=== PATIENT | male | born 1980 | race African-American/Black ===

== ENCOUNTER 2016-11-15 17:09 | Emergency (ER) | payer OTHER ==
[~2016-11-15] VITALS: Ht 165.1 cm; Wt 57.6 kg
[~2016-11-15 17:09] MED LIST: AMLODIPINE BESY10 MG ORAL; ANTACID300 M1 PO; COLACE100 MG ORAL; FOLIC ACID1 MG ORAL; KEFLEX500 MG ORAL; MULTIVITAMINS1 EAC2 ORAL; NORCO 5-325 TA1 EAC1 ORAL; NORVASC5 MG ORAL; OMEPRAZOLE20 M3 ORAL; POLYTRIM OP SOL10 ML BOTH EYES; RANITIDINE HCL150 M2 PO; VITAMIN B-1100 M2 PO; ZANTAC150 MG ORAL; ZOFRAN8 MG SL
--- NOTE | 2016-11-15 17:38 | Emergency Room Report ---
History of Present Illness General Chief Complaint: Abdominal Pain Source: Patient Present Illness HPI Patient is a 36-year-old male who presented after increased epigastric pain. Patient prior history of pancreatitis. Patient states that he had recently drank alcohol several days ago. Patient reported having a gradual onset of pain. Patient had not been vomiting since yesterday. The patient had reported increased pain in the epigastric area which did not radiate to his back. Patient denied having a black or bloody stool or hematemesis. The patient takes Norvasc for hypertension Allergies: Coded Allergies: No Known Allergies (Unverified , 12/21/13) Patient History Reviewed Nursing Documentation: PMH: Agreed, PSxH: Agreed Nursing Documentation-PMH Past Medical History: No History, Except For Hx Hypertension: Yes Hx Cancer: No Hx Gastrointestinal Problems: Yes - Pancreatitis Hx Neurological Problems: No Review of Systems All Other Systems: negative except mentioned in HPI Physical Exam Vital Signs Date Time Temp Pulse Resp B/P Pulse Ox O2 Delivery O2 Flow Rate FiO2 11/15/16 17:18 99.7 96 20 153/90 100 Room Air Sp02 EP Interpretation: reviewed, normal General Appearance: normal inspection, well appearing, no apparent distress, alert, GCS 15, non-toxic Head: atraumatic ENT: normal ENT inspection, hearing grossly normal, normal voice Neck: normal inspection, full range of motion, supple, no bony tend Respiratory: normal inspection, lungs clear, normal breath sounds, no respiratory distress, no retraction, no wheezing Cardiovascular #1: regular rate, rhythm, no edema Gastrointestinal: normal inspection, normal bowel sounds, non tender, soft, no guarding, no hernia Genitourinary: no CVA tenderness Musculoskeletal: normal inspection, back normal, normal range of motion Neurologic: normal inspection, alert, oriented x3, responsive, inspector aligning III-XII nml as tested, speech normal Psychiatric: normal inspection, judgement/insight normal, mood/affect normal Skin: normal inspection, normal color, no rash Medical Decision Making Diagnostic Impression: Primary Impression: Pancreatitis ER Course Patient presented for abdominal pain. Differential diagnoses included ischemic bowel, appendicitis, perforated viscus, abdominal aortic aneurysm, inferior myocardial infarction, viral gastroenteritis. Because of complexity of patient' s case laboratory testing and imaging studies were ordered.Patient presented for dysuria. Differential diagnosis included was not limited to appendicitis, urinary tract infection, pelvic inflammatory disease, urethritis, herpes among others. Patient's benign exam and does not appear to require any imaging at this time. Urinalysis showed evidence of a urinary tract infection. The patient does not appear septic. The patient was given Bactrim in emergency department. He is given prescription for antibiotics The patient is advised to follow up with primary care doctor in 1-2 days. Patient is advised to return if any worsening condition or if any changes in status that are concerning. Labs Test 11/15/16 18:10 White Blood Count 13.8 K/UL (4.8-10.8) Red Blood Count 4.29 M/UL (4.70-6.10) Hemoglobin 14.5 G/DL (14.2-18.0) Hematocrit 41.0 % (42.0-52.0) Mean Corpuscular Volume 96 FL (80-99) Mean Corpuscular Hemoglobin 33.7 PG (27.0-31.0) Mean Corpuscular Hemoglobin Concent 35.3 G/DL (32.0-36.0) Red Cell Distribution Width 12.3 % (11.6-14.8) Platelet Count 304 K/UL (150-450) Mean Platelet Volume 6.9 FL (6.5-10.1) Neutrophils (%) (Auto) 78.9 % (45.0-75.0) Lymphocytes (%) (Auto) 9.6 % (20.0-45.0) Monocytes (%) (Auto) 9.0 % (1.0-10.0) Eosinophils (%) (Auto) 0.5 % (0.0-3.0) Basophils (%) (Auto) 2.0 % (0.0-2.0) Urine Color Yellow Urine Appearance Clear Urine pH 5.0 (4.5-8.0) Urine Specific [place] 1.020 (1.005-1.035) Urine Protein Negative (NEGATIVE) Urine Glucose (UA) Negative (NEGATIVE) Urine Ketones Negative (NEGATIVE) Urine Occult Blood Negative (NEGATIVE) Urine Nitrite Negative (NEGATIVE) Urine Bilirubin Negative (NEGATIVE) Urine Urobilinogen Normal MG/DL (0.0-1.0) Urine Leukocyte Esterase Negative (NEGATIVE) Sodium Level 137 mEQ/L (135-145) Potassium Level 3.5 mEQ/L (3.4-4.9) Chloride Level 97 mEQ/L (98-107) Carbon Dioxide Level 25 mEQ/L (20-30) Anion Gap 15 (5-15) Blood Urea Nitrogen 5 mg/dL (7-23) Creatinine 0.9 mg/dL (0.7-1.2) Estimat Glomerular Filtration Rate > 60 mL/min (>60) Glucose Level 116 mg/dL (74-106) Calcium Level 9.6 mg/dL (8.6-10.2) Total Bilirubin 0.4 mg/dL (0.0-1.2) Aspartate Amino Transf (AST/SGOT) 21 U/L (5-40) Alanine Aminotransferase (ALT/SGPT) 12 U/L (3-41) Alkaline Phosphatase 67 U/L (40-129) Total Protein 7.4 g/dL (6.6-8.7) Albumin 4.2 g/dL (3.5-5.2) Globulin 3.2 g/dL Albumin/Globulin Ratio 1.3 (1.0-2.7) Lipase 182 U/L (< 60) Last Vital Signs Date Time Temp Pulse Resp B/P Pulse Ox O2 Delivery O2 Flow Rate FiO2 11/15/16 17:18 99.7 96 20 153/90 100 Room Air Status: improved Disposition: HOME, SELF-CARE Condition: Stable Scripts Hydrocodone Bit/Acetaminophen 5-325* (NORCO 5-325 TABLET*) 1 Each Tablet 1 TAB ORAL Q4H Y for For Pain, #20 TAB Prov: Godfrey Ricardo 11/15/16 Ondansetron (Zofran) 4 Mg Tablet 4 MG ORAL Q6H Y for Nausea & Vomiting, #30 TAB 0 Refills Prov: Godfrey Ricardo 11/15/16 Godfrey Ricardo Nov 15, 2016 17:38
[2016-11-15] MEDS ORDERED: Lidocaine 2% Visc 15ml soln ORAL ONE (17:45)
[2016-11-15] MEDS ORDERED: Dicyclomine HCl 10mg/5ml oral soln ORAL ONE (17:45)
[2016-11-15 17:50] VITALS: BP 142/104
[2016-11-15] MEDS ORDERED: Morphine Sulfate 4mg/ml Inj IVP ONE (18:30)
[2016-11-15 18:33] LABS: EOSINOPHILS % (AUTO) 0.5 % (0.0-3.0); LYMPHOCYTES % (AUTO) 9.6 % (20.0-45.0); MEAN CORPUSCULAR HEMOGLOBIN 33.7 PG (27.0-31.0); MEAN CORPUSCULAR HGB CONC 35.3 G/DL (32.0-36.0); MEAN CORPUSCULAR VOLUME 96 FL (80-99); MEAN PLATELET VOLUME 6.9 FL (6.5-10.1); NEUTROPHILS % (AUTO) 78.9 % (45.0-75.0); PLATELET COUNT 304 K/UL (150-450); RED BLOOD COUNT 4.29 M/UL (4.70-6.10); RED CELL DISTRIBUTION WIDTH 12.3 % (11.6-14.8); WHITE BLOOD COUNT 13.8 K/UL (4.8-10.8)
[2016-11-15 18:35] LABS: APPEARANCE,URINE CLEAR; KETONES,URINE NEGATIVE (NEGATIVE); LEUKOCYTE ESTERASE ,URINE NEGATIVE (NEGATIVE); NITRITE,URINE NEGATIVE (NEGATIVE); PROTEIN,URINE NEGATIVE (NEGATIVE); UROBILINOGEN,URINE NORMAL MG/DL (0.0-1.0)
[2016-11-15 18:54] LABS: ALANINE AMINOTRANSFERASE 12 U/L (3-41); ALBUMIN/GLOBULIN RATIO 1.3 (1.0-2.7); ANION GAP 15 (5-15); ASPARTATE AMINO TRANSFERASE 21 U/L (5-40); CALCIUM 9.6 mg/dL (8.6-10.2); CARBON DIOXIDE 25 mEQ/L (20-30); CHLORIDE 97 mEQ/L (98-107); CREATININE 0.9 mg/dL (0.7-1.2); GLOMERULAR FILTRATION RATE > 60 mL/min (>60); HEMOLYSIS 4; LIPASE 182 U/L (< 60); POTASSIUM 3.5 mEQ/L (3.4-4.9); SODIUM 137 mEQ/L (135-145); TOTAL PROTEIN 7.4 g/dL (6.6-8.7)
[2016-11-15 19:10] VITALS: BP 155/90
[2016-11-15] MEDS ORDERED: ZOFRAN4 MG ORAL (19:32)
[2016-11-15] MEDS ORDERED: NORCO 5-325 TA1 EAC1 ORAL (19:34)
[2016-11-15 19:44] VITALS: BP 141/82
[2016-11-15 19:45] VITALS: BP 141/82
== END 2016-11-15 19:45 | disposition home or self-care (01) ==
LOC: EDBD 18:18 → EMR 18:18
DX: K85.90 Acute pancreatitis without necrosis or infection, unspecified (principal); I10 Essential (primary) hypertension
CPT/HCPCS: 36415; 80053; 81003; 83690; 85025; 96361; 96374; 96375; 99284; J2270; J2405

== ENCOUNTER 2019-04-28 11:29 | Inpatient (IN) | payer MEDICAID, OTHER ==
[~2019-04-28] VITALS: Ht 165.1 cm; Wt 57.6 kg
[~2019-04-28 11:29] MED LIST changes: +ZOFRAN4 MG ORAL
[2019-04-28] MEDS ORDERED: CATAPRES-TTS 11 EACH TDERMAL (11:39)
[2019-04-28] MEDS ORDERED: CATAPRES-TTS 31 EACH TDERMAL (11:39)
--- NOTE | 2019-04-28 11:42 | NUR ---
ED Nurse Note: Pt came in from home due to medial upper abdominal pain with nausea since yesterday morning. Pain 10/10 les. Pt reported last bowel movement was this morning, normal stool. Bowel sounds present on all quadrants. Pt has hx of Pancreatitis and suspects to be the same symptoms. AOx4, BP 179/106, ERMD aware. Will cont to monitor.
[2019-04-28] MEDS ORDERED: Metoclopramide 10mg/2ml Inj IVP ONE (11:45)
[2019-04-28] MEDS ORDERED: Morphine Sulfate 4mg/ml Inj (IV USE ONLY) IVP ONE ×2 (11:45→14:30)
[2019-04-28 12:08] VITALS: BP 179/106
[2019-04-28 12:15] LABS: EOSINOPHILS % (AUTO) 0.5 % (0.0-3.0); HEMATOCRIT 45.5 % (42.0-52.0); HEMOGLOBIN 15.3 G/DL (14.2-18.0); LYMPHOCYTES % (AUTO) 13.8 % (20.0-45.0); MEAN CORPUSCULAR VOLUME 96 FL (80-99); MONOCYTES % (AUTO) 6.9 % (1.0-10.0); NEUTROPHILS % (AUTO) 76.8 % (45.0-75.0); PLATELET COUNT 289 K/UL (150-450); RED BLOOD COUNT 4.75 M/UL (4.70-6.10); RED CELL DISTRIBUTION WIDTH 12.7 % (11.6-14.8); WHITE BLOOD COUNT 9.3 K/UL (4.8-10.8)
[2019-04-28 12:22] LABS: ANION GAP 13 mmol/L (5-15); BLOOD UREA NITROGEN 10 mg/dL (7-18); CALCIUM 9.4 MG/DL (8.5-10.1); CARBON DIOXIDE 23 MMOL/L (21-32); CHLORIDE 101 MMOL/L (98-107); CREATININE 1.2 MG/DL (0.55-1.30); POTASSIUM 3.8 MMOL/L (3.5-5.1); SODIUM 137 MMOL/L (136-145)
[2019-04-28 12:33] LABS: ALANINE AMINOTRANSFERASE 56 U/L (12-78); ALBUMIN 4.3 G/DL (3.4-5.0); ALBUMIN/GLOBULIN RATIO 1.2 (1.0-2.7); ALKALINE PHOSPHATASE 79 U/L (46-116); ASPARTATE AMINO TRANSFERASE 85 U/L (15-37); BILIRUBIN,TOTAL 1.1 MG/DL (0.2-1.0)
[2019-04-28 12:51] LABS: BILIRUBIN,DIRECT 0.2 MG/DL (0.0-0.3)
--- NOTE | 2019-04-28 13:19 | NUR ---
ED Nurse Note: Pt down to CT for imaging
--- NOTE | 2019-04-28 14:26 | Diagnostic Imaging Report ---
Indication: Abdominal pain Technique: Continuous helical transaxial imaging of the abdomen and pelvis was obtained from the lung bases to the pubic symphysis. No intravenous contrast was administered. Coronal 2-D reformats were also obtained. Automatic Exposure Control was utilized. Total Dose length Product (DLP): 510.[address] Dose Index Volume (CTDIvol): 10.21 mGy Comparison: none Findings: There is mild posterior dependent atelectasis. The pancreas is enlarged and the borders of the pancreas are ill-defined. The findings are consistent with acute pancreatitis. There are calcifications that are punctate within the head of the pancreas consistent with chronic pancreatitis. There is no biliary ductal dilatation identified. The gallbladder is mildly distended. Spleen is normal size. There is no nephrolithiasis. Urinary bladder is unremarkable. There is no free fluid. Appendix is normal. Bowel gas pattern is nonobstructive. Mild arterial calcium noted within some of the vessels. IMPRESSION: Acute on chronic pancreatitis. Involvement appears diffuse but more severe in the area of the pancreatic head. Moderate inflammation noted. No pseudocyst or abscess or biliary ductal dilatation. The CT scanner at [facility] is accredited by the [employer] and the scans are performed using dose optimization techniques as appropriate to a performed exam including Automatic Exposure control.
--- NOTE | 2019-04-28 14:29 | Emergency Room Report ---
History of Present Illness General Chief Complaint: Abdominal Pain Source: Patient Present Illness HPI Patient presents with complaints of increased epigastric and midabdominal pain reports that its Fairly consistent with previous pancreatitis patient does have a history of drinking recently he did not feel that it was too excessive denies any chest pain he does have increased nausea vomiting Denies any lower abdominal pain or diarrhea denies any fevers or chills Allergies: Coded Allergies: No Known Allergies (Unverified , 04/28/19) Patient History Past Medical History: see triage record Pertinent Family History: none Reviewed Nursing Documentation: PMH: Agreed; PSxH: Agreed Nursing Documentation-PMH Past Medical History: No History, Except For Hx Hypertension: Yes Hx Cancer: No Hx Gastrointestinal Problems: Yes - Pancreatitis Hx Neurological Problems: No Review of Systems All Other Systems: negative except mentioned in HPI Physical Exam Vital Signs Date Time Temp Pulse Resp B/P (MAP) Pulse Ox O2 Delivery O2 Flow Rate FiO2 04/28/19 11:34 98.2 93 18 206/126 (152) 97 Room Air Sp02 EP Interpretation: reviewed, normal General Appearance: well appearing, no apparent distress Head: normocephalic, atraumatic Eyes: bilateral eye PERRL, bilateral eye EOMI ENT: hearing grossly normal, normal pharynx, TMs + canals normal, uvula midline Neck: full range of motion, supple, no meningismus, no bony tend Respiratory: lungs clear, normal breath sounds, no rhonchi, no respiratory distress, no retraction, no accessory muscle use Cardiovascular #1: normal peripheral pulses, regular rate, rhythm, no edema, no gallop, no JVD, no murmur Gastrointestinal: normal bowel sounds, no organomegaly, non-distended, no guarding, no hernia, no pulsatile mass, no rebound, other - Tender in the midepigastric and left upper quadrant Genitourinary: no CVA tenderness Musculoskeletal: normal inspection Neurologic: oriented x3, responsive, belt sander III-XII nml as tested, motor strength/ tone normal, sensory intact Psychiatric: mood/affect normal Skin: no rash Lymphatic: normal inspection, no adenopathy Medical Decision Making Diagnostic Impression: Primary Impression: Pancreatitis, acute ER Course With the history exam and presentation, multiple differentials considered, including but not limited to appendicitis, gastritis, cholecystitis, diverticulitis patient has aggressive IV hydration and pain medication provided Blood work reveals acute pancreatitis as well Imaging has been obtained which also correlates clinically with this patient requiring further inpatient care Labs Test 04/28/19 12:00 White Blood Count 9.3 K/UL (4.8-10.8) Red Blood Count 4.75 M/UL (4.70-6.10) Hemoglobin 15.3 G/DL (14.2-18.0) Hematocrit 45.5 % (42.0-52.0) Mean Corpuscular Volume 96 FL (80-99) Mean Corpuscular Hemoglobin 32.1 PG (27.0-31.0) Mean Corpuscular Hemoglobin Concent 33.5 G/DL (32.0-36.0) Red Cell Distribution Width 12.7 % (11.6-14.8) Platelet Count 289 K/UL (150-450) Mean Platelet Volume 6.1 FL (6.5-10.1) Neutrophils (%) (Auto) 76.8 % (45.0-75.0) Lymphocytes (%) (Auto) 13.8 % (20.0-45.0) Monocytes (%) (Auto) 6.9 % (1.0-10.0) Eosinophils (%) (Auto) 0.5 % (0.0-3.0) Basophils (%) (Auto) 2.0 % (0.0-2.0) Sodium Level 137 MMOL/L (136-145) Potassium Level 3.8 MMOL/L (3.5-5.1) Chloride Level 101 MMOL/L (98-107) Carbon Dioxide Level 23 MMOL/L (21-32) Anion Gap 13 mmol/L (5-15) Blood Urea Nitrogen 10 mg/dL (7-18) Creatinine 1.2 MG/DL (0.55-1.30) Estimat Glomerular Filtration Rate > 60 mL/min (>60) Glucose Level 128 MG/DL (74-106) Calcium Level 9.4 MG/DL (8.5-10.1) Total Bilirubin 1.1 MG/DL (0.2-1.0) Direct Bilirubin 0.2 MG/DL (0.0-0.3) Aspartate Amino Transf (AST/SGOT) 85 U/L (15-37) Alanine Aminotransferase (ALT/SGPT) 56 U/L (12-78) Alkaline Phosphatase 79 U/L (46-116) Total Protein 8.0 G/DL (6.4-8.2) Albumin 4.3 G/DL (3.4-5.0) Globulin 3.7 g/dL Albumin/Globulin Ratio 1.2 (1.0-2.7) Lipase > 2000 U/L (73-393) CT/MRI/US Diagnostic Results CT/MRI/US Diagnostic Results : Impression CT abdomen pelvis IMPRESSION: Acute on chronic pancreatitis. Involvement appears diffuse but more severe in the area of the pancreatic head. Moderate inflammation noted. No pseudocyst or abscess or biliary ductal dilatation. Last Vital Signs Date Time Temp Pulse Resp B/P (MAP) Pulse Ox O2 Delivery O2 Flow Rate FiO2 04/28/19 12:27 98.2 04/28/19 12:08 94 24 179/106 99 Room Air Status: improved Disposition: ADMITTED INPATIENT Condition: Serious Referrals: [facility],REFERRING (PCP) Stephany Jeter DO Apr 28, 2019 14:29
[2019-04-28 14:36] VITALS: BP 172/111
--- NOTE | 2019-04-28 14:46 | NUR ---
ED Nurse Note: Report given to ISIS Piña at ext [phone]. Pt to be transfered to room 314-2 on [facility] per protocol.
[2019-04-28] MEDS ORDERED: HYDROmorphone 1mg/ml Carpuject IVP PRN (15:15)
--- NOTE | 2019-04-28 15:15 | NUR ---
NURSE NOTES: Patient arrived on unit. Stable. Complains of abdominal pain. Patient's blood pressure is elevated, Dr. Davila notified. Patient's skin is clean, dry, and intact. Patient oriented to room, call light, and unit. Patient encouraged to use call light for assistance, verbalized understanding. Patient is in bed in locked and lowest position with call light within reach. WIll continue to monitor.
--- NOTE | 2019-04-28 15:30 | NUR ---
NURSE NOTES: Waiting for patient's daughter to call back and tell RN which home medication patient takes. Will continue clonidine patch as ordered once daughter gives home medication information.
[2019-04-28] MEDS: NS w/KCl 20mEq 1000ml 1,000 ML IV SCH (16:34)
--- NOTE | 2019-04-28 18:00 | NUR ---
NURSE NOTES: Continued patient's clonidine patch from home as ordered after patient told RN which medication he takes.
--- NOTE | 2019-04-28 19:40 | NUR ---
NURSE NOTES: Received report from ISIS Piña and rounds made with out going nurse. Received pt lying in bed, AOX4, abdominal pain 6/10, denies nausea or vomiting, will medicate for pain, no distress noted. IV L wrist patent and intact. IV fluid infusing as ordered. Bed in lowest position and locked, side rails up x 2, call light within reach. Will continue to monitor.
--- NOTE | 2019-04-28 19:50 | NUR ---
HAND-OFF: Report given to Ken MARINELLI. Patient is stable.
[2019-04-28 20:29] VITALS: BP 181/121
--- NOTE | 2019-04-28 20:45 | Consultation ---
History of Present Illness General Date patient seen: Apr 28, 2019 Time patient seen: 20:44 Chief Complaint: Abdominal Pain Present Illness HPI Pt came in from home due to medial upper abdominal pain with nausea since yesterday morning. Pain 10/10 les. Pt reported last bowel movement was this morning, normal stool. Bowel sounds present on all quadrants. Pt has hx of Pancreatitis and suspects to be the same symptoms, Labs showed elevated lipase Hx of hypertension, cardiology consulted for management. No chest pain, troponin negative Allergies: Coded Allergies: No Known Allergies (Unverified , 04/28/19) Medication History Scheduled Amlodipine Besylate* (Amlodipine Besylate*), 10 MG ORAL DAILY, (Reported) Calcium Carbonate (Antacid), 500 MG PO FOUR TIMES A DAY, (Reported) Cephalexin* (Keflex*), 500 MG ORAL Q6H Docusate Sodium* (Colace*), 100 MG ORAL THREE TIMES A DAY Omeprazole (Omeprazole), 20 MG ORAL TWICE A DAY, (Reported) Ranitidine HCl (Ranitidine HCl), 150 MG PO BID, (Reported) Scheduled PRN Spejaloyx-Yaj-7* (Zoasxibh-Fqs-5*), 1 PATCH TDERMAL DAILY PRN for For High Blood Pressure, (Reported) Hydrocodone Bit/Acetaminophen 5-325* ([place] 5-325 Tablet*), 1 TAB ORAL Q6HR PRN for For Pain, (Reported) Hydrocodone Bit/Acetaminophen 5-325* ([place] 5-325 Tablet*), 1 TAB ORAL Q4H PRN for For Pain Ondansetron (Zofran), 4 MG ORAL Q6H PRN for Nausea & Vomiting Ondansetron Hcl* (Zofran*), 4 MG SL Q6H PRN for Nausea & Vomiting, (Reported) Patient History Healthcare decision maker Higinio La Resuscitation status Full Code Advanced Directive on File Review of Systems Constitutional: Reports: malaise, weakness Eye: Reports: no symptoms ENT: Reports: no symptoms Respiratory: Reports: no symptoms Cardiovascular: Reports: no symptoms Gastrointestinal: Reports: abdominal pain, nausea, vomiting Genitourinary: Reports: no symptoms Musculoskeletal: Reports: no symptoms Skin: Reports: no symptoms Psychiatric: Reports: no symptoms Neurological: Reports: no symptoms Endocrine: Reports: no symptoms Hematologic/Lymphatic: Reports: no symptoms Physical Exam General Appearance: no apparent distress, alert Lines, tubes and drains: peripheral HEENT: normocephalic, atraumatic Neck: non-tender, normal alignment, supple, normal inspection Respiratory/Chest: chest wall non-tender, lungs clear, normal breath sounds, no respiratory distress, no accessory muscle use Cardiovascular/Chest: normal peripheral pulses, normal rate, regular rhythm Abdomen: decreased bowel sounds, distended, guarding, rebound, tender Extremities: normal range of motion, non-tender, normal inspection Neurologic: propulsion motor and generator repairer II-XII grossly normal, no motor/sensory deficits Last 24 Hour Vital Signs Date Time Temp Pulse Resp B/P (MAP) Pulse Ox O2 Delivery O2 Flow Rate FiO2 04/28/19 20:29 97.6 79 22 181/121 (141) 100 04/28/19 18:13 156/102 04/28/19 15:40 Room Air 04/28/19 15:20 200/129 04/28/19 14:46 98.2 86 20 172/111 100 Room Air 04/28/19 14:36 98.2 86 20 172/111 100 Room Air 04/28/19 12:27 98.2 04/28/19 12:08 98.2 94 24 179/106 99 Room Air 04/28/19 11:47 93 18 Room Air 04/28/19 11:34 98.2 93 18 206/126 (152) 97 Room Air Laboratory Tests Test 04/28/19 12:00 04/28/19 18:00 White Blood Count 9.3 K/UL (4.8-10.8) Red Blood Count 4.75 M/UL (4.70-6.10) Hemoglobin 15.3 G/DL (14.2-18.0) Hematocrit 45.5 % (42.0-52.0) Mean Corpuscular Volume 96 FL (80-99) Mean Corpuscular Hemoglobin 32.1 PG (27.0-31.0) H Mean Corpuscular Hemoglobin Concent 33.5 G/DL (32.0-36.0) Red Cell Distribution Width 12.7 % (11.6-14.8) Platelet Count 289 K/UL (150-450) Mean Platelet Volume 6.1 FL (6.5-10.1) L Neutrophils (%) (Auto) 76.8 % (45.0-75.0) H Lymphocytes (%) (Auto) 13.8 % (20.0-45.0) L Monocytes (%) (Auto) 6.9 % (1.0-10.0) Eosinophils (%) (Auto) 0.5 % (0.0-3.0) Basophils (%) (Auto) 2.0 % (0.0-2.0) Sodium Level 137 MMOL/L (136-145) Potassium Level 3.8 MMOL/L (3.5-5.1) Chloride Level 101 MMOL/L (98-107) Carbon Dioxide Level 23 MMOL/L (21-32) Anion Gap 13 mmol/L (5-15) Blood Urea Nitrogen 10 mg/dL (7-18) Creatinine 1.2 MG/DL (0.55-1.30) Estimat Glomerular Filtration Rate > 60 mL/min (>60) Glucose Level 128 MG/DL (74-106) H Calcium Level 9.4 MG/DL (8.5-10.1) Total Bilirubin 1.1 MG/DL (0.2-1.0) H Direct Bilirubin 0.2 MG/DL (0.0-0.3) Aspartate Amino Transf (AST/SGOT) 85 U/L (15-37) H Alanine Aminotransferase (ALT/SGPT) 56 U/L (12-78) Alkaline Phosphatase 79 U/L (46-116) Total Protein 8.0 G/DL (6.4-8.2) Albumin 4.3 G/DL (3.4-5.0) Globulin 3.7 g/dL Albumin/Globulin Ratio 1.2 (1.0-2.7) Lipase > 2000 U/L (73-393) H Serum Alcohol < 3 mg/dL Urine Opiates Screen Pending Urine Barbiturates Screen Pending Phencyclidine (PCP) Screen Pending Urine Amphetamines Screen Pending Urine Benzodiazepines Screen Pending Urine Cocaine Screen Pending Urine Marijuana (THC) Screen Pending Height (Feet): 5 Height (Inches): 5.00 Weight (Pounds): 127 Medications Current Medications Medications (Trade) Dose Ordered Sig/Noé Route PRN Reason Start Time Stop Time Status Last Admin Dose Admin Clonidine HCl (Catapres TTS-1) 1 patch QWEEK TDERMAL 04/28/19 18:00 05/28/19 17:59 04/28/19 18:13 Clonidine HCl (Catapres Tab) 0.1 mg Q4H PRN ORAL sbp>150 04/28/19 15:15 05/28/19 15:14 04/28/19 15:20 Hydromorphone HCl (Dilaudid) 1 mg Q4H PRN IVP Moderate Pain (Pain Scale 4-6) 04/28/19 15:15 05/05/19 15:14 Hydromorphone HCl (Dilaudid) 2 mg Q4H PRN IVP Severe Pain (Pain Scale 7-10) 04/28/19 15:15 05/05/19 15:14 04/28/19 20:34 Lorazepam (Ativan 2mg/ml 1ml) 1 mg TIDPRN PRN IV For Anxiety 04/28/19 15:15 05/05/19 15:14 Ondansetron HCl (Zofran) 4 mg Q6H PRN IVP Nausea & Vomiting 04/28/19 15:15 05/28/19 15:14 Potassium Chloride/Sodium Chloride 1,000 ml @ 75 mls/hr [id number] IV 04/28/19 16:00 05/28/19 15:59 04/28/19 16:34 Assessment/Plan Status: stable, progressing Assessment/Plan: Assessment: (1) Drug abuse (2) Cyclic vomiting syndrome (3) Acute pancreatitis (4) Hypertension Plan: NPO IV fluids Creon Monitor electrolytes Monitor on telemetry Clonidine patch for hypertension Ashwin Sher MD Apr 28, 2019 20:45
--- NOTE | 2019-04-28 21:04 | NUR ---
NURSE NOTES: Tamara (Arachnys) from the lab called. Pt urine toxicology positive for Opiates and THC. Per LYNN Alvarez no need to notify Dr. Davila.
[2019-04-28 21:30] VITALS: BP 158/108
--- NOTE | 2019-04-28 21:30 | NUR ---
NURSE NOTES: B/P recheck 158/108, HR 80. Pt's pain level 5/10 on abdomen. Denies chest pain, no SOB, no nausea, no distress noted. Will continue to monitor.
[2019-04-29] VITALS (8 sets, daily range): BP systolic 130–179; BP diastolic 81–119
--- NOTE | 2019-04-29 00:50 | NUR ---
NURSE NOTES: IV on R FA infiltrated. Covered with 4x4 gauze and tape. Elevated R arm on pillow. Pt refused new IV insertion at this time.
--- NOTE | 2019-04-29 01:30 | NUR ---
NURSE NOTES: B/P 180/124. HR 89. Pt denies any chest pain, no dizziness, no SOB, no distress noted. Clonidine 0.1mg PO given. Will continue to monitor.
[2019-04-29] MEDS: LORazepam Inj 2mg/ml 1ml IV PRN ×2 (03:13→16:19)
--- NOTE | 2019-04-29 03:15 | History and Physical Report ---
DATE OF ADMISSION: 04/28/2019 HISTORY OF PRESENT ILLNESS: The patient is a 38-year-old male with a previous pancreatitis who came to the hospital with abdominal pain. He has a history of previous pancreatitis due to alcohol abuse. He states he had a few beers which he did not think would cause the symptoms; however, it may cause him to have abdominal pain. He came to the hospital with abdominal pain. He was seen and worked up and found to have lipase pancreatitis. The patient was also noted to be significantly hypertensive and was seen by Cardiology overnight. PAST HISTORY: 1. Previous pancreatitis. 2. Hypertension. HOME MEDICATIONS: Amlodipine, Keflex, Colace, omeprazole, and Zantac. CODE STATUS: Full. REVIEW OF SYSTEMS: Denies any headaches, hematemesis, melena, or hematochezia. PHYSICAL EXAMINATION: VITAL SIGNS: Blood pressure 150/80, heart rate 80, respirations 18, afebrile. GENERAL: Reveals a young male. HEENT: Unremarkable. LUNGS: Clear breath sounds bilaterally. ABDOMEN: Soft with mild right right upper quadrant tenderness. EXTREMITIES: There is some peripheral edema. NEUROLOGIC: Nonfocal. LABORATORY DATA: Lab testing is unremarkable expect of lipase of over 2000. Glucose 128. Total bilirubin 1.1. Toxicology positive for marijuana and opiates. Imaging study obtained earlier today shows CT of the abdomen with acute on chronic pancreatitis without any evidence of . IMPRESSION: 1. Acute pancreatitis. 2. Alcohol abuse. 3. Marijuana abuse. 4. Hypertension. Discussion with the hospitalist. We will consult GI. The patient was seen by Cardiology. We will do bowel rest, provide IV fluids. Pain medications. We will follow carefully. Demetrio Davila M.D. DR: Den JOB#: [id number] CC:
--- NOTE | 2019-04-29 03:15 | NUR ---
NURSE NOTES: New IV inserted L hand # 22 patent and intact. IV fluid resumed.
[2019-04-29] MEDS: NS w/KCl 20mEq 1000ml 1,000 ML IV SCH ×2 (05:20→08:48)
[2019-04-29 06:39] LABS: BASOPHILS % (AUTO) 1.1 % (0.0-2.0); EOSINOPHILS % (AUTO) 1.9 % (0.0-3.0); HEMATOCRIT 40.1 % (42.0-52.0); HEMOGLOBIN 13.4 G/DL (14.2-18.0); LYMPHOCYTES % (AUTO) 12.1 % (20.0-45.0); MEAN CORPUSCULAR VOLUME 97 FL (80-99); MONOCYTES % (AUTO) 10.6 % (1.0-10.0); NEUTROPHILS % (AUTO) 74.4 % (45.0-75.0); PLATELET COUNT 231 K/UL (150-450); RED BLOOD COUNT 4.14 M/UL (4.70-6.10); RED CELL DISTRIBUTION WIDTH 12.3 % (11.6-14.8)
[2019-04-29 07:09] LABS: ANION GAP 11 mmol/L (5-15); BLOOD UREA NITROGEN 7 mg/dL (7-18); CALCIUM 8.6 MG/DL (8.5-10.1); CARBON DIOXIDE 23 MMOL/L (21-32); CHLORIDE 105 MMOL/L (98-107); SODIUM 139 MMOL/L (136-145)
--- NOTE | 2019-04-29 07:27 | NUR ---
HAND-OFF: Report given to ISIS Pennington. Pt in stable condition.
--- NOTE | 2019-04-29 07:30 | NUR ---
NURSE NOTES: Patient lying in bed sleeping. No signs and symptoms of pain or distress at this time. Will continue to monitor. IV dressing intact and dry. Bed lowest position. Call light within reach. Will continue to monitor.
--- NOTE | 2019-04-29 09:06 | Cardiology Progress Note ---
Assessment/Plan Status: stable Assessment/Plan Assessment/Plan Status: stable, progressing Assessment/Plan: Assessment: (1) Drug abuse (2) Cyclic vomiting syndrome (3) Acute pancreatitis (4) Hypertension Plan: NPO IV fluids Creon Monitor electrolytes Monitor on telemetry Clonidine patch for hypertension Subjective Cardiovascular: Reports: no symptoms Respiratory: Reports: no symptoms Gastrointestinal/Abdominal: Reports: no symptoms, vomiting Genitourinary: Reports: no symptoms Subjective No acute events, remains NPO with ice chips, mild abdominal pain Objective Last 24 Hour Vital Signs Date Time Temp Pulse Resp B/P (MAP) Pulse Ox O2 Delivery O2 Flow Rate FiO2 04/29/19 04:00 97.9 78 18 145/90 (108) 97 04/29/19 02:30 82 156/104 (121) 04/29/19 01:33 180/124 04/29/19 00:00 97.6 71 20 175/107 (129) 97 04/28/19 21:37 158/108 04/28/19 21:30 80 158/108 (125) 04/28/19 21:00 Room Air 04/28/19 20:29 97.6 79 22 181/121 (141) 100 04/28/19 18:13 156/102 04/28/19 15:40 Room Air 04/28/19 15:20 200/129 04/28/19 14:46 98.2 86 20 172/111 100 Room Air 04/28/19 14:36 98.2 86 20 172/111 100 Room Air 04/28/19 12:27 98.2 04/28/19 12:08 98.2 94 24 179/106 99 Room Air 04/28/19 11:47 93 18 Room Air 04/28/19 11:34 98.2 93 18 206/126 (152) 97 Room Air General Appearance: no apparent distress, alert EENT: PERRL/EOMI, normal ENT inspection, TMs normal, pharynx normal Neck: non-tender, normal alignment, supple, normal inspection, no JVD Rhythm: NSR Cardiovascular: normal peripheral pulses, normal rate Respiratory/Chest: chest wall non-tender, lungs clear Abdomen: normal bowel sounds, non tender, soft Extremities: normal range of motion, non-tender, normal inspection 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, no motor/sensory deficits Intake and Output 04/28/19 04/29/19 19:00 07:00 Intake Total 1075 ml 675 ml Output Total 1433 ml Balance 1075 ml -758 ml Intake IV Total 1075 ml 675 ml Output Urine Total 1433 ml # Voids 1 Laboratory Tests Test 04/28/19 12:00 04/28/19 18:00 04/29/19 05:50 White Blood Count 9.3 K/UL (4.8-10.8) 10.0 K/UL (4.8-10.8) Red Blood Count 4.75 M/UL (4.70-6.10) 4.14 M/UL (4.70-6.10) L Hemoglobin 15.3 G/DL (14.2-18.0) 13.4 G/DL (14.2-18.0) L Hematocrit 45.5 % (42.0-52.0) 40.1 % (42.0-52.0) L Mean Corpuscular Volume 96 FL (80-99) 97 FL (80-99) Mean Corpuscular Hemoglobin 32.1 PG (27.0-31.0) H 32.3 PG (27.0-31.0) H Mean Corpuscular Hemoglobin Concent 33.5 G/DL (32.0-36.0) 33.4 G/DL (32.0-36.0) Red Cell Distribution Width 12.7 % (11.6-14.8) 12.3 % (11.6-14.8) Platelet Count 289 K/UL (150-450) 231 K/UL (150-450) Mean Platelet Volume 6.1 FL (6.5-10.1) L 6.3 FL (6.5-10.1) L Neutrophils (%) (Auto) 76.8 % (45.0-75.0) H 74.4 % (45.0-75.0) Lymphocytes (%) (Auto) 13.8 % (20.0-45.0) L 12.1 % (20.0-45.0) L Monocytes (%) (Auto) 6.9 % (1.0-10.0) 10.6 % (1.0-10.0) H Eosinophils (%) (Auto) 0.5 % (0.0-3.0) 1.9 % (0.0-3.0) Basophils (%) (Auto) 2.0 % (0.0-2.0) 1.1 % (0.0-2.0) Sodium Level 137 MMOL/L (136-145) 139 MMOL/L (136-145) Potassium Level 3.8 MMOL/L (3.5-5.1) 4.0 MMOL/L (3.5-5.1) Chloride Level 101 MMOL/L (98-107) 105 MMOL/L (98-107) Carbon Dioxide Level 23 MMOL/L (21-32) 23 MMOL/L (21-32) Anion Gap 13 mmol/L (5-15) 11 mmol/L (5-15) Blood Urea Nitrogen 10 mg/dL (7-18) 7 mg/dL (7-18) Creatinine 1.2 MG/DL (0.55-1.30) 1.0 MG/DL (0.55-1.30) Estimat Glomerular Filtration Rate > 60 mL/min (>60) > 60 mL/min (>60) Glucose Level 128 MG/DL (74-106) H 85 MG/DL (74-106) Calcium Level 9.4 MG/DL (8.5-10.1) 8.6 MG/DL (8.5-10.1) Total Bilirubin 1.1 MG/DL (0.2-1.0) H Direct Bilirubin 0.2 MG/DL (0.0-0.3) Aspartate Amino Transf (AST/SGOT) 85 U/L (15-37) H Alanine Aminotransferase (ALT/SGPT) 56 U/L (12-78) Alkaline Phosphatase 79 U/L (46-116) Total Protein 8.0 G/DL (6.4-8.2) Albumin 4.3 G/DL (3.4-5.0) Globulin 3.7 g/dL Albumin/Globulin Ratio 1.2 (1.0-2.7) Lipase > 2000 U/L (73-393) H > 2000 U/L (73-393) H Serum Alcohol < 3 mg/dL Urine Opiates Screen Positive (NEGATIVE) H Urine Barbiturates Screen Negative (NEGATIVE) Phencyclidine (PCP) Screen Negative (NEGATIVE) Urine Amphetamines Screen Negative (NEGATIVE) Urine Benzodiazepines Screen Negative (NEGATIVE) Urine Cocaine Screen Negative (NEGATIVE) Urine Marijuana (THC) Screen Positive (NEGATIVE) H Ashwin Sher MD Apr 29, 2019 09:06
--- NOTE | 2019-04-29 09:51 | Pulmonology Progress Note ---
Assessment/Plan Assessment/Plan IMPRESSION: 1. Acute pancreatitis. 2. Alcohol abuse. 3. Marijuana abuse. 4. Hypertension. Await GI consult. Seen by Cardiology. Start clear liquids Provide IV fluids and pain medications. I will follow carefully. Subjective Interval Events: Feeling better; lipase still >2000 Constitutional: Reports: no symptoms HEENT: Repors: no symptoms Respiratory: Reports: no symptoms Cardiovascular: Reports: no symptoms Gastrointestinal/Abdominal: Reports: nausea Genitourinary: Reports: no symptoms Neurologic: Reports: no symptoms Allergies: Coded Allergies: No Known Allergies (Unverified , 04/28/19) Objective Last 24 Hour Vital Signs Date Time Temp Pulse Resp B/P (MAP) Pulse Ox O2 Delivery O2 Flow Rate FiO2 04/29/19 04:00 97.9 78 18 145/90 (108) 97 04/29/19 02:30 82 156/104 (121) 04/29/19 01:33 180/124 04/29/19 00:00 97.6 71 20 175/107 (129) 97 04/28/19 21:37 158/108 04/28/19 21:30 80 158/108 (125) 04/28/19 21:00 Room Air 04/28/19 20:29 97.6 79 22 181/121 (141) 100 04/28/19 18:13 156/102 04/28/19 15:40 Room Air 04/28/19 15:20 200/129 04/28/19 14:46 98.2 86 20 172/111 100 Room Air 04/28/19 14:36 98.2 86 20 172/111 100 Room Air 04/28/19 12:27 98.2 04/28/19 12:08 98.2 94 24 179/106 99 Room Air 04/28/19 11:47 93 18 Room Air 04/28/19 11:34 98.2 93 18 206/126 (152) 97 Room Air Intake and Output 04/28/19 04/29/19 19:00 07:00 Intake Total 1075 ml 675 ml Output Total 1433 ml Balance 1075 ml -758 ml Intake IV Total 1075 ml 675 ml Output Urine Total 1433 ml # Voids 1 General Appearance: no acute distress HEENT: normocephalic Respiratory/Chest: chest wall non-tender, lungs clear Cardiovascular: normal peripheral pulses Abdomen: normal bowel sounds Laboratory Tests 04/28/19 12:00: White Blood Count 9.3, Red Blood Count 4.75, Hemoglobin 15.3, Hematocrit 45.5, Mean Corpuscular Volume 96, Mean Corpuscular Hemoglobin 32.1H, Mean Corpuscular Hemoglobin Concent 33.5, Red Cell Distribution Width 12.7, Platelet Count 289, Mean Platelet Volume 6.1L, Neutrophils (%) (Auto) 76.8H, Lymphocytes (%) (Auto) 13.8L, Monocytes (%) (Auto) 6.9, Eosinophils (%) (Auto) 0.5, Basophils (%) (Auto ) 2.0, Sodium Level 137, Potassium Level 3.8, Chloride Level 101, Carbon Dioxide Level 23, Anion Gap 13, Blood Urea Nitrogen 10, Creatinine 1.2, Estimat Glomerular Filtration Rate > 60, Glucose Level 128H, Calcium Level 9.4, Total Bilirubin 1.1H, Direct Bilirubin 0.2, Aspartate Amino Transf (AST/SGOT) 85H, Alanine Aminotransferase (ALT/SGPT) 56, Alkaline Phosphatase 79, Total Protein 8.0, Albumin 4.3, Globulin 3.7, Albumin/Globulin Ratio 1.2, Lipase > 2000H, Serum Alcohol < 3 04/28/19 18:00: Urine Opiates Screen PositiveH, Urine Barbiturates Screen Negative, Phencyclidine (PCP) Screen Negative, Urine Amphetamines Screen Negative, Urine Benzodiazepines Screen Negative, Urine Cocaine Screen Negative, Urine Marijuana (THC) Screen PositiveH 04/29/19 05:50: White Blood Count 10.0, Red Blood Count 4.14L, Hemoglobin 13.4L, Hematocrit 40.1L, Mean Corpuscular Volume 97, Mean Corpuscular Hemoglobin 32.3H, Mean Corpuscular Hemoglobin Concent 33.4, Red Cell Distribution Width 12.3, Platelet Count 231, Mean Platelet Volume 6.3L, Neutrophils (%) (Auto) 74.4, Lymphocytes ( %) (Auto) 12.1L, Monocytes (%) (Auto) 10.6H, Eosinophils (%) (Auto) 1.9, Basophils (%) (Auto) 1.1, Sodium Level 139, Potassium Level 4.0, Chloride Level 105, Carbon Dioxide Level 23, Anion Gap 11, Blood Urea Nitrogen 7, Creatinine 1.0, Estimat Glomerular Filtration Rate > 60, Glucose Level 85, Calcium Level 8.6, Lipase > 2000H Current Medications Medications (Trade) Dose Ordered Sig/Noé Route PRN Reason Start Time Stop Time Status Last Admin Dose Admin Clonidine HCl (Catapres TTS-1) 1 patch QWEEK TDERMAL 04/28/19 18:00 05/28/19 17:59 04/28/19 18:13 Clonidine HCl (Catapres Tab) 0.1 mg Q4H PRN ORAL sbp>150 04/28/19 15:15 05/28/19 15:14 04/29/19 01:33 Hydromorphone HCl (Dilaudid) 1 mg Q4H PRN IVP Moderate Pain (Pain Scale 4-6) 04/28/19 15:15 05/05/19 15:14 Hydromorphone HCl (Dilaudid) 2 mg Q4H PRN IVP Severe Pain (Pain Scale 7-10) 04/28/19 15:15 05/05/19 15:14 04/29/19 08:41 Lorazepam (Ativan 2mg/ml 1ml) 1 mg TIDPRN PRN IV For Anxiety 04/28/19 15:15 05/05/19 15:14 04/29/19 03:13 Ondansetron HCl (Zofran) 4 mg Q6H PRN IVP Nausea & Vomiting 04/28/19 15:15 05/28/19 15:14 04/28/19 22:41 Potassium Chloride/Sodium Chloride 1,000 ml @ 75 mls/hr [id number] IV 04/28/19 16:00 05/28/19 15:59 04/29/19 08:48 Demetrio Davila MD Apr 29, 2019 09:51
--- NOTE | 2019-04-29 10:06 | NUR ---
NURSE NOTES: Spoke to regarding patient and new order received. Order read back and carried out. No new order for blood pressure.
--- NOTE | 2019-04-29 11:00 | NUR ---
CASE MANAGEMENT:REVIEW 38 YR OLD MALE PRESENTED TO ER CC: ABDOMINAL PAIN SI: PANCREATITIS 98.3 93 18 206/126 97% ON RA LIPASE>2000 IS: IV REGLAN IV MORPHINE 1L NS BOLUS CT ABD/PELVIS : TO MED/SURG 3 EAST INTERQUAL CRITERIA MET
--- NOTE | 2019-04-29 12:07 | GI Initial Consult Note ---
History of Present Illness General Date patient seen: Apr 29, 2019 Time patient seen: 12:04 Reason for Hospitalization: Abdominal Pain Referring physician: EMILIE JOSHI Reason for Consultation: PANCREATITIS Present Illness HPI Patient presents with complaints of increased epigastric and midabdominal pain reports that its Fairly consistent with previous pancreatitis patient does have a history of drinking recently he did not feel that it was too excessive denies any chest pain he does have increased nausea vomiting Denies any lower abdominal pain or diarrhea denies any fevers or chills GI consulted for pancreatitis. Patient seen, awake alert and oriented x4 has complaint of severe left upper quadrant pain. Patient presents with a diagnosis of pancreatitis, lipase level over 2000. Urine toxicity positive for marijuana. The patient admits being a heavy marijuana user. The patient states he has had similar episodes in the past. Denies any alcohol or tobacco use. At this time the patient states his abdominal pain is improved. The patient has no history of endoscopic or colonoscopy. No significant past medical history. Home Meds Active Scripts Hydrocodone Bit/Acetaminophen 5-325* (NORCO 5-325 TABLET*) 1 Each Tablet, 1 TAB ORAL Q4H PRN for For Pain, #20 TAB Prov:Godfrey Ricardo MD 11/15/16 Ondansetron (Zofran) 4 Mg Tablet, 4 MG ORAL Q6H PRN for Nausea & Vomiting, #30 TAB 0 Refills Prov:Godfrey Ricardo MD 11/15/16 Docusate Sodium* (COLACE*) 100 Mg Capsule, 100 MG ORAL THREE TIMES A DAY for 10 Days, CAP Prov:Baljinder Soto MD 08/06/15 Cephalexin* (KEFLEX*) 500 Mg Capsule, 500 MG ORAL Q6H, #28 CAP Prov:Baljinder Soto MD 08/06/15 Reported Medications Tfmeoebfz-Rag-2* (JBCLOAXL-LJE-8*) 1 Each Patch.tdwk, 1 PATCH TDERMAL DAILY PRN for For High Blood Pressure, PATCH 04/28/19 Calcium Carbonate (ANTACID) 300 Mg Tab.chew, 500 MG PO FOUR TIMES A DAY, TAB 05/05/16 Ondansetron Hcl* (ZOFRAN*) 8 Mg Tablet, 4 MG SL Q6H PRN for Nausea & Vomiting, # 4 TAB 0 Refills 05/05/16 Amlodipine Besylate* (AMLODIPINE BESYLATE*) 10 Mg Tablet, 10 MG ORAL DAILY, TAB 05/05/16 Omeprazole (OMEPRAZOLE) 20 Mg Tablet.dr, 20 MG ORAL TWICE A DAY, TAB 05/05/16 Ranitidine HCl (Ranitidine HCl) 150 Mg Tablet, 150 MG PO BID, TAB 05/05/16 Hydrocodone Bit/Acetaminophen 5-325* (NORCO 5-325 TABLET*) 1 Each Tablet, 1 TAB ORAL Q6HR PRN for For Pain, #20 TAB 05/05/16 Med list reviewed/reconciled: Yes Allergies: Coded Allergies: No Known Allergies (Unverified , 04/28/19) Patient History History Provided By: Patient, Medical Record PMH Narrative Past Medical History: see triage record Pertinent Family History: none Reviewed Nursing Documentation: PMH: Agreed; PSxH: Agreed Nursing Documentation-PMH Past Medical History: No History, Except For Hx Hypertension: Yes Hx Cancer: No Hx Gastrointestinal Problems: Yes - Pancreatitis Hx Neurological Problems: No Social History: Reports: drug use Review of Systems All Other Systems: negative except mentioned in HPI Physical Exam Vital Signs Date Time Temp Pulse Resp B/P (MAP) Pulse Ox O2 Delivery O2 Flow Rate FiO2 04/28/19 11:34 98.2 93 18 206/126 (152) 97 Room Air Sp02 EP Interpretation: reviewed, normal Labs Laboratory Tests Test 04/28/19 18:00 04/29/19 05:50 Urine Opiates Screen Positive (NEGATIVE) H Urine Barbiturates Screen Negative (NEGATIVE) Phencyclidine (PCP) Screen Negative (NEGATIVE) Urine Amphetamines Screen Negative (NEGATIVE) Urine Benzodiazepines Screen Negative (NEGATIVE) Urine Cocaine Screen Negative (NEGATIVE) Urine Marijuana (THC) Screen Positive (NEGATIVE) H White Blood Count 10.0 K/UL (4.8-10.8) Red Blood Count 4.14 M/UL (4.70-6.10) L Hemoglobin 13.4 G/DL (14.2-18.0) L Hematocrit 40.1 % (42.0-52.0) L Mean Corpuscular Volume 97 FL (80-99) Mean Corpuscular Hemoglobin 32.3 PG (27.0-31.0) H Mean Corpuscular Hemoglobin Concent 33.4 G/DL (32.0-36.0) Red Cell Distribution Width 12.3 % (11.6-14.8) Platelet Count 231 K/UL (150-450) Mean Platelet Volume 6.3 FL (6.5-10.1) L Neutrophils (%) (Auto) 74.4 % (45.0-75.0) Lymphocytes (%) (Auto) 12.1 % (20.0-45.0) L Monocytes (%) (Auto) 10.6 % (1.0-10.0) H Eosinophils (%) (Auto) 1.9 % (0.0-3.0) Basophils (%) (Auto) 1.1 % (0.0-2.0) Sodium Level 139 MMOL/L (136-145) Potassium Level 4.0 MMOL/L (3.5-5.1) Chloride Level 105 MMOL/L (98-107) Carbon Dioxide Level 23 MMOL/L (21-32) Anion Gap 11 mmol/L (5-15) Blood Urea Nitrogen 7 mg/dL (7-18) Creatinine 1.0 MG/DL (0.55-1.30) Estimat Glomerular Filtration Rate > 60 mL/min (>60) Glucose Level 85 MG/DL (74-106) Calcium Level 8.6 MG/DL (8.5-10.1) Lipase > 2000 U/L (73-393) H General Appearance: well appearing, no apparent distress, alert Head: normocephalic EENT: PERRL/EOMI, normal ENT inspection Neck: supple Respiratory: normal breath sounds, no respiratory distress Cardiovascular: normal rate Gastrointestinal: normal inspection, non tender, soft, normal bowel sounds, non -distended Rectal: deferred Genitourinary: deferred Musculoskeletal: normal inspection, back normal Neurologic: normal inspection, alert, oriented x3, responsive Psychiatric: normal inspection, judgement/insight normal, memory normal Skin: normal inspection, normal color, no rash, warm/dry, palpation normal, well hydrated Lymphatic: normal inspection, no adenopathy Current Medications Current Medications Medications (Trade) Dose Ordered Sig/Noé Route PRN Reason Start Time Stop Time Status Last Admin Dose Admin Clonidine HCl (Catapres TTS-1) 1 patch QWEEK TDERMAL 04/28/19 18:00 05/28/19 17:59 04/28/19 18:13 Clonidine HCl (Catapres Tab) 0.1 mg Q4H PRN ORAL sbp>150 04/28/19 15:15 05/28/19 15:14 04/29/19 01:33 Hydromorphone HCl (Dilaudid) 1 mg Q4H PRN IVP Moderate Pain (Pain Scale 4-6) 04/28/19 15:15 05/05/19 15:14 Hydromorphone HCl (Dilaudid) 2 mg Q4H PRN IVP Severe Pain (Pain Scale 7-10) 04/28/19 15:15 05/05/19 15:14 04/29/19 08:41 Lorazepam (Ativan 2mg/ml 1ml) 1 mg TIDPRN PRN IV For Anxiety 04/28/19 15:15 05/05/19 15:14 04/29/19 03:13 Ondansetron HCl (Zofran) 4 mg Q6H PRN IVP Nausea & Vomiting 04/28/19 15:15 05/28/19 15:14 04/28/19 22:41 Potassium Chloride/Sodium Chloride 1,000 ml @ 75 mls/hr [id number] IV 04/28/19 16:00 05/28/19 15:59 04/29/19 08:48 GI: Plan Problems: (1) Cyclic vomiting syndrome (2) Pancreatitis (3) Abdominal pain Plan Urine toxicity positive for marijuana Medical management for pancreatitis Clear liquid diet, advance as tolerated IV hydration Pain management Zofran as needed Follow labs, trend lipase Discussed with Dr. Page. Thank you for this patient referral, we will follow. The patient was seen and examined at bedside and all new and available data was reviewed in the patients chart. I agree with the above findings, impression and plan. (Patient seen earlier today. Signature stamp does not reflect patient encounter time.). - MD Loarine Chen Anh-Julian RATE MANAGER Apr 29, 2019 12:07
--- NOTE | 2019-04-29 13:00 | NUR ---
/*-* NO INSURANCE INFORMATION IN THE BAR UNABLE TO SEND CLINICALS *-*
--- NOTE | 2019-04-29 19:30 | NUR ---
HAND-OFF: Report given to Ken MARINELLI. Patient in stable condition.
--- NOTE | 2019-04-29 19:45 | NUR ---
NURSE NOTES: Received report from ISIS Pennington and rounds made with outgoing nurse. Received pt lying in bed, asleep, easily arousable by verbal stimuli, AOX4, c/o abdominal pain 04/21, pain medication not yet due, IV L FA patent and intact. IV fluid infusing as ordered. No distress noted. Bed in lowest position and locked, side rails up x 2, call light within reach. Will continue to monitor.
[2019-04-30] VITALS (10 sets, daily range): BP systolic 106–174; BP diastolic 82–115
--- NOTE | 2019-04-30 00:10 | NUR ---
NURSE NOTES: B/P 178/100, HR 90, c/o abdominal discomfort, denies any chest pain, no sob, no distress noted. Pain medication not yet due.
[2019-04-30] MEDS: LORazepam Inj 2mg/ml 1ml IV PRN (00:23)
--- NOTE | 2019-04-30 01:30 | NUR ---
NURSE NOTES: Recheck B/P 160/115, HR 90, asleep, easily arousable by verbal stimuli, c/o abdominal pain, will medicate for pain, no distress noted. Will continue to monitor.
[2019-04-30 06:27] LABS: BASOPHILS % (AUTO) 0.7 % (0.0-2.0); EOSINOPHILS % (AUTO) 1.6 % (0.0-3.0); HEMATOCRIT 37.5 % (42.0-52.0); HEMOGLOBIN 12.6 G/DL (14.2-18.0); LYMPHOCYTES % (AUTO) 10.2 % (20.0-45.0); MEAN CORPUSCULAR VOLUME 97 FL (80-99); MONOCYTES % (AUTO) 11.3 % (1.0-10.0); NEUTROPHILS % (AUTO) 76.2 % (45.0-75.0); PLATELET COUNT 221 K/UL (150-450); RED BLOOD COUNT 3.89 M/UL (4.70-6.10); RED CELL DISTRIBUTION WIDTH 12.5 % (11.6-14.8); WHITE BLOOD COUNT 11.8 K/UL (4.8-10.8)
[2019-04-30 07:09] LABS: ALANINE AMINOTRANSFERASE 30 U/L (12-78); ALBUMIN 3.3 G/DL (3.4-5.0); ALBUMIN/GLOBULIN RATIO 0.9 (1.0-2.7); ALKALINE PHOSPHATASE 61 U/L (46-116); ANION GAP 11 mmol/L (5-15); ASPARTATE AMINO TRANSFERASE 29 U/L (15-37); BLOOD UREA NITROGEN 6 mg/dL (7-18); CALCIUM 8.8 MG/DL (8.5-10.1); CARBON DIOXIDE 24 MMOL/L (21-32); CHLORIDE 102 MMOL/L (98-107); CREATININE 0.9 MG/DL (0.55-1.30); POTASSIUM 3.9 MMOL/L (3.5-5.1); SODIUM 136 MMOL/L (136-145)
--- NOTE | 2019-04-30 07:38 | NUR ---
HAND-OFF: Report given to ISIS Bryant. Pt in stable condition.
--- NOTE | 2019-04-30 07:50 | NUR ---
NURSE NOTES: Received report from Ken MARINELLI. Patient is asleep during rounds but arousable to voice, appears calm, RR even and unlabored, inquired about pain and patient stated "it's a 10". Educated patient that I will administer pain medication when due. IVF running per order. Updated on plan of care for the day. Side rails upx2, bed low and locked, call light in reach. Will continue to monitor.
[2019-04-30] MEDS: NS w/KCl 20mEq 1000ml 1,000 ML IV SCH (08:30)
--- NOTE | 2019-04-30 09:45 | Cardiology Progress Note ---
Assessment/Plan Status: stable Assessment/Plan Assessment/Plan Status: stable, progressing Assessment/Plan: Assessment: (1) Drug abuse (2) Cyclic vomiting syndrome (3) Acute pancreatitis (4) Hypertension Plan: NPO IV fluids Creon Monitor electrolytes Monitor on telemetry Clonidine patch for hypertension Norvasc 10 mg Outpatient echocardiogram Subjective Cardiovascular: Reports: no symptoms Respiratory: Reports: no symptoms Gastrointestinal/Abdominal: Reports: no symptoms Genitourinary: Reports: no symptoms Subjective No acute events, remains NPO with ice chips, mild abdominal pain Norvasc added for elevated BP Objective Last 24 Hour Vital Signs Date Time Temp Pulse Resp B/P (MAP) Pulse Ox O2 Delivery O2 Flow Rate FiO2 04/30/19 08:46 76 149/95 (113) 04/30/19 08:00 98.5 75 18 156/102 (120) 95 04/30/19 04:00 98.2 83 18 130/82 (98) 98 04/30/19 00:19 178/100 04/30/19 00:00 98.7 90 20 160/115 (130) 98 04/29/19 21:00 Room Air 04/29/19 20:00 98.2 89 20 167/110 (129) 99 04/29/19 18:30 78 159/100 (119) 04/29/19 16:21 179/119 04/29/19 16:00 98.8 84 19 179/119 (139) 98 04/29/19 12:00 98.1 75 18 138/81 (100) 98 General Appearance: no apparent distress, alert EENT: PERRL/EOMI, normal ENT inspection, TMs normal, pharynx normal Neck: non-tender, normal alignment, supple, normal inspection, no JVD Rhythm: NSR Cardiovascular: normal peripheral pulses, normal rate, regular rhythm Respiratory/Chest: chest wall non-tender, normal breath sounds Abdomen: normal bowel sounds, non tender Extremities: normal range of motion, non-tender 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 normal, no motor/sensory deficits Intake and Output 04/29/19 04/30/19 19:00 07:00 Intake Total 510 ml 1140 ml Output Total 400 ml 600 ml Balance 110 ml 540 ml Intake Oral 360 ml 240 ml IV Total 150 ml 900 ml Output Urine Total 400 ml 600 ml # Voids 2 Laboratory Tests Test 04/30/19 05:48 White Blood Count 11.8 K/UL (4.8-10.8) H Red Blood Count 3.89 M/UL (4.70-6.10) L Hemoglobin 12.6 G/DL (14.2-18.0) L Hematocrit 37.5 % (42.0-52.0) L Mean Corpuscular Volume 97 FL (80-99) Mean Corpuscular Hemoglobin 32.3 PG (27.0-31.0) H Mean Corpuscular Hemoglobin Concent 33.5 G/DL (32.0-36.0) Red Cell Distribution Width 12.5 % (11.6-14.8) Platelet Count 221 K/UL (150-450) Mean Platelet Volume 6.6 FL (6.5-10.1) Neutrophils (%) (Auto) 76.2 % (45.0-75.0) H Lymphocytes (%) (Auto) 10.2 % (20.0-45.0) L Monocytes (%) (Auto) 11.3 % (1.0-10.0) H Eosinophils (%) (Auto) 1.6 % (0.0-3.0) Basophils (%) (Auto) 0.7 % (0.0-2.0) Sodium Level 136 MMOL/L (136-145) Potassium Level 3.9 MMOL/L (3.5-5.1) Chloride Level 102 MMOL/L (98-107) Carbon Dioxide Level 24 MMOL/L (21-32) Anion Gap 11 mmol/L (5-15) Blood Urea Nitrogen 6 mg/dL (7-18) L Creatinine 0.9 MG/DL (0.55-1.30) Estimat Glomerular Filtration Rate > 60 mL/min (>60) Glucose Level 92 MG/DL (74-106) Calcium Level 8.8 MG/DL (8.5-10.1) Total Bilirubin 1.0 MG/DL (0.2-1.0) Aspartate Amino Transf (AST/SGOT) 29 U/L (15-37) Alanine Aminotransferase (ALT/SGPT) 30 U/L (12-78) Alkaline Phosphatase 61 U/L (46-116) Total Protein 6.9 G/DL (6.4-8.2) Albumin 3.3 G/DL (3.4-5.0) L Globulin 3.6 g/dL Albumin/Globulin Ratio 0.9 (1.0-2.7) L Lipase 947 U/L (73-393) H Ashwin Sher MD Apr 30, 2019 09:45
--- NOTE | 2019-04-30 10:32 | NUR ---
NURSE NOTES: Patient had episode of clear, yellow emesis x1. Informed Julian DOUGHNUT ICER, DOUGHNUT ICER stated he will enter new orders.
--- NOTE | 2019-04-30 10:49 | NUR ---
CASE MANAGEMENT:REVIEW 04/30/19 SI: PANCREATITIS 98.5 75 18 156/102 95% ON RA WBC+11.8 H/H-12.6/37.5 LIPASE+947 IS: IVF+KCL@75/HR NORVASC PO QD IV DILAUDID Q4HRS PRN : MED/SURG STATUS 3 EAST DCP: FROM HOME PLAN: CLEAR LIQUID DIET
--- NOTE | 2019-04-30 11:52 | GI Progress Note ---
Assessment/Plan Problems: (1) Pancreatitis, acute ICD Codes: K85.9 - Acute pancreatitis, unspecified SNOMED: 262031703 (2) Cyclic vomiting syndrome ICD Codes: G43.A0 - Cyclical vomiting, not intractable SNOMED: 07346617 (3) Abdominal pain ICD Codes: R10.9 - Abdominal pain SNOMED: 41426440 (4) Drug abuse ICD Codes: F19.10 - Other psychoactive substance abuse, uncomplicated SNOMED: 07163474 Status: unchanged Status Narrative Discussed with Dr. Page. Assessment/Plan Urine toxicity positive for marijuana Medical management for pancreatitis Clear liquid diet, advance as tolerated IV hydration Pain management Zofran as needed, reglan for persistent vomiting Follow labs, trend lipase The patient was seen and examined at bedside and all new and available data was reviewed in the patients chart. I agree with the above findings, impression and plan. (Patient seen earlier today. Signature stamp does not reflect patient encounter time.). - Delon Page MD Subjective Subjective Abdominal pain Episode of emesis this morning Objective Last 24 Hour Vital Signs Date Time Temp Pulse Resp B/P (MAP) Pulse Ox O2 Delivery O2 Flow Rate FiO2 04/30/19 10:23 76 149/95 04/30/19 09:00 Room Air 04/30/19 08:46 76 149/95 (113) 04/30/19 08:00 98.5 75 18 156/102 (120) 95 04/30/19 04:00 98.2 83 18 130/82 (98) 98 04/30/19 00:19 178/100 04/30/19 00:00 98.7 90 20 160/115 (130) 98 04/29/19 21:00 Room Air 04/29/19 20:00 98.2 89 20 167/110 (129) 99 04/29/19 18:30 78 159/100 (119) 04/29/19 16:21 179/119 04/29/19 16:00 98.8 84 19 179/119 (139) 98 04/29/19 12:00 98.1 75 18 138/81 (100) 98 Intake and Output 04/29/19 04/30/19 19:00 07:00 Intake Total 510 ml 1140 ml Output Total 400 ml 600 ml Balance 110 ml 540 ml Intake Oral 360 ml 240 ml IV Total 150 ml 900 ml Output Urine Total 400 ml 600 ml # Voids 2 Laboratory Tests Test 04/30/19 05:48 White Blood Count 11.8 K/UL (4.8-10.8) H Red Blood Count 3.89 M/UL (4.70-6.10) L Hemoglobin 12.6 G/DL (14.2-18.0) L Hematocrit 37.5 % (42.0-52.0) L Mean Corpuscular Volume 97 FL (80-99) Mean Corpuscular Hemoglobin 32.3 PG (27.0-31.0) H Mean Corpuscular Hemoglobin Concent 33.5 G/DL (32.0-36.0) Red Cell Distribution Width 12.5 % (11.6-14.8) Platelet Count 221 K/UL (150-450) Mean Platelet Volume 6.6 FL (6.5-10.1) Neutrophils (%) (Auto) 76.2 % (45.0-75.0) H Lymphocytes (%) (Auto) 10.2 % (20.0-45.0) L Monocytes (%) (Auto) 11.3 % (1.0-10.0) H Eosinophils (%) (Auto) 1.6 % (0.0-3.0) Basophils (%) (Auto) 0.7 % (0.0-2.0) Sodium Level 136 MMOL/L (136-145) Potassium Level 3.9 MMOL/L (3.5-5.1) Chloride Level 102 MMOL/L (98-107) Carbon Dioxide Level 24 MMOL/L (21-32) Anion Gap 11 mmol/L (5-15) Blood Urea Nitrogen 6 mg/dL (7-18) L Creatinine 0.9 MG/DL (0.55-1.30) Estimat Glomerular Filtration Rate > 60 mL/min (>60) Glucose Level 92 MG/DL (74-106) Calcium Level 8.8 MG/DL (8.5-10.1) Total Bilirubin 1.0 MG/DL (0.2-1.0) Aspartate Amino Transf (AST/SGOT) 29 U/L (15-37) Alanine Aminotransferase (ALT/SGPT) 30 U/L (12-78) Alkaline Phosphatase 61 U/L (46-116) Total Protein 6.9 G/DL (6.4-8.2) Albumin 3.3 G/DL (3.4-5.0) L Globulin 3.6 g/dL Albumin/Globulin Ratio 0.9 (1.0-2.7) L Lipase 947 U/L (73-393) H Height (Feet): 5 Height (Inches): 5.00 Weight (Pounds): 127 General Appearance: WD/WN, no apparent distress, alert Cardiovascular: normal rate Respiratory/Chest: normal breath sounds, no respiratory distress Abdominal Exam: normal bowel sounds, non tender, soft Extremities: normal range of motion, non-tender Myrtle Baron NP Apr 30, 2019 11:52
[2019-04-30] MEDS ORDERED: Metoclopramide 10mg/2ml Inj IVP PRN (12:00)
--- NOTE | 2019-04-30 13:42 | NUR ---
/*-* NO INSURANCE INFORMATION IN THE BAR UNABLE TO SEND CLINICALS *-*
--- NOTE | 2019-04-30 13:56 | Pulmonology Progress Note ---
Assessment/Plan Assessment/Plan IMPRESSION: 1. Acute pancreatitis. 2. Alcohol abuse. 3. Marijuana abuse. 4. Hypertension. Await GI consult. Seen by Cardiology. Advance diet DC planning for home in AM I will follow carefully. Subjective Interval Events: Feeling better; nop new problems Constitutional: Reports: no symptoms HEENT: Repors: no symptoms Respiratory: Reports: no symptoms Cardiovascular: Reports: no symptoms Gastrointestinal/Abdominal: Reports: no symptoms Genitourinary: Reports: no symptoms Allergies: Coded Allergies: No Known Allergies (Unverified , 04/28/19) Objective Last 24 Hour Vital Signs Date Time Temp Pulse Resp B/P (MAP) Pulse Ox O2 Delivery O2 Flow Rate FiO2 04/30/19 13:17 170/103 04/30/19 12:00 98.2 74 19 156/97 (116) 96 04/30/19 10:23 76 149/95 04/30/19 09:00 Room Air 04/30/19 08:46 76 149/95 (113) 04/30/19 08:00 98.5 75 18 156/102 (120) 95 04/30/19 04:00 98.2 83 18 130/82 (98) 98 04/30/19 00:19 178/100 04/30/19 00:00 98.7 90 20 160/115 (130) 98 04/29/19 21:00 Room Air 04/29/19 20:00 98.2 89 20 167/110 (129) 99 04/29/19 18:30 78 159/100 (119) 04/29/19 16:21 179/119 04/29/19 16:00 98.8 84 19 179/119 (139) 98 Intake and Output 04/29/19 04/30/19 19:00 07:00 Intake Total 510 ml 1140 ml Output Total 400 ml 600 ml Balance 110 ml 540 ml Intake Oral 360 ml 240 ml IV Total 150 ml 900 ml Output Urine Total 400 ml 600 ml # Voids 2 General Appearance: no acute distress HEENT: normocephalic Respiratory/Chest: chest wall non-tender, lungs clear Cardiovascular: normal peripheral pulses, normal rate Laboratory Tests 04/30/19 05:48: White Blood Count 11.8H, Red Blood Count 3.89L, Hemoglobin 12.6L, Hematocrit 37.5L, Mean Corpuscular Volume 97, Mean Corpuscular Hemoglobin 32.3H, Mean Corpuscular Hemoglobin Concent 33.5, Red Cell Distribution Width 12.5, Platelet Count 221, Mean Platelet Volume 6.6, Neutrophils (%) (Auto) 76.2H, Lymphocytes ( %) (Auto) 10.2L, Monocytes (%) (Auto) 11.3H, Eosinophils (%) (Auto) 1.6, Basophils (%) (Auto) 0.7, Sodium Level 136, Potassium Level 3.9, Chloride Level 102, Carbon Dioxide Level 24, Anion Gap 11, Blood Urea Nitrogen 6L, Creatinine 0.9, Estimat Glomerular Filtration Rate > 60, Glucose Level 92, Calcium Level 8.8, Total Bilirubin 1.0, Aspartate Amino Transf (AST/SGOT) 29, Alanine Aminotransferase (ALT/SGPT) 30, Alkaline Phosphatase 61, Total Protein 6.9, Albumin 3.3L, Globulin 3.6, Albumin/Globulin Ratio 0.9L, Lipase 947H Current Medications Medications (Trade) Dose Ordered Sig/Noé Route PRN Reason Start Time Stop Time Status Last Admin Dose Admin Amlodipine Besylate (Norvasc) 10 mg DAILY ORAL 04/30/19 10:00 05/30/19 09:59 04/30/19 10:23 Clonidine HCl (Catapres TTS-1) 1 patch QWEEK TDERMAL 04/28/19 18:00 05/28/19 17:59 04/28/19 18:13 Clonidine HCl (Catapres Tab) 0.1 mg Q4H PRN ORAL sbp>150 04/28/19 15:15 05/28/19 15:14 04/30/19 13:17 Hydromorphone HCl (Dilaudid) 1 mg Q4H PRN IVP Moderate Pain (Pain Scale 4-6) 04/28/19 15:15 05/05/19 15:14 Hydromorphone HCl (Dilaudid) 2 mg Q4H PRN IVP Severe Pain (Pain Scale 7-10) 04/28/19 15:15 05/05/19 15:14 04/30/19 10:24 Lorazepam (Ativan 2mg/ml 1ml) 1 mg TIDPRN PRN IV For Anxiety 04/28/19 15:15 05/05/19 15:14 04/30/19 00:23 Metoclopramide HCl (Reglan) 10 mg Q8H PRN IVP Nausea & Vomiting 04/30/19 12:00 05/30/19 11:59 Ondansetron HCl (Zofran) 4 mg Q6H PRN IVP Nausea & Vomiting 04/28/19 15:15 05/28/19 15:14 04/30/19 08:29 Potassium Chloride/Sodium Chloride 1,000 ml @ 75 mls/hr [id number] IV 04/28/19 16:00 05/28/19 15:59 04/30/19 08:30 Demetrio Davila MD Apr 30, 2019 13:56
--- NOTE | 2019-04-30 16:39 | NUR ---
NURSE NOTES: Patient's blood pressure decreased following clonidine and dilaudid administration. Will reassess blood pressure when next clonidine due and administer if indicated.
--- NOTE | 2019-04-30 18:39 | NUR ---
NURSE NOTES: Called the office of Dr. Davila to report patient's high blood pressure despite clonidine administration. Reached the ton container filler doctor, Dr. Atkins. Received order from MD, read back, and entered. Will carry out.
[2019-04-30] MEDS: Carvedilol 12.5mg tab ORAL SCH (18:49)
--- NOTE | 2019-04-30 19:07 | NUR ---
HAND-OFF: Report given to Clemencia CLINE. Patient is in stable condition. Endorsed plan of care.
--- NOTE | 2019-04-30 19:10 | NUR ---
HAND-OFF: Report given to wei Farmer Patient in stable condition.
[2019-05-01] VITALS: BP 147/96
[2019-05-01] MEDS: NS w/KCl 20mEq 1000ml 1,000 ML IV SCH ×2 (00:25→10:40)
[2019-05-01 04:00] VITALS: BP_SYST 132; BP_SYST 150; BP_DIAS 87; BP_DIAS 94
[2019-05-01 07:26] LABS: BASOPHILS % (AUTO) 1.3 % (0.0-2.0); EOSINOPHILS % (AUTO) 2.2 % (0.0-3.0); HEMATOCRIT 35.1 % (42.0-52.0); HEMOGLOBIN 11.8 G/DL (14.2-18.0); LYMPHOCYTES % (AUTO) 9.9 % (20.0-45.0); MEAN CORPUSCULAR VOLUME 96 FL (80-99); MONOCYTES % (AUTO) 16.3 % (1.0-10.0); NEUTROPHILS % (AUTO) 70.3 % (45.0-75.0); PLATELET COUNT 229 K/UL (150-450); RED BLOOD COUNT 3.66 M/UL (4.70-6.10); RED CELL DISTRIBUTION WIDTH 12.4 % (11.6-14.8)
--- NOTE | 2019-05-01 07:40 | NUR ---
HAND-OFF: Report given to GINA Carvalho RN .
--- NOTE | 2019-05-01 07:40 | NUR ---
NURSE NOTES: Report received from Justice RN, rounds made. Patient resting in semi-fowlers position in bed. Alert, oriented x4 calm. IVF (NS +20KCL) infusing at 75 ml/hr to JP, site asymptomatic. Abdominal pain 03/22, will medicate as ordered. Appetite poor for breakfast. No NV. No distress on RA. Catapres patch to BAL. Bilateral SCDs off. Call light in reach, bed in lowest position, will continue to monitor.
[2019-05-01 07:44] LABS: ANION GAP 7 mmol/L (5-15); BLOOD UREA NITROGEN 5 mg/dL (7-18); CARBON DIOXIDE 26 MMOL/L (21-32); CHLORIDE 100 MMOL/L (98-107); CREATININE 0.8 MG/DL (0.55-1.30); POTASSIUM 3.8 MMOL/L (3.5-5.1); SODIUM 133 MMOL/L (136-145)
[2019-05-01 08:00] VITALS: BP 161/103
--- NOTE | 2019-05-01 08:25 | Nephrology Progress Note ---
Assessment/Plan Status: unchanged Assessment/Plan: 1. Acute pancreatitis. -alcohol abuse. - lipase dramatically down 3. Marijuana abuse. 4. Hypertension. - has clonidine patch at home - add Coreg at DC and pt to f/u with PCP Subjective Date patient seen: May 01, 2019 Time patient seen: 08:22 ROS Limited/Unobtainable: No Allergies: Coded Allergies: No Known Allergies (Unverified , 04/28/19) Subjective Patient resting well and in no distress Objective Last 24 Hour Vital Signs Date Time Temp Pulse Resp B/P (MAP) Pulse Ox O2 Delivery O2 Flow Rate FiO2 05/01/19 05:19 98.6 05/01/19 04:00 98.2 82 18 150/94 (112) 100 05/01/19 00:00 98.6 88 18 147/96 (113) 99 04/30/19 21:00 Room Air 04/30/19 20:00 99.1 77 19 140/90 (107) 96 04/30/19 18:49 78 174/113 04/30/19 18:29 78 174/113 (133) 04/30/19 17:25 165/106 04/30/19 17:23 78 165/106 (125) 04/30/19 16:00 98.0 72 19 160/110 (127) 96 04/30/19 15:41 79 166/107 (126) 04/30/19 13:17 170/103 04/30/19 12:00 98.2 74 19 156/97 (116) 96 04/30/19 10:23 76 149/95 04/30/19 09:00 Room Air 04/30/19 08:46 76 149/95 (113) Intake and Output 04/30/19 05/01/19 18:59 06:59 Intake Total 1125 ml 950 ml Output Total 700 ml 1700 ml Balance 425 ml -750 ml Intake Oral 300 ml 200 ml IV Total 825 ml 750 ml Output Urine Total 700 ml 1700 ml Laboratory Tests 05/01/19 06:43: White Blood Count 10.0, Red Blood Count 3.66L, Hemoglobin 11.8L, Hematocrit 35.1L, Mean Corpuscular Volume 96, Mean Corpuscular Hemoglobin 32.3H, Mean Corpuscular Hemoglobin Concent 33.7, Red Cell Distribution Width 12.4, Platelet Count 229, Mean Platelet Volume 6.5, Neutrophils (%) (Auto) 70.3, Lymphocytes (% ) (Auto) 9.9L, Monocytes (%) (Auto) 16.3H, Eosinophils (%) (Auto) 2.2, Basophils (%) (Auto) 1.3, Sodium Level 133L, Potassium Level 3.8, Chloride Level 100, Carbon Dioxide Level 26, Anion Gap 7, Blood Urea Nitrogen 5L, Creatinine 0.8, Estimat Glomerular Filtration Rate > 60, Glucose Level 104, Calcium Level 9.0, Lipase 681H Height (Feet): 5 Height (Inches): 5.00 Weight (Pounds): 127 General Appearance: no apparent distress, alert EENT: normal ENT inspection Neck: non-tender, supple Cardiovascular: normal rate, regular rhythm Respiratory/Chest: lungs clear, normal breath sounds Abdomen: non tender, soft Edema: no edema noted Arm (L), no edema noted Arm (R), no edema noted Leg (L), no edema noted Leg (R), no edema noted Pedal (L), no edema noted Pedal (R), no edema noted Generalized Jai Green MD May 01, 2019 08:24
[2019-05-01] MEDS: Carvedilol 12.5mg tab ORAL SCH (08:54)
[2019-05-01 10:28] VITALS: BP 165/108
[2019-05-01 12:00] VITALS: BP 142/86
--- NOTE | 2019-05-01 12:08 | Cardiology Progress Note ---
Assessment/Plan Status: stable Assessment/Plan Assessment/Plan Status: stable, progressing Assessment/Plan: Assessment: (1) Drug abuse (2) Cyclic vomiting syndrome (3) Acute pancreatitis (4) Hypertension Plan: NPO IV fluids Creon Monitor electrolytes Monitor on telemetry Clonidine patch for hypertension Norvasc 10 mg Coreg 12.5 mg BID Outpatient echocardiogram Subjective Respiratory: Reports: no symptoms Gastrointestinal/Abdominal: Reports: nausea, poor appetite Subjective No acute events, remains NPO with ice chips, mild abdominal pain Norvasc added for elevated BP Objective Last 24 Hour Vital Signs Date Time Temp Pulse Resp B/P (MAP) Pulse Ox O2 Delivery O2 Flow Rate FiO2 05/01/19 10:37 165/108 05/01/19 10:28 76 165/108 (127) 05/01/19 08:54 76 161/103 05/01/19 08:54 76 161/103 05/01/19 08:00 98.2 76 21 161/103 (122) 99 05/01/19 05:19 98.6 05/01/19 04:00 98.2 82 18 150/94 (112) 100 05/01/19 00:00 98.6 88 18 147/96 (113) 99 04/30/19 21:00 Room Air 04/30/19 20:00 99.1 77 19 140/90 (107) 96 04/30/19 18:49 78 174/113 04/30/19 18:29 78 174/113 (133) 04/30/19 17:25 165/106 04/30/19 17:23 78 165/106 (125) 04/30/19 16:00 98.0 72 19 160/110 (127) 96 04/30/19 15:41 79 166/107 (126) 04/30/19 13:17 170/103 General Appearance: no apparent distress, alert EENT: PERRL/EOMI, normal ENT inspection, TMs normal Neck: non-tender, normal alignment, supple, normal inspection, no JVD Rhythm: NSR Cardiovascular: normal peripheral pulses, normal rate, regular rhythm Respiratory/Chest: chest wall non-tender, lungs clear, normal breath sounds Abdomen: normal bowel sounds, non tender, soft Extremities: normal range of motion, non-tender, normal inspection, no calf tenderness, no swelling Neurologic: snow maker II-XII grossly normal, no motor/sensory deficits Intake and Output 7/19/19 7/20/19 19:00 07:00 Intake Total 1050 ml 950 ml Output Total 700 ml 1700 ml Balance 350 ml -750 ml Intake Oral 300 ml 200 ml IV Total 750 ml 750 ml Output Urine Total 700 ml 1700 ml Laboratory Tests Test 05/01/19 06:43 White Blood Count 10.0 K/UL (4.8-10.8) Red Blood Count 3.66 M/UL (4.70-6.10) L Hemoglobin 11.8 G/DL (14.2-18.0) L Hematocrit 35.1 % (42.0-52.0) L Mean Corpuscular Volume 96 FL (80-99) Mean Corpuscular Hemoglobin 32.3 PG (27.0-31.0) H Mean Corpuscular Hemoglobin Concent 33.7 G/DL (32.0-36.0) Red Cell Distribution Width 12.4 % (11.6-14.8) Platelet Count 229 K/UL (150-450) Mean Platelet Volume 6.5 FL (6.5-10.1) Neutrophils (%) (Auto) 70.3 % (45.0-75.0) Lymphocytes (%) (Auto) 9.9 % (20.0-45.0) L Monocytes (%) (Auto) 16.3 % (1.0-10.0) H Eosinophils (%) (Auto) 2.2 % (0.0-3.0) Basophils (%) (Auto) 1.3 % (0.0-2.0) Sodium Level 133 MMOL/L (136-145) L Potassium Level 3.8 MMOL/L (3.5-5.1) Chloride Level 100 MMOL/L (98-107) Carbon Dioxide Level 26 MMOL/L (21-32) Anion Gap 7 mmol/L (5-15) Blood Urea Nitrogen 5 mg/dL (7-18) L Creatinine 0.8 MG/DL (0.55-1.30) Estimat Glomerular Filtration Rate > 60 mL/min (>60) Glucose Level 104 MG/DL (74-106) Calcium Level 9.0 MG/DL (8.5-10.1) Lipase 681 U/L (73-393) H Ashwin Sher MD May 01, 2019 12:08
[2019-05-01] MEDS ORDERED: COREG12.5 MG ORAL (15:26)
--- NOTE | 2019-05-01 15:47 | NUR ---
NURSE NOTES: Discharge instructions and prescription x1 reviewed with patient, verbalized understanding. IV heplock discontinued, no active bleeding. All belongings, discharge instructions and prescription x1 sent with patient. Ambulated down to lobby with staff member, in stable condition. Pain improved 01/20. Denies NV. Appetite remains poor. Discharged home at 1547.
--- NOTE | 2019-05-03 08:26 | Discharge Summary ---
Discharge Summary Discharge Summary _ DATE OF ADMISSION: 04/28/2019 DATE OF DISCHARGE: 05/01/2019 DISCHARGED BY: Dr. Davila REASON FOR ADMISSION: 38 years old male with past medical history of pancreatitis and due to alcohol abuse and hypertension presented to the hospital with abdominal pain. He stated that he drunk few beers , which may have caused him abdominal pain. Upon evaluation in emergency department patient was found to be severely hypertensive with blood pressure 206/126. Laboratory work-up revealed no leukocytosis, stable hemoglobin and hematocrit, stable platelet count. Stable electrolytes and renal parameters. Glucose 128. AST 85 ALT 56. Lipase over 2000. CT of the abdomen and pelvis revealed acute on chronic pancreatitis; involvement appeared diffused but more severe in the area of pancreatic head. Moderate inflammation noted. No pseudocyst or abscess or biliary ductal dilatation. Serum alcohol level was negative. Urine toxicology screen was positive for marijuana and opiates. Patient admitted for further management. CONSULTANTS: store hand dr. Sher GI specialist Dr. Page legal analyst Dr.De Kaminski [facility] COURSE: Patient initially was kept n.p.o. and started on the IV fluids. Client Account Specialist followed. Antihypertensive medication regimen optimized as per store hand and consisted of calcium channel asia, beta-asia and clonidine patch. Client Account Specialist recommended outpatient echocardiogram. Blood pressure stabilized and prior to discharge 142/86. GI specialist followed. As mentioned above, patient initially started on the IV hydration and kept n.p.o. Symptomatic treatment provided. Antiemetic as needed. Pain management was addressed. As lipase was trending down, patient started on clear liquid , t which was advanced as tolerated. Patient was able to tolerate diet. Lipase down to 681 prior to discharge. LFT down to normal :AST 29, ALT 30. Patient was counseled on abstinence from ETOH and street drugs. Patient was clinically stabilized and ready for discharge home. FINAL DIAGNOSES: Acute pancreatitis Alcohol abuse Marijuana abuse Cyclic vomiting syndrome Hypertension with the initial hypertensive urgency Drug abuse DISCHARGE MEDICATIONS: See Medication Reconciliation list. DISCHARGE INSTRUCTIONS: Patient was discharged home . Follow up with primary care provider in one week. I have been assigned to dictate discharge summary for this account. I was not involved in the patient's management. Marce Joseph NP May 03, 2019 08:26
== END 2019-05-01 15:59 | disposition home or self-care (01) | DRG 282 ==
LOC: EMR 12:12 → 3E 14:32 → EDBEDREQ 14:42 → 3E 18:30
DX: K85.90 Acute pancreatitis without necrosis or infection, unspecified (principal); F10.10 Alcohol abuse, uncomplicated; F12.10 Cannabis abuse, uncomplicated; I10 Essential (primary) hypertension; G43.A0 Cyclical vomiting, in migraine, not intractable; I16.0 Hypertensive urgency; F19.10 Other psychoactive substance abuse, uncomplicated
CPT/HCPCS: 36415; 74176; 80048; 80053; 80307; 80329; 82248; 83690; 85025; 96361; 96374; 96375; 96376; 99285; J2405; J2765

== ENCOUNTER 2019-05-03 00:52 | Inpatient (IN) | payer OTHER ==
[2019-05-03] VITALS (43 sets, daily range): BP systolic 100–194; BP diastolic 67–130
[~2019-05-03] VITALS: Ht 152.4 cm; Wt 58.1 kg
[~2019-05-03 00:52] MED LIST changes: +CATAPRES-TTS 11 EACH TDERMAL; +CATAPRES-TTS 31 EACH TDERMAL; +COREG12.5 MG ORAL
--- NOTE | 2019-05-03 00:55 | NUR ---
ED Nurse Note: Patient bibkim RA 70 from home c/o allergic reaction, patient states he took a naproxen about 2 hours ago to which he states it causing an allergic reaction. patient presents with slurred speech to swollen throat, states that he feels like something is pressing agaisnt his throat. patient's o2 sat at 100%. platient placed on a monitor, IV started on left forearm 20 gauge, and was given benadryl along with solumedrol. will continue to monitor for distress
--- NOTE | 2019-05-03 01:05 | Emergency Room Report ---
History of Present Illness General Chief Complaint: Allergic Reaction Source: Patient Present Illness HPI This is a 38-year-old male with a history of high blood pressure and pancreatitis. He was just discharged from the hospital. He was admitted for pancreatitis and blood pressure was very high. He was started on amlodipine and carvedilol. His last dose was about 8 hours ago. At home he was resting TV and felt some tightness and throat pain. He then had an episode of vomiting. Said he felt like he could not breathe. He has some swelling to the base of his throat. No nausea no vomiting. No fever or chills. Slight runny nose. He was concerned that he has allergic reaction. He did take Naprosyn and some sleep medicine tonight. He had those before. Denies any other complaint. Allergies: Uncoded Allergies: AMLOPDIPINE (Allergy, Unknown, 05/03/19) POSSIBLE REACTION CARIVDOLOL (Allergy, Unknown, 05/03/19) POSSIBLE REACTION Patient History Past Medical History: see triage record, old chart reviewed Past Surgical History: none Pertinent Family History: none Social History: Reports: smoking Immunizations: other Reviewed Nursing Documentation: PMH: Agreed; PSxH: Agreed Nursing Documentation-PMH Past Medical History: No History, Except For Hx Hypertension: Yes Hx Cancer: No Hx Gastrointestinal Problems: Yes - Pancreatitis Hx Neurological Problems: No Review of Systems Eye: Denies: eye pain, blurred vision ENT: Denies: ear pain, nose congestion, throat swelling Respiratory: Denies: cough, shortness of breath Cardiovascular: Denies: chest pain, palpitations Gastrointestinal: Denies: abdominal pain, diarrhea, nausea, vomiting Musculoskeletal: Denies: back pain, joint pain Skin: Denies: rash Neurological: Denies: headache, numbness Endocrine: Denies: increased thirst, increased urine Hematologic/Lymphatic: Denies: easy bruising All Other Systems: negative except mentioned in HPI Physical Exam Vital Signs Date Time Temp Pulse Resp B/P (MAP) Pulse Ox O2 Delivery O2 Flow Rate FiO2 05/03/19 00:46 98.6 84 19 148/93 (111) 100 Room Air Vitals with high blood pressure Sp02 EP Interpretation: reviewed, normal General Appearance: well appearing, no apparent distress, alert Head: normocephalic, atraumatic Eyes: bilateral eye PERRL, bilateral eye EOMI ENT: hearing grossly normal, normal pharynx, other - Uvula has edema. Soft palate with edema Neck: full range of motion, supple, no meningismus Respiratory: chest non-tender, lungs clear, normal breath sounds Cardiovascular #1: regular rate, rhythm, no murmur Gastrointestinal: normal bowel sounds, non tender, no mass, no organomegaly, no bruit, non-distended Musculoskeletal: back normal, gait/station normal, normal range of motion Psychiatric: mood/affect normal Procedures Critical Care Time Critical Care Time Critical care is mandated in this patient who presented with angioedema compromising his airway. Patient require my urgent intervention to attenuate the risks of respiratory collapse which may lead to cardiovascular collapse and . Critical care time is 35 minutes excluding any reportable procedure. Critical care time included evaluation, multiple reevaluation, looking at old charts, interpreting laboratory and diagnostic data, discussing case with patient and family and consultants, and charting. Intubation Intubation : Consent: Verbal Intubation Method: orotracheal Tube Size (cm): 7.5 Medications: Etomidate, Succinylcholine Breath Sounds after Intubation: equal Intubation Complications: no complications Post Intubation Xray: Yes Progress/Xray Impression: ETT in good positioni Attempts: One Patient Tolerated: Well Complications: None Medical Decision Making Diagnostic Impression: Primary Impression: Angioedema Qualified Codes: T78.3XXA - Angioneurotic edema, initial encounter Additional Impressions: Hypertension Qualified Codes: I10 - Essential (primary) hypertension Respiratory failure, acute Qualified Codes: J96.00 - Acute respiratory failure, unspecified whether with hypoxia or hypercapnia Pancreatitis Qualified Codes: K85.90 - Acute pancreatitis without necrosis or infection, unspecified ER Course Patient presents with allergic reaction and angioedema to the soft palate and back of his throat. Around 2:15 AM, he said it felt like getting worse. He is drooling more. He cannot swallow. I rechecked on him and he has more edema. I gave him a dose of epinephrine IM. At this point in time, elected to intubate the patient to protect his airway. When i was intubating patient, there was edema to this throat and soft palate. Luckily no edema to vocal cords. His only new medications were norvasc and carvidolol. His lipase is elevated by he has no abd pain. I discussed case with Dr. Davila who will admit. EKG Diagnostic Results Rate: normal Rhythm: NSR ST Segments: no acute changes Rhythm Strip Diag. Results EP Interpretation: yes Rate: 92 Rhythm: NSR, no PVC's, no ectopy Chest X-Ray Diagnostic Results Chest X-Ray Diagnostic Results : Chest X-Ray Ordered: Yes # of Views/Limited/Complete: 1 View Indication: Shortness of Breath EP Interpretation: Yes Interpretation: no consolidation, no effusion, no pneumothorax, no acute cardiopulmonary disease, other - ETT in good position Impression: Other - ETT in good position Electronically Signed by: Bryce Baron MD Last Vital Signs Date Time Temp Pulse Resp B/P (MAP) Pulse Ox O2 Delivery O2 Flow Rate FiO2 05/03/19 00:46 98.6 84 19 148/93 (111) 100 Room Air Status: worsened Disposition: ADMITTED INPATIENT Condition: Critical Bryce Baron MD May 03, 2019 01:05
[2019-05-03] MEDS ORDERED: Solu-MEDROL 125mg Inj IVP ONE (01:15)
[2019-05-03] MEDS ORDERED: DiphenhydrAMINE 50mg/ml Inj IVP ONE (01:15)
[2019-05-03 01:24] LABS: ANION GAP 8 mmol/L (5-15); BLOOD UREA NITROGEN 4 mg/dL (7-18); CALCIUM 10.5 MG/DL (8.5-10.1); CARBON DIOXIDE 29 MMOL/L (21-32); CHLORIDE 99 MMOL/L (98-107); POTASSIUM 3.8 MMOL/L (3.5-5.1); SODIUM 136 MMOL/L (136-145)
[2019-05-03 01:28] LABS: ALANINE AMINOTRANSFERASE 25 U/L (12-78); ALBUMIN 4.4 G/DL (3.4-5.0); ALBUMIN/GLOBULIN RATIO 1.1 (1.0-2.7); ALKALINE PHOSPHATASE 68 U/L (46-116); ASPARTATE AMINO TRANSFERASE 31 U/L (15-37); BILIRUBIN,TOTAL 0.5 MG/DL (0.2-1.0)
--- NOTE | 2019-05-03 02:10 | NUR ---
ED Nurse Note: Patient states that he is not geting any better, states that now he is unable to speak however is able to breathe through the nose . Dr. Baron notified and aware
[2019-05-03] MEDS ORDERED: EPINEPHrine 1mg/1ml Amp ONE (02:19)
--- NOTE | 2019-05-03 02:20 | NUR ---
RESPIRATORY NOTE: WAS CALLED INTO ER TO ASSIST IN INTUBATING A PT IN TRAUMA. PT WAS TO BE INTUBATED DUE TO ANGIO EDEMA CAUSE BY AN ALLERGIC REACTION. . UPON ARRIVAL PT WAS CONSCIOUS AND MD NURSE WAS EXPLAINING TO PT THAT HE WAS TO BE INTUBATED IN ORDER TO PROTECT HIS AIRWAY AND HELP HIM BREATHE AND THAT HIS MOTHER WAS NOTIFIED OF THE PROCEDURE NEEDED. PT WAS FOUND WITH AN SPO2 OF 100% ON ROOM AIR. INTUBATION EQUIPMENT WAS PREPARED AND GIVEN TO DR ALARCON. PT WAS SUCCESFULLY INTUBATED BY DR. ALARCON WITH ETT SIZE 7.5 @ 23 CM LIPLINE. ANCHOR FAST WAS PLACED AND TUBE WAS SECURED AND PLACED IN THE MIDDLE OF THE MOUTH. PT WAS PLACED ON MECHANICAL VENTILATION POST INTUBATION ON AC/VC 15, 600, 35%, +5. VENT SETTINGS ORDERED BY DR. ALARCON. ALARMS WERE ADJUSTED AND ARE ON AND AUDIBLE. VENT CIRCUIT AND SX TUBBING ARE SECURE AND OUT OF THE WAY. AMBU BAG IS AT BEDSIDE. PT HAS BILATERAL SOFT WRIST RESTRAINS WHICH ARE SECURELY IN PLACE. PT KEEPS FIGHTING THE VENT AND MUST BE KEPT SEDATED IN ORDER TO PROPERLY VENTILATE. OPA INSERTED TO PREVENT PT FROM BITTING DOWN ON TUBE. PT CONTINUES TO BE AGITATED. WILL CONTINUE TO CLOSELY MONITOR.
--- NOTE | 2019-05-03 02:27 | NUR ---
ED Nurse Note: Patient intubated at 0327. ET tube size 7.5 tube length 23cm
[2019-05-03] MEDS ORDERED: EPINEPHrine 1mg/1ml Amp IM ONE (02:30)
[2019-05-03] MEDS ORDERED: LORazepam Inj 2mg/ml 1ml IM ONE (02:45)
[2019-05-03] MEDS ORDERED: LORazepam Inj 2mg/ml 1ml IV ONE (02:45)
--- NOTE | 2019-05-03 02:50 | NUR ---
ED Nurse Note: Patient is very agitated. patient is constantly fighting and trying to take tube out. Received verbal orders from Dr. Baron to increase propofol to 30mcg.
[2019-05-03 03:00] LABS: BASOPHILS % (AUTO) 1.7 % (0.0-2.0); EOSINOPHILS % (AUTO) 2.2 % (0.0-3.0); HEMOGLOBIN 14.1 G/DL (14.2-18.0); LYMPHOCYTES % (AUTO) 25.3 % (20.0-45.0); MEAN CORPUSCULAR VOLUME 95 FL (80-99); MONOCYTES % (AUTO) 15.4 % (1.0-10.0); NEUTROPHILS % (AUTO) 55.5 % (45.0-75.0); PLATELET COUNT 351 K/UL (150-450); RED BLOOD COUNT 4.43 M/UL (4.70-6.10); WHITE BLOOD COUNT 9.2 K/UL (4.8-10.8)
--- NOTE | 2019-05-03 03:16 | NUR ---
ED Nurse Note: Received verbal order from to increase 50mcg. patient is still agitated. placed bitelock on patient.
--- NOTE | 2019-05-03 03:31 | NUR ---
TRANSFER TO FLOOR: Patient transferred to ICU as ordered, per . Report given to ISIS Sandoval
--- NOTE | 2019-05-03 03:45 | NUR ---
NURSE NOTES: RECEIVED PATIENT FROM ER NURSE ISIS TOBIN VIA LINA. PATIENT AGITATED, IRRITABLE, COMBATIVE AND TRIED TO REMOVE ENDOTUBE STATUS, ON ETT TO VENT AC 15/TV 600/FIO3 35%/PEEP 5, O2 SATURATION 100% NOTED, NO N/V, ABDOMEN SOFT, NON TENDER, PERIPHERAL LINE TO LEFT AC 20G, RIGHT AC 18G, INTACT AND PATENT, ONGOING PROPOFOL DRIP 50MCG/KG/MIN VIA LEFT SIDE PERIPHERAL LINE, MADE LOWER BED POSITION, WILL CONTINUE TO MONITOR.
--- NOTE | 2019-05-03 04:13 | NUR ---
NURSE NOTES: CALLED DR. JOSHI, RECEIVED ADMISSION ORDER AND CARRIED OUT, NO IN AM LABS STATUS. Addendum: 05/03/19 at 0545 by VISHNU HOYT RN NURSE NOTES: CALLED DR. JOSHI, NOTED PT'S SITUATION THAT PATIENT AWOKE, AGITATED, IRRITABLE STATUS EVEN PROPOFOL DRIP MAXIMUM DOSE, RECEIVED ADMISSION ORDER AND CARRIED OUT, NO IN AM LABS STATUS.
[2019-05-03] MEDS: LORazepam Inj 2mg/ml 1ml IV PRN ×6 (04:32→19:58)
--- NOTE | 2019-05-03 04:32 | NUR ---
NURSE NOTES: PATIENT ANXIOUS, TRIED TO REMOVE TUBE STATUS, GIVEN ATIVAN 1MG BY IVP SLOWLY PRN ORDERED, WILL CONTINUE TO MONITOR.
--- NOTE | 2019-05-03 05:00 | NUR ---
RESPIRATORY NOTE: MECHANICAL VENT SETTING ORDERS WERE CHANGED BY DR JOSHI. CURRENT VENT SETTINGS ARE AC/VC 10, 500, 35%, NO PEEP. ALARMS WERE ADJUSTED AND ARE ON AND AUDIBLE. PT TOLERATING NEW VENT SETTING WELL AND VS ARE WNL. VENT CIRCUIT AND SX TUBBING ARE SECURE AND OUT OF THE WAY. PT IS SEDATED BUT CONTINUES TO BE AGITATED AND KEEPS MOVING AROUND. BILATERAL SOFT WRIST RESTRAINS WERE CHECKED AND ARE PROPERLY ADJUSTED. WILL MONITOR PT FOR REMAINDER OF SHIFT.
--- NOTE | 2019-05-03 05:03 | NUR ---
NURSE NOTES: SCANNED PROPOFOL NEW LABEL AND PUT PREVIOUS BOTTLE ON THAT HUNG FROM ER.
[2019-05-03] MEDS: Solu-MEDROL 40mg Inj IVP SCH ×3 (05:56→17:28)
--- NOTE | 2019-05-03 06:00 | NUR ---
NURSE NOTES: CHANGED NEW PROPOFOL BOTTLE, ON 50MCG/KG/MIN VIA LEFT PERIPHERAL LINE, WILL CONTINUE TO MONITOR.
--- NOTE | 2019-05-03 06:30 | NUR ---
NURSE NOTES: PATIENT AWOKE, IRRITABLE, TRIED TO TOUCH ENDOTUBE, DID NOT FOLLOWED COMMANDS STATUS, ONGOING PROPOFOL 50MCG/KG/MIN, KEPT 2 POINT SOFT RESTRAINTS FOR SAFETY, WILL CONTINUE PLAN OF CARE.
--- NOTE | 2019-05-03 07:09 | NUR ---
HAND-OFF: Report given to ISIS HERNANDEZ.
--- NOTE | 2019-05-03 07:15 | NUR ---
RESPIRATORY NOTE: received pt orally intubatedf with ETT 7.5, placed 23cm at the lip. ETT secured via anchor fast with OPA in place due to pt biting on the tube and slight agitation. pt receiving appropriate volumes with current vent settings. alarms are set and audible with ambu bag at bedside. will cont to monitor.
--- NOTE | 2019-05-03 08:42 | NUR ---
NURSE NOTES: Ativan 1mg given IVP due to patient being agitated, after dose patient is at rass scale of -2, Dr. Davila updated father at the bedside of plan, also will attempt to wean and extubate after a cuff leak test has been completed, added to decrease the sedation once weaning trial has started. patient is breathing with RR of 18-20 with no distress noted, patient remains on bilateral wrist restraints for agitation and reaching towards Et-tube, he has arms strength of 4/5, skin around the wrist remain intact, hands are warm, pink with pulses present,
--- NOTE | 2019-05-03 09:15 | NUR ---
NURSE NOTES: Dr. Davila updated father at the bedside of patient status and plan, will attempt to wean and extubate patient tomorrow 05/04/19 in am.
--- NOTE | 2019-05-03 11:48 | NUR ---
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
--- NOTE | 2019-05-03 12:00 | NUR ---
NURSE NOTES: Mother and sister at the bedside with patient, all queations answered then family left home after visiting patient.
--- NOTE | 2019-05-03 12:29 | Diagnostic Imaging Report ---
Indication: Shortness of breath, post intubation Technique: One view of the chest Comparison: none Findings: There is an endotracheal tube in place, tip projecting approximately 3 cm above the nancy. There is equivocal minimal prominence to the perihilar interstitial markings, although this is probably exaggerated by low lung volumes. The heart size is normal. Impression: Equivocal minimal perihilar interstitial edema Satisfactory endotracheal intubation
[2019-05-03] MEDS ORDERED: Succinylcholine 20mg/ml 10ml vial ONE (14:04)
[2019-05-03] MEDS ORDERED: Zemuron 50mg/5ml Inj IV ONE (14:04)
[2019-05-03] MEDS ORDERED: Morphine Sulfate 2mg/ml Inj(IV/IM USE ONLY) IVP PRN (14:30)
--- NOTE | 2019-05-03 14:45 | NUR ---
NURSE NOTES: Dr. Davila called to orders morphine to cover pain over the throat/neck area, ordered to 2mg IVP q4hrs PRN for pain
[2019-05-03] MEDS: DiphenhydrAMINE 50mg/ml Inj IVP PRN (15:17)
--- NOTE | 2019-05-03 15:55 | NUR ---
NURSE NOTES: patient remains on fetanyl at 50mcg/kg/min at rate of 18.63ml/hr. aunt updated at the bedside of patient respiratory progress and all concerns addressed, patient remains on bilateral wrist restrains for agitations and reaching towards ET-tube. skin in warm, pink at the palms with pulses present distal to restraints.
--- NOTE | 2019-05-03 18:04 | Consultation ---
History of Present Illness General Date patient seen: May 03, 2019 Time patient seen: 18:00 Chief Complaint: Allergic Reaction Present Illness HPI Patient chris RA 70 from home c/o allergic reaction, patient states he took a naproxen about 2 hours ago to which he states it causing an allergic reaction. patient presents with slurred speech to swollen throat, states that he feels like something is pressing against his throat. Patient was intubated in ER for angioedema. Unknown which medication he is allergic to. CXR: Equivocal minimal perihilar interstitial edema He was recently seen for pancreatitis Allergies: Uncoded Allergies: AMLOPDIPINE (Allergy, Unknown, 05/03/19) POSSIBLE REACTION CARIVDOLOL (Allergy, Unknown, 05/03/19) POSSIBLE REACTION Medication History Scheduled Amlodipine Besylate* (Amlodipine Besylate*), 10 MG ORAL DAILY, (Reported) Calcium Carbonate (Antacid), 500 MG PO FOUR TIMES A DAY, (Reported) Carvedilol (Coreg), 12.5 MG ORAL TWICE A DAY, (Reported) Cephalexin* (Keflex*), 500 MG ORAL Q6H Docusate Sodium* (Colace*), 100 MG ORAL THREE TIMES A DAY Omeprazole (Omeprazole), 20 MG ORAL TWICE A DAY, (Reported) Ranitidine HCl (Ranitidine HCl), 150 MG PO BID, (Reported) Scheduled PRN Pvputiody-Efq-3* (Cfdcuqgs-Ubl-5*), 1 PATCH TDERMAL DAILY PRN for For High Blood Pressure, (Reported) Hydrocodone Bit/Acetaminophen 5-325* ([place] 5-325 Tablet*), 1 TAB ORAL Q6HR PRN for For Pain, (Reported) Ondansetron Hcl* (Zofran*), 4 MG SL Q6H PRN for Nausea & Vomiting, (Reported) Discontinued Medications Hydrocodone Bit/Acetaminophen 5-325* ([place] 5-325 Tablet*), 1 TAB ORAL Q4H PRN for For Pain Discontinued Reason: Therapy completed Ondansetron (Zofran), 4 MG ORAL Q6H PRN for Nausea & Vomiting Discontinued Reason: Therapy completed Patient History Healthcare decision maker self Resuscitation status Full Code Advanced Directive on File No Review of Systems Constitutional: Reports: weakness Eye: Reports: no symptoms ENT: Reports: no symptoms Respiratory: Reports: shortness of breath, stridor, wheezing Cardiovascular: Reports: no symptoms Gastrointestinal: Reports: no symptoms Genitourinary: Reports: no symptoms Musculoskeletal: Reports: no symptoms Skin: Reports: no symptoms Psychiatric: Reports: no symptoms Neurological: Reports: no symptoms Endocrine: Reports: no symptoms Hematologic/Lymphatic: Reports: no symptoms Physical Exam General Appearance: no apparent distress, alert Lines, tubes and drains: peripheral HEENT: normocephalic, atraumatic Neck: non-tender, normal alignment, supple, normal inspection Respiratory/Chest: chest wall non-tender, lungs clear Cardiovascular/Chest: normal peripheral pulses, normal rate, regular rhythm Abdomen: normal bowel sounds, non tender, soft, no organomegaly, no mass Extremities: normal range of motion, non-tender, normal inspection Skin Exam: normal pigmentation, warm/dry, cyanotic Neurologic: mill tender II-XII grossly normal, no motor/sensory deficits Last 24 Hour Vital Signs Date Time Temp Pulse Resp B/P (MAP) Pulse Ox O2 Delivery O2 Flow Rate FiO2 05/03/19 17:37 95 20 30 05/03/19 17:31 23 102/85 Mechanical Ventilator 30 05/03/19 17:00 94 18 157/102 (120) 100 05/03/19 16:30 100 20 154/104 (121) 100 05/03/19 16:00 99.0 94 18 126/98 (107) 100 05/03/19 16:00 90 05/03/19 16:00 Mechanical Ventilator 05/03/19 16:00 30 05/03/19 15:30 91 18 148/85 (106) 100 05/03/19 15:00 100 20 152/112 (125) 100 05/03/19 14:58 103 26 30 05/03/19 14:30 109 23 153/130 (138) 100 05/03/19 14:00 106 25 164/85 (111) 100 05/03/19 13:30 98 22 150/81 (104) 100 05/03/19 13:00 85 18 154/73 (100) 100 05/03/19 12:52 80 20 30 05/03/19 12:30 81 20 153/72 (99) 100 05/03/19 12:12 18 163/71 Mechanical Ventilator 30 05/03/19 12:00 87 05/03/19 12:00 35 05/03/19 12:00 98.3 82 18 157/74 (101) 100 05/03/19 12:00 Mechanical Ventilator 05/03/19 11:30 86 17 157/70 (99) 100 05/03/19 11:00 87 17 141/73 (95) 100 05/03/19 10:47 100 18 30 05/03/19 10:30 95 19 150/79 (102) 100 05/03/19 10:00 92 19 143/72 (95) 100 05/03/19 09:30 91 18 141/71 (94) 100 05/03/19 09:00 91 18 141/71 (94) 100 05/03/19 08:42 100 19 35 05/03/19 08:30 100 19 137/86 (103) 100 05/03/19 08:00 35 05/03/19 08:00 100 05/03/19 08:00 Mechanical Ventilator 05/03/19 08:00 98.3 101 21 139/91 (107) 100 05/03/19 07:30 104 22 131/82 (98) 100 05/03/19 07:11 104 26 35 05/03/19 07:00 31 137/84 Mechanical Ventilator 35 05/03/19 07:00 102 31 139/88 (105) 100 05/03/19 06:30 102 23 141/90 (107) 100 05/03/19 06:00 103 19 138/79 (98) 100 05/03/19 06:00 30 143/92 Mechanical Ventilator 35 05/03/19 05:30 101 23 129/82 (98) 100 05/03/19 05:03 18 120/71 35 05/03/19 05:00 93 17 35 05/03/19 05:00 109 18 135/85 (102) 100 05/03/19 04:31 19 121/78 Mechanical Ventilator 35 05/03/19 04:30 99 19 121/78 (92) 100 05/03/19 04:15 97 16 112/69 (83) 100 05/03/19 04:01 35 05/03/19 04:00 Mechanical Ventilator 05/03/19 04:00 Mechanical Ventilator 05/03/19 04:00 97 18 100/67 (78) 100 05/03/19 03:45 103 05/03/19 03:45 99.0 103 25 114/73 (87) 95 05/03/19 03:31 98.3 89 20 126/82 100 Mechanical Ventilator 15.0 35 05/03/19 03:31 18 126/82 Mechanical Ventilator 25.0 35 05/03/19 03:16 18 165/82 Mechanical Ventilator 25.0 35 05/03/19 03:01 20 210/127 Mechanical Ventilator 60.0 35 05/03/19 02:52 159/133 05/03/19 02:46 19 166/113 Mechanical Ventilator 40.0 100 05/03/19 02:30 94 23 35 05/03/19 02:30 94 23 100 Room Air 21 05/03/19 00:52 84 19 Room Air 05/03/19 00:52 98.6 83 19 148/93 100 Room Air 05/03/19 00:46 98.6 84 19 148/93 (111) 100 Room Air Intake and Output 05/02/19 05/03/19 18:59 06:59 Intake Total 1156.593 ml Output Total 750 ml Balance 406.593 ml Intake IV Total 1156.593 ml Output Urine Total 750 ml # Voids 2 Laboratory Tests Test 05/03/19 01:00 White Blood Count 9.2 K/UL (4.8-10.8) Red Blood Count 4.43 M/UL (4.70-6.10) L Hemoglobin 14.1 G/DL (14.2-18.0) L Hematocrit 42.0 % (42.0-52.0) Mean Corpuscular Volume 95 FL (80-99) Mean Corpuscular Hemoglobin 31.9 PG (27.0-31.0) H Mean Corpuscular Hemoglobin Concent 33.6 G/DL (32.0-36.0) Red Cell Distribution Width 12.0 % (11.6-14.8) Platelet Count 351 K/UL (150-450) Mean Platelet Volume 5.3 FL (6.5-10.1) L Neutrophils (%) (Auto) 55.5 % (45.0-75.0) Lymphocytes (%) (Auto) 25.3 % (20.0-45.0) Monocytes (%) (Auto) 15.4 % (1.0-10.0) H Eosinophils (%) (Auto) 2.2 % (0.0-3.0) Basophils (%) (Auto) 1.7 % (0.0-2.0) Sodium Level 136 MMOL/L (136-145) Potassium Level 3.8 MMOL/L (3.5-5.1) Chloride Level 99 MMOL/L (98-107) Carbon Dioxide Level 29 MMOL/L (21-32) Anion Gap 8 mmol/L (5-15) Blood Urea Nitrogen 4 mg/dL (7-18) L Creatinine 1.0 MG/DL (0.55-1.30) Estimat Glomerular Filtration Rate > 60 mL/min (>60) Glucose Level 116 MG/DL (74-106) H Calcium Level 10.5 MG/DL (8.5-10.1) H Total Bilirubin 0.5 MG/DL (0.2-1.0) Aspartate Amino Transf (AST/SGOT) 31 U/L (15-37) Alanine Aminotransferase (ALT/SGPT) 25 U/L (12-78) Alkaline Phosphatase 68 U/L (46-116) Total Protein 8.4 G/DL (6.4-8.2) H Albumin 4.4 G/DL (3.4-5.0) Globulin 4.0 g/dL Albumin/Globulin Ratio 1.1 (1.0-2.7) Triglycerides Level 115 MG/DL (30-150) Lipase 1187 U/L (73-393) H Microbiology Date/Time Source Procedure Growth Status 05/03/19 04:00 Rectum Received Height (Feet): 5 Height (Inches): 5.00 Weight (Pounds): 128 Medications Current Medications Medications (Trade) Dose Ordered Sig/Noé Route PRN Reason Start Time Stop Time Status Last Admin Dose Admin Diphenhydramine HCl (Benadryl) 25 mg Q6H PRN IVP Itching 05/03/19 09:15 06/02/19 09:14 05/03/19 15:17 Famotidine (Pepcid I.v.) 20 mg Q12HR IVP 05/03/19 21:00 06/02/19 20:59 Lorazepam (Ativan 2mg/ml 1ml) 1 mg Q2H PRN IV Agitation 05/03/19 10:45 05/10/19 10:44 05/03/19 16:24 Lorazepam (Ativan 2mg/ml 1ml) 1 mg Q4H PRN IV For Anxiety 05/03/19 04:15 05/10/19 04:14 05/03/19 08:33 Methylprednisolone Sodium Succinate (Solu-MEDROL) 40 mg EVERY 6 HOURS IVP 05/03/19 06:00 06/02/19 05:59 05/03/19 17:28 Morphine Sulfate (Morphine Sulfate) 2 mg Q4H PRN IVP For Pain 05/03/19 14:30 05/10/19 14:29 05/03/19 14:37 Propofol 100 ml @ 0 mls/hr Q24H PRN IV Per rx protocol 05/03/19 04:15 05/05/19 04:14 05/03/19 17:31 Sodium Chloride 1,000 ml @ 75 mls/hr [id number] IV 05/03/19 04:15 06/02/19 04:14 05/03/19 17:33 Assessment/Plan Status: stable Assessment/Plan: Assessment Angioedema Hypertension Drug user Pancreatitis Plan: Intubated - wean to extubate IV steroids Benadryl Hold medications - unknown trigger Epipen at discharge d/c coreg/norvasc Start hydralazine for hypertension. Ashwin Sher MD May 03, 2019 18:04
--- NOTE | 2019-05-03 19:27 | NUR ---
HAND-OFF: Report given to ISIS Murray. PAtient remains at 50mcg/kg/min at rate of 18.63ml/hr.
--- NOTE | 2019-05-03 19:30 | NUR ---
NURSE NOTES: RECEIVED PATIENT FROM ISIS HERNANDEZ. PATIENT IS RESTING IN BED, IN NO ACUTE DISTRESS, SEDATED RASS SCORE AT -2, WITH PROPOFOL RUNNING AT 50MCG/KG/MIN. ALOS ETT TO VENT AC 10/TV 500/FIO3 30%/PEEP 0, O2 SATURATION 100% NOTED, NO N/V, ABDOMEN SOFT, NON TENDER, PERIPHERAL LINE TO LEFT AC 20G, RIGHT AC 18G, INTACT AND PATENT, BILATERAL SOFT WRIST RESTRAIN NOTED, NO COMPLICATION. MADE LOWER BED POSITION, WILL CONTINUE TO MONITOR.
--- NOTE | 2019-05-03 19:43 | NUR ---
RESPIRATORY NOTE: PT RECEIVED STABLE ON AC/VC 10, 500, 30%, NO PEEP. ALARMS ARE ON AND AUDIBLE. VENT CIRCUIT IS SECURE AND OUT OF THE WAY. PT HAS BILATERAL SOFT WRIST RESTRAINS SECURELY IN PLACE. PT IS BEING VENTILATED VIA AN ETT TUBE SIZE 7.5 @ 23 CM LIPLINE. PT TOLERATING VENT SETTINGS WELL. WILL CONTINUE TO MONITOR.
--- NOTE | 2019-05-03 21:04 | Cardiology Report ---
APPROVED REPORT EKG Measurement Heart [id number] Normal sinus rhythm with sinus arrhythmia Possible Left atrial enlargement Borderline ECG
--- NOTE | 2019-05-03 21:07 | Diagnostic Imaging Report ---
Indication: Post nasogastric tube placement Technique: Supine view of the abdomen Comparison: none Findings: There is a nasogastric tube in place, tip of which projects at the level of the gastric antrum. Unremarkable bowel gas pattern. Impression: Satisfactory nasogastric intubation This agrees with the preliminary interpretation provided overnight by [facility] teleradiology service.
[2019-05-03] MEDS: HydrALAZINE 50mg tab ORAL SCH (21:35)
--- NOTE | 2019-05-03 22:00 | NUR ---
NURSE NOTES: Pt's resting in bed, in no acute distress, occasionally try to get out of bed, moving his legs, currently on Propofol at 50mcg/kg/min. VS stable. Will continue to monitor.
[2019-05-04] VITALS (35 sets, daily range): BP systolic 118–165; BP diastolic 73–107
[2019-05-04] MEDS: Solu-MEDROL 40mg Inj IVP SCH ×4 (00:42→17:40)
[2019-05-04] MEDS: DiphenhydrAMINE 50mg/ml Inj IVP PRN (00:43)
--- NOTE | 2019-05-04 02:00 | NUR ---
NURSE NOTES: Pt's resting in bed, in no acute distress, currently on Propofol at 50mcg/kg/min. VS stable. Will continue to monitor.
--- NOTE | 2019-05-04 03:15 | History and Physical Report ---
DATE OF ADMISSION: 05/03/2019 HISTORY OF PRESENT ILLNESS: This is a 38-year-old male with a history of recent hospitalization at hospital for pancreatitis. He was discharged about 24 hours ago. He was discharged on a combination of Naprosyn, Coreg, and amlodipine. He states that at home he started having tightness in his throat and pain. He then had emesis. He felt that his throat was closing up. He came to the emergency room. In the ER, he was seen and noted to be drooling. At that time, he was intubated. He states he took Naprosyn and unknown street medications. The patient was admitted to the hospital after being intubated and currently he is in the ICU on propofol drip with Ativan. His father, is at bedside. Discussed in detail with father and nursing. ALLERGIES: Unknown. PAST HISTORY: History of previous pancreatitis and hypertension. PAST SURGICAL HISTORY: None. SOCIAL HISTORY: Denies alcohol or tobacco usage. Previously has had marijuana on board. PHYSICAL EXAMINATION: VITAL SIGNS: Blood pressure 140/90, heart rate is 82, respirations 18, and he is afebrile. GENERAL: Reveals a young male. HEENT: Unremarkable. Endotracheal tube is in place. LUNGS: Clear breath sounds bilaterally. HEART: Normal heart sounds. ABDOMEN: Soft. EXTREMITIES: There is no edema. NEUROLOGIC: Nonfocal, unable to perform due to sedation. LABORATORY DATA: Lab testing shows normal CBC and BMP. Lipase is 1187. Previous lipase was 681 and this is definitely increased from previous. Imaging studies none. IMPRESSION: 1. Angioedema. 2. Hypertension. 3. Pancreatitis. DISCUSSION: Admit to the hospital. We will keep on vent. Continue propofol. Start steroids, Benadryl, and Zantac. IV fluids. DVT prophylaxis. Keep NPO. We will perform test tomorrow and assess for patency of airway. We will follow carefully. Demetrio Davila M.D. DR: ROMAN/RENZO JOB#: [id number] CC:
--- NOTE | 2019-05-04 05:15 | NUR ---
RESPIRATORY NOTE: PT REMAINED STABLE ON CMV WITH CURRENT SETTINGS. SXN'D PRN WITH NO ADVERSE REACTION. AIRWAY SECURE AND PATENT. VENT CIRCUIT AND SX TUBBING ARE SECURE AND OUT OF THE WAY. NO S/S OF RESPIRATORY DISTRESS NOTED AT THIS TIME.
--- NOTE | 2019-05-04 06:00 | NUR ---
NURSE NOTES: Pt's resting in bed, asleep with eyes closed, VS stable. Will continue to monitor.
[2019-05-04 06:51] LABS: HEMATOCRIT 34.8 % (42.0-52.0); HEMOGLOBIN 11.7 G/DL (14.2-18.0); MEAN CORPUSCULAR VOLUME 96 FL (80-99); PLATELET COUNT 361 K/UL (150-450); RED BLOOD COUNT 3.64 M/UL (4.70-6.10); RED CELL DISTRIBUTION WIDTH 12.5 % (11.6-14.8); WHITE BLOOD COUNT 15.4 K/UL (4.8-10.8)
[2019-05-04] MEDS: HydrALAZINE 50mg tab ORAL SCH ×3 (06:57→21:49)
--- NOTE | 2019-05-04 07:00 | NUR ---
RESPIRATORY NOTES: Received Patient on Vent settings ACVC RR 10, VT 500, FIO2 30%, PEEP +0. Patient has a 7.5 ETT at 23cm at the lip, secured with anchorfast. Bilateral clear breath sounds noted throughout both lung foote. Suction small amount of thin white secretions Q2 and PRN through ETT. Vent alarms are on and audible. Vent plugged into red outlet. Will continue to monitor throughout the day.
[2019-05-04 07:10] LABS: ANION GAP 10 mmol/L (5-15); BLOOD UREA NITROGEN 6 mg/dL (7-18); CALCIUM 9.5 MG/DL (8.5-10.1); CARBON DIOXIDE 25 MMOL/L (21-32); CHLORIDE 105 MMOL/L (98-107); CREATININE 0.7 MG/DL (0.55-1.30); POTASSIUM 3.1 MMOL/L (3.5-5.1); SODIUM 140 MMOL/L (136-145)
--- NOTE | 2019-05-04 07:15 | NUR ---
HAND-OFF: Report given to Lorraine Cruz RN.
--- NOTE | 2019-05-04 07:40 | NUR ---
NURSE NOTES: Received the patient from ISIS Murray. Patient is sedated with propofol, at RASS -1. Patient is orally intubated, ETT size 7.5, 23cm at lip line. vent settings: AC 10, TV 500, FIO2 30%, PEEP 0. O2 sat 100%. SR noted on the monitor. OGT intact, clamped. Condom cath intact, yellow urine noted. Right AC 18G and left AC 20G IV intact and patent, running propofol at 40mcg/kg/hr, and NS at 75ml/hr. patient for cuff leak test and weaning trial in am. Patient on bilateral soft wrist restraints. pulses present, no skin breakdown noted. Bed in lowest position, locked, side rails upx3. Bed alarm on. Call light within reach. Will continue to monitor.
--- NOTE | 2019-05-04 07:55 | Pulmonology Progress Note ---
Assessment/Plan Assessment/Plan IMPRESSION: 1. Angioedema. 2. Hypertension. 3. Pancreatitis. DISCUSSION: Wean off vent. DC propofol. Continue steroids, Benadryl, and Zantac. Continue IV fluids. DVT prophylaxis. Keep NPO. Passed cuff leak test (performed this AM by myself) WIll wean, dc propofiol and hope to extubate Subjective Interval Events: None new; passed cuff leak test this AM Constitutional: Reports: no symptoms HEENT: Repors: no symptoms Respiratory: Reports: no symptoms Cardiovascular: Reports: no symptoms Gastrointestinal/Abdominal: Reports: no symptoms Allergies: Uncoded Allergies: AMLOPDIPINE (Allergy, Unknown, 05/03/19) POSSIBLE REACTION CARIVDOLOL (Allergy, Unknown, 05/03/19) POSSIBLE REACTION Objective Last 24 Hour Vital Signs Date Time Temp Pulse Resp B/P (MAP) Pulse Ox O2 Delivery O2 Flow Rate FiO2 05/04/19 07:10 83 16 30 05/04/19 07:00 94 17 153/98 (116) 100 05/04/19 06:57 118/73 05/04/19 06:30 82 14 118/73 (88) 100 05/04/19 06:00 84 14 120/74 (89) 100 05/04/19 05:30 83 15 131/81 (98) 100 05/04/19 05:15 82 16 30 05/04/19 05:00 84 17 128/76 (93) 100 05/04/19 04:30 86 17 129/83 (98) 100 05/04/19 04:00 Mechanical Ventilator 05/04/19 04:00 30 05/04/19 04:00 20 153/96 Mechanical Ventilator 05/04/19 04:00 90 17 121/85 (97) 100 05/04/19 04:00 87 05/04/19 03:52 16 153/96 Mechanical Ventilator 05/04/19 03:30 96 21 153/96 (115) 100 05/04/19 03:00 21 137/90 Mechanical Ventilator 05/04/19 03:00 99 23 30 05/04/19 03:00 101 20 137/90 (106) 100 05/04/19 02:30 107 22 165/107 (126) 100 05/04/19 02:00 101 20 149/96 (113) 100 05/04/19 02:00 22 165/107 Mechanical Ventilator 05/04/19 01:30 95 17 140/93 (109) 100 05/04/19 01:24 94 18 136/92 (107) 100 05/04/19 01:23 95 17 30 05/04/19 01:00 98 16 140/90 (107) 100 05/04/19 01:00 21 149/96 Mechanical Ventilator 05/04/19 00:30 110 19 138/88 (105) 100 05/04/19 00:00 Mechanical Ventilator 05/04/19 00:00 30 05/04/19 00:00 111 25 133/88 (103) 100 05/04/19 00:00 17 136/92 Mechanical Ventilator 05/04/19 00:00 97 05/03/19 23:30 108 27 149/88 (108) 100 05/03/19 23:18 100 25 30 05/03/19 23:00 23 149/88 Mechanical Ventilator 05/03/19 23:00 101 19 146/96 (113) 100 05/03/19 22:50 16 122/85 05/03/19 22:30 100 17 122/85 (97) 100 05/03/19 22:00 98 16 131/86 (101) 100 05/03/19 22:00 17 131/86 Mechanical Ventilator 05/03/19 21:35 146/99 05/03/19 21:30 97 16 144/93 (110) 100 05/03/19 21:11 94 19 30 05/03/19 21:00 100 19 146/99 (115) 100 05/03/19 21:00 17 146/99 Mechanical Ventilator 05/03/19 20:30 96 19 149/98 (115) 100 05/03/19 20:00 96 05/03/19 20:00 19 148/100 Mechanical Ventilator 05/03/19 20:00 Mechanical Ventilator 05/03/19 20:00 112 23 194/113 (140) 100 05/03/19 20:00 30 05/03/19 19:43 100 19 30 05/03/19 19:30 100 21 182/119 (140) 100 05/03/19 19:00 20 147/105 Mechanical Ventilator 05/03/19 19:00 98.4 86 18 147/105 (119) 100 05/03/19 18:30 88 16 138/97 (111) 100 05/03/19 18:00 18 138/97 Mechanical Ventilator 30 05/03/19 18:00 91 18 116/87 (97) 100 05/03/19 17:37 95 20 30 05/03/19 17:31 23 102/85 Mechanical Ventilator 30 05/03/19 17:30 21 161/103 Mechanical Ventilator 30 05/03/19 17:30 101 21 102/85 (91) 100 05/03/19 17:00 18 157/102 Mechanical Ventilator 30 05/03/19 17:00 94 18 157/102 (120) 100 05/03/19 16:30 100 20 154/104 (121) 100 05/03/19 16:00 99.0 94 18 126/98 (107) 100 05/03/19 16:00 20 154/104 Mechanical Ventilator 30 05/03/19 16:00 90 05/03/19 16:00 Mechanical Ventilator 05/03/19 16:00 30 05/03/19 15:30 91 18 148/85 (106) 100 05/03/19 15:00 100 20 152/112 (125) 100 05/03/19 15:00 22 152/112 Mechanical Ventilator 30 05/03/19 14:58 103 26 30 05/03/19 14:30 109 23 153/130 (138) 100 05/03/19 14:00 106 25 164/85 (111) 100 05/03/19 14:00 24 167/85 Mechanical Ventilator 24 05/03/19 13:30 98 22 150/81 (104) 100 05/03/19 13:00 21 150/93 Mechanical Ventilator 30 05/03/19 13:00 85 18 154/73 (100) 100 05/03/19 12:52 80 20 30 05/03/19 12:30 81 20 153/72 (99) 100 05/03/19 12:12 18 163/71 Mechanical Ventilator 30 05/03/19 12:00 87 05/03/19 12:00 35 05/03/19 12:00 98.3 82 18 157/74 (101) 100 05/03/19 12:00 18 163/71 Mechanical Ventilator 30 05/03/19 12:00 Mechanical Ventilator 05/03/19 11:30 86 17 157/70 (99) 100 05/03/19 11:00 87 17 141/73 (95) 100 05/03/19 11:00 18 141/73 Mechanical Ventilator 30 05/03/19 10:47 100 18 30 05/03/19 10:30 95 19 150/79 (102) 100 05/03/19 10:00 18 143/72 Mechanical Ventilator 30 05/03/19 10:00 92 19 143/72 (95) 100 05/03/19 09:30 91 18 141/71 (94) 100 05/03/19 09:00 18 136/67 Mechanical Ventilator 35 05/03/19 09:00 91 18 141/71 (94) 100 05/03/19 08:42 100 19 35 05/03/19 08:30 100 19 137/86 (103) 100 05/03/19 08:00 35 05/03/19 08:00 24 131/82 Mechanical Ventilator 35 05/03/19 08:00 100 05/03/19 08:00 Mechanical Ventilator 05/03/19 08:00 98.3 101 21 139/91 (107) 100 Intake and Output 05/03/19 05/04/19 19:00 07:00 Intake Total 1237.348 ml 831.762 ml Output Total 1025 ml 900 ml Balance 212.348 ml -68.238 ml Intake IV Total 1157.348 ml 831.762 ml Other 80 ml Output Urine Total 1025 ml 900 ml General Appearance: no acute distress HEENT: normocephalic Respiratory/Chest: chest wall non-tender Cardiovascular: normal peripheral pulses, normal rate Abdomen: normal bowel sounds Microbiology Date/Time Source Procedure Growth Status 05/03/19 04:00 Rectum Received Laboratory Tests 05/04/19 05:26: White Blood Count 15.4#H, Red Blood Count 3.64L, Hemoglobin 11.7L, Hematocrit 34.8L, Mean Corpuscular Volume 96, Mean Corpuscular Hemoglobin 32.2H, Mean Corpuscular Hemoglobin Concent 33.7, Red Cell Distribution Width 12.5, Platelet Count 361, Mean Platelet Volume 5.6L, Neutrophils (%) (Auto) , Lymphocytes (%) ( Auto) , Monocytes (%) (Auto) , Eosinophils (%) (Auto) , Basophils (%) (Auto) , Differential Total Cells Counted 100, Neutrophils % (Manual) 82H, Lymphocytes % (Manual) 11L, Monocytes % (Manual) 7, Eosinophils % (Manual) 0, Basophils % ( Manual) 0, Band Neutrophils 0, Platelet Estimate Adequate, Platelet Morphology Normal, Hypochromasia 1+, Sodium Level 140, Potassium Level 3.1L, Chloride Level 105, Carbon Dioxide Level 25, Anion Gap 10, Blood Urea Nitrogen 6L, Creatinine 0.7, Estimat Glomerular Filtration Rate > 60, Glucose Level 120H, Calcium Level 9.5, Lipase 339 Current Medications Medications (Trade) Dose Ordered Sig/Noé Route PRN Reason Start Time Stop Time Status Last Admin Dose Admin Diphenhydramine HCl (Benadryl) 25 mg Q6H PRN IVP Itching 05/03/19 09:15 06/02/19 09:14 05/04/19 00:43 Famotidine (Pepcid I.v.) 20 mg Q12HR IVP 05/03/19 21:00 06/02/19 20:59 05/03/19 21:35 Hydralazine HCl (Apresoline) 50 mg Q8HR ORAL 05/03/19 22:00 06/02/19 21:59 05/04/19 06:57 Lorazepam (Ativan 2mg/ml 1ml) 1 mg Q2H PRN IV Agitation 05/03/19 10:45 05/10/19 10:44 05/03/19 16:24 Lorazepam (Ativan 2mg/ml 1ml) 1 mg Q4H PRN IV For Anxiety 05/03/19 04:15 05/10/19 04:14 05/03/19 19:58 Methylprednisolone Sodium Succinate (Solu-MEDROL) 40 mg EVERY 6 HOURS IVP 05/03/19 06:00 06/02/19 05:59 05/04/19 06:57 Morphine Sulfate (Morphine Sulfate) 2 mg Q4H PRN IVP For Pain 05/03/19 14:30 05/10/19 14:29 05/03/19 14:37 Propofol 100 ml @ 0 mls/hr Q24H PRN IV Per rx protocol 05/03/19 04:15 05/05/19 04:14 05/04/19 03:52 Sodium Chloride 1,000 ml @ 75 mls/hr [id number] IV 05/03/19 04:15 06/02/19 04:14 05/04/19 06:57 Demetrio Davila MD May 04, 2019 07:55
--- NOTE | 2019-05-04 07:56 | NUR ---
RESPIRATORY NOTES: Weaning started at 0750. Placed on PS 10 PEEP +5. Patient doing well. Leak test passed. Will continue to monitor.
--- NOTE | 2019-05-04 07:58 | NUR ---
NURSE NOTES: Patient is awake, able to follow commands. Dr. Davila and RT at bedside. Cuff leak test performed. Stopped propofol per Dr. Davila. ALEX Hall per . Addendum: 05/04/19 at 0820 by DREAD VALERIO RN per Dr. Davila, pt to be extubated later
--- NOTE | 2019-05-04 08:45 | NUR ---
NURSE NOTES: Patient was extubated by RT. Patient tolerated well. Patient on venturi mask 30%, O2 sat 99%. No acute distress noted. Bilateral soft wrist restraints removed. Patient is calm, able to follow commands, resting in bed. Addendum: 05/04/19 at 1412 by DREAD VALERIO RN OGT was also removed
--- NOTE | 2019-05-04 08:49 | NUR ---
RESPIRATORY NOTE: Patient extubated at 0845. Placed on Venti mask 30% FIO2 4LPM. No stridor noted. Clear breath sounds.
--- NOTE | 2019-05-04 10:45 | NUR ---
NURSE NOTES: Patient is asleep, resting in bed. no acute distress noted. On venturi mask 30%.
--- NOTE | 2019-05-04 10:53 | NUR ---
*-* INSURANCE *-* ALL CLINICALS AND REVIEWS HAVE BEEN FAXED TO: IRASEMA SAWYER:JEREMIAS P:[phone] F:[phone]
--- NOTE | 2019-05-04 12:50 | NUR ---
NURSE NOTES: Patient is awake, alert and orientedx3. On room air, O2 sat 100%. no acute distress noted.
--- NOTE | 2019-05-04 14:28 | NUR ---
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 98.0 HR 88 RR 19 B/P 151/98 VM WBC 15.4 K 3.1 IS: IVF NS @ 75ML/HR PEPCID IV SOLU MEDROL IV APRESOLINE ICU STATUS
--- NOTE | 2019-05-04 14:28 | NUR ---
NURSE NOTES: Patient awake, talking on the phone. Denies SOB. on room air, o2 sat 100%. NS running at 75ml/hr.
--- NOTE | 2019-05-04 15:01 | NUR ---
SWALLOW/SPEECH THERAPY LIMITED CONSULT ONLY: REFERRED FOR SWALLOW EVALUATION BY DR JOSHI. PATIENT JUST EXTUBATED THIS AM (INTUBATED YESTERDAY) AND HAS A LOT OF PAIN WITH SWALLOWING (ODYNOPHAGIA). WILL HOLD OFF ON FORMAL SWALLOW EVAL UNTIL TOMORROW DUE TO PAIN WITH SWALLOWING. SHOULD BE OK WITH ICES CHIPS AND SMALL SIPS OF WATER TOLERATED (NO NEURO DX) JUST RESOLVING ANGIOEDEMA IN THE THROAT AREA (SEE MD REPORT) HE FEELS LIKE HIS "UVULA" WANTS TO COME UP BUT ONLY HAD SOME PHLEGM ON THE BACK OF THE UVULA ?. TONGUES/LIPS FUNCTIONAL (SOME YELLOWISH COLOR OF TOP OF TONGUE) BUT HAD GROSSLY FUNCTIONAL SWALLOW WITH SIP OF THIN LIQUID (WITH GAUGE AND WEIGH MACHINE ADJUSTER) AND ICE CHIPS (WITH RN) UNLIKELY SILENT ASP RISK. PLAN: F/UP WITH GAUGE AND WEIGH MACHINE ADJUSTER TOMORROW FOR MORE COMPLETE EVALUATION GIVEN PAIN WITH SWALLOWING TODAY. OK TO HAVE ICE CHIPS AND SIPS OF WATER
--- NOTE | 2019-05-04 16:25 | NUR ---
NURSE NOTES: Patient is asleep, no s/sx of pain or SOB. Family member at bedside.
--- NOTE | 2019-05-04 18:30 | NUR ---
NURSE NOTES: Patient verbally responsive. VSS. On room air.
--- NOTE | 2019-05-04 18:50 | NUR ---
NURSE NOTES: called Dr. Davila, left a message regarding K level, awaiting for callback.
--- NOTE | 2019-05-04 19:10 | NUR ---
HAND-OFF: Report given to ISIS [facility].
--- NOTE | 2019-05-04 19:52 | NUR ---
NURSE NOTES: pt awake and alert post extubation today no acute resp distress on ra o2 sat 100 o /o
--- NOTE | 2019-05-04 22:00 | NUR ---
NURSE NOTES: kub x-ray done on arnulfo soft wrest restraints nan complaint reposition and suction
[2019-05-05] VITALS (21 sets, daily range): BP systolic 127–168; BP diastolic 77–109
--- NOTE | 2019-05-05 | NUR ---
NURSE NOTES: reposition and suction tube feeding started with v-joan af at40 cc/hr no residual
--- NOTE | 2019-05-05 02:00 | NUR ---
NURSE NOTES: asleep condition unchange
--- NOTE | 2019-05-05 04:00 | NUR ---
NURSE NOTES: complete bed bath oral care reposition and suction
--- NOTE | 2019-05-05 06:00 | NUR ---
NURSE NOTES: iv infiltrated restarted rt fa 20g awake and alert
[2019-05-05] MEDS: Solu-MEDROL 40mg Inj IVP SCH ×2 (06:16)
[2019-05-05] MEDS: HydrALAZINE 50mg tab ORAL SCH ×3 (06:17→21:31)
--- NOTE | 2019-05-05 07:15 | NUR ---
NURSE NOTES: Received pt from ISIS oGnzales. Patient is A/Ox4, awake and able to make needs known. Extubated yesterday. RA, oxygen saturation 100%. bilateral breath sounds clear but diminished. RH 20G infusing NS@75cc/hr. NPO maintained, waiting for second swallow eval. abdomen is flat, soft and non-tender. No facial or throat swelling noted. White patchy growth noted on back of throat noted. Condom cath draining to gravity. Sinus rhythm on case monitor; HR 90. SCD's in place. Bed locked, alarmed and in lowest position. Will continue plan of care.
--- NOTE | 2019-05-05 07:39 | NUR ---
HAND-OFF: Report given to laurie zaidi using sbar.:
--- NOTE | 2019-05-05 08:32 | Pulmonology Progress Note ---
Assessment/Plan Assessment/Plan IMPRESSION: 1. Angioedema. 2. Hypertension. 3. Pancreatitis. DISCUSSION: Will check swallow fabián; Clear liquids; advance as tolerated DC steroids Check labs Am' Replace K Subjective Interval Events: none new; Constitutional: Reports: no symptoms HEENT: Repors: no symptoms Respiratory: Reports: no symptoms Cardiovascular: Reports: no symptoms Gastrointestinal/Abdominal: Reports: no symptoms Genitourinary: Reports: no symptoms Allergies: Uncoded Allergies: AMLOPDIPINE (Allergy, Unknown, 05/03/19) POSSIBLE REACTION CARIVDOLOL (Allergy, Unknown, 05/03/19) POSSIBLE REACTION Objective Last 24 Hour Vital Signs Date Time Temp Pulse Resp B/P (MAP) Pulse Ox O2 Delivery O2 Flow Rate FiO2 05/05/19 07:00 81 22 130/92 (105) 100 05/05/19 06:17 158/75 05/05/19 06:00 83 23 158/92 (114) 100 05/05/19 05:00 92 22 148/98 (115) 98 05/05/19 04:00 Venturi Mask 14.0 05/05/19 04:00 98.0 87 22 145/83 (103) 99 05/05/19 04:00 89 05/05/19 03:00 78 21 138/85 (102) 100 05/05/19 02:00 81 18 128/77 (94) 99 05/05/19 01:00 88 20 136/82 (100) 100 05/05/19 00:00 Venturi Mask 14.0 05/05/19 00:00 95 22 130/77 (94) 99 05/05/19 00:00 98.5 95 22 130/77 (94) 99 05/05/19 00:00 88 05/04/19 23:00 100 21 130/77 (94) 98 05/04/19 22:00 90 16 150/98 (115) 100 05/04/19 21:49 143/87 05/04/19 21:00 88 19 143/87 (105) 99 05/04/19 20:00 98.5 92 20 151/88 (109) 98 05/04/19 20:00 92 05/04/19 20:00 Venturi Mask 14.0 05/04/19 19:12 99 Room Air 21 05/04/19 19:00 87 25 164/105 (124) 100 05/04/19 18:00 95 21 156/95 (115) 100 05/04/19 17:00 87 21 148/91 (110) 100 05/04/19 16:00 86 05/04/19 16:00 Venturi Mask 14.0 05/04/19 16:00 98.3 98 26 147/98 (114) 100 05/04/19 15:00 101 25 152/96 (114) 100 05/04/19 14:00 98 18 151/98 (115) 100 05/04/19 13:51 139/81 05/04/19 13:00 86 20 139/81 (100) 100 05/04/19 12:00 Venturi Mask 14.0 05/04/19 12:00 98.0 88 19 135/82 (99) 100 05/04/19 12:00 96 05/04/19 11:00 90 20 137/83 (101) 100 05/04/19 10:00 90 21 153/88 (109) 100 05/04/19 09:30 94 25 136/79 (98) 100 05/04/19 09:00 94 26 137/84 (101) 100 05/04/19 08:52 100 Venturi Mask 4.0 30 05/04/19 08:51 Venturi Mask 4.0 30 Intake and Output 05/04/19 05/05/19 19:00 07:00 Intake Total 913.934 ml 675 ml Output Total 250 ml 350 ml Balance 663.934 ml 325 ml Intake IV Total 913.934 ml 675 ml Output Urine Total 250 ml 350 ml General Appearance: no acute distress HEENT: normocephalic Respiratory/Chest: chest wall non-tender, lungs clear Cardiovascular: normal peripheral pulses, normal rate Abdomen: normal bowel sounds, soft, non tender Microbiology Date/Time Source Procedure Growth Status 05/03/19 04:00 Nasal Nares MRSA Culture - Final NO METHICILLIN RESISTANT STAPH AUREUS... Complete 05/03/19 04:00 Rectum VRE Culture - Final NO VANCOMYCIN RESISTANT ENTEROCOCCUS ... Complete 05/03/19 04:00 Rectum - Final NO CARBAPENEM-RESISTANT ENTEROBACTERI... Complete Current Medications Medications (Trade) Dose Ordered Sig/Noé Route PRN Reason Start Time Stop Time Status Last Admin Dose Admin Famotidine (Pepcid I.v.) 20 mg Q12HR IVP 05/03/19 21:00 06/02/19 20:59 05/04/19 21:10 Hydralazine HCl (Apresoline) 50 mg Q8HR ORAL 05/03/19 22:00 06/02/19 21:59 05/05/19 06:17 Lorazepam (Ativan 2mg/ml 1ml) 1 mg Q2H PRN IV Agitation 05/03/19 10:45 05/10/19 10:44 05/03/19 16:24 Lorazepam (Ativan 2mg/ml 1ml) 1 mg Q4H PRN IV For Anxiety 05/03/19 04:15 05/10/19 04:14 05/03/19 19:58 Methylprednisolone Sodium Succinate (Solu-MEDROL) 40 mg EVERY 6 HOURS IVP 05/03/19 06:00 06/02/19 05:59 05/05/19 06:16 Morphine Sulfate (Morphine Sulfate) 2 mg Q4H PRN IVP For Pain 05/03/19 14:30 05/10/19 14:29 05/03/19 14:37 Sodium Chloride 1,000 ml @ 75 mls/hr [id number] IV 05/03/19 04:15 06/02/19 04:14 05/04/19 20:15 Demetrio Davila MD May 05, 2019 08:32
--- NOTE | 2019-05-05 08:33 | NUR ---
NURSE NOTES: Dr. Davila called for updates regarding patient. Notified him of potassium=3.1, received orders for 40meg kcl ivpb. Let him know patient is hungry. Swallow eval to be done today. if cleared, OK to order clear liquid diet/regular. Received orders to transfer to telemetry.
--- NOTE | 2019-05-05 10:20 | NUR ---
NURSE NOTES: Notified Dr. Davila fo potassium 3.1. Received orders for 40 meq KCL IVPB, d/c solumedrol and transfer to telemetry.
[2019-05-05] MEDS: LORazepam Inj 2mg/ml 1ml IV PRN (11:00)
--- NOTE | 2019-05-05 11:30 | NUR ---
NURSE NOTES: Second ST eval done by [facility] speech therapist. Patient can have soft easy chew/regular diet, authorized by Dr. Davila. third KCL IVPB infusing well.
--- NOTE | 2019-05-05 13:44 | NUR ---
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 98.4 HR 94 RR 22 B/P 122/88 RA 100% IS: POTASSIUM IV IVF NS 75ML/HR APRESOLINE PO SWALLOW EVAL DOWN GRADE TO MED/SURG MED/SURG STATUS
--- NOTE | 2019-05-05 13:57 | NUR ---
Social Work This SW met with patient, currently in the ICU, who explains he has been living with his eighteen year old daughter, Michelle and mother, Opal Summers, stating "I'm not sure I can return back there, my mother doesn't even care about me and she causes too much anxiety and stress." Patient crying, stating he has been having arguments with his mother (denied any domestic violence) with his mother. Patient admits to feelings of depression, anxiety, while stating he does not take any medication for this. Patient has been binge drinking (Alcohol: beer), while denied any other substance abuse. 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 This SW advised discontinuation of substance abuse, while provided resources for mental health/substance abuse counseling. Psychiatry recommended to follow, as needed here (this ICU informed ICU nursing). Patient admits to smoking one pack of cigarettes and marijuana daily, stating "I'm not quitting this." Patient denied any suicidal/homicidal ideations. Patient explains he plans to leave his mothers home, will be going to [place] to live with his cousin, Melva. This Sw advised other housing options, as needed in [place] (provided resources). Patient explains he has been receiving food stamps. Patient has an eight year old son, Wilner, who lives with his mother and visits patient at times, stating "I don't drink when he comes to visit." Patient explains "I have no other choice, but to go to [place]." Patient explains he can return to his mother's home, upon discharge (as needed), but prefers to leave immediately to live with his cousin in [place], who will come to transport him there. This SW also advised patient, regarding an M.D possibly needed in [place], as well as change of insurance (currently receiving [facility]). Emotional support and counseling provided to patient. SW to follow further, as needed (especially if patient is homeless, does not have housing available upon discharge). TANO Harvey notified.
--- NOTE | 2019-05-05 14:25 | Cardiology Progress Note ---
Assessment/Plan Status: stable Assessment/Plan Assessment/Plan Status: stable Assessment/Plan: Assessment Angioedema Hypertension Drug user Pancreatitis Plan: Extubated stable on room air Transfer to floor IV steroids Benadryl Hold medications - unknown trigger Epipen at discharge d/c coreg/norvasc Continue hydralazine for hypertension - BP controlled Subjective Cardiovascular: Reports: no symptoms Respiratory: Reports: no symptoms Gastrointestinal/Abdominal: Reports: no symptoms Genitourinary: Reports: no symptoms Subjective No acute events, patient extubated, plan to transfer to floor Objective Last 24 Hour Vital Signs Date Time Temp Pulse Resp B/P (MAP) Pulse Ox O2 Delivery O2 Flow Rate FiO2 05/05/19 13:00 94 22 127/88 (101) 100 05/05/19 12:00 Room Air 05/05/19 12:00 98.4 95 22 158/101 (120) 100 05/05/19 11:00 81 22 150/86 (107) 100 05/05/19 10:00 92 22 167/107 (127) 100 05/05/19 09:00 95 22 157/88 (111) 100 05/05/19 08:00 98.6 76 22 142/82 (102) 99 05/05/19 08:00 Room Air 05/05/19 07:00 81 22 130/92 (105) 100 05/05/19 06:17 158/75 05/05/19 06:00 83 23 158/92 (114) 100 05/05/19 05:00 92 22 148/98 (115) 98 05/05/19 04:00 Venturi Mask 14.0 05/05/19 04:00 98.0 87 22 145/83 (103) 99 05/05/19 04:00 89 05/05/19 03:00 78 21 138/85 (102) 100 05/05/19 02:00 81 18 128/77 (94) 99 05/05/19 01:00 88 20 136/82 (100) 100 05/05/19 00:00 Venturi Mask 14.0 05/05/19 00:00 95 22 130/77 (94) 99 05/05/19 00:00 98.5 95 22 130/77 (94) 99 05/05/19 00:00 88 05/04/19 23:00 100 21 130/77 (94) 98 05/04/19 22:00 90 16 150/98 (115) 100 05/04/19 21:49 143/87 05/04/19 21:00 88 19 143/87 (105) 99 05/04/19 20:00 98.5 92 20 151/88 (109) 98 05/04/19 20:00 92 05/04/19 20:00 Venturi Mask 14.0 05/04/19 19:12 99 Room Air 21 05/04/19 19:00 87 25 164/105 (124) 100 05/04/19 18:00 95 21 156/95 (115) 100 05/04/19 17:00 87 21 148/91 (110) 100 05/04/19 16:00 86 05/04/19 16:00 Venturi Mask 14.0 05/04/19 16:00 98.3 98 26 147/98 (114) 100 05/04/19 15:00 101 25 152/96 (114) 100 General Appearance: no apparent distress, alert EENT: PERRL/EOMI, normal ENT inspection, TMs normal, pharynx normal Neck: non-tender, normal alignment, supple, normal inspection, no JVD Rhythm: NSR Cardiovascular: normal peripheral pulses, normal rate Respiratory/Chest: chest wall non-tender, lungs clear Abdomen: normal bowel sounds, non tender Extremities: normal range of motion, non-tender, normal inspection, no calf tenderness Neurologic: diet aide II-XII grossly normal, no motor/sensory deficits Intake and Output 05/04/19 05/05/19 19:00 07:00 Intake Total 913.934 ml 675 ml Output Total 250 ml 350 ml Balance 663.934 ml 325 ml IV Total 913.934 ml 675 ml Output Urine Total 250 ml 350 ml Microbiology Date/Time Source Procedure Growth Status 05/03/19 04:00 Nasal Nares MRSA Culture - Final NO METHICILLIN RESISTANT STAPH AUREUS... Complete 05/03/19 04:00 Rectum VRE Culture - Final NO VANCOMYCIN RESISTANT ENTEROCOCCUS ... Complete 05/03/19 04:00 Rectum - Final NO CARBAPENEM-RESISTANT ENTEROBACTERI... Complete Ashwin Sher MD May 05, 2019 14:25
--- NOTE | 2019-05-05 14:34 | NUR ---
NURSE NOTES: Ate 75% of lunch meal. HOB 35 degrees, patient fell asleep. BP stable.
--- NOTE | 2019-05-05 14:55 | NUR ---
*-* INSURANCE *-* ALL CLINICALS AND REVIEWS HAVE BEEN FAXED TO: IRASEMA SAWYER:JEREMIAS P:[phone] F:[phone]
[2019-05-05] MEDS ORDERED: LORazepam Inj 2mg/ml 1ml IV PRN ×2 (16:40)
--- NOTE | 2019-05-05 16:42 | NUR ---
TRANSFER TO FLOOR: Patient transferred to [facility], per Dr. Davila. Report given to Roque Gates RN. Belongings checklist done with RN at bedside. Patient has ciggarettes and a crystal flat grinder included with his belongings. Connected to tele monitor. VSS. No signs of distress or change of condition noted before transfer.
--- NOTE | 2019-05-05 16:43 | NUR ---
NURSE NOTES: Received report from ISIS Carlisle @ ICU. The patient is stable without acute distress or shortness of breath. The patient's belongings checked with two nurses and signed. He has cigarette and social worker masters and stored at the safe place away from the patient. Notified to the charge nurse regarding cigarette and social worker masters. The patient's bed in the lowest position, call light in reach, and fall and aspiration precaution reinforced. IV site on right hand 20G is intact and patent and running NS 75mL/hr. The patient's vital signs were as follows: BP 168/109, Pulse 99, Temperature 98.8F, SpO2 is 98% in room air. Will continue plan of care. Addendum: 05/05/19 at 1720 by Roque Koroma RN Skin is intact.
--- NOTE | 2019-05-05 17:02 | NUR ---
SPEECH PATHOLOGY: BEDSIDE SWALLOW EVALUATION COMPLETED POST CHART REVIEW AND INTERVIEW WITH RN, PATIENT. DYSPHAGIA RISK FACTORS FOR THIS 38 Y.O. MALE INCLUDE HX OF ODYNOPHAGIA, S/P EXTUBATION, RESOLVING ANGIOEDEMA IN LARYNGEAL AREA. INITIAL IMPRESSIONS: DURING P.O. TRIALS WITH THIN, PUREE AND SOFT/CHEWABLE SOLID PATIENT PRESENTED WITH EFFICACY OF OROPHARYNGEAL PHASE OF SWALLOW INTACT. FULL HYOLARYNGEAL EXCURSION DURING THE SWALLOW, CLEAR UPPER AIRWAY SOUNDS PRE AND POST SWALLOW PER CERVICAL AUSCULTATION. ODYNOPHAGIA RESOLVED. PATIENT EAGER TO RESUME P.O. INTAKE COMMENSURATE WITH PRIOR LEVEL OF FUNCTION/PRIOR TO ADMISSION. RECOMMENDATIONS: 1. PATIENT PRESENTS SAFE TO RESUME P.O. WITH DENTAL SOFT SOLIDS AND THIN LIQUIDS. 2. PILLS WITH LIQUID 3. ADVANCE TO REGULAR TEXTURE SOLIDS TOLERATED 4. NO FURTHER SKILLED ST SERVICES APPEAR TO BE NEEDED AT THIS TIME. THANK YOU FOR THIS REFERRAL. .
--- NOTE | 2019-05-05 17:21 | NUR ---
NURSE NOTES: Called Dr. Davila and Dr. Sher regarding elevation of blood pressure. Will continue to monitor the patient. Will carry out the order as soon as receives it.
[2019-05-05] MEDS ORDERED: BENADRYL25 MG ORAL (18:07)
[2019-05-05] MEDS ORDERED: ADVIL200 M2 ORAL (18:07)
--- NOTE | 2019-05-05 19:31 | NUR ---
HAND-OFF: Report given to ISIS Miranda. The patient is resting on the bed without acute distress or shortness of breath. The patient's bed in the lowest position, call light in reach, and fall and aspiration precaution reinforced. Endorsed plan of care.
--- NOTE | 2019-05-05 19:32 | NUR ---
NURSE NOTES: Got report from Camila MARINELLI. Pt in stable condition. Denies any pain. No s/s of distress or discomfort noted. Pt resting in bed comfortably. Bed in low and locked position, call light within reach, bedside table within reach. Continue to monitor.
[2019-05-05] MEDS: Morphine Sulfate 2mg/ml Inj(IV/IM USE ONLY) IVP PRN (20:07)
[2019-05-06] MEDS: Morphine Sulfate 2mg/ml Inj(IV/IM USE ONLY) IVP PRN ×4 (00:13→13:42)
[2019-05-06 04:00] VITALS: BP 136/88
[2019-05-06] MEDS: HydrALAZINE 50mg tab ORAL SCH ×2 (05:40→13:41)
[2019-05-06 07:14] LABS: BASOPHILS % (AUTO) 1.4 % (0.0-2.0); EOSINOPHILS % (AUTO) 0.8 % (0.0-3.0); HEMATOCRIT 35.7 % (42.0-52.0); LYMPHOCYTES % (AUTO) 23.9 % (20.0-45.0); MEAN CORPUSCULAR VOLUME 96 FL (80-99); MONOCYTES % (AUTO) 13.1 % (1.0-10.0); NEUTROPHILS % (AUTO) 60.8 % (45.0-75.0); PLATELET COUNT 405 K/UL (150-450); RED BLOOD COUNT 3.72 M/UL (4.70-6.10); RED CELL DISTRIBUTION WIDTH 12.3 % (11.6-14.8); WHITE BLOOD COUNT 12.2 K/UL (4.8-10.8)
--- NOTE | 2019-05-06 07:15 | NUR ---
HAND-OFF: Report given to Sarah Beth RN. Endorsed plan of care.
[2019-05-06 07:24] LABS: ANION GAP 10 mmol/L (5-15); BLOOD UREA NITROGEN 12 mg/dL (7-18); CALCIUM 8.9 MG/DL (8.5-10.1); CARBON DIOXIDE 24 MMOL/L (21-32); CHLORIDE 105 MMOL/L (98-107); CREATININE 0.8 MG/DL (0.55-1.30); POTASSIUM 3.5 MMOL/L (3.5-5.1); SODIUM 139 MMOL/L (136-145)
--- NOTE | 2019-05-06 07:50 | NUR ---
NURSE NOTES: Received report from Winston/RN, Patient awake and alert, AO x4, eating breakfast. No acute distress/SOB noted. Able to make needs known. Stated needs pain medication after breakfast. IV site patent, no bleeding or infiltration noted. Bed in lowest position and locked. Call light and personal belonging in reach. Will continue plan of care.
[2019-05-06 08:00] VITALS: BP 140/90
--- NOTE | 2019-05-06 08:53 | NUR ---
CASE MANAGEMENT:REVIEW 05/06/19 SI: ANGIOEDEMA. PANCREATITIS S/P EXTUBATION 98.7 80 18 136/88 98% ON RA WBC+12.2 LIPASE+748 IS: HYDRALAZINE PO Q8HRS IVF@75/HR IV MORPHINE Q4HRS PRN : NOW ON TELEMETRY PLAN: SWALLOW EVAL
--- NOTE | 2019-05-06 10:08 | NUR ---
*-* INSURANCE *-* UPDATED CLINICALS AND REVIEWS HAVE BEEN FAXED TO: IRASEMA SAWYER:JEREMIAS P:[phone] F:[phone]
--- NOTE | 2019-05-06 10:28 | Pulmonology Progress Note ---
Assessment/Plan Assessment/Plan IMPRESSION: 1. Angioedema. 2. Hypertension. 3. Pancreatitis. DISCUSSION: On regular diet Will dc home Subjective Interval Events: tolerating diet Constitutional: Reports: no symptoms HEENT: Repors: no symptoms Respiratory: Reports: no symptoms Cardiovascular: Reports: no symptoms Gastrointestinal/Abdominal: Reports: no symptoms Genitourinary: Reports: no symptoms Allergies: Coded Allergies: AMLODIPINE (Unverified Allergy, Unknown, 05/05/19) CARVEDILOL (Unverified Allergy, Unknown, 05/05/19) Uncoded Allergies: AMLOPDIPINE (Allergy, Unknown, 05/03/19) POSSIBLE REACTION CARIVDOLOL (Allergy, Unknown, 05/03/19) POSSIBLE REACTION Objective Last 24 Hour Vital Signs Date Time Temp Pulse Resp B/P (MAP) Pulse Ox O2 Delivery O2 Flow Rate FiO2 05/06/19 08:00 78 05/06/19 08:00 98.1 90 16 140/90 (107) 98 05/06/19 05:40 136/88 05/06/19 04:36 98.7 05/06/19 04:00 80 05/06/19 04:00 Room Air 05/06/19 04:00 98.4 88 18 136/88 (104) 98 05/05/19 23:35 Room Air 05/05/19 23:30 98.7 90 20 139/88 (105) 95 05/05/19 21:31 168/90 05/05/19 20:00 98.2 92 18 168/90 (116) 95 05/05/19 20:00 89 05/05/19 20:00 Room Air 05/05/19 18:11 98.7 100 18 151/97 (115) 99 05/05/19 16:36 98.8 99 18 168/109 (128) 98 05/05/19 16:00 Room Air 05/05/19 16:00 98.9 95 18 145/86 (105) 100 05/05/19 16:00 95 05/05/19 15:00 96 22 143/88 (106) 100 05/05/19 14:27 127/88 05/05/19 14:00 90 22 132/78 (96) 100 05/05/19 13:00 94 22 127/88 (101) 100 05/05/19 12:00 Room Air 05/05/19 12:00 89 05/05/19 12:00 98.4 95 22 158/101 (120) 100 05/05/19 11:00 81 22 150/86 (107) 100 Intake and Output 05/05/19 05/06/19 19:00 07:00 Intake Total 360 ml Output Total 800 ml 1000 ml Balance -440 ml -1000 ml Intake Oral 360 ml Output Urine Total 800 ml 1000 ml General Appearance: no acute distress HEENT: normocephalic Respiratory/Chest: chest wall non-tender, lungs clear Cardiovascular: normal peripheral pulses, normal rate Laboratory Tests 05/06/19 05:35: White Blood Count 12.2H, Red Blood Count 3.72L, Hemoglobin 12.0L, Hematocrit 35.7L, Mean Corpuscular Volume 96, Mean Corpuscular Hemoglobin 32.1H, Mean Corpuscular Hemoglobin Concent 33.5, Red Cell Distribution Width 12.3, Platelet Count 405, Mean Platelet Volume 5.6L, Neutrophils (%) (Auto) 60.8, Lymphocytes ( %) (Auto) 23.9, Monocytes (%) (Auto) 13.1H, Eosinophils (%) (Auto) 0.8, Basophils (%) (Auto) 1.4, Sodium Level 139, Potassium Level 3.5, Chloride Level 105, Carbon Dioxide Level 24, Anion Gap 10, Blood Urea Nitrogen 12, Creatinine 0.8, Estimat Glomerular Filtration Rate > 60, Glucose Level 101, Calcium Level 8.9, Lipase 748H Current Medications Medications (Trade) Dose Ordered Sig/Noé Route PRN Reason Start Time Stop Time Status Last Admin Dose Admin Clonidine HCl (Catapres Tab) 0.1 mg TIDPRN PRN ORAL For High Blood Pressure 05/05/19 18:15 06/04/19 18:14 Hydralazine HCl (Apresoline) 50 mg Q8HR ORAL 05/05/19 22:00 06/02/19 21:59 05/06/19 05:40 Lorazepam (Ativan 2mg/ml 1ml) 1 mg Q2H PRN IV Agitation 05/05/19 16:40 05/12/19 16:39 Lorazepam (Ativan 2mg/ml 1ml) 1 mg Q4H PRN IV For Anxiety 05/05/19 16:40 05/12/19 16:39 Morphine Sulfate (Morphine Sulfate) 2 mg Q4H PRN IVP For Pain 05/05/19 16:40 05/12/19 16:39 05/06/19 08:32 Sodium Chloride 1,000 ml @ 75 mls/hr [id number] IV 05/05/19 16:39 06/04/19 16:38 05/06/19 05:36 Demetrio Davila MD May 06, 2019 10:28
[2019-05-06] MEDS ORDERED: NORCO 5-325 TA1 EACH ORAL (10:32)
[2019-05-06 12:00] VITALS: BP 142/88
--- NOTE | 2019-05-06 13:15 | Cardiology Progress Note ---
Assessment/Plan Status: stable Assessment/Plan Assessment/Plan Status: stable Assessment/Plan: Assessment Angioedema Hypertension Drug user Pancreatitis Plan: Extubated stable on room air Transfer to floor IV steroids Benadryl Hold medications - unknown trigger Epipen at discharge d/c coreg/norvasc Continue hydralazine for hypertension - BP controlled ok to discharge home today Subjective Cardiovascular: Reports: no symptoms Respiratory: Reports: no symptoms Gastrointestinal/Abdominal: Reports: no symptoms Genitourinary: Reports: no symptoms Subjective No acute events, patient extubated, plan to d/c home today, tolerating PO no distress no sob Objective Last 24 Hour Vital Signs Date Time Temp Pulse Resp B/P (MAP) Pulse Ox O2 Delivery O2 Flow Rate FiO2 05/06/19 08:00 78 05/06/19 08:00 98.1 90 16 140/90 (107) 98 05/06/19 05:40 136/88 05/06/19 04:36 98.7 05/06/19 04:00 80 05/06/19 04:00 Room Air 05/06/19 04:00 98.4 88 18 136/88 (104) 98 05/05/19 23:35 Room Air 05/05/19 23:30 98.7 90 20 139/88 (105) 95 05/05/19 21:31 168/90 05/05/19 20:00 98.2 92 18 168/90 (116) 95 05/05/19 20:00 89 05/05/19 20:00 Room Air 05/05/19 18:11 98.7 100 18 151/97 (115) 99 05/05/19 16:36 98.8 99 18 168/109 (128) 98 05/05/19 16:00 Room Air 05/05/19 16:00 98.9 95 18 145/86 (105) 100 05/05/19 16:00 95 05/05/19 15:00 96 22 143/88 (106) 100 05/05/19 14:27 127/88 05/05/19 14:00 90 22 132/78 (96) 100 General Appearance: no apparent distress, alert EENT: PERRL/EOMI, normal ENT inspection, TMs normal, pharynx normal Neck: non-tender, normal alignment, supple, normal inspection, no JVD Rhythm: NSR Cardiovascular: normal peripheral pulses, normal rate, regular rhythm Respiratory/Chest: chest wall non-tender, lungs clear, normal breath sounds, no respiratory distress, no accessory muscle use Abdomen: normal bowel sounds, non tender, soft, no organomegaly, no mass Extremities: normal range of motion, non-tender, normal inspection, no calf tenderness, no swelling Neurologic: home care companion II-XII grossly normal, no motor/sensory deficits Intake and Output 05/05/19 05/06/19 19:00 07:00 Intake Total 360 ml Output Total 800 ml 1000 ml Balance -440 ml -1000 ml Intake Oral 360 ml Output Urine Total 800 ml 1000 ml Laboratory Tests Test 05/06/19 05:35 White Blood Count 12.2 K/UL (4.8-10.8) H Red Blood Count 3.72 M/UL (4.70-6.10) L Hemoglobin 12.0 G/DL (14.2-18.0) L Hematocrit 35.7 % (42.0-52.0) L Mean Corpuscular Volume 96 FL (80-99) Mean Corpuscular Hemoglobin 32.1 PG (27.0-31.0) H Mean Corpuscular Hemoglobin Concent 33.5 G/DL (32.0-36.0) Red Cell Distribution Width 12.3 % (11.6-14.8) Platelet Count 405 K/UL (150-450) Mean Platelet Volume 5.6 FL (6.5-10.1) L Neutrophils (%) (Auto) 60.8 % (45.0-75.0) Lymphocytes (%) (Auto) 23.9 % (20.0-45.0) Monocytes (%) (Auto) 13.1 % (1.0-10.0) H Eosinophils (%) (Auto) 0.8 % (0.0-3.0) Basophils (%) (Auto) 1.4 % (0.0-2.0) Sodium Level 139 MMOL/L (136-145) Potassium Level 3.5 MMOL/L (3.5-5.1) Chloride Level 105 MMOL/L (98-107) Carbon Dioxide Level 24 MMOL/L (21-32) Anion Gap 10 mmol/L (5-15) Blood Urea Nitrogen 12 mg/dL (7-18) Creatinine 0.8 MG/DL (0.55-1.30) Estimat Glomerular Filtration Rate > 60 mL/min (>60) Glucose Level 101 MG/DL (74-106) Calcium Level 8.9 MG/DL (8.5-10.1) Lipase 748 U/L (73-393) H Ashwin Sher MD May 06, 2019 13:15
[2019-05-06 16:00] VITALS: BP 133/97
--- NOTE | 2019-05-06 16:30 | NUR ---
NURSE NOTES: Discharge instruction given, Patient verbalized understanding. Heart monitor and IV removed. Site intact, no bleeding or infiltration noted. Patient is in stable condition, No acute distress/SOB noted. Belonging check done and signed by patient. Escorted to downstairs and Patient left via taxi.
--- NOTE | 2019-05-07 10:25 | Discharge Summary ---
Discharge Summary Discharge Summary _ DATE OF ADMISSION: 05/03/2019 DATE OF DISCHARGE: 05/06/2019 DISCHARGED BY: Dr. Davila REASON FOR ADMISSION: 38 years old male with past medical history of hypertension, pancreatitis, recent hospitalization for pancreatitis , was just discharged with combination of Naprosyn , Coreg, and amlodipine. Patient reported that at home he started having tightness in his throat and pain , followed by emesis. He felt that his throat was closing up. Patient reported that he took Naprosyn and some unknown street medication. He came to emergency room for evaluation. In emergency department he was drooling , and required oral intubation for airway protection. Patient was admitted to ICU on propofol drip CONSULTANTS: record cutter dr. Sher [facility] COURSE: Patient admitted to ICU. Ventilator support provided . IV fluids provided. Patient was kept NPO. Patient was on propofol drip. Patient started on the steroids , Benadryl and Zantac. DVT prophylaxis provided. Potassium was replaced. Patient was able to be extubated on 05/04. Gasket Inspector follow. Post extubation, pulse oximetry was stable on room air. Prior prescribed medication Norvasc and Coreg were discontinued, due to unknown trigger. Bedside swallow evaluation was dome. Patient was deemed safe for oral diet. Blood pressure was managed with hydralazine, and blood pressure was controlled. Patient was counseled on abstinence from street drugs . Patient started on liquid diet and was advanced as tolerated. Patient was able to tolerate diet. Steroids discontinued. Epogen was prescribed on discharge . Patient was counseled on abstinence from street drugs. Patient was stable for discharge. FINAL DIAGNOSES: Angioedema Acute respiratory failure requiring intubation ( due to angioedema) Hypertension Pancreatitis DISCHARGE MEDICATIONS: See Medication Reconciliation list. DISCHARGE INSTRUCTIONS: Patient was discharged home . Follow up with primary care provider in one week. I have been assigned to dictate discharge summary for this account. I was not involved in the patient's management. Marce Joseph NP May 07, 2019 10:25
--- NOTE | 2019-05-07 13:19 | NUR ---
*-* INSURANCE *-* DISCHARGE SUMMARY HAVE BEEN FAXED TO: IRASEMA SAWYER:JEREMIAS P:[phone] F:[phone]
== END 2019-05-06 17:07 | disposition home or self-care (01) | DRG 811 ==
LOC: EDBD 00:52 → EMR 01:45 → EDBEDREQSVC 02:17 → EDBEDREQ 02:47 → ICU 02:54 → EDBEDREQ 03:11 → ICU 03:35 → 2E 05-05 16:25
PROC: 5A1945Z Respiratory Ventilation, 24-96 Consecutive Hours (ICD-10-PCS; principal; 2019-05-03)
PROC: 0BH17EZ Insertion of Endotracheal Airway into Trachea, Via Natural or Artificial Opening (ICD-10-PCS; 2019-05-03)
DX: T78.3XXA Angioneurotic edema, initial encounter (principal); J96.00 Acute respiratory failure, unspecified whether with hypoxia or hypercapnia; K85.90 Acute pancreatitis without necrosis or infection, unspecified; I10 Essential (primary) hypertension; Z88.8 Allergy status to other drugs, medicaments and biological substances; T50.905A Adverse effect of unspecified drugs, medicaments and biological substances, initial encounter; Y92.009 Unspecified place in unspecified non-institutional (private) residence as the place of occurrence of the external cause
CPT/HCPCS: 31500; 36415; 71045; 74018; 80048; 80053; 83690; 84478; 85007; 85025; 87081; 93005; 94002; 94003; 94664; 96361; 96372; 96374; 96375; 99291

== ENCOUNTER 2019-07-09 00:23 | Inpatient (IN) | payer OTHER ==
[2019-07-09] VITALS (7 sets, daily range): BP systolic 141–186; BP diastolic 80–127
[~2019-07-09] VITALS: Ht 165.1 cm; Wt 52.2 kg
[~2019-07-09 00:23] MED LIST changes: +ADVIL200 M2 ORAL; +BENADRYL25 MG ORAL; +NORCO 5-325 TA1 EACH ORAL
--- NOTE | 2019-07-09 00:45 | NUR ---
ED Nurse Note: RECIEVED PT ON GURNEY FROM HOME, AWAKE, ALERT AND ORIENTED X 4, PT HERE WITH C/O SEVERE 10/10 ABDOMINAL PAIN X 2 DAYS, PT STATES HAS HX OF PANCREATITIS AND THIS FEELS LIKE A FLARE UP, PT ALSO W/NAUSEA AND EMESIS X 4, DENIES CP, NO SOB OR LABORED BREATHING, WILL RESUME CARE ORDERED AND CLOSELY MONITOR.
[2019-07-09] MEDS ORDERED: DiphenhydrAMINE 50mg/ml Inj IVP ONE (01:00)
[2019-07-09] MEDS ORDERED: Metoclopramide 10mg/2ml Inj IVP ONE (01:00)
--- NOTE | 2019-07-09 01:03 | Emergency Room Report ---
History of Present Illness General Chief Complaint: Abdominal Pain Source: Patient Present Illness HPI Patient presents with complaints of epigastric pain with radiation towards the back Reports having a glass of wine on Friday and soon after the pain starting Denies any chest pain or shortness of breath denies any lower abdominal pain patient has had previous pancreatitis and presents as the pain persisted Denies any recent travel denies any other trauma pain is 8 out of 10 sharp Allergies: Coded Allergies: AMLODIPINE (Verified Allergy, Mild, 07/09/19) POSSIBLE REACTION CARVEDILOL (Verified Allergy, Mild, 07/09/19) POSSIBLE REACTION Patient History Past Medical History: see triage record Reviewed Nursing Documentation: PMH: Agreed; PSxH: Agreed Nursing Documentation-PMH Hx Cardiac Problems: Yes Hx Hypertension: Yes Hx Cancer: No Hx Gastrointestinal Problems: Yes - pancreitis Hx Neurological Problems: No Review of Systems All Other Systems: negative except mentioned in HPI Physical Exam Vital Signs Date Time Temp Pulse Resp B/P (MAP) Pulse Ox O2 Delivery O2 Flow Rate FiO2 07/09/19 00:30 98.2 91 16 152/98 (116) 96 Room Air Sp02 EP Interpretation: reviewed, normal General Appearance: well appearing, no apparent distress Head: normocephalic, atraumatic Eyes: bilateral eye PERRL, bilateral eye EOMI ENT: hearing grossly normal, normal pharynx, TMs + canals normal, uvula midline Neck: full range of motion, supple, no meningismus, no bony tend Respiratory: lungs clear, normal breath sounds, no rhonchi, no respiratory distress, no retraction, no accessory muscle use Cardiovascular #1: normal peripheral pulses, regular rate, rhythm, no edema, no gallop, no JVD, no murmur Gastrointestinal: normal bowel sounds, soft, no mass, no organomegaly, non- distended, no guarding, no hernia, no pulsatile mass, no rebound, tenderness - over The mid epigastric region Genitourinary: no CVA tenderness Musculoskeletal: normal inspection Neurologic: oriented x3, responsive, retail services professional III-XII nml as tested, motor strength/ tone normal, sensory intact Psychiatric: mood/affect normal Skin: no rash Lymphatic: normal inspection, no adenopathy Medical Decision Making Diagnostic Impression: Primary Impression: Acute pancreatitis Additional Impression: ETOH abuse ER Course With the history exam and presentation, multiple differentials considered, including but not limited to appendicitis, gastritis, cholecystitis, diverticulitis Patient's blood work again reveals significantly elevated lipase counts consistent with acute pancreatitis Patient received further IV hydration pain medication At this time does not require emergent CT imaging given the clinical history and previous CT imaging and is admitted for further care Labs Test 07/09/19 00:38 07/09/19 01:10 07/09/19 01:45 Urine Opiates Screen Negative (NEGATIVE) Urine Barbiturates Screen Negative (NEGATIVE) Phencyclidine (PCP) Screen Negative (NEGATIVE) Urine Amphetamines Screen Negative (NEGATIVE) Urine Benzodiazepines Screen Negative (NEGATIVE) Urine Cocaine Screen Negative (NEGATIVE) Urine Marijuana (THC) Screen Positive (NEGATIVE) Sodium Level 135 MMOL/L (136-145) Potassium Level 3.8 MMOL/L (3.5-5.1) Chloride Level 101 MMOL/L (98-107) Carbon Dioxide Level 22 MMOL/L (21-32) Anion Gap 12 mmol/L (5-15) Blood Urea Nitrogen 11 mg/dL (7-18) Creatinine 1.2 MG/DL (0.55-1.30) Estimat Glomerular Filtration Rate > 60 mL/min (>60) Glucose Level 110 MG/DL (74-106) Calcium Level 9.6 MG/DL (8.5-10.1) Total Bilirubin 1.1 MG/DL (0.2-1.0) Direct Bilirubin 0.2 MG/DL (0.0-0.3) Aspartate Amino Transf (AST/SGOT) 24 U/L (15-37) Alanine Aminotransferase (ALT/SGPT) 21 U/L (12-78) Alkaline Phosphatase 64 U/L (46-116) Total Protein 8.1 G/DL (6.4-8.2) Albumin 4.5 G/DL (3.4-5.0) Globulin 3.6 g/dL Albumin/Globulin Ratio 1.2 (1.0-2.7) Lipase 2502 U/L (73-393) Serum Alcohol < 3 mg/dL White Blood Count 11.4 K/UL (4.8-10.8) Red Blood Count 4.12 M/UL (4.70-6.10) Hemoglobin 13.7 G/DL (14.2-18.0) Hematocrit 39.0 % (42.0-52.0) Mean Corpuscular Volume 95 FL (80-99) Mean Corpuscular Hemoglobin 33.3 PG (27.0-31.0) Mean Corpuscular Hemoglobin Concent 35.2 G/DL (32.0-36.0) Red Cell Distribution Width 12.4 % (11.6-14.8) Platelet Count 340 K/UL (150-450) Mean Platelet Volume 5.7 FL (6.5-10.1) Neutrophils (%) (Auto) 77.7 % (45.0-75.0) Lymphocytes (%) (Auto) 11.7 % (20.0-45.0) Monocytes (%) (Auto) 8.8 % (1.0-10.0) Eosinophils (%) (Auto) 0.8 % (0.0-3.0) Basophils (%) (Auto) 1.1 % (0.0-2.0) Last Vital Signs Date Time Temp Pulse Resp B/P (MAP) Pulse Ox O2 Delivery O2 Flow Rate FiO2 07/09/19 00:30 98.2 91 16 152/98 (116) 96 Room Air Status: improved Disposition: ADMITTED INPATIENT Condition: Serious Referrals: [facility],REFERRING (PCP) Stephany Jeter DO Jul 09, 2019 01:03
[2019-07-09] MEDS ORDERED: Morphine Sulfate 4mg/ml Inj (IV USE ONLY) IVP ONE ×2 (01:15→03:30)
[2019-07-09] MEDS ORDERED: Metoclopramide 10mg/2ml Inj ONE (01:25)
[2019-07-09 01:44] LABS: ANION GAP 12 mmol/L (5-15); BLOOD UREA NITROGEN 11 mg/dL (7-18); CALCIUM 9.6 MG/DL (8.5-10.1); CARBON DIOXIDE 22 MMOL/L (21-32); CHLORIDE 101 MMOL/L (98-107); CREATININE 1.2 MG/DL (0.55-1.30); POTASSIUM 3.8 MMOL/L (3.5-5.1); SODIUM 135 MMOL/L (136-145)
[2019-07-09 01:53] LABS: BASOPHILS % (AUTO) 1.1 % (0.0-2.0); EOSINOPHILS % (AUTO) 0.8 % (0.0-3.0); HEMOGLOBIN 13.7 G/DL (14.2-18.0); LYMPHOCYTES % (AUTO) 11.7 % (20.0-45.0); MEAN CORPUSCULAR VOLUME 95 FL (80-99); MONOCYTES % (AUTO) 8.8 % (1.0-10.0); NEUTROPHILS % (AUTO) 77.7 % (45.0-75.0); PLATELET COUNT 340 K/UL (150-450); RED BLOOD COUNT 4.12 M/UL (4.70-6.10); RED CELL DISTRIBUTION WIDTH 12.4 % (11.6-14.8); WHITE BLOOD COUNT 11.4 K/UL (4.8-10.8)
[2019-07-09 01:55] LABS: ALANINE AMINOTRANSFERASE 21 U/L (12-78); ALBUMIN 4.5 G/DL (3.4-5.0); ALBUMIN/GLOBULIN RATIO 1.2 (1.0-2.7); ALKALINE PHOSPHATASE 64 U/L (46-116); ASPARTATE AMINO TRANSFERASE 24 U/L (15-37); BILIRUBIN,TOTAL 1.1 MG/DL (0.2-1.0)
[2019-07-09 02:03] LABS: BILIRUBIN,DIRECT 0.2 MG/DL (0.0-0.3)
--- NOTE | 2019-07-09 02:10 | NUR ---
ED Nurse Note: PT IN BED RESTING QUIETLY, MEDICATED AGAIN FOR PAIN, NOW CURRENTLY AT 04/21, IV FLUIDS INFUSING ORDERED, SITE INTACT AND PATENT, NO CP, NO SOB, REPORT GIVEN TO ISIS BHAT ON UNIT, PT BEING TAKEN OT UNIT VIA GURNEY WITH BELONGINGS.
--- NOTE | 2019-07-09 04:00 | NUR ---
NURSE NOTES: PATIENT RECEIVED FROM ER. PATIENT AOX4. HAS COMPLAINTS ON PAIN. NO S/S DISTRESS NOTED. BELONGINGS REVIEWED PATIENT REFUSED TO USE HOSPITAL SAFE, SIGNED BELONGINGS LIST. PATIENT DOESN'T RECALL HOME MEDS, VERBALIZED UNDERSTANDING TO HAVE SOMEONE BRING LIST OF MEDS FROM HOME. PATIENT REFUSED FLU VACCINE. SIGNIFICANT OTHER AT BEDSIDE. BED IN LOWEST POSITION, CALL LIGHT WITHIN REACH, WILL CONTINUE TO MONITOR.
[2019-07-09] MEDS ORDERED: HYDROmorphone 1mg/ml Carpuject IVP PRN (04:30)
--- NOTE | 2019-07-09 04:30 | NUR ---
NURSE NOTES: CALLED AND SPOKE WITH DR. JOSHI AND RECEIVED ADMISSION ORDERS. ORDERS CARRIED OUT.
[2019-07-09] MEDS: D5NS 1,000 ML IV SCH ×2 (05:10→17:46)
--- NOTE | 2019-07-09 07:17 | NUR ---
HAND-OFF: Report given to HAYLIE PLUMMER RN.
--- NOTE | 2019-07-09 07:34 | NUR ---
NURSE NOTES: Received report from ISIS Kyle. Patient A&Ox4, on room air, no signs of distress or labored breathing. IV intact, patent, and infusing IV fluids. Complains of pain. Will medicate according to prescribed pain management. Bed in lowest position with call light in reach. Family at bedside. Will continue with plan of care.
--- NOTE | 2019-07-09 10:56 | GI Initial Consult Note ---
History of Present Illness General Date patient seen: Jul 09, 2019 Time patient seen: 10:50 Reason for Hospitalization: Abdominal Pain Referring physician: MADELYN Reason for Consultation: PANCREATITIS Present Illness HPI Patient presents with complaints of epigastric pain with radiation towards the back Reports having a glass of wine on Friday and soon after the pain starting Denies any chest pain or shortness of breath denies any lower abdominal pain patient has had previous pancreatitis and presents as the pain persisted Denies any recent travel denies any other trauma pain is 8 out of 10 sharp GI consulted for pancreatitis. Pt seen, awake A&Ox4 NAD has c/o of severe abdominal pain at time of evaluation. The patient was admitted here at [facility] in April 2019 for a similar episode. The patient denied any recent travels or changes in dietary habits. He does admit to being a chronic marijuana user in which his urine toxicity was positive for. He presents today with lipase level of 2502. Denies any ETOH or tobacco use. No history of endoscopy or colonoscopy. Patient denies any significant past medical history. Home Meds Active Scripts Hydrocodone Bit/Acetaminophen 5-325* (NORCO 5-325*) 1 Each Tablet, 1 TAB ORAL Q6H PRN for 7 Days, #10 TAB 0 Refills Prov:Demetrio Davila MD 05/06/19 Reported Medications Diphenhydramine Hcl* (BENADRYL*) 25 Mg Capsule, 25 MG ORAL BEDTIME, CAP 05/05/19 Discontinued Reported Medications Carvedilol (Coreg) 12.5 Mg Tablet, 12.5 MG ORAL TWICE A DAY, #30 TAB 05/01/19 Amlodipine Besylate* (AMLODIPINE BESYLATE*) 10 Mg Tablet, 10 MG ORAL DAILY, TAB 05/05/16 Med list reviewed/reconciled: Yes Allergies: Coded Allergies: AMLODIPINE (Verified Allergy, Mild, 07/09/19) POSSIBLE REACTION CARVEDILOL (Verified Allergy, Mild, 07/09/19) POSSIBLE REACTION Patient History PMH Narrative Past Medical History: see triage record Reviewed Nursing Documentation: PMH: Agreed; PSxH: Agreed Nursing Documentation-PMH Hx Cardiac Problems: Yes Hx Hypertension: Yes Hx Cancer: No Hx Gastrointestinal Problems: Yes - pancreatitis Hx Neurological Problems: No Social History: Reports: drug use Review of Systems All Other Systems: negative except mentioned in HPI Physical Exam Vital Signs Date Time Temp Pulse Resp B/P (MAP) Pulse Ox O2 Delivery O2 Flow Rate FiO2 07/09/19 00:30 98.2 91 16 152/98 (116) 96 Room Air Sp02 EP Interpretation: reviewed, normal Labs Laboratory Tests Test 07/09/19 00:38 07/09/19 01:10 07/09/19 01:45 Urine Opiates Screen Negative (NEGATIVE) Urine Barbiturates Screen Negative (NEGATIVE) Phencyclidine (PCP) Screen Negative (NEGATIVE) Urine Amphetamines Screen Negative (NEGATIVE) Urine Benzodiazepines Screen Negative (NEGATIVE) Urine Cocaine Screen Negative (NEGATIVE) Urine Marijuana (THC) Screen Positive (NEGATIVE) H Sodium Level 135 MMOL/L (136-145) L Potassium Level 3.8 MMOL/L (3.5-5.1) Chloride Level 101 MMOL/L (98-107) Carbon Dioxide Level 22 MMOL/L (21-32) Anion Gap 12 mmol/L (5-15) Blood Urea Nitrogen 11 mg/dL (7-18) Creatinine 1.2 MG/DL (0.55-1.30) Estimat Glomerular Filtration Rate > 60 mL/min (>60) Glucose Level 110 MG/DL (74-106) H Calcium Level 9.6 MG/DL (8.5-10.1) Total Bilirubin 1.1 MG/DL (0.2-1.0) H Direct Bilirubin 0.2 MG/DL (0.0-0.3) Aspartate Amino Transf (AST/SGOT) 24 U/L (15-37) Alanine Aminotransferase (ALT/SGPT) 21 U/L (12-78) Alkaline Phosphatase 64 U/L (46-116) Total Protein 8.1 G/DL (6.4-8.2) Albumin 4.5 G/DL (3.4-5.0) Globulin 3.6 g/dL Albumin/Globulin Ratio 1.2 (1.0-2.7) Lipase 2502 U/L (73-393) H Serum Alcohol < 3 mg/dL White Blood Count 11.4 K/UL (4.8-10.8) H Red Blood Count 4.12 M/UL (4.70-6.10) L Hemoglobin 13.7 G/DL (14.2-18.0) L Hematocrit 39.0 % (42.0-52.0) L Mean Corpuscular Volume 95 FL (80-99) Mean Corpuscular Hemoglobin 33.3 PG (27.0-31.0) H Mean Corpuscular Hemoglobin Concent 35.2 G/DL (32.0-36.0) Red Cell Distribution Width 12.4 % (11.6-14.8) Platelet Count 340 K/UL (150-450) Mean Platelet Volume 5.7 FL (6.5-10.1) L Neutrophils (%) (Auto) 77.7 % (45.0-75.0) H Lymphocytes (%) (Auto) 11.7 % (20.0-45.0) L Monocytes (%) (Auto) 8.8 % (1.0-10.0) Eosinophils (%) (Auto) 0.8 % (0.0-3.0) Basophils (%) (Auto) 1.1 % (0.0-2.0) General Appearance: well appearing, no apparent distress, alert Head: normocephalic EENT: PERRL/EOMI, normal ENT inspection Neck: supple Respiratory: normal breath sounds, no respiratory distress Cardiovascular: normal rate Gastrointestinal: normal inspection, non tender, soft, normal bowel sounds, non -distended Rectal: deferred Genitourinary: deferred Musculoskeletal: normal inspection, back normal Neurologic: normal inspection, alert, oriented x3, responsive Psychiatric: normal inspection, judgement/insight normal, memory normal Skin: normal inspection, normal color, no rash, warm/dry, palpation normal, well hydrated Lymphatic: normal inspection, no adenopathy Current Medications Current Medications Medications (Trade) Dose Ordered Sig/Noé Route PRN Reason Start Time Stop Time Status Last Admin Dose Admin Clonidine HCl (Catapres Tab) 0.1 mg Q6H PRN ORAL SBP>160 07/09/19 08:15 08/08/19 08:14 07/09/19 08:23 Dextrose/Sodium Chloride 1,000 ml @ 75 mls/hr [id number] IV 07/09/19 04:30 08/08/19 04:29 07/09/19 05:10 Hydromorphone HCl (Dilaudid) 2 mg Q3H PRN IVP for pain 07/09/19 09:30 07/16/19 09:29 07/09/19 09:22 Ondansetron HCl (Zofran) 4 mg Q6H PRN IVP Nausea & Vomiting 07/09/19 04:30 08/08/19 04:29 07/09/19 05:09 GI: Plan Problems: (1) Pancreatitis (2) Drug abuse Plan This is a 38 year old male patient with history of recurrent pancreatitis most likely 2/2 to heavy marijuana use. Urine toxicity positive for marijuana triglyceride level during previous admission in April 2019 was within normal limits Medical management for pancreatitis maintain NPO + IVFs, ice chips ok Pain management Zofran as needed Follow labs, trend lipase Discussed with Dr. Page. Thank you for this patient referral, we will follow. The patient was seen and examined at bedside and all new and available data was reviewed in the patients chart. I agree with the above findings, impression and plan. (Patient seen earlier today. Signature stamp does not reflect patient encounter time.). - MD Loraine Chen Anh-Julian DEPLOYMENT TECHNICIAN Jul 09, 2019 10:56
--- NOTE | 2019-07-09 11:30 | NUR ---
INSURANCE INFO [facility] [place] [facility] T: [phone] F: [phone]
--- NOTE | 2019-07-09 11:36 | NUR ---
CASE MANAGEMENT:REVIEW 38 YR OLD MALE PRESENTED TO ER CC: ABDOMINAL AND BACK PAIN WITH NAUSEA AND VOMITING SI: ACUTE PANCREATITIS. ETOH ABUSE 98.2 91 16 152/98 96% ON RA WBC+11.4 LIPASE+2502 URINE(+) THC IS: IV REGLAN X1 1L NS BOLUS X1 IV BENADRYL X1 IV MORPHINE X2 : TO MED/SURG [facility] INTERQUAL CRITERIA MET
--- NOTE | 2019-07-09 12:45 | History and Physical Report ---
DATE OF ADMISSION: 07/09/2019 HISTORY OF PRESENT ILLNESS: This is a 38-year-old male with history of previous pancreatitis, who came to the hospital after admitting to having wine two days ago. He started complaining of epigastric pain with radiation to the back. He was seen and worked up and found to have elevated amylase and lipase. He was admitted to the hospital for subsequent management and care. PAST MEDICAL HISTORY: Notable for history of previous pancreatitis. ALLERGIES: To amlodipine and Coreg. PAST SURGICAL HISTORY: None reported. REVIEW OF SYSTEMS: Denies any headaches, hematemesis, melena, hematochezia, night sweats, or weight loss. PHYSICAL EXAMINATION: VITAL SIGNS: Blood pressure is 180/110, respirations 18, heart rate 84, he is afebrile. GENERAL: Reveals a young male. HEENT: Unremarkable. LUNGS: Clear breath sounds bilaterally. HEART: Normal heart sounds. ABDOMEN: Soft with discomfort and tenderness. EXTREMITIES: There is no edema. LABORATORY AND DIAGNOSTIC DATA: Lab testing shows 11.4, otherwise normal data. Sodium 135. Bilirubin 1.1. Lipase is 2502. Toxicology is positive for marijuana. IMPRESSION: 1. Alcohol use. 2. Marijuana use. 3. History of chronic pancreatitis. DISCUSSION: Admit to the hospital. We will provide pain medications, antihypertensives, IV fluids. Keep NPO. Order SCDs. We will consult GI. We will follow as quality improvement coordinator. Demetrio Davila M.D. DR: ROMAN/RENZO JOB#: [id number] CC:
--- NOTE | 2019-07-09 19:30 | NUR ---
NURSE NOTES: Per Valeria RN, pt is NPO except ice chips and meds.
--- NOTE | 2019-07-09 19:30 | NUR ---
NURSE NOTES: Received report from ISIS Shaw and rounds made with outgoing nurse. Received pt laying in bed, AOx4, pain level 10/10 abdominal area, denies nausea or vomiting. IV L hand patent and intact. IV fluid infusing as ordered. Bed in lowest position and locked, side rails up x 2, call light within reach. Will continue to monitor.
--- NOTE | 2019-07-09 19:34 | NUR ---
HAND-OFF: Report given to ISIS Rogers.
[2019-07-10] VITALS (7 sets, daily range): BP systolic 141–184; BP diastolic 78–117
--- NOTE | 2019-07-10 00:15 | NUR ---
HAND-OFF: Report given to ISIS Singh. Pt in stable condition.
[2019-07-10] MEDS: D5NS 1,000 ML IV SCH ×2 (06:38→20:31)
--- NOTE | 2019-07-10 07:30 | NUR ---
NURSE NOTES: Received report from ISIS Thomas. Patient A&Ox4. On room air, no signs of distress or labored breathing. IV intact, patent, and infusing IV fluids. Complains of pain. Will medicate according to pain management orders. Bed in lowest position with call light in reach. Will continue with plan of care.
[2019-07-10 08:03] LABS: BASOPHILS % (AUTO) 0.7 % (0.0-2.0); EOSINOPHILS % (AUTO) 1.2 % (0.0-3.0); HEMATOCRIT 37.3 % (42.0-52.0); HEMOGLOBIN 12.4 G/DL (14.2-18.0); LYMPHOCYTES % (AUTO) 12.1 % (20.0-45.0); MEAN CORPUSCULAR VOLUME 98 FL (80-99); MONOCYTES % (AUTO) 11.3 % (1.0-10.0); NEUTROPHILS % (AUTO) 74.6 % (45.0-75.0); PLATELET COUNT 293 K/UL (150-450); RED BLOOD COUNT 3.82 M/UL (4.70-6.10); RED CELL DISTRIBUTION WIDTH 12.5 % (11.6-14.8); WHITE BLOOD COUNT 11.5 K/UL (4.8-10.8)
[2019-07-10 08:58] LABS: ALANINE AMINOTRANSFERASE 18 U/L (12-78); ALBUMIN 3.7 G/DL (3.4-5.0); ALBUMIN/GLOBULIN RATIO 1.1 (1.0-2.7); ALKALINE PHOSPHATASE 52 U/L (46-116); ANION GAP 10 mmol/L (5-15); ASPARTATE AMINO TRANSFERASE 21 U/L (15-37); BILIRUBIN,TOTAL 0.9 MG/DL (0.2-1.0); BLOOD UREA NITROGEN 2 mg/dL (7-18); CALCIUM 8.7 MG/DL (8.5-10.1); CARBON DIOXIDE 25 MMOL/L (21-32); CHLORIDE 104 MMOL/L (98-107); CREATININE 0.9 MG/DL (0.55-1.30); POTASSIUM 3.2 MMOL/L (3.5-5.1); SODIUM 139 MMOL/L (136-145)
--- NOTE | 2019-07-10 10:06 | Pulmonology Progress Note ---
Assessment/Plan Assessment/Plan IMPRESSION: 1. Alcohol use. 2. Marijuana use. 3. History of chronic pancreatitis. DISCUSSION: Continue pain medications, antihypertensives, IV fluids. Advance to clears. On SCDs. Seen by GI. Demetrio Davila M.D. Subjective Interval Events: None new Constitutional: Reports: no symptoms HEENT: Repors: no symptoms Respiratory: Reports: no symptoms Cardiovascular: Reports: no symptoms Gastrointestinal/Abdominal: Reports: nausea, bloating Allergies: Coded Allergies: AMLODIPINE (Verified Allergy, Mild, 07/09/19) POSSIBLE REACTION CARVEDILOL (Verified Allergy, Mild, 07/09/19) POSSIBLE REACTION Objective Last 24 Hour Vital Signs Date Time Temp Pulse Resp B/P (MAP) Pulse Ox O2 Delivery O2 Flow Rate FiO2 07/10/19 08:00 98.1 66 21 156/78 (104) 98 07/10/19 04:00 97.6 72 18 141/82 (101) 96 07/10/19 00:00 97.9 73 20 141/102 (115) 99 07/09/19 21:00 Room Air 07/09/19 20:00 97.6 83 20 152/106 (121) 96 07/09/19 16:00 98.5 57 19 141/82 (101) 99 07/09/19 12:00 98.3 71 18 159/99 (119) 100 07/09/19 10:56 82 158/80 (106) Intake and Output 07/09/19 07/10/19 18:59 06:59 Intake Total 825 ml 870 ml Output Total 1100 ml Balance 825 ml -230 ml Intake Oral 120 ml IV Total 825 ml 750 ml Output Urine Total 1100 ml # Voids 3 1 General Appearance: no acute distress HEENT: normocephalic Respiratory/Chest: chest wall non-tender, lungs clear Cardiovascular: normal peripheral pulses, normal rate Abdomen: normal bowel sounds Laboratory Tests 07/10/19 06:02: White Blood Count 11.5H, Red Blood Count 3.82L, Hemoglobin 12.4L, Hematocrit 37.3L, Mean Corpuscular Volume 98, Mean Corpuscular Hemoglobin 32.4H, Mean Corpuscular Hemoglobin Concent 33.2, Red Cell Distribution Width 12.5, Platelet Count 293, Mean Platelet Volume 5.8L, Neutrophils (%) (Auto) 74.6, Lymphocytes ( %) (Auto) 12.1L, Monocytes (%) (Auto) 11.3H, Eosinophils (%) (Auto) 1.2, Basophils (%) (Auto) 0.7, Sodium Level 139, Potassium Level 3.2L, Chloride Level 104, Carbon Dioxide Level 25, Anion Gap 10, Blood Urea Nitrogen 2L, Creatinine 0.9, Estimat Glomerular Filtration Rate > 60, Glucose Level 100, Calcium Level 8.7, Total Bilirubin 0.9, Aspartate Amino Transf (AST/SGOT) 21, Alanine Aminotransferase (ALT/SGPT) 18, Alkaline Phosphatase 52, Total Protein 7.0, Albumin 3.7, Globulin 3.3, Albumin/Globulin Ratio 1.1, Amylase Level 116H, Lipase 639H Current Medications Medications (Trade) Dose Ordered Sig/Noé Route PRN Reason Start Time Stop Time Status Last Admin Dose Admin Clonidine HCl (Catapres Tab) 0.1 mg Q6H PRN ORAL SBP>160 07/09/19 08:15 08/08/19 08:14 07/09/19 08:23 Dextrose/Sodium Chloride 1,000 ml @ 75 mls/hr [id number] IV 07/09/19 04:30 08/08/19 04:29 07/10/19 06:38 Hydromorphone HCl (Dilaudid) 2 mg Q3H PRN IVP for pain 07/09/19 09:30 07/16/19 09:29 07/10/19 08:16 Ondansetron HCl (Zofran) 4 mg Q6H PRN IVP Nausea & Vomiting 07/09/19 04:30 08/08/19 04:29 07/09/19 05:09 Demetrio Davila MD Jul 10, 2019 10:06
--- NOTE | 2019-07-10 13:30 | General Progress Note ---
Assessment/Plan Assessment/Plan: (1) Pancreatitis (2) Drug abuse Plan This is a 38 year old male patient with history of recurrent pancreatitis most likely 2/2 to heavy marijuana use. Urine toxicity positive for marijuana triglyceride level during previous admission in April 2019 was within normal limits Medical management for pancreatitis + IVFs, on clears>> will advance as tolerated Pain management Zofran as needed Follow labs, trend lipase Subjective ROS Limited/Unobtainable: Yes Allergies: Coded Allergies: AMLODIPINE (Verified Allergy, Mild, 07/09/19) POSSIBLE REACTION CARVEDILOL (Verified Allergy, Mild, 07/09/19) POSSIBLE REACTION Objective Last 24 Hour Vital Signs Date Time Temp Pulse Resp B/P (MAP) Pulse Ox O2 Delivery O2 Flow Rate FiO2 07/10/19 08:00 98.1 66 21 156/78 (104) 98 07/10/19 04:00 97.6 72 18 141/82 (101) 96 07/10/19 00:00 97.9 73 20 141/102 (115) 99 07/09/19 21:00 Room Air 07/09/19 20:00 97.6 83 20 152/106 (121) 96 07/09/19 16:00 98.5 57 19 141/82 (101) 99 Intake and Output 07/09/19 07/10/19 18:59 06:59 Intake Total 825 ml 870 ml Output Total 1100 ml Balance 825 ml -230 ml Intake Oral 120 ml IV Total 825 ml 750 ml Output Urine Total 1100 ml # Voids 3 1 Laboratory Tests 07/10/19 06:02: White Blood Count 11.5H, Red Blood Count 3.82L, Hemoglobin 12.4L, Hematocrit 37.3L, Mean Corpuscular Volume 98, Mean Corpuscular Hemoglobin 32.4H, Mean Corpuscular Hemoglobin Concent 33.2, Red Cell Distribution Width 12.5, Platelet Count 293, Mean Platelet Volume 5.8L, Neutrophils (%) (Auto) 74.6, Lymphocytes ( %) (Auto) 12.1L, Monocytes (%) (Auto) 11.3H, Eosinophils (%) (Auto) 1.2, Basophils (%) (Auto) 0.7, Sodium Level 139, Potassium Level 3.2L, Chloride Level 104, Carbon Dioxide Level 25, Anion Gap 10, Blood Urea Nitrogen 2L, Creatinine 0.9, Estimat Glomerular Filtration Rate > 60, Glucose Level 100, Calcium Level 8.7, Total Bilirubin 0.9, Aspartate Amino Transf (AST/SGOT) 21, Alanine Aminotransferase (ALT/SGPT) 18, Alkaline Phosphatase 52, Total Protein 7.0, Albumin 3.7, Globulin 3.3, Albumin/Globulin Ratio 1.1, Amylase Level 116H, Lipase 639H Height (Feet): 5 Height (Inches): 5.00 Weight (Pounds): 115 General Appearance: alert EENT: normal ENT inspection Neck: supple Cardiovascular: normal peripheral pulses Respiratory/Chest: lungs clear Abdomen: soft, decreased bowel sounds, tender Extremities: non-tender Delon Page MD Jul 10, 2019 13:30
[2019-07-10] MEDS ORDERED: D5NS 1000ml IV ONE (14:42)
--- NOTE | 2019-07-10 19:23 | NUR ---
HAND-OFF: Report given to ISIS Bowles.
--- NOTE | 2019-07-10 19:39 | NUR ---
NURSE NOTES: RECEIVED PT FROM ISIS STALLINGS. PT IS AWAKE, AAOX4, ON ROOM AIR, NO RESPIRATORY DISTRESS NOTED. PT C/O ABDOMEN PAIN. WILL FOLLOW UP WITH PRN DILAUDID. PT IS TOLERATING CLEAR LIQUID WELL. DENIES NAUSEA. IV ON LEFT FA 22G IS INTACT AND PATENT. BED IS LOCKED AND LOW, BED ALARMS ACTIVE, SIDE RAILS UP X2 AND CALL LIGHT IS WITHIN REACH. WILL CONTINUE TO MONITOR.
[2019-07-11] VITALS: BP 142/91
[2019-07-11 04:00] VITALS: BP 138/88
[2019-07-11 07:15] LABS: BASOPHILS % (AUTO) 1.4 % (0.0-2.0); EOSINOPHILS % (AUTO) 1.9 % (0.0-3.0); HEMATOCRIT 34.6 % (42.0-52.0); HEMOGLOBIN 11.7 G/DL (14.2-18.0); LYMPHOCYTES % (AUTO) 16.7 % (20.0-45.0); MEAN CORPUSCULAR VOLUME 97 FL (80-99); MONOCYTES % (AUTO) 16.4 % (1.0-10.0); NEUTROPHILS % (AUTO) 63.6 % (45.0-75.0); PLATELET COUNT 274 K/UL (150-450); RED BLOOD COUNT 3.58 M/UL (4.70-6.10); RED CELL DISTRIBUTION WIDTH 12.1 % (11.6-14.8); WHITE BLOOD COUNT 8.1 K/UL (4.8-10.8)
--- NOTE | 2019-07-11 07:25 | General Progress Note ---
Assessment/Plan Assessment/Plan: (1) Pancreatitis (2) Drug abuse Plan This is a 38 year old male patient with history of recurrent pancreatitis most likely 2/2 to heavy marijuana use. Urine toxicity positive for marijuana triglyceride level during previous admission in April 2019 was within normal limits Medical management for pancreatitis + IVFs, on clears>> will advance to full liquid Pain management Zofran as needed Follow labs, trend lipase Subjective Allergies: Coded Allergies: AMLODIPINE (Verified Allergy, Mild, 07/09/19) POSSIBLE REACTION CARVEDILOL (Verified Allergy, Mild, 07/09/19) POSSIBLE REACTION Objective Last 24 Hour Vital Signs Date Time Temp Pulse Resp B/P (MAP) Pulse Ox O2 Delivery O2 Flow Rate FiO2 07/11/19 04:00 98.5 75 16 138/88 (105) 97 07/11/19 00:00 99.1 85 18 142/91 (108) 98 07/10/19 21:00 Room Air 07/10/19 20:31 177/117 07/10/19 20:00 99.0 94 18 177/117 (137) 100 07/10/19 16:00 98.8 75 21 147/90 (109) 99 07/10/19 14:13 173/109 07/10/19 13:55 81 173/109 (130) 07/10/19 12:00 98.3 77 19 184/104 (130) 99 07/10/19 09:00 Room Air 07/10/19 08:00 98.1 66 21 156/78 (104) 98 Intake and Output 07/10/19 07/11/19 19:00 07:00 Intake Total 925 ml 1175 ml Output Total 800 ml Balance 925 ml 375 ml Intake Oral 700 ml 500 ml IV Total 225 ml 675 ml Output Urine Total 800 ml # Voids 4 Laboratory Tests 07/11/19 06:10: White Blood Count 8.1, Red Blood Count 3.58L, Hemoglobin 11.7L, Hematocrit 34.6L , Mean Corpuscular Volume 97, Mean Corpuscular Hemoglobin 32.8H, Mean Corpuscular Hemoglobin Concent 33.9, Red Cell Distribution Width 12.1, Platelet Count 274, Mean Platelet Volume 5.6L, Neutrophils (%) (Auto) 63.6, Lymphocytes ( %) (Auto) 16.7L, Monocytes (%) (Auto) 16.4H, Eosinophils (%) (Auto) 1.9, Basophils (%) (Auto) 1.4, Sodium Level [Pending], Potassium Level [Pending], Chloride Level [Pending], Carbon Dioxide Level [Pending], Blood Urea Nitrogen [ Pending], Creatinine [Pending], Estimat Glomerular Filtration Rate [Pending], Glucose Level [Pending], Calcium Level [Pending], Total Bilirubin [Pending], Aspartate Amino Transf (AST/SGOT) [Pending], Alanine Aminotransferase (ALT/SGPT ) [Pending], Alkaline Phosphatase [Pending], Total Protein [Pending], Albumin [ Pending], Globulin [Pending], Amylase Level [Pending], Lipase [Pending] Height (Feet): 5 Height (Inches): 5.00 Weight (Pounds): 115 General Appearance: alert EENT: normal ENT inspection Neck: supple Cardiovascular: normal rate Respiratory/Chest: decreased breath sounds Abdomen: normal bowel sounds, non tender, soft Extremities: non-tender Delon Page MD Jul 11, 2019 07:25
[2019-07-11 07:27] LABS: ALANINE AMINOTRANSFERASE 16 U/L (12-78); ALBUMIN 3.4 G/DL (3.4-5.0); ALKALINE PHOSPHATASE 47 U/L (46-116); AMYLASE 112 U/L (25-115); ANION GAP 6 mmol/L (5-15); ASPARTATE AMINO TRANSFERASE 23 U/L (15-37); BILIRUBIN,TOTAL 0.8 MG/DL (0.2-1.0); BLOOD UREA NITROGEN 1 mg/dL (7-18); CALCIUM 8.7 MG/DL (8.5-10.1); CARBON DIOXIDE 29 MMOL/L (21-32); CHLORIDE 102 MMOL/L (98-107); CREATININE 0.8 MG/DL (0.55-1.30); POTASSIUM 3.2 MMOL/L (3.5-5.1); SODIUM 137 MMOL/L (136-145)
--- NOTE | 2019-07-11 07:35 | NUR ---
HAND-OFF: Report given to ISIS Curiel.
--- NOTE | 2019-07-11 07:46 | NUR ---
NURSE NOTES: Pt awake, A/O x 4, calm and cooperative. abd pain 2/10, tolerating diet well, no N/V. no SOB noted. voiding. no BM. call light within reach. fall precaution maintained. will continue to monitor.
[2019-07-11 08:00] VITALS: BP 186/117
--- NOTE | 2019-07-11 08:41 | Pulmonology Progress Note ---
Assessment/Plan Assessment/Plan IMPRESSION: 1. Alcohol use. 2. Marijuana use. 3. History of chronic pancreatitis. DISCUSSION: Continue pain medications, antihypertensives, IV fluids. Advance to regular diet. On SCDs. Seen by GI. Demetrio Davila M.D. Subjective Interval Events: Feeling better Constitutional: Reports: no symptoms HEENT: Repors: no symptoms Respiratory: Reports: no symptoms Cardiovascular: Reports: no symptoms Allergies: Coded Allergies: AMLODIPINE (Verified Allergy, Mild, 07/09/19) POSSIBLE REACTION CARVEDILOL (Verified Allergy, Mild, 07/09/19) POSSIBLE REACTION Objective Last 24 Hour Vital Signs Date Time Temp Pulse Resp B/P (MAP) Pulse Ox O2 Delivery O2 Flow Rate FiO2 07/11/19 04:00 98.5 75 16 138/88 (105) 97 07/11/19 00:00 99.1 85 18 142/91 (108) 98 07/10/19 21:00 Room Air 07/10/19 20:31 177/117 07/10/19 20:00 99.0 94 18 177/117 (137) 100 07/10/19 16:00 98.8 75 21 147/90 (109) 99 07/10/19 14:13 173/109 07/10/19 13:55 81 173/109 (130) 07/10/19 12:00 98.3 77 19 184/104 (130) 99 07/10/19 09:00 Room Air Intake and Output 07/10/19 07/11/19 19:00 07:00 Intake Total 925 ml 1175 ml Output Total 800 ml Balance 925 ml 375 ml Intake Oral 700 ml 500 ml IV Total 225 ml 675 ml Output Urine Total 800 ml # Voids 4 General Appearance: no acute distress HEENT: normocephalic Respiratory/Chest: chest wall non-tender, lungs clear Cardiovascular: normal peripheral pulses, normal rate Laboratory Tests 07/11/19 06:10: White Blood Count 8.1, Red Blood Count 3.58L, Hemoglobin 11.7L, Hematocrit 34.6L , Mean Corpuscular Volume 97, Mean Corpuscular Hemoglobin 32.8H, Mean Corpuscular Hemoglobin Concent 33.9, Red Cell Distribution Width 12.1, Platelet Count 274, Mean Platelet Volume 5.6L, Neutrophils (%) (Auto) 63.6, Lymphocytes ( %) (Auto) 16.7L, Monocytes (%) (Auto) 16.4H, Eosinophils (%) (Auto) 1.9, Basophils (%) (Auto) 1.4, Sodium Level 137, Potassium Level 3.2L, Chloride Level 102, Carbon Dioxide Level 29, Anion Gap 6, Blood Urea Nitrogen 1L, Creatinine 0.8, Estimat Glomerular Filtration Rate > 60, Glucose Level 105, Calcium Level 8.7, Total Bilirubin 0.8, Aspartate Amino Transf (AST/SGOT) 23, Alanine Aminotransferase (ALT/SGPT) 16, Alkaline Phosphatase 47, Total Protein 6.7, Albumin 3.4, Globulin 3.3, Albumin/Globulin Ratio 1.0, Amylase Level 112, Lipase 299 Current Medications Medications (Trade) Dose Ordered Sig/Noé Route PRN Reason Start Time Stop Time Status Last Admin Dose Admin Clonidine HCl (Catapres Tab) 0.1 mg Q6H PRN ORAL SBP>160 07/09/19 08:15 08/08/19 08:14 07/10/19 20:31 Dextrose/Sodium Chloride 1,000 ml @ 75 mls/hr [id number] IV 07/09/19 04:30 08/08/19 04:29 07/10/19 20:31 Hydromorphone HCl (Dilaudid) 2 mg Q3H PRN IVP for pain 07/09/19 09:30 07/16/19 09:29 07/11/19 05:48 Ondansetron HCl (Zofran) 4 mg Q6H PRN IVP Nausea & Vomiting 07/09/19 04:30 08/08/19 04:29 07/10/19 12:52 Demetrio Davila MD Jul 11, 2019 08:41
[2019-07-11] MEDS: D5NS 1,000 ML IV SCH (08:56)
[2019-07-11 12:56] VITALS: BP 193/105
--- NOTE | 2019-07-11 13:06 | NUR ---
Received DC order , patient refused due to pain, notified MD, no new order received. pt request to speak with Case Management, left message to Gaby. waiting for call back.
--- NOTE | 2019-07-11 13:12 | NUR ---
NURSE NOTES: Pts BP 193/105, HR 69, notified MD, before DC, no new order received. Ok to DC pt with elevated BP per MD. Addendum: 07/11/19 at 1319 by Veena Rodgers RN PT has BP med at home, told pt that needs to take BP med when gets home, verbalize understanding.
[2019-07-11 14:00] VITALS: BP 181/113
--- NOTE | 2019-07-11 14:03 | NUR ---
NURSE NOTES: pt left in stable condition, iv removed from right hand, told pt has option to stay and wait for case assistant because we called dr Davila and didnt order new pain medication nor anything for blood pressure patient states "im not going to stay because Im not going to get anything for my pain anyway this is the doctor's fault if anything happens to me" pt has all belongings
--- NOTE | 2019-07-12 09:28 | Discharge Summary ---
Discharge Summary Discharge Summary _ DATE OF ADMISSION: 07/09/2019 DATE OF DISCHARGE: 07/11/2019 DISCHARGED BY: Dr. Davila REASON FOR ADMISSION: 38 years old male with past medical history of chronic pancreatitis , presented to emergency room complaining of epigastric pain radiating to his back. Patient reported drinking wine for 2 days. During work-up in the emergency department vital signs revealed no fever, blood pressure was 152/98 . Urine toxicology screen was positive for marijuana. Stable electrolytes and renal parameters. Stable LFT. Lipase 2502. CONSULTANTS: GI specialist Dr. Page [facility] COURSE: Patient admitted to medical surgical floor. Patient initially was kept n.p.o. and continued on IV fluids. SCD for DVT prophylaxis provided. Pain management was addressed as needed. Blood pressure was managed with Clonidine as needed. GI specialist followed. Patient slowly started on clear liquid diet and was advance to full liquid and then to soft as tolerated. Antiemetic provided as needed. Lipase trended to 299 upon discharge, and amylase from 116 down to 112. Potassium was replaced. Patient clinically stabilized and was ready for discharge home. Patient was counseled on abstinence from alcohol. FINAL DIAGNOSES: Pancreatitis with history of chronic pancreatitis Marijuana use ETOH use Hypokalemia DISCHARGE MEDICATIONS: See Medication Reconciliation list. DISCHARGE INSTRUCTIONS: Patient was discharged home. Follow up with primary care provider in one week. I have been assigned to dictate discharge summary for this account. I was not involved in the patient's management. Marce Joseph NP Jul 12, 2019 09:28
== END 2019-07-11 14:02 | disposition home or self-care (01) | DRG 282 ==
LOC: EMR 00:44 → 4E 03:31 → EDBEDREQ 03:37
DX: K85.20 Alcohol induced acute pancreatitis without necrosis or infection (principal); K85.30 Drug induced acute pancreatitis without necrosis or infection; T40.7X5A Adverse effect of cannabis (derivatives), initial encounter; F10.10 Alcohol abuse, uncomplicated; F12.10 Cannabis abuse, uncomplicated; Z88.8 Allergy status to other drugs, medicaments and biological substances; E87.6 Hypokalemia; K86.1 Other chronic pancreatitis
CPT/HCPCS: 36415; 80053; 80307; 80329; 82150; 82248; 83690; 85025; 96361; 96374; 96375; 96376; 99285; J2405; J2765; J8499

== ENCOUNTER 2019-08-11 15:15 | Emergency (ER) | payer OTHER ==
[~2019-08-11] VITALS: Ht 165.1 cm; Wt 53.5 kg
[2019-08-11] MEDS ORDERED: CARVEDILOL12.5 MG ORAL ×2 (15:24→19:16)
[2019-08-11] MEDS ORDERED: ZYRTEC10 MG ORAL (15:24)
[2019-08-11] MEDS ORDERED: ZANTAC150 MG ORAL (15:24)
--- NOTE | 2019-08-11 15:30 | NUR ---
ED Nurse Note: Patient walked into Ed c/o upper abodminal pain that has been an on going issue for the past couple days, patient is alert and oriented x4, denies any nausea or vomiting, patients heart rate is tachycardiac at 104 with a blood pressure of the 190s, denies any headache, denies any blurred vision. patient is currently on the hallway bed, will move patient to a monitor bed once open. IV started on right AC 20 gauge, will continue to monitor
[2019-08-11 15:47] VITALS: BP 180/129
--- NOTE | 2019-08-11 15:47 | NUR ---
ED Nurse Note: Patients blood pressure is 180/120. CONNER Benítez aware and notified. moved patient to bed 8
[2019-08-11 15:57] LABS: APPEARANCE,URINE SLIGHTLY CLOUDY; BILIRUBIN, URINE 1+ (NEGATIVE); COLOR,URINE AMBER; GLUCOSE, URINE (UA) NEGATIVE (NEGATIVE); KETONES,URINE 4+ (NEGATIVE); LEUKOCYTE ESTERASE ,URINE 1+ (NEGATIVE); NITRITE,URINE NEGATIVE (NEGATIVE); PH,URINE 5 (4.5-8.0); PROTEIN,URINE 2+ (NEGATIVE); UROBILINOGEN,URINE 1 MG/DL (0.0-1.0)
[2019-08-11 16:03] LABS: ANION GAP 16 mmol/L (5-15); BLOOD UREA NITROGEN 8 mg/dL (7-18); CARBON DIOXIDE 20 MMOL/L (21-32); CHLORIDE 100 MMOL/L (98-107); CREATININE 1.1 MG/DL (0.55-1.30); SODIUM 136 MMOL/L (136-145)
--- NOTE | 2019-08-11 16:05 | Emergency Room Report ---
History of Present Illness General Chief Complaint: Abdominal Pain Source: Patient Present Illness HPI 38 YO Male presents to the ED c/o 02/19 in severity intermittent abdominal pain. Pt. reports that he has a hx of chronic pancreatitis and this is not as bad as previous episodes. Pt. called his nurses line to request several [place] at home to manage his symptoms, but nurse referred him to the ED. Pt. denies N/V/C/D, blood in the stool/black tarry stools, fevers or chills. Pt. reports he has not had ETOH in a long time as that was previously exacerbating his sx's. He does report poor diet and states he has been on a "chili-cheese greer craze" and endorses heating them multiple times a day x 1 week. He states he has hx of HTN and takes Coreg daily, zyrtec, and ranitidine. Reports being out of his coreg. Denies CP, Palpitations, LOC, AMS, dizziness, Changes in Vision, Sensation, paresthesias, or a sudden severe headache. Allergies: Coded Allergies: AMLODIPINE (Verified Allergy, Mild, 07/09/19) POSSIBLE REACTION MORPHINE (Verified Allergy, Unknown, 08/11/19) Patient History Past Medical History: see triage record, old chart reviewed, HTN, other - pancreatitis Past Surgical History: none Pertinent Family History: none Social History: Reports: drug use - THC Reviewed Nursing Documentation: PMH: Agreed; PSxH: Agreed Nursing Documentation-PMH Past Medical History: No History, Except For Hx Cardiac Problems: Yes Hx Hypertension: Yes Hx Cancer: No Hx Gastrointestinal Problems: Yes - PANCREATITIS Hx Neurological Problems: No Review of Systems All Other Systems: negative except mentioned in HPI Physical Exam Vital Signs Date Time Temp Pulse Resp B/P (MAP) Pulse Ox O2 Delivery O2 Flow Rate FiO2 08/11/19 15:19 98.2 111 16 180/129 (146) 98 Room Air Sp02 EP Interpretation: reviewed, normal General Appearance: no apparent distress, alert, GCS 15, non-toxic Head: normocephalic, atraumatic Eyes: bilateral eye normal inspection, bilateral eye PERRL ENT: hearing grossly normal, normal voice Neck: full range of motion Respiratory: chest non-tender, lungs clear, normal breath sounds, speaking full sentences Cardiovascular #1: regular rate, rhythm Gastrointestinal: normal bowel sounds, soft, no peritonitis, non-distended, no guarding, no pulsatile mass, tenderness - mild RUQ ttp Genitourinary: normal inspection, no CVA tenderness Musculoskeletal: back normal, gait/station normal, normal range of motion, non- tender Neurologic: alert, oriented x3, responsive, motor strength/tone normal, sensory intact, speech normal, grossly normal Psychiatric: judgement/insight normal Lymphatic: no adenopathy Medical Decision Making PA Attestation Dr. Delvalle is my supervising Physician whom patient management has been discussed with. Diagnostic Impression: Primary Impression: Abdominal pain Qualified Codes: R10.11 - Right upper quadrant pain Additional Impression: Pancreatitis Qualified Codes: K86.1 - Other chronic pancreatitis ER Course 38 YO Male presents to the ED c/o 02/19 in severity intermittent abdominal pain. Pt. reports that he has a hx of chronic pancreatitis and this is not as bad as previous episodes. Pt. called his nurses line to request several [place] at home to manage his symptoms, but nurse referred him to the ED. Pt. denies N/V/C/D, blood in the stool/black tarry stools, fevers or chills. Pt. reports he has not had ETOH in a long time as that was previously exacerbating his sx's. He does report poor diet and states he has been on a "chili-cheese greer craze" and endorses heating them multiple times a day x 1 week. He states he has hx of HTN and takes Coreg daily, zyrtec, and ranitidine. Denies CP, Palpitations, LOC , AMS, dizziness, Changes in Vision, Sensation, paresthesias, or a sudden severe headache. Ddx considered but are not limited to GERD, Diverticulitis, acute appendicitis, diarrhea,UC, PUD, GE, pancreatitis, gallstone,sepsis, acute abdomen just to name a few. Vital signs: Pt. has elevated BP, his triage HR was tachycardic but upon placement on the monitor his HR has been normal. the remaining VS are WNL, pt. is afebrile H&PE are most consistent with abdominal pain not mill representative of an acute abdomen. Pt. non-toxic in appearance, NAD, and does not have much discomfort on exam. ORDERS: CBC: WNL CMP: glucose 131 Lipase: 712 ( in the past was at 2500) UA: 4+ ketones ( which is c/w results from his previous visits). Some RBC's will await urine reflex due to similar results at previous visits and culture was consistent with contamination. ED INTERVENTIONS: -- 12.5 Coreg - 2mg Dilaudid IV - Pepcid IV -Lidocaine PO + Mylanta PO -Pt. reports his pain has subsided. Collaborative decision regarding need for admission for pain control and monitoring vs. outpatient treatment. Pt. continues to express that his pain is not as severe as he has experienced in the past when needing to be admitted. Pt. requests outpatient treatment / continuation of care. Pt. is given strict ED return precautions. DISCHARGE: At this time pt. is stable for d/c to home. Will provide printed patient care instructions, and any necessary prescriptions. Care plan and follow up instructions have been discussed with the patient prior to discharge. Labs Test 08/11/19 15:30 08/11/19 15:39 White Blood Count 10.4 K/UL (4.8-10.8) Red Blood Count 5.41 M/UL (4.70-6.10) Hemoglobin 17.5 G/DL (14.2-18.0) Hematocrit 50.7 % (42.0-52.0) Mean Corpuscular Volume 94 FL (80-99) Mean Corpuscular Hemoglobin 32.5 PG (27.0-31.0) Mean Corpuscular Hemoglobin Concent 34.6 G/DL (32.0-36.0) Red Cell Distribution Width 11.8 % (11.6-14.8) Platelet Count 316 K/UL (150-450) Mean Platelet Volume 6.2 FL (6.5-10.1) Neutrophils (%) (Auto) 71.1 % (45.0-75.0) Lymphocytes (%) (Auto) 12.0 % (20.0-45.0) Monocytes (%) (Auto) 6.7 % (1.0-10.0) Eosinophils (%) (Auto) 8.1 % (0.0-3.0) Basophils (%) (Auto) 2.1 % (0.0-2.0) Sodium Level 136 MMOL/L (136-145) Potassium Level 4.0 MMOL/L (3.5-5.1) Chloride Level 100 MMOL/L (98-107) Carbon Dioxide Level 20 MMOL/L (21-32) Anion Gap 16 mmol/L (5-15) Blood Urea Nitrogen 8 mg/dL (7-18) Creatinine 1.1 MG/DL (0.55-1.30) Estimat Glomerular Filtration Rate > 60 mL/min (>60) Glucose Level 131 MG/DL (74-106) Calcium Level 10.0 MG/DL (8.5-10.1) Total Bilirubin 0.8 MG/DL (0.2-1.0) Aspartate Amino Transf (AST/SGOT) 23 U/L (15-37) Alanine Aminotransferase (ALT/SGPT) 21 U/L (12-78) Alkaline Phosphatase 90 U/L (46-116) Total Protein 9.6 G/DL (6.4-8.2) Albumin 5.1 G/DL (3.4-5.0) Globulin 4.5 g/dL Albumin/Globulin Ratio 1.1 (1.0-2.7) Lipase 712 U/L (73-393) Urine Color [place] Urine Appearance Slightly cloudy Urine pH 5 (4.5-8.0) Urine Specific [place] 1.030 (1.005-1.035) Urine Protein 2+ (NEGATIVE) Urine Glucose (UA) Negative (NEGATIVE) Urine Ketones 4+ (NEGATIVE) Urine Blood 1+ (NEGATIVE) Urine Nitrite Negative (NEGATIVE) Urine Bilirubin 1+ (NEGATIVE) Urine Ictotest Negative (NEGATIVE) Urine Urobilinogen 1 MG/DL (0.0-1.0) Urine Leukocyte Esterase 1+ (NEGATIVE) Urine RBC 2-4 /HPF (0 - 0) Urine WBC 2-4 /HPF (0 - 0) Urine Squamous Epithelial Cells None /LPF (NONE/OCC) Urine Bacteria Few /HPF (NONE) Urine Mucus Many /LPF (NONE/OCC) Last Vital Signs Date Time Temp Pulse Resp B/P (MAP) Pulse Ox O2 Delivery O2 Flow Rate FiO2 08/11/19 15:47 98.2 16 180/129 98 Room Air 08/11/19 15:19 111 Status: improved Disposition: HOME, SELF-CARE Condition: Stable Scripts Carvedilol* (CARVEDILOL*) 12.5 Mg Tablet 12.5 MG ORAL EVERY 12 HOURS for 30 Days, #60 TAB Prov: Jackelin Tran 08/11/19 Hydrocodone Bit/Acetaminophen 5-325* (NORCO 5-325*) 1 Each Tablet 1 TAB ORAL Q6H PRN for For Pain, #12 TAB 0 Refills Prov: Jackelin Tran 08/11/19 Lidocaine HCl 2% Viscous (Lidocaine HCl 2% Viscous) 100 Ml Solution 15 ML ORAL QID, #120 ML Prov: Jackelin Tran 08/11/19 Patient Instructions: Abdominal Pain, Adult, Acute Pancreatitis, Low-Fat Diet for Pancreatitis or Gallbladder Conditions Additional Instructions: Take medications as directed. Do not drink alcohol, drive, or operate heavy machinery while taking NORCO as this may cause drowsiness. Follow up with a Primary Care Provider in 3-5 days, even if your symptoms have resolved or for additional medications. Return sooner to ED if new symptoms occur, or current symptoms become worse. - Please note that this Emergency Department Report was dictated using [employer] heading inspector technology software, occasionally this can lead to erroneous entry secondary to interpretation by the dictation equipment. Jackelin Tran Aug 11, 2019 16:05
[2019-08-11 16:07] LABS: BASOPHILS % (AUTO) 2.1 % (0.0-2.0); EOSINOPHILS % (AUTO) 8.1 % (0.0-3.0); HEMATOCRIT 50.7 % (42.0-52.0); HEMOGLOBIN 17.5 G/DL (14.2-18.0); MEAN CORPUSCULAR VOLUME 94 FL (80-99); MONOCYTES % (AUTO) 6.7 % (1.0-10.0); NEUTROPHILS % (AUTO) 71.1 % (45.0-75.0); PLATELET COUNT 316 K/UL (150-450); RED BLOOD COUNT 5.41 M/UL (4.70-6.10); RED CELL DISTRIBUTION WIDTH 11.8 % (11.6-14.8); WHITE BLOOD COUNT 10.4 K/UL (4.8-10.8)
[2019-08-11 16:08] LABS: ALANINE AMINOTRANSFERASE 21 U/L (12-78); ALBUMIN 5.1 G/DL (3.4-5.0); ALBUMIN/GLOBULIN RATIO 1.1 (1.0-2.7); ALKALINE PHOSPHATASE 90 U/L (46-116); ASPARTATE AMINO TRANSFERASE 23 U/L (15-37); BILIRUBIN,TOTAL 0.8 MG/DL (0.2-1.0)
[2019-08-11] MEDS ORDERED: Carvedilol 12.5mg tab ORAL ONE (16:15)
[2019-08-11] MEDS ORDERED: Ketorolac 30mg Inj IV ONE (16:45)
[2019-08-11] MEDS ORDERED: HYDROmorphone 2mg tab ORAL ONE (17:30)
[2019-08-11 17:45] VITALS: BP 175/105
[2019-08-11] MEDS ORDERED: HYDROmorphone 2 MG in NS 55 ML IVPB ONE (17:45)
--- NOTE | 2019-08-11 17:45 | NUR ---
ED Nurse Note: Patient reports of increasing pain that he rates a 7/10 pain. CONNER Benítez aware and notified
[2019-08-11] MEDS ORDERED: Lidocaine 2% Visc 15ml soln ORAL ONE (18:00)
[2019-08-11] MEDS ORDERED: Mylanta II UD 30ml ORAL ONE (18:00)
[2019-08-11] MEDS ORDERED: LIDOCAINE VISC100 ML ORAL (19:13)
[2019-08-11] MEDS ORDERED: NORCO 5-325 TA1 EACH ORAL (19:13)
--- NOTE | 2019-08-11 19:26 | NUR ---
ER DISCHARGE NOTE: Patient is cleared to be discharged per ERMD, pt is aox4, on room air, with stable vital signs. pt was given dc and prescription instructions, pt was able to verbalize understanding, pt id band and iv site removed without complications. pt is able to ambulate with steady gait. pt took all belongings. CONNER Benítez states its okay for patient's BP to be 160 at time of discharge, patient states he will go see his PMD
[2019-08-11 19:27] VITALS: BP 160/92
== END 2019-08-11 19:28 | disposition home or self-care (01) ==
LOC: EMR 16:00
DX: K86.1 Other chronic pancreatitis (principal); R10.11 Right upper quadrant pain; I10 Essential (primary) hypertension; F12.10 Cannabis abuse, uncomplicated; Z88.8 Allergy status to other drugs, medicaments and biological substances; Z88.6 Allergy status to analgesic agent
CPT/HCPCS: 36415; 80053; 81003; 83690; 85025; 96361; 96374; 96375; J1170; J1885; S0028; Z7502; 99284; J7030

== ENCOUNTER 2019-09-08 13:42 | Inpatient (IN) | payer MEDICAID, OTHER ==
[~2019-09-08] VITALS: Ht 165.1 cm; Wt 59.0 kg
[~2019-09-08 13:42] MED LIST changes: +CARVEDILOL12.5 MG ORAL; +LIDOCAINE VISC100 ML ORAL; +ZYRTEC10 MG ORAL
[2019-09-08] MEDS ORDERED: Omnipaque-300 100ml vial INJ PRN (14:00)
--- NOTE | 2019-09-08 14:00 | NUR ---
ED Nurse Note: Patient walked into ED from home c/o abdominal pain in the middle area uppergastric, radiating to her back 07/22 since yesterday, reports hx of pancreatitis, reports tylenol has not been helping his pain. patient is alert awake x4 ambulatory, breathing unlabored and even.
--- NOTE | 2019-09-08 14:12 | Emergency Room Report ---
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, presents with epigastric pain that started 2 days ago, patient reports that since pancreatitis again, he attempted to take, ibuprofen without any relief, has been ongoing for the past 2 days aggravated by alcohol alleviated by not taking alcohol, severity is moderate, constant no nausea no vomiting no diarrhea no chest pain no shortness of breath patient presents for evaluation Allergies: Coded Allergies: AMLODIPINE (Verified Allergy, Mild, 09/08/19) POSSIBLE REACTION MORPHINE (Verified Allergy, Unknown, 08/11/19) Patient History Past Medical History: see triage record Reviewed Nursing Documentation: PMH: Agreed; PSxH: Agreed Nursing Documentation-PMH Past Medical History: No History, Except For Hx Cardiac Problems: Yes Hx Hypertension: Yes Hx Cancer: No Hx Gastrointestinal Problems: Yes - PANCREATITIS Hx Neurological Problems: No Review of Systems All Other Systems: negative except mentioned in HPI Physical Exam Vital Signs Date Time Temp Pulse Resp B/P (MAP) Pulse Ox O2 Delivery O2 Flow Rate FiO2 09/08/19 13:47 98.1 89 18 158/94 (115) 96 Room Air Sp02 EP Interpretation: reviewed, normal General Appearance: well appearing, no apparent distress, alert Head: normocephalic, atraumatic Eyes: bilateral eye PERRL, bilateral eye EOMI ENT: uvula midline, moist mucus membranes Neck: supple, thyroid normal, supple/symm/no masses Respiratory: lungs clear, no respiratory distress, no retraction, no accessory muscle use Cardiovascular #1: normal peripheral pulses, regular rate, rhythm, no edema, no gallop, no murmur Gastrointestinal: soft, no guarding, no rebound, tenderness - Mild epigastric tenderness Musculoskeletal: normal inspection Neurologic: alert, oriented x3 Psychiatric: mood/affect normal Skin: no rash, warm/dry Medical Decision Making Diagnostic Impression: Primary Impression: Pancreatitis, acute Qualified Codes: K85.90 - Acute pancreatitis without necrosis or infection, unspecified ER Course 38-year-old male presents with epigastric pain concerning for possible pancreatitis versus pancreatic cancer versus cholecystitis Lipase found to be greater than 2000, pain control, fluid hydration Patient given multiple rounds of hydromorphone for pain control additionally patient found to have an enlarged pancreatic head as well as ductal dilatation counseled patient that he may have pancreatic cancer and he will need further evaluation by GI Will admit patient for symptomatic care Patient admitted to Dr. Davila Laboratory Tests Test 09/08/19 14:20 White Blood Count 7.9 K/UL (4.8-10.8) Red Blood Count 4.63 M/UL (4.70-6.10) L Hemoglobin 14.6 G/DL (14.2-18.0) Hematocrit 43.3 % (42.0-52.0) Mean Corpuscular Volume 94 FL (80-99) Mean Corpuscular Hemoglobin 31.5 PG (27.0-31.0) H Mean Corpuscular Hemoglobin Concent 33.7 G/DL (32.0-36.0) Red Cell Distribution Width 12.4 % (11.6-14.8) Platelet Count 321 K/UL (150-450) Mean Platelet Volume 5.4 FL (6.5-10.1) L Neutrophils (%) (Auto) 68.4 % (45.0-75.0) Lymphocytes (%) (Auto) 22.0 % (20.0-45.0) Monocytes (%) (Auto) 6.4 % (1.0-10.0) Eosinophils (%) (Auto) 1.7 % (0.0-3.0) Basophils (%) (Auto) 1.6 % (0.0-2.0) Urine Color Yellow Urine Appearance Clear Urine pH 5 (4.5-8.0) Urine Specific [place] 1.020 (1.005-1.035) Urine Protein 1+ (NEGATIVE) H Urine Glucose (UA) Negative (NEGATIVE) Urine Ketones 3+ (NEGATIVE) H Urine Blood Negative (NEGATIVE) Urine Nitrite Negative (NEGATIVE) Urine Bilirubin Negative (NEGATIVE) Urine Urobilinogen 1 MG/DL (0.0-1.0) H Urine Leukocyte Esterase 1+ (NEGATIVE) H Urine RBC 0-2 /HPF (0 - 0) H Urine WBC 2-4 /HPF (0 - 0) Urine Squamous Epithelial Cells None /LPF (NONE/OCC) Urine Bacteria Few /HPF (NONE) Sodium Level 139 MMOL/L (136-145) Potassium Level 3.9 MMOL/L (3.5-5.1) Chloride Level 104 MMOL/L (98-107) Carbon Dioxide Level 24 MMOL/L (21-32) Anion Gap 11 mmol/L (5-15) Blood Urea Nitrogen 10 mg/dL (7-18) Creatinine 1.0 MG/DL (0.55-1.30) Estimate Glomerular Filtration Rate > 60 mL/min (>60) Glucose Level 124 MG/DL (74-106) H Calcium Level 9.1 MG/DL (8.5-10.1) Total Bilirubin 0.7 MG/DL (0.2-1.0) Aspartate Amino Transferase (AST) 20 U/L (15-37) Alanine Aminotransferase (ALT) 20 U/L (12-78) Alkaline Phosphatase 57 U/L (46-116) Total Protein 7.7 G/DL (6.4-8.2) Albumin 4.2 G/DL (3.4-5.0) Globulin 3.5 g/dL Albumin/Globulin Ratio 1.2 (1.0-2.7) Lipase > 2000 U/L (73-393) H CT/MRI/US Diagnostic Results CT/MRI/US Diagnostic Results : Impression Procedure: CT Abdomen Pelvis w/Contrast Clinical Indication: Abdominal pain, history of pancreatitis, epigastric pain starting 2 days ago Technique: No oral contrast utilized, per emergency room physician request IV administration nonionic contrast. Venous phase spiral acquisition obtained through the abdomen and pelvis. Multiplanar reconstructions were generated. Total dose length product 520 mGycm. CTDIvol(s) 9 mGy. Dose reduction achieved using automated exposure control Comparison: 04/28/2019 Findings: The pancreatic head is enlarged and somewhat heterogeneous, perhaps slightly more so than on the prior study. The main pancreatic duct is dilated. This is a new finding. This tapers fairly abruptly at the level of the pancreatic head Calcifications are seen within the pancreatic head, more numerous than on the prior study. There is some infiltration of the peripancreatic fat immediately adjacent to the head and uncinate process, predominantly in the fat plane between the pancreas and duodenum and stomach, but no significant peripancreatic phlegmon is demonstrated. The pancreas and enhances normally. No definite discrete mass demonstrated. The common hepatic duct and common bile duct are dilated. There is minimal if any central intrahepatic biliary ductal dilatation. The common hepatic duct tapers fairly suddenly as it reaches the pancreatic head. There are multiple enlarged fairly intensely enhancing peripancreatic nodes.. These findings are new or are better appreciated than on the prior study, which was done without IV contrast. No gallstones are demonstrated. There is a duodenal diverticulum. There is a 9 mm cyst medial to the pancreatic head, interposed between it and the first portion of the duodenum. This is only equivocally evident previously The liver, spleen, adrenals, kidneys are unremarkable. No retroperitoneal or mesenteric mass or adenopathy. No pelvic mass or adenopathy. The appendix is normal. No evidence of colonic diverticulosis or diverticulitis. No small bowel distention. No free or loculated intraperitoneal gas or fluid is evident. Included lung bases demonstrate posterior dependent atelectatic changes. The bones are unremarkable. Impression: Enlarged pancreatic head and uncinate, with some infiltration of the peripancreatic fat. Findings most likely represent hepatic acute focal nonnecrotizing pancreatitis. However, dilatation of the pancreatic and common bile ducts, both which demonstrate abrupt tapering at the level of the pancreatic head, as well as the presence of peripancreatic lymphadenopathy raises concern for the possibility of an underlying lucency. Triple phase contrast MRI with MRCP may be useful for further evaluation, versus endoscopic ultrasound Pancreatic calcifications, indicating an element of chronic pancreatitis, also previously reported. Small cystic lesion between the pancreatic head and duodenum, could represent a small pseudocyst Duodenal diverticulum. Findings discussed by phone with Dr. Alonzo at the time of interpretation The CT scanner at [facility] is accredited by the [employer] and the scans are performed using protocols designed to limit radiation exposure to as low as reasonably achievable to attain images of sufficient resolution adequate for diagnostic evaluation. Dictated By: Tye Ordaz MD Electronically Signed By: Tye Ordaz MD Signed Date/Time 09/08/19 1550 CC: Juarez Alonzo MD Last Vital Signs Date Time Temp Pulse Resp B/P (MAP) Pulse Ox O2 Delivery O2 Flow Rate FiO2 09/08/19 13:47 98.1 89 18 158/94 (115) 96 Room Air Disposition: ADMITTED INPATIENT Condition: Stable Juarez Alonzo MD Sep 08, 2019 14:12
[2019-09-08] MEDS ORDERED: Hydromorphone 0.5mg/0.5ml inj IVP ONE ×3 (14:15→18:15)
--- NOTE | 2019-09-08 14:35 | NUR ---
ED Nurse Note: patient taken to CT scan, per Dr. Alonzo is ok to take patient down at this time.
[2019-09-08 14:46] LABS: BASOPHILS % (AUTO) 1.6 % (0.0-2.0); EOSINOPHILS % (AUTO) 1.7 % (0.0-3.0); HEMATOCRIT 43.3 % (42.0-52.0); HEMOGLOBIN 14.6 G/DL (14.2-18.0); MEAN CORPUSCULAR VOLUME 94 FL (80-99); MONOCYTES % (AUTO) 6.4 % (1.0-10.0); NEUTROPHILS % (AUTO) 68.4 % (45.0-75.0); PLATELET COUNT 321 K/UL (150-450); RED BLOOD COUNT 4.63 M/UL (4.70-6.10); RED CELL DISTRIBUTION WIDTH 12.4 % (11.6-14.8); WHITE BLOOD COUNT 7.9 K/UL (4.8-10.8)
--- NOTE | 2019-09-08 14:50 | NUR ---
ED Nurse Note: patient came back from CT in stable condition.
[2019-09-08 14:53] LABS: APPEARANCE,URINE CLEAR; BILIRUBIN, URINE NEGATIVE (NEGATIVE); GLUCOSE, URINE (UA) NEGATIVE (NEGATIVE); KETONES,URINE 3+ (NEGATIVE); LEUKOCYTE ESTERASE ,URINE 1+ (NEGATIVE); NITRITE,URINE NEGATIVE (NEGATIVE); PH,URINE 5 (4.5-8.0); PROTEIN,URINE 1+ (NEGATIVE); UROBILINOGEN,URINE 1 MG/DL (0.0-1.0)
[2019-09-08 15:05] LABS: COLOR,URINE YELLOW
[2019-09-08 15:07] LABS: ANION GAP 11 mmol/L (5-15); BLOOD UREA NITROGEN 10 mg/dL (7-18); CALCIUM 9.1 MG/DL (8.5-10.1); CARBON DIOXIDE 24 MMOL/L (21-32); CHLORIDE 104 MMOL/L (98-107); POTASSIUM 3.9 MMOL/L (3.5-5.1); SODIUM 139 MMOL/L (136-145)
[2019-09-08 15:12] LABS: ALANINE AMINOTRANSFERASE 20 U/L (12-78); ALBUMIN 4.2 G/DL (3.4-5.0); ALBUMIN/GLOBULIN RATIO 1.2 (1.0-2.7); ALKALINE PHOSPHATASE 57 U/L (46-116); ASPARTATE AMINO TRANSFERASE 20 U/L (15-37); BILIRUBIN,TOTAL 0.7 MG/DL (0.2-1.0)
--- NOTE | 2019-09-08 15:55 | Diagnostic Imaging Report ---
Clinical Indication: Abdominal pain, history of pancreatitis, epigastric pain starting 2 days ago Technique: No oral contrast utilized, per emergency room physician request IV administration nonionic contrast. Venous phase spiral acquisition obtained through the abdomen and pelvis. Multiplanar reconstructions were generated. Total dose length product 520 mGycm. CTDIvol(s) 9 mGy. Dose reduction achieved using automated exposure control Comparison: 04/28/2019 Findings: The pancreatic head is enlarged and somewhat heterogeneous, perhaps slightly more so than on the prior study. The main pancreatic duct is dilated. This is a new finding. This tapers fairly abruptly at the level of the pancreatic head Calcifications are seen within the pancreatic head, more numerous than on the prior study. There is some infiltration of the peripancreatic fat immediately adjacent to the head and uncinate process, predominantly in the fat plane between the pancreas and duodenum and stomach, but no significant peripancreatic phlegmon is demonstrated. The pancreas and enhances normally. No definite discrete mass demonstrated. The common hepatic duct and common bile duct are dilated. There is minimal if any central intrahepatic biliary ductal dilatation. The common hepatic duct tapers fairly suddenly as it reaches the pancreatic head. There are multiple enlarged fairly intensely enhancing peripancreatic nodes.. These findings are new or are better appreciated than on the prior study, which was done without IV contrast. No gallstones are demonstrated. There is a duodenal diverticulum. There is a 9 mm cyst medial to the pancreatic head, interposed between it and the first portion of the duodenum. This is only equivocally evident previously The liver, spleen, adrenals, kidneys are unremarkable. No retroperitoneal or mesenteric mass or adenopathy. No pelvic mass or adenopathy. The appendix is normal. No evidence of colonic diverticulosis or diverticulitis. No small bowel distention. No free or loculated intraperitoneal gas or fluid is evident. Included lung bases demonstrate posterior dependent atelectatic changes. The bones are unremarkable. Impression: Enlarged pancreatic head and uncinate, with some infiltration of the peripancreatic fat. Findings most likely represent hepatic acute focal nonnecrotizing pancreatitis. However, dilatation of the pancreatic and common bile ducts, both which demonstrate abrupt tapering at the level of the pancreatic head, as well as the presence of peripancreatic lymphadenopathy raises concern for the possibility of an underlying lucency. Triple phase contrast MRI with MRCP may be useful for further evaluation, versus endoscopic ultrasound Pancreatic calcifications, indicating an element of chronic pancreatitis, also previously reported. Small cystic lesion between the pancreatic head and duodenum, could represent a small pseudocyst Duodenal diverticulum. Findings discussed by phone with Dr. Alonzo at the time of interpretation The CT scanner at [facility] is accredited by the [employer] and the scans are performed using protocols designed to limit radiation exposure to as low as reasonably achievable to attain images of sufficient resolution adequate for diagnostic evaluation.
[2019-09-08 16:56] VITALS: BP 142/89
--- NOTE | 2019-09-08 18:58 | NUR ---
HAND-OFF: Report given to ross zaidi.
--- NOTE | 2019-09-08 19:01 | NUR ---
ED Nurse Note: Pt is aaox4, vss with no acute distress. Pt states pain is 7/10 and is coping well. Pt is resting well. Pt is aware of admission. Will continue to monitor.
[2019-09-08 19:10] VITALS: BP 138/87
--- NOTE | 2019-09-08 20:13 | NUR ---
TRANSFER TO FLOOR: Patient transferred to Med Surg as ordered, per Opal GALICIA. Report given to ISIS Lopez. Belongings and medications given to ISIS Lopez. Family and or S/O informed of transfer.
--- NOTE | 2019-09-08 20:20 | NUR ---
NURSE NOTES: Received report from Yuriy. Awaiting patients arrival to the floor.
[2019-09-08] MEDS ORDERED: HYDROmorphone 1mg/ml Carpuject IVP PRN (20:30)
--- NOTE | 2019-09-08 21:00 | NUR ---
NURSE NOTES: Patient in bed, awake, alert and verbally responsive. Able to make needs known. Respiration is even and unlabored. Kept clean and comfortable. Skin is warm and dry to touch. Abdomen is soft, with pain. Will give PRN pain medications. IV site noted, patent. Oriented patient to the room and vital signs, blood draws. Call light is at bedside. Phone at bedside. All belongings at bedside. Will continue plan of care.
[2019-09-09] VITALS: BP 133/73
[2019-09-09] MEDS: Morphine Sulfate 2mg/ml Inj(IV/IM USE ONLY) IVP PRN ×2 (00:42→04:45)
[2019-09-09 04:00] VITALS: BP 136/68
[2019-09-09 05:21] LABS: EOSINOPHILS % (AUTO) 4.2 % (0.0-3.0); HEMATOCRIT 40.7 % (42.0-52.0); HEMOGLOBIN 13.8 G/DL (14.2-18.0); LYMPHOCYTES % (AUTO) 21.1 % (20.0-45.0); MEAN CORPUSCULAR VOLUME 93 FL (80-99); MONOCYTES % (AUTO) 8.5 % (1.0-10.0); NEUTROPHILS % (AUTO) 64.2 % (45.0-75.0); PLATELET COUNT 302 K/UL (150-450); RED BLOOD COUNT 4.36 M/UL (4.70-6.10); RED CELL DISTRIBUTION WIDTH 12.6 % (11.6-14.8); WHITE BLOOD COUNT 7.7 K/UL (4.8-10.8)
[2019-09-09 06:01] LABS: ALANINE AMINOTRANSFERASE 22 U/L (12-78); ALBUMIN 3.8 G/DL (3.4-5.0); ALBUMIN/GLOBULIN RATIO 1.2 (1.0-2.7); ALKALINE PHOSPHATASE 55 U/L (46-116); AMYLASE 234 U/L (25-115); ANION GAP 11 mmol/L (5-15); ASPARTATE AMINO TRANSFERASE 20 U/L (15-37); BILIRUBIN,TOTAL 0.7 MG/DL (0.2-1.0); BLOOD UREA NITROGEN 6 mg/dL (7-18); CALCIUM 8.4 MG/DL (8.5-10.1); CARBON DIOXIDE 24 MMOL/L (21-32); CHLORIDE 105 MMOL/L (98-107); CREATININE 0.8 MG/DL (0.55-1.30); POTASSIUM 3.7 MMOL/L (3.5-5.1); SODIUM 140 MMOL/L (136-145)
--- NOTE | 2019-09-09 07:10 | NUR ---
HAND-OFF: Report given to Bridget Whittington.
[2019-09-09 08:00] VITALS: BP 158/99
[2019-09-09] MEDS ORDERED: HYDROmorphone 1mg/ml Carpuject IVP PRN (08:15)
--- NOTE | 2019-09-09 08:15 | NUR ---
NURSE NOTES: patient states that morphine is not effective with his abdominal pain, states dilaudid is better, called and spoke with dr Davila, received order to dc morphine and start dilaudid 1 mg q4 prn, patient made aware, order entered.
--- NOTE | 2019-09-09 08:39 | General Progress Note ---
Assessment/Plan Problem List: (1) Cannabis abuse ICD Codes: F12.10 - Cannabis abuse, uncomplicated SNOMED: 34069907 (2) Abdominal pain ICD Codes: R10.9 - Abdominal pain SNOMED: 78457576 (3) Pancreatitis ICD Codes: K85.9 - Acute pancreatitis, unspecified SNOMED: 55007731 (4) Cyclic vomiting syndrome ICD Codes: G43.A0 - Cyclical vomiting, not intractable SNOMED: 26842234 Assessment/Plan: CT and labs reviewed lipid panel ordered fu MRI pain control ivf repeat labs fu MRI Subjective ROS Limited/Unobtainable: Yes Allergies: Coded Allergies: AMLODIPINE (Verified Allergy, Mild, 09/08/19) POSSIBLE REACTION MORPHINE (Verified Allergy, Unknown, 08/11/19) Objective Last 24 Hour Vital Signs Date Time Temp Pulse Resp B/P (MAP) Pulse Ox O2 Delivery O2 Flow Rate FiO2 09/09/19 08:00 97.9 70 18 158/99 (118) 96 09/09/19 04:00 98.3 64 17 136/68 (90) 97 09/09/19 00:00 98.1 56 18 133/73 (93) 97 09/08/19 22:18 Room Air 09/08/19 20:20 98.0 80 16 138/87 100 Room Air 09/08/19 19:10 97.8 79 15 138/87 100 Room Air 09/08/19 18:57 98.0 09/08/19 17:00 98.0 09/08/19 16:56 98.0 09/08/19 16:56 97.8 79 19 142/89 100 Room Air 09/08/19 14:57 89 18 Room Air 09/08/19 13:47 98.1 89 18 158/94 (115) 96 Room Air Intake and Output 09/08/19 09/09/19 19:00 07:00 Intake Total 600 ml Balance 600 ml IV Total 600 ml # Voids 3 Laboratory Tests 09/08/19 14:20: White Blood Count 7.9, Red Blood Count 4.63L, Hemoglobin 14.6, Hematocrit 43.3, Mean Corpuscular Volume 94, Mean Corpuscular Hemoglobin 31.5H, Mean Corpuscular Hemoglobin Concent 33.7, Red Cell Distribution Width 12.4, Platelet Count 321, Mean Platelet Volume 5.4L, Neutrophils (%) (Auto) 68.4, Lymphocytes (%) (Auto) 22.0, Monocytes (%) (Auto) 6.4, Eosinophils (%) (Auto) 1.7, Basophils (%) (Auto ) 1.6, Urine Color Yellow, Urine Appearance Clear, Urine pH 5, Urine Specific [place] 1.020, Urine Protein 1+H, Urine Glucose (UA) Negative, Urine Ketones 3+H , Urine Blood Negative, Urine Nitrite Negative, Urine Bilirubin Negative, Urine Urobilinogen 1H, Urine Leukocyte Esterase 1+H, Urine RBC 0-2H, Urine WBC 2-4, Urine Squamous Epithelial Cells None, Urine Bacteria Few, Sodium Level 139, Potassium Level 3.9, Chloride Level 104, Carbon Dioxide Level 24, Anion Gap 11, Blood Urea Nitrogen 10, Creatinine 1.0, Estimat Glomerular Filtration Rate > 60 , Glucose Level 124H, Calcium Level 9.1, Total Bilirubin 0.7, Aspartate Amino Transf (AST/SGOT) 20, Alanine Aminotransferase (ALT/SGPT) 20, Alkaline Phosphatase 57, Total Protein 7.7, Albumin 4.2, Globulin 3.5, Albumin/Globulin Ratio 1.2, Lipase > 2000H 09/09/19 05:09: White Blood Count 7.7, Red Blood Count 4.36L, Hemoglobin 13.8L, Hematocrit 40.7L , Mean Corpuscular Volume 93, Mean Corpuscular Hemoglobin 31.6H, Mean Corpuscular Hemoglobin Concent 33.9, Red Cell Distribution Width 12.6, Platelet Count 302, Mean Platelet Volume 5.9L, Neutrophils (%) (Auto) 64.2, Lymphocytes ( %) (Auto) 21.1, Monocytes (%) (Auto) 8.5, Eosinophils (%) (Auto) 4.2H, Basophils (%) (Auto) 2.0, Sodium Level 140, Potassium Level 3.7, Chloride Level 105, Carbon Dioxide Level 24, Anion Gap 11, Blood Urea Nitrogen 6L, Creatinine 0.8, Estimat Glomerular Filtration Rate > 60, Glucose Level 106, Calcium Level 8.4L, Total Bilirubin 0.7, Aspartate Amino Transf (AST/SGOT) 20, Alanine Aminotransferase (ALT/SGPT) 22, Alkaline Phosphatase 55, Total Protein 7.1, Albumin 3.8, Globulin 3.3, Albumin/Globulin Ratio 1.2, Lipase 1207H, Amylase Level 234H Height (Feet): 5 Height (Inches): 5.00 Weight (Pounds): 130 General Appearance: alert EENT: normal ENT inspection Neck: supple Cardiovascular: normal rate Respiratory/Chest: lungs clear Abdomen: soft, hypoactive bowel sounds, tender Extremities: non-tender Delon Page MD Sep 09, 2019 08:39
[2019-09-09] MEDS ORDERED: Carvedilol 6.25mg Tab ORAL SCH (09:00)
[2019-09-09 09:33] VITALS: BP 158/99
--- NOTE | 2019-09-09 09:46 | History and Physical Report ---
DATE OF ADMISSION: 09/08/2019 HISTORY OF PRESENT ILLNESS: This is a 38-year-old male with a history of previous admissions for pancreatitis. He is admitted to the hospital with abdominal pain. He was found to have elevated lipase and additionally CT scan of the abdomen was abnormal. The patient states he has been cooking turkeys for his aunt. He states he has been using marijuana as he normally does on a regular basis and he also had a beer about five days ago. He came to the hospital with abdominal pain. He was given Dilaudid with relief. PAST MEDICAL HISTORY: Notable for previous episode of pancreatitis, previous history of alcohol use, history of hypertension, history of nasal allergies, and a history of marijuana use. ALLERGIES: Amlodipine and morphine. Morphine allergy is unknown. REVIEW OF SYSTEMS: Denies any headaches, hematemesis, melena, hematochezia, night sweats, or weight loss. He admits to abdominal pain and nausea. PAST SURGICAL HISTORY: None. HOME MEDICATIONS: Coreg and Zyrtec. PHYSICAL EXAMINATION: GENERAL: Reveals a young male. VITAL SIGNS: Blood pressure is 160/70, heart rate 84, respirations 18. Afebrile. HEENT: Unremarkable. CHEST: Clear breath sounds bilaterally with normal heart sounds. ABDOMEN: Soft. He has mild midepigastric discomfort. EXTREMITIES: There is no edema. NEUROLOGIC: Nonfocal. LABORATORY DATA: Lab testing shows normal CBC. BMP is remarkable only for glucose of 124. Lipase of 2000, this morning is 1200. Amylase is 234. Urinalysis negative. IMAGING STUDIES: Show abdomen and pelvis CT with enlargement of the pancreatic head. IMPRESSION: 1. Pancreatitis with large pancreatic head and uncinate process. 2. Marijuana use. 3. Alcohol use. 4. Hypertension. DISCUSSION: Admit to the hospital. We will consult GI. We will obtain MRI of the abdomen. Start clear liquids. Follow carefully. Demetrio Davila M.D. DR: RACHELL JOB#: [id number] CC:
--- NOTE | 2019-09-09 10:18 | NUR ---
NURSE NOTES: PT CALLED RN INTO ROOM. PT STATES "LOOK I'M IN SO MUCH PAIN RIGHT NOW. THAT 1MG LOLI WORKED FOR A LITTLE BIT. CAN I GET 2MG?". RN SPOKE TO DR JOSHI AND MADE AWARE. PER DR JOSHI, HE WILL NOT CHANGE DILAUDID TO 2MG. RN MADE PT AWARE AND OFFERED HOT PACKS ALTERNATIVE COMFORT MEASURE.
--- NOTE | 2019-09-09 11:02 | NUR ---
NURSE NOTES: PER CELL LINER, ONLY STAT MRI TO BE DONE TODAY. PER DR JOSHI, PLACE PT ON CLEAR LIQUID DIET IF MRI CANNOT BE DONE TODAY. ORDERS ENTERED.
--- NOTE | 2019-09-09 12:30 | NUR ---
NURSE NOTES: PT STATES " I CAN'T LAY HERE WASTING MY TIME BEING IN PAIN DURING THE HOLIDAYS. I'M GONNA LEAVE". RN CLARIFIED WITH PT IF HE WANTED TO LEAVE AGAINST MEDICAL ADVICE. PT STATED YES. PT SIGNED AMA FORM AND STATED HE HAD ALL OF HIS BELONGINGS. DID NOT WANT TO SIGN BELONGINGS FORM BEFORE LEAVING. IV ACCESS DISCONTINUED. PT EDUCATED TO COME BACK TO ER IF EXPERIENCING INTRACTABLE NAUSEA/VOMITING OR PAIN. PT VERBALIZED UNDERSTANDING. PT WAS ESCORTED OUT OF HOSPITAL. PT TOOK PRIVATE VEHICLE.
--- NOTE | 2019-09-09 12:36 | NUR ---
NURSE NOTES: RN LEFT MESSAGE FOR DR JOSHI REGARDING AMA AND CRN MADE HOUSE SUP AWARE OF AMA.
--- NOTE | 2019-09-11 13:07 | Discharge Summary ---
Discharge Summary Discharge Summary _ DATE OF ADMISSION: 09/08/2019 DATE OF DISCHARGE: 09/09/2019 Patient left AGAINST MEDICAL ADVICE REASON FOR ADMISSION: 38 years old male with past medical history of pancreatitis due to alcohol use, hypertension, marijuana use, nasal allergy , presented to the hospital with complaint of epigastric pain. Upon evaluation in emergency department patient was found to have elevated lipase over 2000. Stable electrolytes , renal parameters and LFT . No leukocytosis. CT scan of the abdomen and pelvis revealed pancreatic calcification indicating an element of chronic pancreatitis. Patient was using marijuana on a regular basis as well as had beer for 5 consecutive days. Patient received analgesics and admitted for further management. CONSULTANTS: GI specialist Dr. Page [facility] COURSE: Patient admitted to medical surgical floor. GI consult was requested. Patient started on the IV fluids patient and clear liquid diet as tolerated. MRI of the abdomen was ordered. Patient was counseled on abstinence from alcohol and judicious use of marijuana. Pain management was addressed. Antiemetic provided as needed. Supportive care provided. Blood pressure was managed with beta-asia. GI specialist seen and evaluated patient and recommended follow-up with MRI . Lipid panel was also ordered. Patient felt better the next day and decided to leave AGAINST MEDICAL ADVICE on 09/09. The risks and consequences of signing AGAINST MEDICAL ADVICE were discussed with patient in detail. Patient verbalized understanding, nevertheless signed AMA form and left. FINAL DIAGNOSES: Pancreatitis with large pancreatic head and uncinate process Abdominal pain Cannabis abuse ETOH use Hypertension I have been assigned to dictate discharge summary for this account. I was not involved in the patient's management. Marce Joseph NP Sep 11, 2019 13:07
== END 2019-09-09 12:20 | disposition left against medical advice (07) | DRG 282 ==
LOC: EMR 16:24 → 4E 18:20 → EDBEDREQ 18:46
DX: K85.90 Acute pancreatitis without necrosis or infection, unspecified (principal); F12.10 Cannabis abuse, uncomplicated; I10 Essential (primary) hypertension; G43.A0 Cyclical vomiting, in migraine, not intractable; Z88.6 Allergy status to analgesic agent; Z88.8 Allergy status to other drugs, medicaments and biological substances
CPT/HCPCS: 36415; 74177; 80053; 81003; 82150; 83690; 85025; 96361; 96365; 96367; 96374; 96375; 96376; 99285; J2405

== ENCOUNTER 2019-11-24 10:11 | Inpatient (IN) | payer OTHER ==
[~2019-11-24] VITALS: Ht 165.1 cm; Wt 56.2 kg
[2019-11-24] MEDS ORDERED: Hydromorphone 0.5mg/0.5ml inj IVP ONE (10:30)
[2019-11-24] MEDS ORDERED: Omnipaque-300 100ml vial INJ PRN (10:30)
--- NOTE | 2019-11-24 10:30 | NUR ---
ED Nurse Note: Pt ambulated to ED d/t abdominal pain with nausea/vomiting x 2 days. Per pt, he has hx of pancreatitis. Placed on bed and gown; hooked to wood gouger. Dr. Alonzo on bedside.
--- NOTE | 2019-11-24 10:30 | Emergency Room Report ---
History of Present Illness General Chief Complaint: Abdominal Pain Source: Patient Present Illness HPI 39-year-old male history of smoking history of recurrent pancreatitis presents with epigastric pain that started 2 days ago, patient with reduced p.o. intake acute nausea and vomiting endorses sharp pain radiates to the back no known aggravating relieving factors severity is moderate, intermittent patient presents for evaluation no fevers no chills no chest pain Allergies: Coded Allergies: AMLODIPINE (Verified Allergy, Mild, 09/08/19) POSSIBLE REACTION MORPHINE (Verified Allergy, Unknown, 08/11/19) Patient History Past Medical History: see triage record Reviewed Nursing Documentation: PMH: Agreed; PSxH: Agreed Nursing Documentation-PMH Past Medical History: No History, Except For Hx Cardiac Problems: Yes Hx Hypertension: Yes Hx Cancer: No Hx Gastrointestinal Problems: Yes Hx Neurological Problems: No Review of Systems All Other Systems: negative except mentioned in HPI Physical Exam Vital Signs Date Time Temp Pulse Resp B/P (MAP) Pulse Ox O2 Delivery O2 Flow Rate FiO2 11/24/19 10:15 98.1 93 18 183/128 (146) 99 Room Air Sp02 EP Interpretation: reviewed, normal General Appearance: well appearing, no apparent distress, alert Head: normocephalic, atraumatic Eyes: bilateral eye PERRL, bilateral eye EOMI ENT: uvula midline, moist mucus membranes Neck: supple, thyroid normal, supple/symm/no masses Respiratory: lungs clear, no respiratory distress, no retraction, no accessory muscle use Cardiovascular #1: normal peripheral pulses, regular rate, rhythm, no edema, no gallop, no murmur Gastrointestinal: soft, no guarding, no rebound, tenderness - Epigastrically tender Musculoskeletal: normal inspection Neurologic: alert, oriented x3 Psychiatric: mood/affect normal Skin: no rash, warm/dry Medical Decision Making Diagnostic Impression: Primary Impression: Pancreatitis Qualified Codes: K86.1 - Other chronic pancreatitis ER Course 39-year-old male presents with epigastric pain differential diagnosis includes pancreatitis, ACS, gastritis We will provide pain locations, fluid rehydration Reevaluation 11:28 AM, patient continues to have pain pain lipase is elevated will admit patient for pancreatitis Patient Admitted to Dr. Davila 12:56pm Laboratory Tests Test 11/24/19 10:22 11/24/19 10:29 Urine Color Pale yellow Urine Appearance Clear Urine pH 5 (4.5-8.0) Urine Specific [place] 1.020 (1.005-1.035) Urine Protein Negative (NEGATIVE) Urine Glucose (UA) Negative (NEGATIVE) Urine Ketones Negative (NEGATIVE) Urine Blood 1+ (NEGATIVE) H Urine Nitrite Negative (NEGATIVE) Urine Bilirubin Negative (NEGATIVE) Urine Urobilinogen Normal MG/DL (0.0-1.0) Urine Leukocyte Esterase Negative (NEGATIVE) Urine RBC 0-2 /HPF (0 - 0) H Urine WBC 0-2 /HPF (0 - 0) Urine Squamous Epithelial Cells Few /LPF (NONE/OCC) Urine Bacteria Occasional /HPF (NONE) Urine Mucus Few /LPF (NONE/OCC) H White Blood Count 9.0 K/UL (4.8-10.8) Red Blood Count 4.72 M/UL (4.70-6.10) Hemoglobin 14.9 G/DL (14.2-18.0) Hematocrit 43.5 % (42.0-52.0) Mean Corpuscular Volume 92 FL (80-99) Mean Corpuscular Hemoglobin 31.6 PG (27.0-31.0) H Mean Corpuscular Hemoglobin Concent 34.3 G/DL (32.0-36.0) Red Cell Distribution Width 12.3 % (11.6-14.8) Platelet Count 366 K/UL (150-450) Mean Platelet Volume 5.6 FL (6.5-10.1) L Neutrophils (%) (Auto) 68.7 % (45.0-75.0) Lymphocytes (%) (Auto) 22.2 % (20.0-45.0) Monocytes (%) (Auto) 4.4 % (1.0-10.0) Eosinophils (%) (Auto) 3.4 % (0.0-3.0) H Basophils (%) (Auto) 1.3 % (0.0-2.0) Sodium Level 140 MMOL/L (136-145) Potassium Level 4.1 MMOL/L (3.5-5.1) Chloride Level 105 MMOL/L (98-107) Carbon Dioxide Level 25 MMOL/L (21-32) Anion Gap 10 mmol/L (5-15) Blood Urea Nitrogen 10 mg/dL (7-18) Creatinine 1.1 MG/DL (0.55-1.30) Estimate Glomerular Filtration Rate > 60 mL/min (>60) Glucose Level 136 MG/DL (74-106) H Calcium Level 9.5 MG/DL (8.5-10.1) Total Bilirubin 0.3 MG/DL (0.2-1.0) Aspartate Amino Transferase (AST) 23 U/L (15-37) Alanine Aminotransferase (ALT) 22 U/L (12-78) Alkaline Phosphatase 87 U/L (46-116) Troponin I 0.000 ng/mL (0.000-0.056) Total Protein 8.3 G/DL (6.4-8.2) H Albumin 4.3 G/DL (3.4-5.0) Globulin 4.0 g/dL Albumin/Globulin Ratio 1.1 (1.0-2.7) Lipase 824 U/L (73-393) H EKG Diagnostic Results EKG Time: 10:37 EP Interpretation: NSR, rate 81, QTc 439, no acute ST elevations, normal axis Rhythm Strip Diag. Results Rhythm Strip Time: 10:38 EP Interpretation: yes Rate: 82 Rhythm: NSR, no PVC's, no ectopy CT/MRI/US Diagnostic Results CT/MRI/US Diagnostic Results : Impression Procedure: CT Abdomen Pelvis w/Contrast Clinical Indication: Pancreatitis, epigastric pain Technique: No oral contrast utilized, per emergency room physician request IV administration nonionic contrast. Venous phase spiral acquisition obtained through the abdomen and pelvis. Multiplanar reconstructions were generated. Total dose length product 173 mGycm. CTDIvol(s) 3 mGy. Dose reduction achieved using automated exposure control Comparison: 11/08/2018 Findings: There is swelling of the pancreas and edema of the peripancreatic fat. This is overall similar to the prior study, except that the extent of phlegmon immediately adjacent to the pancreatic head appears decreased. There are calcifications within the pancreas, also evident previously. There is dilatation of the pancreatic duct, also evident previously. No focal peripancreatic fluid collections are demonstrated. The pancreas enhances normally. Again demonstrated are enlarged peripancreatic nodes, which appears similar in appearance to the previous exam. 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 The liver, gallbladder, bile ducts, spleen, adrenals, kidneys are all unremarkable. No retroperitoneal or mesenteric mass or adenopathy. No pelvic mass or adenopathy. The appendix is normal. No evidence of colonic diverticulosis or diverticulitis. No free intraperitoneal gas. No small bowel distention. Distal esophagus, stomach, duodenum are unremarkable. The included lung bases demonstrate some atelectasis within the lingula and posterolateral right lower lobe. The bones are unremarkable. Impression: Pancreatic and peripancreatic edema, consistent with recurrent nonnecrotizing acute pancreatitis Evidence of chronic calcific pancreatitis. Pancreatic ductal dilatation, likely related to such. As previously reported, downstream pancreatic obstructing tumor cannot be ruled out, and if this has not been previously worked up, triple phase MRI should be considered Incidental finding duodenal diverticulum The CT scanner at [facility] is accredited by the [employer] and the scans are performed using protocols designed to limit radiation exposure to as low as reasonably achievable to attain images of sufficient resolution adequate for diagnostic evaluation. Dictated By: Tye Ordaz MD Electronically Signed By: Tye Ordaz MD Signed Date/Time 11/24/19 1318 CC: Juarez Alonzo MD Last Vital Signs Date Time Temp Pulse Resp B/P (MAP) Pulse Ox O2 Delivery O2 Flow Rate FiO2 11/24/19 10:15 98.1 93 18 183/128 (146) 99 Room Air Disposition: ADMITTED INPATIENT Condition: Stable Juarez Alonzo MD Nov 24, 2019 10:30
--- NOTE | 2019-11-24 10:35 | NUR ---
ED Nurse Note: Pt is AOx4, on RA; NAD. Blood and urine specimen sent to labs.
[2019-11-24 10:45] VITALS: BP 176/103
[2019-11-24 10:47] LABS: BASOPHILS % (AUTO) 1.3 % (0.0-2.0); EOSINOPHILS % (AUTO) 3.4 % (0.0-3.0); HEMATOCRIT 43.5 % (42.0-52.0); HEMOGLOBIN 14.9 G/DL (14.2-18.0); LYMPHOCYTES % (AUTO) 22.2 % (20.0-45.0); MEAN CORPUSCULAR VOLUME 92 FL (80-99); MONOCYTES % (AUTO) 4.4 % (1.0-10.0); NEUTROPHILS % (AUTO) 68.7 % (45.0-75.0); PLATELET COUNT 366 K/UL (150-450); RED BLOOD COUNT 4.72 M/UL (4.70-6.10); RED CELL DISTRIBUTION WIDTH 12.3 % (11.6-14.8)
[2019-11-24 10:53] LABS: APPEARANCE,URINE CLEAR; BILIRUBIN, URINE NEGATIVE (NEGATIVE); COLOR,URINE PALE YELLOW; GLUCOSE, URINE (UA) NEGATIVE (NEGATIVE); KETONES,URINE NEGATIVE (NEGATIVE); LEUKOCYTE ESTERASE ,URINE NEGATIVE (NEGATIVE); NITRITE,URINE NEGATIVE (NEGATIVE); PH,URINE 5 (4.5-8.0); PROTEIN,URINE NEGATIVE (NEGATIVE); UROBILINOGEN,URINE NORMAL MG/DL (0.0-1.0)
[2019-11-24 11:02] LABS: ANION GAP 10 mmol/L (5-15); BLOOD UREA NITROGEN 10 mg/dL (7-18); CALCIUM 9.5 MG/DL (8.5-10.1); CARBON DIOXIDE 25 MMOL/L (21-32); CHLORIDE 105 MMOL/L (98-107); CREATININE 1.1 MG/DL (0.55-1.30); POTASSIUM 4.1 MMOL/L (3.5-5.1); SODIUM 140 MMOL/L (136-145)
[2019-11-24 11:06] LABS: ALANINE AMINOTRANSFERASE 22 U/L (12-78); ALBUMIN 4.3 G/DL (3.4-5.0); ALBUMIN/GLOBULIN RATIO 1.1 (1.0-2.7); ALKALINE PHOSPHATASE 87 U/L (46-116); ASPARTATE AMINO TRANSFERASE 23 U/L (15-37); BILIRUBIN,TOTAL 0.3 MG/DL (0.2-1.0)
[2019-11-24] MEDS ORDERED: HYDROmorphone 1mg/ml Carpuject IVP ONE (11:30)
[2019-11-24 12:30] VITALS: BP 172/104
--- NOTE | 2019-11-24 13:23 | Diagnostic Imaging Report ---
Clinical Indication: Pancreatitis, epigastric pain Technique: No oral contrast utilized, per emergency room physician request IV administration nonionic contrast. Venous phase spiral acquisition obtained through the abdomen and pelvis. Multiplanar reconstructions were generated. Total dose length product 173 mGycm. CTDIvol(s) 3 mGy. Dose reduction achieved using automated exposure control Comparison: 11/08/2018 Findings: There is swelling of the pancreas and edema of the peripancreatic fat. This is overall similar to the prior study, except that the extent of phlegmon immediately adjacent to the pancreatic head appears decreased. There are calcifications within the pancreas, also evident previously. There is dilatation of the pancreatic duct, also evident previously. No focal peripancreatic fluid collections are demonstrated. The pancreas enhances normally. Again demonstrated are enlarged peripancreatic nodes, which appears similar in appearance to the previous exam. 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 The liver, gallbladder, bile ducts, spleen, adrenals, kidneys are all unremarkable. No retroperitoneal or mesenteric mass or adenopathy. No pelvic mass or adenopathy. The appendix is normal. No evidence of colonic diverticulosis or diverticulitis. No free intraperitoneal gas. No small bowel distention. Distal esophagus, stomach, duodenum are unremarkable. The included lung bases demonstrate some atelectasis within the lingula and posterolateral right lower lobe. The bones are unremarkable. Impression: Pancreatic and peripancreatic edema, consistent with recurrent nonnecrotizing acute pancreatitis Evidence of chronic calcific pancreatitis. Pancreatic ductal dilatation, likely related to such. As previously reported, downstream pancreatic obstructing tumor cannot be ruled out, and if this has not been previously worked up, triple phase MRI should be considered Incidental finding duodenal diverticulum The CT scanner at [facility] is accredited by the [employer] and the scans are performed using protocols designed to limit radiation exposure to as low as reasonably achievable to attain images of sufficient resolution adequate for diagnostic evaluation.
[2019-11-24] MEDS ORDERED: HYDROmorphone 1mg/NS 50ml IVPB 50 ML IVPB ONE (13:30)
--- NOTE | 2019-11-24 13:57 | NUR ---
ED Nurse Note: Latest BP: 198/110. Reported to Dr. Alonzo.
[2019-11-24 13:58] VITALS: BP 198/110
--- NOTE | 2019-11-24 14:00 | NUR ---
NURSE NOTES: Telephone report received from Jeanna MARINELLI. Was informed that patient had blood pressure of 198/100. Was informed that hydralazine was administered and that RN would re-check blood pressure before sending patient to 4E as patient cannot be accepted with a blood pressure that high.
--- NOTE | 2019-11-24 14:40 | NUR ---
TRANSFER TO FLOOR: Patient transferred to [facility] as ordered, per Dr. Davila. Report given to Eric MARINELLI. Belongings and medications given to receiving nurse. Family and or S/O informed of transfer.
--- NOTE | 2019-11-24 15:00 | NUR ---
NURSE NOTES: Patient arrived to unit. Safely ambulated to bed from stretcher. Patient is awake and alert x 4. Patient presents with abdominal pain due to pancreatitis. Complaints of nausea, but no vomiting. Abdominal pain currently 8/10, pain medication given at 1400 in ED per report from ED nurse Jeanna. 20 angel IV present in left forearm. Patent and intact. Upon assessment patients vitals BP: 178/111 HR: 84 Oxygen: 95 % Temperature: 98.2 Pain: 8/10. Vitals reported to charge nurse Kaya. Doctor Chani made aware. Transfer order for telemetry given.
--- NOTE | 2019-11-24 15:15 | NUR ---
NURSE NOTES: Patient transferred to telemetry. Report given to Eileen MARINELLI. Patient belongings list reviewed. Patient awake and alert x 4. Patient in stable condition. Care for patient to end at this time.
[2019-11-24 15:45] VITALS: BP 183/123
--- NOTE | 2019-11-24 16:02 | NUR ---
NURSE NOTES: 10mg hydralazine is wasted in med room.
--- NOTE | 2019-11-24 16:50 | NUR ---
NURSE NOTES: Received pt from DAVID MARINELLI [id number]. All addmision assessments and instructions done and pt verbally confirmed to understand all. Pt is A&O x4, pt is in RA, no SOB or acute respiratory distress noted. pt has intact iv access LAC 20G SL. pt has sharp abdominal pain and abd is tender and distended. skin is intact. RN called Dr JOSHI regarding admission orders and pain and HTN, Dr JOSHI called back but sound wasn't clear, stated he will call back. all belongings are with pt. pt is on continues heart monitoring. all needs attended, bed is locked and is in the lowest position, call light within easy reach. will continue to monitor.
[2019-11-24] MEDS: HYDROmorphone 2 MG in NS 55 ML IVPB PRN ×2 (18:10→22:15)
[2019-11-24 18:20] VITALS: BP 167/95
--- NOTE | 2019-11-24 19:37 | NUR ---
HAND-OFF: Report given to OUMAR MARINELLI. Pt is awake and stable.
[2019-11-24 20:00] VITALS: BP_SYST 179; BP_SYST 184; BP_DIAS 111; BP_DIAS 99
[2019-11-24] MEDS: Carvedilol 12.5mg tab ORAL SCH (20:28)
[2019-11-24] MEDS: Heparin 5000 units/ml inj SUBQ SCH (20:30)
--- NOTE | 2019-11-24 20:37 | NUR ---
NURSE NOTES: Checked BP 179/111 on R arm. Ask patient to recheck BP to other arm. However, patient got irritated and refused to take his BP on L arm because of his IV site which is located at left AC. Patient stated, "I know my BP is high. Stop taking it frequently." Explained risk and benefit x3. However, patient insisted not to have his BP taken again. Charge nurse made aware.
--- NOTE | 2019-11-24 20:40 | NUR ---
NURSE NOTES: Wasted 10mg of Hydralazine at med room.
[2019-11-25] VITALS (7 sets, daily range): BP systolic 138–158; BP diastolic 78–99
[2019-11-25] MEDS: HYDROmorphone 2 MG in NS 55 ML IVPB PRN ×2 (02:15→06:15)
--- NOTE | 2019-11-25 03:38 | NUR ---
NURSE NOTES: Resting throughout the night. No significant change of condition noted. Will continue to monitor.
--- NOTE | 2019-11-25 07:13 | NUR ---
HAND-OFF: Report given to ISIS Mayorga. Plan of care endorsed.
--- NOTE | 2019-11-25 07:13 | NUR ---
NURSE NOTES: Nurse report given by ISIS Rivera. Patient's sleeping in bed but easily awaken, covered with blanket, appeared to be easily irritated, complains of stomach pain, 8/10 on pain scale, no s/s of distress or SOB. Confirmed with patient that next pain medication is not due until 1015, tried nonpharmacological pain release regimen. Bed low and locked, side rails x 2, bed alarm is armed, diagnostic cardiac sonographer is on. IV is running fluid, no s/s of tenderness or infiltration. Will continue to monitor.
[2019-11-25 08:34] LABS: EOSINOPHILS % (AUTO) 1.7 % (0.0-3.0); HEMATOCRIT 38.6 % (42.0-52.0); HEMOGLOBIN 13.3 G/DL (14.2-18.0); LYMPHOCYTES % (AUTO) 12.7 % (20.0-45.0); MEAN CORPUSCULAR VOLUME 92 FL (80-99); MONOCYTES % (AUTO) 11.6 % (1.0-10.0); NEUTROPHILS % (AUTO) 72.9 % (45.0-75.0); PLATELET COUNT 358 K/UL (150-450); RED CELL DISTRIBUTION WIDTH 12.6 % (11.6-14.8); WHITE BLOOD COUNT 9.2 K/UL (4.8-10.8)
[2019-11-25 08:58] LABS: ANION GAP 10 mmol/L (5-15); BLOOD UREA NITROGEN 6 mg/dL (7-18); CALCIUM 9.2 MG/DL (8.5-10.1); CARBON DIOXIDE 27 MMOL/L (21-32); CHLORIDE 103 MMOL/L (98-107); CREATININE 0.8 MG/DL (0.55-1.30); POTASSIUM 3.4 MMOL/L (3.5-5.1); SODIUM 140 MMOL/L (136-145)
[2019-11-25] MEDS: Carvedilol 12.5mg tab ORAL SCH ×2 (09:02→20:55)
[2019-11-25] MEDS: Heparin 5000 units/ml inj SUBQ SCH ×2 (09:06→20:57)
--- NOTE | 2019-11-25 11:48 | GI Initial Consult Note ---
History of Present Illness General Date patient seen: Nov 25, 2019 Time patient seen: 11:43 Reason for Hospitalization: Abdominal Pain Referring physician: EMILIE JOSHI Reason for Consultation: PANCREATITIS Present Illness HPI 39-year-old male history of smoking history of recurrent pancreatitis presents with epigastric pain that started 2 days ago, patient with reduced p.o. intake acute nausea and vomiting endorses sharp pain radiates to the back no known aggravating relieving factors severity is moderate, intermittent patient presents for evaluation no fevers no chills no chest pain GI consulted for pancreatitis. Patient seen, awake alert oriented x4 no apparent distress. At the time of evaluation the patient states his abdominal pain is tolerable. Abdomen is soft, mild generalized tenderness, nondistended, no rigidity, no peritoneal signs, no rebounding or guarding noted. The patient admits to marijuana and EtOH use. However, denies any current use that might be associated with his presenting pancreatitis. The patient stated he was unable to take any p.o. intake, had episodes of emesis. Denied any hematemesis or coffee grounds. States he has recurrent pancreatitis which began approximately 7 years ago. The patient had an abdominal pelvis CT performed noted with swelling of the pancreas and edema of the peripancreatic fat consistent with recurrent nonnecrotizing acute pancreatitis. In addition noted chronic calcified pancreatitis. There is also pancreatic ductal dilation in which downstream pancreatic obstructing tumor cannot be ruled out. Laboratory reviewed, patient lipase level jumped from 824 to greater than 2000. Home Meds Active Scripts Carvedilol* (CARVEDILOL*) 12.5 Mg Tablet, 12.5 MG ORAL EVERY 12 HOURS for 30 Days, #60 TAB Prov:Jackelin Tran 08/11/19 Discontinued Reported Medications Cetirizine Hcl* (ZYRTEC*) 10 Mg Tablet, 10 MG ORAL DAILY, #30 TAB 0 Refills 08/11/19 Discontinued Scripts Hydrocodone Bit/Acetaminophen 5-325* (NORCO 5-325*) 1 Each Tablet, 1 TAB ORAL Q6H PRN for For Pain, #20 TAB 0 Refills Prov:Bryce Baron MD 10/09/19 Med list reviewed/reconciled: Yes Allergies: Coded Allergies: AMLODIPINE (Verified Allergy, Mild, 09/08/19) POSSIBLE REACTION MORPHINE (Verified Allergy, Unknown, 08/11/19) Patient History History Provided By: Patient, Medical Record PMH Narrative Past Medical History: see triage record Reviewed Nursing Documentation: PMH: Agreed; PSxH: Agreed Nursing Documentation-PMH Past Medical History: No History, Except For Hx Cardiac Problems: Yes Hx Hypertension: Yes Hx Cancer: No Hx Gastrointestinal Problems: Yes Hx Neurological Problems: No Social History: Reports: alcohol use, drug use Review of Systems All Other Systems: negative except mentioned in HPI Physical Exam Vital Signs Date Time Temp Pulse Resp B/P (MAP) Pulse Ox O2 Delivery O2 Flow Rate FiO2 11/24/19 10:15 98.1 93 18 183/128 (146) 99 Room Air Sp02 EP Interpretation: reviewed, normal Labs Laboratory Tests Test 11/25/19 08:15 White Blood Count 9.2 K/UL (4.8-10.8) Red Blood Count 4.20 M/UL (4.70-6.10) L Hemoglobin 13.3 G/DL (14.2-18.0) L Hematocrit 38.6 % (42.0-52.0) L Mean Corpuscular Volume 92 FL (80-99) Mean Corpuscular Hemoglobin 31.8 PG (27.0-31.0) H Mean Corpuscular Hemoglobin Concent 34.5 G/DL (32.0-36.0) Red Cell Distribution Width 12.6 % (11.6-14.8) Platelet Count 358 K/UL (150-450) Mean Platelet Volume 6.0 FL (6.5-10.1) L Neutrophils (%) (Auto) 72.9 % (45.0-75.0) Lymphocytes (%) (Auto) 12.7 % (20.0-45.0) L Monocytes (%) (Auto) 11.6 % (1.0-10.0) H Eosinophils (%) (Auto) 1.7 % (0.0-3.0) Basophils (%) (Auto) 1.0 % (0.0-2.0) Sodium Level 140 MMOL/L (136-145) Potassium Level 3.4 MMOL/L (3.5-5.1) L Chloride Level 103 MMOL/L (98-107) Carbon Dioxide Level 27 MMOL/L (21-32) Anion Gap 10 mmol/L (5-15) Blood Urea Nitrogen 6 mg/dL (7-18) L Creatinine 0.8 MG/DL (0.55-1.30) Estimat Glomerular Filtration Rate > 60 mL/min (>60) Glucose Level 109 MG/DL (74-106) H Calcium Level 9.2 MG/DL (8.5-10.1) Lipase > 2000 U/L (73-393) H General Appearance: well appearing, no apparent distress, alert Head: normocephalic EENT: PERRL/EOMI, normal ENT inspection Neck: supple Respiratory: normal breath sounds, no respiratory distress Cardiovascular: normal rate Gastrointestinal: normal inspection, non tender, soft, normal bowel sounds, non -distended Rectal: deferred Genitourinary: deferred Musculoskeletal: normal inspection, back normal Neurologic: alert, oriented x3, responsive, normal inspection Psychiatric: normal inspection, judgement/insight normal, memory normal Skin: normal inspection, normal color, no rash, warm/dry, palpation normal, well hydrated Lymphatic: normal inspection, no adenopathy Current Medications Current Medications Medications (Trade) Dose Ordered Sig/Noé Route PRN Reason Start Time Stop Time Status Last Admin Dose Admin Carvedilol (Coreg) 12.5 mg EVERY 12 HOURS ORAL 11/24/19 21:00 12/24/19 20:59 11/25/19 09:02 Clonidine HCl (Catapres Tab) 0.1 mg Q4H PRN ORAL IF SBP>150 11/24/19 17:00 12/24/19 16:59 11/25/19 09:01 Heparin Sodium (Porcine) (Heparin 5000 units/ml) 5,000 units EVERY 12 HOURS SUBQ 11/24/19 21:00 12/24/19 20:59 11/25/19 09:06 Hydralazine HCl (Apresoline) 10 mg Q6H PRN IV IF SBP>160 11/24/19 17:00 12/24/19 16:59 11/24/19 20:33 Hydromorphone HCl 2 mg/Sodium Chloride 56 ml @ 224 mls/hr Q4H PRN IVPB pain 4-10 11/24/19 17:00 12/01/19 16:59 11/25/19 06:15 Iohexol (OMNIPAQUE-300 100ml) 100 ml NOW PRN INJ Radiology Procedure 11/24/19 10:30 11/26/19 10:23 Ondansetron HCl (Zofran) 4 mg Q6H PRN IVP Nausea & Vomiting 11/24/19 17:00 12/24/19 16:59 11/24/19 22:02 Sodium Chloride 1,000 ml @ 75 mls/hr [id number] IV 11/24/19 17:00 12/24/19 16:59 11/25/19 06:15 GI: Plan Problems: (1) Chronic pancreatitis (2) Pancreatitis (3) Cyclic vomiting syndrome (4) Abdominal pain (5) Drug abuse (6) ETOH abuse (7) Pancreatic duct dilated Plan Bowel rest, maintain n.p.o. plus IV fluids Will obtain MRI triple phase to rule out any downstream obstructing tumor >> d/ w with radiology will hold until pancreatitis has resolved. We will obtain lipid panel to rule out any hypertriglyceridemia Urine toxicity Pain management PPI Zofran PRN We will follow on a daily basis with any additional recommendations Discussed with Dr. Page. Thank you for this patient referral, we will follow. The patient was seen and examined at bedside and all new and available data was reviewed in the patients chart. I agree with the above findings, impression and plan. (Patient seen earlier today. Signature stamp does not reflect patient encounter time.). - MD Loraine Chen,[facility] Nov 25, 2019 11:48
--- NOTE | 2019-11-25 13:53 | NUR ---
*-* INSURANCE *-* ALL CLINICALS AND REVIEWS HAVE BEEN FAXED TO: [employer] NO CM OR TRACKING# ASSIGNED YET # [phone] FAX# [phone] REVIEWS/CLINICALS
[2019-11-25] MEDS ORDERED: HYDROmorphone 2 MG in NS 55 ML IVPB PRN (15:00)
--- NOTE | 2019-11-25 15:03 | NUR ---
HAND-OFF: Report given to ISIS Reyes. Patient's in stable condition, AO x4, denies pain, no s/s of distress or SOB, ambulates stable. campus monitor removed. Patient's belonging list went over with patient and receiving nurse at bedside and signed by both nurses. Patient's transferred to [facility] [place] per Dr. Yip's order. Transferred orders carried out.
--- NOTE | 2019-11-25 15:07 | NUR ---
NURSE NOTES: Report received from Shy MARINELLI. Patient transferred to unit from telemetry. Patient presents with chronic pancreatitis. Patient is currently NPO until further notice from MD. Patient currently on room air. Does not appear to be in respiratory distress. Patient complains of abdominal pain 8/, will follow pain protocol. Patient noted to have 22 angel IV in right forearm with fluids running per MD orders. Educated patient the need for a urine sample, to inform staff if need to void. Urine sample cup placed in bathroom. Patient verbalized understanding. Bed locked and in lowest position. Call light within reach. Patient scored as a low fall risk with a score of 20. However, educated patient the need to call if needs assistance. Patient verbalized understanding. Will continue to follow plan of care.
--- NOTE | 2019-11-25 16:31 | NUR ---
CASE MANAGEMENT:REVIEW 39 YR OLD MALE PRESENTED TO ER CC; ABDOMINAL PAIN. NAUSEA AND VOMITING SI: PANCREATITIS 98.0 93 18 183/128 99% ON RA LIPASE+824 IS: IV ZOFRAN IV DILAUDID 1L NS BOLUS CT ABD/PELVIS : TO TELEMETRY PLAN: DOWNGRADE TO MED/SURG
--- NOTE | 2019-11-25 17:49 | History & Physical ---
History and Physical History & Physicial HISTORY OF PRESENT ILLNESS: This is a 39-year-old male with a history of previous admissions for pancreatitis. He is admitted to the hospital with abdominal pain. He was found to have elevated lipase and additionally CT scan of the abdomen was abnormal. The patient states he has been cooking turkeys for his aunt. He states he has been using marijuana as he normally does on a regular basis and he also had a beer about five days ago. He came to the hospital with abdominal pain. He was given Dilaudid with relief. he has also been known to be markedly hypertensive and has been transferred to telemetry for intravenous hydralazine PAST MEDICAL HISTORY: Notable for previous episode of pancreatitis, previous history of alcohol use, history of hypertension, history of nasal allergies, and a history of marijuana use. ALLERGIES: Amlodipine and morphine. Morphine allergy is unknown. REVIEW OF SYSTEMS: Denies any headaches, hematemesis, melena, hematochezia, night sweats, or weight loss. He admits to abdominal pain and nausea. PAST SURGICAL HISTORY: None. HOME MEDICATIONS: Coreg and Zyrtec. PHYSICAL EXAMINATION: GENERAL: Reveals a young male. VITAL SIGNS: Blood pressure is 160/70, heart rate 84, respirations 18. Afebrile. HEENT: Unremarkable. CHEST: Clear breath sounds bilaterally with normal heart sounds. ABDOMEN: Soft. He has mild midepigastric discomfort. EXTREMITIES: There is no edema. NEUROLOGIC: Nonfocal. LABORATORY DATA: Lab testing shows normal CBC. BMP is remarkable only for glucose of 124. lipase is elevated IMPRESSION: 1. Pancreatitis 2. Marijuana use. 3. Alcohol use. 4. Hypertension. DISCUSSION: Admit to the hospital. We will consult GI. Start clear liquids. Follow carefully. blood pressure control with intravenous hydralazine. Cardiac consultation requested Demetrio Davila M.D. Demetrio Davila MD Nov 25, 2019 17:49
--- NOTE | 2019-11-25 19:15 | NUR ---
HAND-OFF: Report given to Carleen MARINELLI.
--- NOTE | 2019-11-25 20:06 | NUR ---
NURSE NOTES: Received patient in bed, awake, alert, oriented, able to make his needs known, IV site is clean dry and intact, patient is ambulatory with steady gate, call light is within reach, bed is lowered, locked, alarm is on. Will continue to monitor for comfort and safety.
[2019-11-25] MEDS: NS w/KCl 20mEq 1000ml 1,000 ML IV SCH (20:55)
[2019-11-25] MEDS ORDERED: Carvedilol 12.5mg tab ORAL SCH (21:00)
[2019-11-25] MEDS ORDERED: Heparin 5000 units/ml inj SUBQ SCH (21:00)
[2019-11-26] VITALS: BP 154/101
[2019-11-26] MEDS: HYDROmorphone 2 MG in NS 55 ML IVPB PRN ×4 (03:54→17:36)
[2019-11-26 04:00] VITALS: BP 162/100
--- NOTE | 2019-11-26 04:15 | NUR ---
NURSE NOTES: Administered Dilaudid 2mg in Sodium Cloride at 22:41, thought that medication was scanned but realized after wards that it didn't register in the system.
--- NOTE | 2019-11-26 07:10 | NUR ---
NURSE NOTES: Report received from Carleen MARINELLI. Patient is currently asleep but was endorsed that patient is awake and alert x 4 at baseline. Patient is able to make needs know and calls when needs assistance. Patient currently NPO. IV fluids running per MD orders. Bed locked and in lowest position. Call light within reach. Will continue to follow plan of care.
[2019-11-26 08:00] VITALS: BP 162/95
[2019-11-26] MEDS: Carvedilol 12.5mg tab ORAL SCH (08:03)
[2019-11-26] MEDS: NS w/KCl 20mEq 1000ml 1,000 ML IV SCH (08:03)
[2019-11-26] MEDS: Heparin 5000 units/ml inj SUBQ SCH (08:05)
[2019-11-26] MEDS ORDERED: Omnipaque-300 100ml vial INJ PRN ×2 (10:30)
--- NOTE | 2019-11-26 10:52 | NUR ---
NURSE NOTES: Spoke with MRI, awaiting for clarification on MRI order. Awaiting for call back from MRI to confirm time and proper procedure.
[2019-11-26 11:11] LABS: BASOPHILS % (AUTO) 1.5 % (0.0-2.0); EOSINOPHILS % (AUTO) 3.5 % (0.0-3.0); HEMATOCRIT 36.3 % (42.0-52.0); HEMOGLOBIN 12.6 G/DL (14.2-18.0); LYMPHOCYTES % (AUTO) 30.1 % (20.0-45.0); MEAN CORPUSCULAR VOLUME 93 FL (80-99); MONOCYTES % (AUTO) 11.8 % (1.0-10.0); NEUTROPHILS % (AUTO) 53.2 % (45.0-75.0); PLATELET COUNT 314 K/UL (150-450); RED BLOOD COUNT 3.92 M/UL (4.70-6.10); RED CELL DISTRIBUTION WIDTH 12.2 % (11.6-14.8); WHITE BLOOD COUNT 6.8 K/UL (4.8-10.8)
[2019-11-26 11:46] LABS: AMYLASE 106 U/L (25-115); ANION GAP 10 mmol/L (5-15); BLOOD UREA NITROGEN 11 mg/dL (7-18); CALCIUM 8.8 MG/DL (8.5-10.1); CARBON DIOXIDE 25 MMOL/L (21-32); CHLORIDE 104 MMOL/L (98-107); CHOLESTEROL 146 MG/DL (< 200); CREATININE 0.9 MG/DL (0.55-1.30); HDL CHOLESTEROL 43 MG/DL (40-60); POTASSIUM 3.9 MMOL/L (3.5-5.1); SODIUM 139 MMOL/L (136-145); TRIGLYCERIDES 115 MG/DL (30-150)
--- NOTE | 2019-11-26 11:55 | NUR ---
NURSE NOTES: Spoke with Loraine Jordan, awaiting for labs to come back before patient gets MRI. In mean time Julian is okay to advance patient to a regular diet as tolerated.
[2019-11-26 12:00] VITALS: BP 212/125
--- NOTE | 2019-11-26 12:22 | GI Progress Note ---
Assessment/Plan Problems: (1) Pancreatitis, acute ICD Codes: K85.9 - Acute pancreatitis, unspecified SNOMED: 079481691 (2) Cannabis abuse ICD Codes: F12.10 - Cannabis abuse, uncomplicated SNOMED: 84232127 (3) Drug abuse ICD Codes: F19.10 - Other psychoactive substance abuse, uncomplicated SNOMED: 71511756 (4) Pancreatitis ICD Codes: K85.9 - Acute pancreatitis, unspecified SNOMED: 18018573 Qualifiers: Qualified Codes: K86.1 - Other chronic pancreatitis (5) Chronic pancreatitis ICD Codes: K86.1 - Other chronic pancreatitis SNOMED: 751056531 (6) Abdominal pain ICD Codes: R10.9 - Abdominal pain SNOMED: 98923349 Status: stable Status Narrative Discussed with Dr. Page. Assessment/Plan lipid panel WNL lipase greatly improved advance to regular diet, okay for DC per GI standpoint if patient tolerates pain mgmt fu urine tox ppi zofran prn recommend for outpatient follow up for MRI vs MRCP to evaluate for downstream obstructing tumor vs pancreatic divisum given chronic pancreatitis The patient was seen and examined at bedside and all new and available data was reviewed in the patients chart. I agree with the above findings, impression and plan. (Patient seen earlier today. Signature stamp does not reflect patient encounter time.). - Delon Page MD Subjective Subjective hungry abdominal pain Objective Last 24 Hour Vital Signs Date Time Temp Pulse Resp B/P (MAP) Pulse Ox O2 Delivery O2 Flow Rate FiO2 11/26/19 12:15 212/112 11/26/19 09:00 Room Air 11/26/19 08:03 163/101 11/26/19 08:03 65 163/101 11/26/19 08:00 98.5 74 19 162/95 (117) 98 11/26/19 04:31 98.6 11/26/19 04:00 98.2 66 18 162/100 (120) 100 66 11/26/19 03:55 167/110 11/26/19 00:00 98.6 70 18 154/101 (118) 95 11/25/19 22:37 Room Air 11/25/19 20:55 74 125/78 11/25/19 20:00 98.2 85 18 145/95 (112) 98 11/25/19 17:47 98.2 67 20 145/83 (103) 99 11/25/19 16:07 161/99 11/25/19 16:00 98.2 67 20 155/99 (117) 99 Intake and Output 11/25/19 11/26/19 19:00 07:00 Intake Total 206 ml Output Total 350 ml Balance -144 ml Intake IV Total 206 ml Output Urine Total 350 ml # Voids 1 # Bowel Movements 1 1 Laboratory Tests Test 11/26/19 10:55 White Blood Count 6.8 K/UL (4.8-10.8) Red Blood Count 3.92 M/UL (4.70-6.10) L Hemoglobin 12.6 G/DL (14.2-18.0) L Hematocrit 36.3 % (42.0-52.0) L Mean Corpuscular Volume 93 FL (80-99) Mean Corpuscular Hemoglobin 32.2 PG (27.0-31.0) H Mean Corpuscular Hemoglobin Concent 34.7 G/DL (32.0-36.0) Red Cell Distribution Width 12.2 % (11.6-14.8) Platelet Count 314 K/UL (150-450) Mean Platelet Volume 6.7 FL (6.5-10.1) Neutrophils (%) (Auto) 53.2 % (45.0-75.0) Lymphocytes (%) (Auto) 30.1 % (20.0-45.0) Monocytes (%) (Auto) 11.8 % (1.0-10.0) H Eosinophils (%) (Auto) 3.5 % (0.0-3.0) H Basophils (%) (Auto) 1.5 % (0.0-2.0) Sodium Level 139 MMOL/L (136-145) Potassium Level 3.9 MMOL/L (3.5-5.1) Chloride Level 104 MMOL/L (98-107) Carbon Dioxide Level 25 MMOL/L (21-32) Anion Gap 10 mmol/L (5-15) Blood Urea Nitrogen 11 mg/dL (7-18) Creatinine 0.9 MG/DL (0.55-1.30) Estimat Glomerular Filtration Rate > 60 mL/min (>60) Glucose Level 79 MG/DL (74-106) Calcium Level 8.8 MG/DL (8.5-10.1) Magnesium Level 1.6 MG/DL (1.8-2.4) L Triglycerides Level 115 MG/DL (30-150) Cholesterol Level 146 MG/DL (< 200) LDL Cholesterol 87 mg/dL (<100) HDL Cholesterol 43 MG/DL (40-60) Cholesterol/HDL Ratio 3.4 (3.3-4.4) Amylase Level 106 U/L (25-115) Lipase 397 U/L (73-393) H Height (Feet): 5 Height (Inches): 5.00 Weight (Pounds): 124 General Appearance: WD/WN, no apparent distress, alert Cardiovascular: normal rate Respiratory/Chest: normal breath sounds, no respiratory distress Abdominal Exam: normal bowel sounds, non tender, soft Extremities: normal range of motion, non-tender Myrtle Baron NP Nov 26, 2019 12:22
--- NOTE | 2019-11-26 13:53 | Pulmonology Progress Note ---
Assessment/Plan Assessment/Plan IMPRESSION: 1. Pancreatitis 2. Marijuana use. 3. Alcohol use. 4. Hypertension. DISCUSSION: Admit to the hospital. Seen by GI. Started clear liquids. Follow carefully. blood pressure control with intravenous hydralazine. Cardiac consultation noted Increased Coreg Added hydralazine Dc planning once BP controlled Demetrio Davila M.D. Subjective Interval Events: Feeling better Constitutional: Reports: no symptoms HEENT: Repors: no symptoms Respiratory: Reports: no symptoms Cardiovascular: Reports: no symptoms Gastrointestinal/Abdominal: Reports: nausea Genitourinary: Reports: no symptoms Neurologic: Reports: no symptoms Allergies: Coded Allergies: AMLODIPINE (Verified Allergy, Mild, 09/08/19) POSSIBLE REACTION MORPHINE (Verified Allergy, Unknown, 08/11/19) Objective Last 24 Hour Vital Signs Date Time Temp Pulse Resp B/P (MAP) Pulse Ox O2 Delivery O2 Flow Rate FiO2 11/26/19 12:15 212/112 11/26/19 12:00 98.3 74 17 212/125 (154) 100 11/26/19 09:00 Room Air 11/26/19 08:03 163/101 11/26/19 08:03 65 163/101 11/26/19 08:00 98.5 74 19 162/95 (117) 98 11/26/19 04:31 98.6 11/26/19 04:00 98.2 66 18 162/100 (120) 100 66 11/26/19 03:55 167/110 11/26/19 00:00 98.6 70 18 154/101 (118) 95 11/25/19 22:37 Room Air 11/25/19 20:55 74 125/78 11/25/19 20:00 98.2 85 18 145/95 (112) 98 11/25/19 17:47 98.2 67 20 145/83 (103) 99 11/25/19 16:07 161/99 11/25/19 16:00 98.2 67 20 155/99 (117) 99 Intake and Output 11/25/19 11/26/19 19:00 07:00 Intake Total 206 ml Output Total 350 ml Balance -144 ml Intake IV Total 206 ml Output Urine Total 350 ml # Voids 1 # Bowel Movements 1 1 General Appearance: no acute distress HEENT: normocephalic Respiratory/Chest: chest wall non-tender, lungs clear Cardiovascular: normal peripheral pulses, normal rate Abdomen: normal bowel sounds Laboratory Tests 11/26/19 10:55: White Blood Count 6.8, Red Blood Count 3.92L, Hemoglobin 12.6L, Hematocrit 36.3L , Mean Corpuscular Volume 93, Mean Corpuscular Hemoglobin 32.2H, Mean Corpuscular Hemoglobin Concent 34.7, Red Cell Distribution Width 12.2, Platelet Count 314, Mean Platelet Volume 6.7, Neutrophils (%) (Auto) 53.2, Lymphocytes (% ) (Auto) 30.1, Monocytes (%) (Auto) 11.8H, Eosinophils (%) (Auto) 3.5H, Basophils (%) (Auto) 1.5, Sodium Level 139, Potassium Level 3.9, Chloride Level 104, Carbon Dioxide Level 25, Anion Gap 10, Blood Urea Nitrogen 11, Creatinine 0.9, Estimat Glomerular Filtration Rate > 60, Glucose Level 79, Calcium Level 8.8, Magnesium Level 1.6L, Triglycerides Level 115, Cholesterol Level 146, LDL Cholesterol 87, HDL Cholesterol 43, Cholesterol/HDL Ratio 3.4, Amylase Level 106 , Lipase 397H Current Medications Medications (Trade) Dose Ordered Sig/Noé Route PRN Reason Start Time Stop Time Status Last Admin Dose Admin Carvedilol (Coreg) 12.5 mg EVERY 12 HOURS ORAL 11/25/19 21:00 12/24/19 20:59 11/26/19 08:03 Clonidine HCl (Catapres Tab) 0.1 mg Q4H PRN ORAL SBP above 160 11/25/19 16:30 12/25/19 16:29 11/26/19 12:15 Heparin Sodium (Porcine) (Heparin 5000 units/ml) 5,000 units EVERY 12 HOURS SUBQ 11/25/19 21:00 12/24/19 20:59 11/26/19 08:05 Hydromorphone HCl 2 mg/Sodium Chloride 56 ml @ 224 mls/hr Q4H PRN IVPB pain 4-10 11/25/19 16:30 12/02/19 16:29 11/26/19 12:15 Iohexol (OMNIPAQUE-300 100ml) 100 ml NOW PRN INJ Radiology Procedure 11/26/19 10:30 11/27/19 10:23 Ondansetron HCl (Zofran) 4 mg Q6H PRN IVP Nausea & Vomiting 11/25/19 16:30 12/25/19 16:29 11/26/19 13:13 Potassium Chloride/Sodium Chloride 1,000 ml @ 75 mls/hr [id number] IV 11/25/19 19:00 12/25/19 18:59 11/26/19 08:03 Demetrio Davila MD Nov 26, 2019 13:53
[2019-11-26] MEDS ORDERED: HydrALAZINE 25mg tab ORAL SCH (14:00)
[2019-11-26 14:52] VITALS: BP 136/73
[2019-11-26 16:00] VITALS: BP 124/83
--- NOTE | 2019-11-26 16:48 | NUR ---
CASE MANAGEMENT:REVIEW SI;PANCREATITIS. 98.5 74 17 212/125 98% ON RA MAG 1.6 IS;MAG SULFATE IV COREG PO Q12 HRS CLONIDINE PO Q4 HRS PRN HYDRALAZINE PO Q8 HRS MED SURG STATUS PLAN;DCP ONCE BP CONTROLLED DCP;FROM HOME
--- NOTE | 2019-11-26 19:38 | NUR ---
HAND-OFF: Report given to Carleen MARINELLI.
--- NOTE | 2019-11-26 20:45 | NUR ---
NURSE NOTES: Patient signed AMA form, IV was removed, CN was made aware, MD was notified.
--- NOTE | 2019-11-26 21:45 | Consultation ---
DATE OF CONSULTATION: 11/25/2019 CARDIOLOGY CONSULTATION CONSULTING PHYSICIAN: Ashwin Yip M.D. REQUESTING PHYSICIAN: Demetrio Davila M.D. REASON FOR CONSULTATION: Hypertensive urgency. HISTORY OF PRESENT ILLNESS: This is a 39-year-old male. He has a history of recurring pancreatitis. He presented to the emergency room with abdominal pain. He was noted to have an abnormal lipase level in the emergency room yesterday. He was admitted for bowel rest and IV fluid hydration as well as intravenous pain control. I have been asked to assist with elevated blood pressure parameters. The patient was transferred to a monitored unit for intravenous hydralazine due to blood pressure elevations above 190 systolic. He denied chest pain or shortness of breath. PAST MEDICAL HISTORY: Pancreatitis, history of alcoholism, and hypertension. MEDICATIONS: Reviewed and reconciled. ALLERGIES: Include amlodipine and morphine. SOCIAL HISTORY: Positive for marijuana use and prior history of alcohol abuse. The patient did drink beer several days ago. FAMILY HISTORY: Noncontributory. REVIEW OF SYSTEMS: A 10-point review of systems is otherwise unremarkable. PHYSICAL EXAMINATION: GENERAL: A well developed and well nourished, presently in no distress. VITAL SIGNS: Blood pressure 161/99, pulse 67, and respirations 20. NECK: Supple. NECK: Jugular venous pressure normal. LUNGS: Clear. CARDIAC: Regular rhythm and rate. Normal S1, S2 with no murmur. ABDOMEN: Soft, mildly tender in the midepigastric region. No guarding. EXTREMITIES: Without edema. NEUROLOGIC: Nonfocal. DIAGNOSTIC DATA: EKG pending. LABORATORY DATA: White count 9.2, hemoglobin 13.3, potassium 3.4, BUN 6, and creatinine 0.8. Lipase over 2000. Troponin negative. IMPRESSION: 1. Acute pancreatitis. 2. Marijuana abuse. 3. History of alcoholism. 4. Hypertensive urgency. 5. Hypokalemia. PLAN: 1. Continue intravenous fluid hydration. 2. Potassium replacement. 3. Added sublingual clonidine for blood pressure spikes. 4. Maintain beta-asia therapy. 5. Check magnesium level. 6. Topical clonidine will be added for additional blood pressure control if needed. Ashwin Yip M.D. DR: AUGUSTUS JOB#: [id number] CC:
--- NOTE | 2019-11-27 06:11 | Progress Note ---
DATE: 11/26/2019 CARDIOLOGY PROGRESS NOTE SUBJECTIVE: Abdominal pain is slightly better. No vomiting. Diet initiated. Blood pressure earlier today was quite elevated. Therapy was advanced. Now blood pressure has improved. OBJECTIVE: LUNGS: Clear. CARDIAC: Regular. Normal S1 and S2 with a fourth heart sound. ABDOMEN: Soft. Mild midepigastric tenderness. No guarding or rebound. EXTREMITIES: Without edema. IMPRESSION: 1. Acute pancreatitis, improved. 2. Marijuana use. 3. Hypertensive urgency, responding to therapy. No signs of acute congestive heart failure. PLAN: 1. Advance diet. 2. Pain control. 3. Monitor blood pressure and adjust therapy accordingly. 4. Discharge planning. Ashwin Yip M.D. DR: DION JOB#: [id number] CC:
--- NOTE | 2019-11-28 10:36 | Discharge Summary ---
Discharge Summary Discharge Summary _ DATE OF ADMISSION: 11/24/2019 DATE OF DISCHARGE: 11/26/2019 DISCHARGED BY: Dr. Demetrio Davila CONSULTANTS: Dr. Jaret Huang BRIEF HOSPITAL COURSE: Patient is a 39-year-old male, with history of previous admissions for pancreatitis. He presented to ED for complaints of abdominal pain that started 2 days prior to admission. Patient had reduced p.o. intake. He had acute nausea and vomiting. He has pain that radiates to the back. There was no known aggravating or relieving factors. Severity is moderate and intermittent. Upon evaluation at ED, blood pressure was elevated. Blood work did not show any leukocytosis. Hemoglobin and hematocrit were stable. Lipase was elevated to 824. CT of the abdomen and pelvis showed pancreatic and peripancreatic edema , consistent with recurrent nonnecrotizing acute pancreatitis. He was then admitted for pancreatitis. GI evaluation was done. Repeat lipase went up to greater than 2000. He was placed on n.p.o. He was given bowel rest. Continue aggressive IV hydration. Lipase was monitored. He was given pain management. He was placed on proton pump inhibitors. Coverstitch Elastic Attacher consulted. Patient has continued on Coreg 12.5 mg twice daily. Hydralazine 25 mg was added to his regimen. He was given clonidine as needed. Lipid panel was within normal limits. Lipase went down to 397. Diet was advanced. Blood pressure with better control. He was eventually cleared for discharge home. FINAL DIAGNOSES: Acute pancreatitis Marijuana use Hypertensive urgency, responding to therapy with no signs acute congestive heart failure Alcohol use DISPOSITION: Patient was discharged home. DISCHARGE INSTRUCTIONS: Follow-up in a week. I have been assigned to complete a discharge summary on this account, I was not involved with the patient's management.--DIAN Verdin Jacqueline Robles NP Nov 28, 2019 10:36
--- NOTE | 2019-12-01 12:00 | NUR ---
*-* INSURANCE *-* ALL CLINICALS HAVE BEEN FAXED TO: [employer] Auth Number: [id number] (Approved for 2 days) Fax Clinicals: [phone] Board Mixer Tender on duty today: Osman - tel: [phone]
== END 2019-11-26 20:40 | disposition left against medical advice (07) | DRG 282 ==
LOC: EMR 10:45 → 4E 12:30 → EDBEDREQ 13:37 → 2E 15:33 → 4E 11-25 15:47
DX: K85.90 Acute pancreatitis without necrosis or infection, unspecified (principal); F10.10 Alcohol abuse, uncomplicated; F12.10 Cannabis abuse, uncomplicated; Z88.8 Allergy status to other drugs, medicaments and biological substances; I10 Essential (primary) hypertension; I16.0 Hypertensive urgency; R11.15 Cyclical vomiting syndrome unrelated to migraine; E87.6 Hypokalemia; K86.1 Other chronic pancreatitis
CPT/HCPCS: 36415; 74177; 80048; 80053; 80061; 81003; 82150; 83690; 83735; 84484; 85025; 93005; 96361; 96374; 96375; 96376; 99285; J2405; J7030

== ENCOUNTER 2020-01-07 13:19 | Emergency (ER) | payer OTHER ==
[~2020-01-07] VITALS: Ht 165.1 cm; Wt 57.6 kg
--- NOTE | 2020-01-07 13:26 | NUR ---
ED Nurse Note: PER PT, HE TOOK HIS BP MED AT 6AM TODAY. DENIES MCKAY OR NUMBNESS AT THIS TIME.
--- NOTE | 2020-01-07 13:30 | NUR ---
ED Nurse Note: pt walked in from home due to upper medial abdominal pain 07/22 x4 days. pt aao x4 and ambulatory. skin clean and intact. pt has N but no V/D. pt has hx of pancreatis. pt has high bp which is 199/111mmHg. pt took bp meds in am. ERPA made aware. pt is in gown and on first responder.
[2020-01-07 13:43] VITALS: BP 188/111
[2020-01-07] MEDS ORDERED: Ketorolac 30mg Inj IV ONE (14:00)
[2020-01-07 14:11] LABS: ANION GAP 12 mmol/L (5-15); BLOOD UREA NITROGEN 13 mg/dL (7-18); CALCIUM 9.7 MG/DL (8.5-10.1); CARBON DIOXIDE 26 MMOL/L (21-32); CHLORIDE 100 MMOL/L (98-107); CREATININE 0.9 MG/DL (0.55-1.30); POTASSIUM 3.7 MMOL/L (3.5-5.1); SODIUM 138 MMOL/L (136-145)
--- NOTE | 2020-01-07 14:11 | NUR ---
ED Nurse Note: systolic went up to 213 mmHg. ERPA made aware.
[2020-01-07 14:12] LABS: BASOPHILS % (AUTO) 1.3 % (0.0-2.0); EOSINOPHILS % (AUTO) 2.1 % (0.0-3.0); HEMATOCRIT 45.4 % (42.0-52.0); HEMOGLOBIN 15.5 G/DL (14.2-18.0); LYMPHOCYTES % (AUTO) 25.6 % (20.0-45.0); MEAN CORPUSCULAR VOLUME 92 FL (80-99); NEUTROPHILS % (AUTO) 63.1 % (45.0-75.0); PLATELET COUNT 353 K/UL (150-450); RED BLOOD COUNT 4.93 M/UL (4.70-6.10); RED CELL DISTRIBUTION WIDTH 13.5 % (11.6-14.8); WHITE BLOOD COUNT 7.1 K/UL (4.8-10.8)
[2020-01-07 14:12] LABS: APPEARANCE,URINE CLEAR; BILIRUBIN, URINE NEGATIVE (NEGATIVE); GLUCOSE, URINE (UA) NEGATIVE (NEGATIVE); KETONES,URINE 4+ (NEGATIVE); NITRITE,URINE NEGATIVE (NEGATIVE); PH,URINE 5 (4.5-8.0); PROTEIN,URINE 2+ (NEGATIVE); UROBILINOGEN,URINE 1 MG/DL (0.0-1.0)
[2020-01-07] MEDS ORDERED: Labetalol 5mg/ml 20ml vial IV ONE (14:15)
[2020-01-07 14:19] LABS: ALANINE AMINOTRANSFERASE 55 U/L (12-78); ALBUMIN 4.7 G/DL (3.4-5.0); ALBUMIN/GLOBULIN RATIO 1.3 (1.0-2.7); ALKALINE PHOSPHATASE 93 U/L (46-116); ASPARTATE AMINO TRANSFERASE 45 U/L (15-37); BILIRUBIN,TOTAL 0.6 MG/DL (0.2-1.0)
[2020-01-07 14:23] LABS: COLOR,URINE YELLOW; LEUKOCYTE ESTERASE ,URINE TRACE (NEGATIVE)
[2020-01-07] MEDS ORDERED: HYDROmorphone 1 MG in NS 55 ML IV ONE (14:30)
--- NOTE | 2020-01-07 15:39 | NUR ---
ED Nurse Note: small bread provided to monitor tolerance of food digest.
--- NOTE | 2020-01-07 15:39 | Emergency Room Report ---
History of Present Illness General Chief Complaint: Abdominal Pain Source: Patient Present Illness HPI 39-year-old male with history of recurrent pancreatitis due to alcohol intake and hypertension, here complaining of 1 week of 10 out of 10 epigastric abdominal pain, and nausea. Denies vomiting and diarrhea. Reports that this past week he has been staying home and has been drinking alcohol as well as eating pizza and other greasy food. Reports that he used to take hydrocodone at home however is out of pills. Takes Librium for alcohol withdrawal. Denies any drug use. Denies tobacco smoke. Denies chest pain, shortness of breath, fever chills, no other URI symptoms. Denies recent travel or coming contact with patient did have a confirmed diagnosis of coronavirus. Patient presents with elevated blood pressure reports that took his blood pressure medication the morning. Denies any chest pain headache and dizziness. Allergies: Coded Allergies: AMLODIPINE (Verified Allergy, Mild, 01/07/20) POSSIBLE REACTION MORPHINE (Verified Allergy, Unknown, 01/07/20) COVID-19 Screening Contact w/high risk pt: No Recent Travel to affected area: No Experienced COVID-19 symptoms?: No Patient History Past Medical History: see triage record Past Surgical History: none Pertinent Family History: none Social History: Reports: alcohol use Immunizations: UTD Reviewed Nursing Documentation: PMH: Agreed; PSxH: Agreed Nursing Documentation-PM Past Medical History: No History, Except For Hx Cardiac Problems: No Hx Hypertension: Yes Hx Cancer: No Hx Gastrointestinal Problems: Yes - PANCRETITIS Hx Neurological Problems: No Review of Systems All Other Systems: negative except mentioned in HPI Physical Exam Vital Signs Date Time Temp Pulse Resp B/P (MAP) Pulse Ox O2 Delivery O2 Flow Rate FiO2 01/07/20 13:22 98.2 90 18 188/120 (142) 97 01/07/20 13:43 Room Air Sp02 EP Interpretation: reviewed, abnormal - Elevated blood pressure General Appearance: alert, mild distress Head: normocephalic, atraumatic Eyes: bilateral eye PERRL, bilateral eye scleral icterus ENT: hearing grossly normal, normal pharynx, no angioedema, normal voice Neck: full range of motion, supple/symm/no masses Respiratory: chest non-tender, lungs clear, normal breath sounds, no rhonchi, no respiratory distress, no retraction, no wheezing, speaking full sentences Cardiovascular #1: regular rate, rhythm, no edema, no murmur, normal capillary refill Gastrointestinal: no mass, no peritonitis, non-distended, no hernia, no rebound , guarding - Epigastric Genitourinary: no CVA tenderness Musculoskeletal: back normal Neurologic: alert, motor strength/tone normal, oriented x3, sensory intact, responsive, speech normal Psychiatric: judgement/insight normal, memory normal, mood/affect normal, no suicidal/homicidal ideation Skin: no rash Lymphatic: no adenopathy Medical Decision Making PA Attestation Diagnosis and treatment plans were reviewed and discussed with my supervising physician Dr. Alonzo Diagnostic Impression: Primary Impression: Pancreatitis ER Course 39-year-old male with history of recurrent pancreatitis due to alcohol intake and hypertension, here complaining of 1 week of 10 out of 10 epigastric abdominal pain, and nausea. Denies vomiting and diarrhea. Reports that this past week he has been staying home and has been drinking alcohol as well as eating pizza and other greasy food. Reports that he used to take hydrocodone at home however is out of pills. Takes Librium for alcohol withdrawal. Denies any drug use. Denies tobacco smoke. Denies chest pain, shortness of breath, fever chills, no other URI symptoms. Denies recent travel or coming contact with patient did have a confirmed diagnosis of coronavirus. Patient presents with elevated blood pressure reports that took his blood pressure medication the morning. Denies any chest pain headache and dizziness. Ddx considered but are not limited to: Pancreatitis, appendicitis, cholecystis, gastritis, gastroenteritis, UTI, pyelonephritis, SBO, diverticulitis, influenza with GI manifestation, Vital signs: are WNL, pt. is afebrile H&PE are most consistent with: Alcoholic pancreatitis ORDERS: CBC, CMP, lipase, UA, Motrin, Zofran ED INTERVENTIONS: NS bolus, Zofran, labetalol, Toradol, Dilaudid DISCHARGE: At this time pt. is stable for d/c to home. Will provide printed patient care instructions, and any necessary prescriptions. Care plan and follow up instructions have been discussed with the patient prior to discharge. Patient to avoid drinking alcohol, medication as directed, follow-up primary care provider, worsening symptoms return to the emergency room at this time no further imaging is needed patient was given the option to be admitted from observation due to elevated lipase however patient understand that at this time due to the pandemic of coronavirus patient decided to go home as he does not want to be exposed to possibility of getting infected. Patient was recently seen at [place] ER about a month ago and was admitted. CT scan is up-to-date mostly a month ago. No new imaging is needed at this time Last Vital Signs Date Time Temp Pulse Resp B/P (MAP) Pulse Ox O2 Delivery O2 Flow Rate FiO2 01/07/20 15:14 98.2 01/07/20 14:22 87 213/122 01/07/20 13:43 18 97 Room Air Disposition: HOME, SELF-CARE Condition: Stable Scripts Ibuprofen* (MOTRIN*) 600 Mg Tablet 600 MG ORAL THREE TIMES A DAY, #30 TAB 0 Refills Prov: Lang Van 01/07/20 Ondansetron (Zofran) 4 Mg Tablet 4 MG ORAL Q6H PRN for Nausea & Vomiting, #30 TAB Prov: Lang Van 01/07/20 Referrals: [facility],REFERRING (PCP) Patient Instructions: Acute Pancreatitis, [id number] Additional Instructions: Avoid drinking alcohol, avoid eating greasy food. Follow-up with primary care provider, at this time you are tolerating oral hydration and food intake, no longer feeling nauseated, on discharge. Continue taking blood pressure medication. If worsening symptoms return to emergency room Lang Van Jan 07, 2020 15:39
[2020-01-07] MEDS ORDERED: ZOFRAN4 M1 ORAL (15:40)
[2020-01-07] MEDS ORDERED: IBUPROFEN600 MG ORAL (15:40)
[2020-01-07 15:56] VITALS: BP 185/102
--- NOTE | 2020-01-07 15:57 | NUR ---
ED Nurse Note: Pt cleared by health care Provider for discharge. BP went down to 185/102mmHg upon discharge. ERPA made aware. pt verbalized improved pain level to 3/10. DC instructions/prescription was given and explained to pt and verbalized understanding of teachings. All medical deviecs such as ID band removed. Pt is AAO x4, ambulatory and left with all personal belongings.
== END 2020-01-07 15:58 | disposition home or self-care (01) ==
LOC: EMR 13:28
DX: K86.1 Other chronic pancreatitis (principal); I10 Essential (primary) hypertension; Z88.5 Allergy status to narcotic agent; Z88.8 Allergy status to other drugs, medicaments and biological substances
CPT/HCPCS: 36415; 80053; 80307; 81003; 83690; 85025; 96361; 96374; 96375; G0480; J1170; J1885; J2405; J7030; S0028; Z7502; 99284

== ENCOUNTER 2020-01-09 00:14 | Emergency (ER) | payer OTHER ==
[~2020-01-09] VITALS: Ht 165.1 cm; Wt 57.6 kg
[~2020-01-09 00:14] MED LIST changes: +IBUPROFEN600 MG ORAL; +ZOFRAN4 M1 ORAL
[2020-01-09 00:20] VITALS: BP 200/119
--- NOTE | 2020-01-09 00:20 | NUR ---
ED Nurse Note: Patient walked in from home d/t sharp epigastric and back pain 10/. Patient aao x 4 and ambulatory. Patient was last seen at [facility] ED 2 days ago for pancreatitis. Patient changed into gown and placed on bus driver/monitor. No acute distress noted.
--- NOTE | 2020-01-09 00:26 | NUR ---
ED Nurse Note: ERMD at bedside.
[2020-01-09] MEDS ORDERED: HYDROmorphone 1mg/ml Carpuject IVP ONE ×2 (00:30→01:15)
--- NOTE | 2020-01-09 00:31 | Emergency Room Report ---
History of Present Illness General Chief Complaint: Back Pain-No Injury Source: Patient, Medical Record Present Illness HPI This is a 39-year-old male with a history of alcoholic pancreatitis. He presents with chief complaint abdominal pain. Pain is epigastric area going to his back. He was here couple days ago and was discharged home on Motrin. He said is not helping. Pain is 9 out of 10. Said is hard for him to sleep because of the pain. He has to double over to make it better. No fever chills but no nausea no vomiting. No diarrhea. No urinary complaints. Allergies: Coded Allergies: AMLODIPINE (Verified Allergy, Mild, 01/07/20) POSSIBLE REACTION MORPHINE (Verified Allergy, Unknown, 01/07/20) COVID-19 Screening Contact w/high risk pt: No Recent Travel to affected area: No Experienced COVID-19 symptoms?: No Patient History Past Medical History: see triage record, old chart reviewed Past Surgical History: other Pertinent Family History: none Social History: Reports: alcohol use Immunizations: other Reviewed Nursing Documentation: PMH: Agreed; PSxH: Agreed Nursing Documentation-PMH Hx Cardiac Problems: No Hx Hypertension: Yes Hx Cancer: No Hx Gastrointestinal Problems: Yes - PANCRETITIS Hx Neurological Problems: No Review of Systems Eye: Denies: eye pain, blurred vision ENT: Denies: ear pain, nose congestion, throat swelling Respiratory: Denies: cough, shortness of breath Cardiovascular: Denies: chest pain, palpitations Gastrointestinal: Reports: abdominal pain, nausea; Denies: diarrhea, vomiting Musculoskeletal: Denies: back pain, joint pain Skin: Denies: rash Neurological: Denies: headache, numbness Endocrine: Denies: increased thirst, increased urine Hematologic/Lymphatic: Denies: easy bruising All Other Systems: negative except mentioned in HPI Physical Exam Vital Signs Date Time Temp Pulse Resp B/P (MAP) Pulse Ox O2 Delivery O2 Flow Rate FiO2 01/09/20 00:16 98.8 93 18 212/128 (156) 95 Room Air Vitals with high blood pressure Sp02 EP Interpretation: reviewed, normal General Appearance: well appearing, no apparent distress, alert Head: normocephalic, atraumatic Eyes: bilateral eye PERRL, bilateral eye EOMI ENT: hearing grossly normal, normal pharynx Neck: full range of motion, supple, no meningismus Respiratory: chest non-tender, lungs clear, normal breath sounds Cardiovascular #1: regular rate, rhythm, no murmur Gastrointestinal: normal bowel sounds, non tender, no mass, no organomegaly, no bruit, non-distended Musculoskeletal: back normal, normal range of motion, gait/station normal Psychiatric: mood/affect normal Medical Decision Making Diagnostic Impression: Primary Impression: Back pain Qualified Codes: M54.5 - Low back pain Additional Impressions: Acute pancreatitis Qualified Codes: K85.90 - Acute pancreatitis without necrosis or infection, unspecified Hypertension, uncontrolled ER Course Patient presents with abdominal pain and back pain. No evidence of an acute abdomen. Lipase is elevated but improving from a couple days ago. Pain is well controlled. He said he is taking carvedilol but only once a day. Blood pressure improved. No evidence of endorgan damage. Will discharge home. Last Vital Signs Date Time Temp Pulse Resp B/P (MAP) Pulse Ox O2 Delivery O2 Flow Rate FiO2 01/09/20 00:16 98.8 93 18 212/128 (156) 95 Room Air Status: improved Disposition: HOME, SELF-CARE Condition: Stable Scripts Hydrocodone/Acetaminophen 5-325* (HYDROCODONE/ACETAMINOPHEN 5-325*) 1 Each Tablet 1 TAB ORAL Q6H PRN for For Pain, #20 TAB 0 Refills Prov: Bryce Baron MD 01/09/20 Additional Instructions: Avoid alcohol. Advance your diet as tolerated. Take your blood pressure medication. It supposed to be twice a day. Follow-up with your doctor in a week. Return if worse. Bryce Baron MD Jan 09, 2020 00:31
--- NOTE | 2020-01-09 00:46 | NUR ---
ED Nurse Note: Blood and urine collected, sent to lab.
[2020-01-09 00:49] LABS: APPEARANCE,URINE CLEAR; BASOPHILS % (AUTO) 1.4 % (0.0-2.0); BILIRUBIN, URINE NEGATIVE (NEGATIVE); COLOR,URINE PALE YELLOW; EOSINOPHILS % (AUTO) 1.5 % (0.0-3.0); GLUCOSE, URINE (UA) NEGATIVE (NEGATIVE); HEMATOCRIT 40.6 % (42.0-52.0); HEMOGLOBIN 14.2 G/DL (14.2-18.0); KETONES,URINE 3+ (NEGATIVE); LEUKOCYTE ESTERASE ,URINE NEGATIVE (NEGATIVE); LYMPHOCYTES % (AUTO) 16.3 % (20.0-45.0); MEAN CORPUSCULAR VOLUME 91 FL (80-99); MONOCYTES % (AUTO) 10.9 % (1.0-10.0); NEUTROPHILS % (AUTO) 69.9 % (45.0-75.0); NITRITE,URINE NEGATIVE (NEGATIVE); PH,URINE 5 (4.5-8.0); PLATELET COUNT 332 K/UL (150-450); PROTEIN,URINE 1+ (NEGATIVE); RED BLOOD COUNT 4.47 M/UL (4.70-6.10); RED CELL DISTRIBUTION WIDTH 13.1 % (11.6-14.8); UROBILINOGEN,URINE NORMAL MG/DL (0.0-1.0); WHITE BLOOD COUNT 10.5 K/UL (4.8-10.8)
[2020-01-09 01:00] LABS: ANION GAP 12 mmol/L (5-15); BLOOD UREA NITROGEN 7 mg/dL (7-18); CALCIUM 9.3 MG/DL (8.5-10.1); CARBON DIOXIDE 26 MMOL/L (21-32); CHLORIDE 102 MMOL/L (98-107); POTASSIUM 3.2 MMOL/L (3.5-5.1); SODIUM 140 MMOL/L (136-145)
[2020-01-09 01:10] LABS: ALANINE AMINOTRANSFERASE 122 U/L (12-78); ALBUMIN 4.7 G/DL (3.4-5.0); ALBUMIN/GLOBULIN RATIO 1.4 (1.0-2.7); ALKALINE PHOSPHATASE 145 U/L (46-116); ASPARTATE AMINO TRANSFERASE 100 U/L (15-37)
[2020-01-09] MEDS ORDERED: HYDROCODON-ACE1 EA15 ORAL (01:53)
[2020-01-09 02:02] VITALS: BP 168/98
--- NOTE | 2020-01-09 02:02 | NUR ---
ER DISCHARGE NOTE: Patient is cleared to be discharged per ERMD, pt is aox4, on room air, with stable vital signs. pt was given dc and prescription instructions, pt was able to verbalize understanding, pt id band and iv site removed intact without complications. pt is able to ambulate with steady gait. pt took all belongings. pt stable upon discharge.
== END 2020-01-09 02:02 | disposition home or self-care (01) ==
LOC: EMR 00:41
DX: K85.90 Acute pancreatitis without necrosis or infection, unspecified (principal); I10 Essential (primary) hypertension; R10.9 Unspecified abdominal pain; Z88.6 Allergy status to analgesic agent
CPT/HCPCS: 36415; 80053; 81003; 83690; 85025; 96361; 96374; 96375; 96376; J0360; J1170; J2405; J7030; Z7502; 99284

== ENCOUNTER 2020-03-07 07:17 | Emergency (ER) | payer OTHER ==
[~2020-03-07] VITALS: Ht 165.1 cm; Wt 59.0 kg
[~2020-03-07 07:17] MED LIST changes: +HYDROCODON-ACE1 EA15 ORAL
[2020-03-07] MEDS ORDERED: Ketorolac 30mg Inj IV ONE (07:30)
[2020-03-07 07:43] VITALS: BP 205/129
[2020-03-07 07:57] LABS: ANION GAP 9 mmol/L (5-15); BLOOD UREA NITROGEN 13 mg/dL (7-18); CALCIUM 9.5 MG/DL (8.5-10.1); CARBON DIOXIDE 32 MMOL/L (21-32); CHLORIDE 97 MMOL/L (98-107); CREATININE 1.3 MG/DL (0.55-1.30); POTASSIUM 3.6 MMOL/L (3.5-5.1); SODIUM 138 MMOL/L (136-145)
[2020-03-07] MEDS ORDERED: HYDROmorphone 1mg/ml Carpuject IVP ONE (08:00)
[2020-03-07 08:01] LABS: ALANINE AMINOTRANSFERASE 21 U/L (12-78); ALBUMIN 4.7 G/DL (3.4-5.0); ALBUMIN/GLOBULIN RATIO 1.2 (1.0-2.7); ALKALINE PHOSPHATASE 74 U/L (46-116); ASPARTATE AMINO TRANSFERASE 29 U/L (15-37); BILIRUBIN,TOTAL 0.3 MG/DL (0.2-1.0)
[2020-03-07 08:02] LABS: BASOPHILS % (AUTO) 1.2 % (0.0-2.0); EOSINOPHILS % (AUTO) 0.7 % (0.0-3.0); HEMATOCRIT 44.6 % (42.0-52.0); HEMOGLOBIN 15.5 G/DL (14.2-18.0); LYMPHOCYTES % (AUTO) 9.6 % (20.0-45.0); MEAN CORPUSCULAR VOLUME 90 FL (80-99); MONOCYTES % (AUTO) 5.8 % (1.0-10.0); NEUTROPHILS % (AUTO) 82.6 % (45.0-75.0); PLATELET COUNT 366 K/UL (150-450); RED BLOOD COUNT 4.96 M/UL (4.70-6.10); RED CELL DISTRIBUTION WIDTH 12.8 % (11.6-14.8); WHITE BLOOD COUNT 15.5 K/UL (4.8-10.8)
[2020-03-07] MEDS ORDERED: Hydromorphone 0.5mg/0.5ml inj IVP ONE (08:30)
[2020-03-07] MEDS ORDERED: NORCO 5-325 TA1 EAC1 ORAL (08:41)
[2020-03-07] MEDS ORDERED: FAMOTIDINE20 MG ORAL (08:41)
[2020-03-07] MEDS ORDERED: ONDANSETRON ODT4 MG BC (08:41)
[2020-03-07 08:49] VITALS: BP 205/129
--- NOTE | 2020-03-07 08:58 | Emergency Room Report ---
History of Present Illness General Chief Complaint: Abdominal Pain Source: Patient Present Illness HPI 39-year-old male presents ED for abdominal pain. Pain is epigastric, sharp, 10 out of 10, nonradiating. Started this morning. Notes nausea, denies vomiting. Denies chest pain or shortness of breath. Notes history of pancreatitis. Admits to alcohol use yesterday. Denies drug use. No other aggravating relieving factors. Denies any other associated symptoms Allergies: Coded Allergies: AMLODIPINE (Verified Allergy, Mild, 01/07/20) POSSIBLE REACTION MORPHINE (Verified Allergy, Unknown, 01/07/20) COVID-19 Screening Contact w/high risk pt: No Recent Travel to affected area: No Experienced COVID-19 symptoms?: No COVID-19 Testing performed WASTE TREATMENT OPERATOR: No Patient History Past Medical History: HTN, other - pancreatits Past Surgical History: none Pertinent Family History: none Social History: Reports: alcohol use; Denies: smoking, drug use Immunizations: UTD Reviewed Nursing Documentation: PMH: Agreed; PSxH: Agreed Nursing Documentation-PMH Past Medical History: No History, Except For Hx Cardiac Problems: No Hx Hypertension: Yes Hx Cancer: No Hx Gastrointestinal Problems: Yes - PANCRETITIS Hx Neurological Problems: No Review of Systems All Other Systems: negative except mentioned in HPI Physical Exam Vital Signs Date Time Temp Pulse Resp B/P (MAP) Pulse Ox O2 Delivery O2 Flow Rate FiO2 03/07/20 07:21 98.1 90 17 205/129 (154) 98 Room Air Sp02 EP Interpretation: reviewed, normal General Appearance: no apparent distress, alert, GCS 15, non-toxic Head: normocephalic, atraumatic Eyes: bilateral eye normal inspection, bilateral eye PERRL ENT: hearing grossly normal, normal pharynx, no angioedema, normal voice Neck: full range of motion, supple/symm/no masses Respiratory: chest non-tender, lungs clear, normal breath sounds, speaking full sentences Cardiovascular #1: regular rate, rhythm, no edema Cardiovascular #2: 2+ carotid (R), 2+ carotid (L), 2+ radial (R), 2+ radial (L) , 2+ dorsalis pedis (R), 2+ dorsalis pedis (L) Gastrointestinal: normal bowel sounds, soft, non-distended, no guarding, no rebound, tenderness - epigastric Rectal: deferred Genitourinary: normal inspection, no CVA tenderness Musculoskeletal: back normal, normal range of motion, gait/station normal, non- tender Neurologic: alert, motor strength/tone normal, oriented x3, sensory intact, responsive, speech normal Psychiatric: judgement/insight normal, memory normal, mood/affect normal, no suicidal/homicidal ideation Reflexes: 3+ bicep (R), 3+ bicep (L), 3+ tricep (R), 3+ tricep (L), 3+ knee (R) , 3+ knee (L) Skin: no rash Lymphatic: no adenopathy Medical Decision Making Diagnostic Impression: Primary Impression: Pancreatitis Qualified Codes: K85.20 - Alcohol induced acute pancreatitis without necrosis or infection ER Course Hospital Course 39-year-old M presents to ED with epigastric pain with nausea. h/o pancreatitis differential diagnosis: gastritis, SBO, cholecystits Clinical course Patient placed on stretcher. On management lead. After initial history and physical I ordered labs, IV fluids, Zofran, pain meds and pepcid Labs - minimal leukocytosis, no electrolyte abnormalities, LFTs normal, Lipase > 600 Upon reassessment, patient states pain has improved. I reviewed EMR in the past. Patient has had lipase is significantly higher. Patient states that he is tolerating p.o. intake. Would prefer to be discharged. I will provide referrals I feel this is a highly complex case requiring extensive working including EKG/ Rhythm strip, Xray/CT/US, Blood/urine lab work, repeat exams while in ED, and administration of strong opiates/narcotics for pain control, admission to hospital or close patient follow up. Diagnosis - pancreatitis Stable and discharged to home with prescriptions for pepcid, zofran, norco. Followup with PMD. Return to ED if symptoms recur or worsen Labs Test 03/07/20 07:35 White Blood Count 15.5 K/UL (4.8-10.8) Red Blood Count 4.96 M/UL (4.70-6.10) Hemoglobin 15.5 G/DL (14.2-18.0) Hematocrit 44.6 % (42.0-52.0) Mean Corpuscular Volume 90 FL (80-99) Mean Corpuscular Hemoglobin 31.2 PG (27.0-31.0) Mean Corpuscular Hemoglobin Concent 34.7 G/DL (32.0-36.0) Red Cell Distribution Width 12.8 % (11.6-14.8) Platelet Count 366 K/UL (150-450) Mean Platelet Volume 5.6 FL (6.5-10.1) Neutrophils (%) (Auto) 82.6 % (45.0-75.0) Lymphocytes (%) (Auto) 9.6 % (20.0-45.0) Monocytes (%) (Auto) 5.8 % (1.0-10.0) Eosinophils (%) (Auto) 0.7 % (0.0-3.0) Basophils (%) (Auto) 1.2 % (0.0-2.0) Sodium Level 138 MMOL/L (136-145) Potassium Level 3.6 MMOL/L (3.5-5.1) Chloride Level 97 MMOL/L (98-107) Carbon Dioxide Level 32 MMOL/L (21-32) Anion Gap 9 mmol/L (5-15) Blood Urea Nitrogen 13 mg/dL (7-18) Creatinine 1.3 MG/DL (0.55-1.30) Estimat Glomerular Filtration Rate > 60 mL/min (>60) Glucose Level 100 MG/DL (74-106) Calcium Level 9.5 MG/DL (8.5-10.1) Total Bilirubin 0.3 MG/DL (0.2-1.0) Aspartate Amino Transf (AST/SGOT) 29 U/L (15-37) Alanine Aminotransferase (ALT/SGPT) 21 U/L (12-78) Alkaline Phosphatase 74 U/L (46-116) Total Protein 8.6 G/DL (6.4-8.2) Albumin 4.7 G/DL (3.4-5.0) Globulin 3.9 g/dL Albumin/Globulin Ratio 1.2 (1.0-2.7) Lipase 665 U/L (73-393) Last Vital Signs Date Time Temp Pulse Resp B/P (MAP) Pulse Ox O2 Delivery O2 Flow Rate FiO2 03/07/20 08:49 98.1 17 205/129 98 Room Air 03/07/20 07:43 90 Status: improved Disposition: HOME, SELF-CARE Condition: Stable Scripts Famotidine* (Pepcid 20mg tablet*) 20 Mg Tablet 20 MG ORAL DAILY, #30 TAB 0 Refills Prov: Baljinder Soto MD 03/07/20 Ondansetron Odt* (ZOFRAN ODT*) 4 Mg Tab.rapdis 4 MG BC EVERY 6 HOURS PRN for Nausea & Vomiting, #20 TAB 0 Refills Prov: Baljinder Soto MD 03/07/20 Hydrocodone Bit/Acetaminophen 5-325* (NORCO 5-325 TABLET*) 1 Each Tablet 1 TAB ORAL Q6H PRN for FOR PAIN, #12 TAB 0 Refills Prov: Baljinder Soto MD 03/07/20 Referrals: [facility],REFERRING (PCP) Dee Morejon [facility] Patient Instructions: Acute Pancreatitis, [id number]-rr-[id number] Baljinder Soto MD March 07, 2020 08:58
== END 2020-03-07 08:50 | disposition home or self-care (01) ==
LOC: EMR 07:36
DX: K85.20 Alcohol induced acute pancreatitis without necrosis or infection (principal); Z88.6 Allergy status to analgesic agent; I10 Essential (primary) hypertension; D72.829 Elevated white blood cell count, unspecified
CPT/HCPCS: 80053; 83690; 85025; 96361; 96374; 96375; J1170; J1885; J2405; J7030; S0028; Z7502; 99284

== ENCOUNTER 2020-03-29 13:00 | Emergency (ER) | payer MEDICAID, OTHER ==
[~2020-03-29] VITALS: Ht 165.1 cm; Wt 54.4 kg
[~2020-03-29 13:00] MED LIST changes: +FAMOTIDINE20 MG ORAL; +ONDANSETRON ODT4 MG BC
[2020-03-29] MEDS ORDERED: HYDROmorphone 1 MG in NS 55 ML IV ONE (13:30)
[2020-03-29 13:48] VITALS: BP 185/115
[2020-03-29 13:50] LABS: APPEARANCE,URINE CLEAR; BASOPHILS % (AUTO) 1.6 % (0.0-2.0); BILIRUBIN, URINE NEGATIVE (NEGATIVE); COLOR,URINE PALE YELLOW; GLUCOSE, URINE (UA) NEGATIVE (NEGATIVE); HEMATOCRIT 46.3 % (42.0-52.0); HEMOGLOBIN 14.8 G/DL (14.2-18.0); KETONES,URINE NEGATIVE (NEGATIVE); LEUKOCYTE ESTERASE ,URINE NEGATIVE (NEGATIVE); MEAN CORPUSCULAR VOLUME 100 FL (80-99); MONOCYTES % (AUTO) 5.1 % (1.0-10.0); NEUTROPHILS % (AUTO) 75.3 % (45.0-75.0); NITRITE,URINE NEGATIVE (NEGATIVE); PH,URINE 5 (4.5-8.0); PLATELET COUNT 402 K/UL (150-450); PROTEIN,URINE NEGATIVE (NEGATIVE); RED BLOOD COUNT 4.63 M/UL (4.70-6.10); RED CELL DISTRIBUTION WIDTH 13.8 % (11.6-14.8); UROBILINOGEN,URINE NORMAL MG/DL (0.0-1.0); WHITE BLOOD COUNT 11.1 K/UL (4.8-10.8)
[2020-03-29 14:03] LABS: ANION GAP 10 mmol/L (5-15); BLOOD UREA NITROGEN 14 mg/dL (7-18); CALCIUM 9.5 MG/DL (8.5-10.1); CARBON DIOXIDE 26 MMOL/L (21-32); CHLORIDE 101 MMOL/L (98-107); CREATININE 1.1 MG/DL (0.55-1.30); POTASSIUM 4.7 MMOL/L (3.5-5.1); SODIUM 137 MMOL/L (136-145)
[2020-03-29 14:07] LABS: ALANINE AMINOTRANSFERASE 30 U/L (12-78); ALBUMIN 4.6 G/DL (3.4-5.0); ALBUMIN/GLOBULIN RATIO 1.3 (1.0-2.7); ALKALINE PHOSPHATASE 77 U/L (46-116); AMYLASE 141 U/L (25-115); ASPARTATE AMINO TRANSFERASE 34 U/L (15-37); BILIRUBIN,TOTAL 0.5 MG/DL (0.2-1.0)
[2020-03-29] MEDS ORDERED: Omnipaque-300 100ml vial INJ PRN (14:15)
[2020-03-29] MEDS ORDERED: HYDROmorphone 1mg/NS 50ml IVPB 50 ML IVPB ONE (14:45)
[2020-03-29] MEDS ORDERED: HYDROmorphone 1mg/ml Carpuject ONE (14:46)
[2020-03-29] MEDS ORDERED: HYDROmorphone 1 MG in NS 55 ML IVPB ONE (14:48)
--- NOTE | 2020-03-29 15:25 | Diagnostic Imaging Report ---
Indication: Abdominal pain Technique: CT of the abdomen and pelvis utilizing automated exposure control with intravenous contrast. Venous scanning performed. Axial, sagittal and coronal reformats presented. CT dose: Total DLP 159.7 mGycm; CTDI vol 3.3 mGy Comparison: 11/24/2019 Findings: Minimal dependent atelectatic changes noted in the lung bases. Partially imaged heart normal in size. There is no pericardial effusion. Hepatic contour is smooth. No focal hepatic mass lesion noted on this single phase exam. There are no CT evident gallstones or pericholecystic inflammatory changes. No biliary ductal dilatation. Portal veins appear patent Spleen, adrenal glands unremarkable in appearance. The pancreas is engorged and edematous compatible with an acute pancreatitis. There is adjacent thickening of the stomach and duodenum which is likely reactive to the pancreatic inflammation. Multiple calcifications noted in the region of the pancreatic head and uncinate. Dilatation of the pancreatic duct is again seen, similar to the prior exam. No discrete peripancreatic fluid collection is noted. A duodenal diverticulum and prominent peripancreatic lymph nodes are again seen. The kidneys enhance symmetrically. There is no urinary tract stone or hydronephrosis. There is no evidence of small bowel obstruction. Appendix is normal in caliber with air in its lumen. The bladder is decompressed. The abdominal aorta is normal in caliber. The superior mesenteric vein and splenic vein appear patent although the splenic vein is somewhat small in caliber. The portal vein is patent. There is no acute osseous abnormality. No subcutaneous fluid collection or abscess. IMPRESSION: Findings compatible with acute recurrent pancreatitis. No discrete peripancreatic fluid collection/pseudocyst identified at this time. Evidence of chronic calcific pancreatitis with multiple calcifications in the region of the pancreatic head and uncinate. Persistent dilatation of the pancreatic duct, likely related to chronic pancreatitis. Possibility of a downstream obstructive lesion however is not excluded and again follow-up/nonemergent triple phase MRI of the pancreas should be considered if not performed already. The CT scanner at [facility] is accredited by the [employer] and the scans are performed using protocols designed to limit radiation exposure to as low as reasonably achievable to attain images of sufficient resolution adequate for diagnostic evaluation.
--- NOTE | 2020-03-29 15:29 | Emergency Room Report ---
History of Present Illness General Chief Complaint: Abdominal Pain Source: Patient Present Illness HPI 39-year-old male with history of chronic pancreatitis due to alcohol abuse here complaining of sudden onset of epigastric abdominal pain that started this morning and admits that he had 2 beers 2 days ago. Patient has been here multiple times for same recurrences of pancreatitis. Patient reports that he follow-up with his primary doctor few weeks ago and was told to stop drinking alcohol however there was no referral to front end loader operator for pain management. Patient denies any drug use. Rates the pain 10 out of 10 without radiation. Complains of nausea however denies vomiting, constipation, diarrhea. Denies any fever and chills, chest pain, shortness of breath, headache and dizziness. Icterus is noted in both eyes. Patient also has a history of hypertension however has not taken medication. Blood pressure is elevated upon arrival due to pain. Denies any urinary symptoms. Extensive cures history was done and patient has been taking [place] for a long time often prescribed by different providers however does not exceed the number of days allowed. 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: No Patient History Past Medical History: see triage record Past Surgical History: none Pertinent Family History: none Immunizations: UTD Reviewed Nursing Documentation: PMH: Agreed; PSxH: Agreed Nursing Documentation-PMH Past Medical History: No History, Except For Hx Cardiac Problems: No Hx Hypertension: Yes Hx Cancer: No Hx Gastrointestinal Problems: Yes - PANCRETITIS Hx Neurological Problems: No Review of Systems All Other Systems: negative except mentioned in HPI Physical Exam Vital Signs Date Time Temp Pulse Resp B/P (MAP) Pulse Ox O2 Delivery O2 Flow Rate FiO2 03/29/20 13:11 98.4 88 19 184/128 (146) 98 Room Air Sp02 EP Interpretation: reviewed, abnormal - Elevated heart rate and blood pressure Head: normocephalic, atraumatic Eyes: bilateral eye PERRL, bilateral eye scleral icterus ENT: hearing grossly normal, normal pharynx, no angioedema, normal voice Neck: full range of motion, supple/symm/no masses Respiratory: chest non-tender, lungs clear, normal breath sounds, no rhonchi, speaking full sentences Cardiovascular #1: regular rate, rhythm, no edema Gastrointestinal: normal bowel sounds, non tender, soft, no mass, no organomegaly, no peritonitis, no bruit, non-distended, no guarding, no hernia, no pulsatile mass, no rebound Rectal: deferred Genitourinary: no CVA tenderness Musculoskeletal: back normal Neurologic: alert, motor strength/tone normal, oriented x3, sensory intact, responsive, speech normal Psychiatric: judgement/insight normal, memory normal, mood/affect normal, no suicidal/homicidal ideation Skin: other - Jaundice Lymphatic: no adenopathy Medical Decision Making PA Attestation All my diagnosis and treatment plans were reviewed ad discussed with my supervising physician Dr. Delvalle Diagnostic Impression: Primary Impression: Chronic pancreatitis ER Course 39-year-old male with history of chronic pancreatitis due to alcohol abuse here complaining of sudden onset of epigastric abdominal pain that started this morning and admits that he had 2 beers 2 days ago. Patient has been here multiple times for same recurrences of pancreatitis. Patient reports that he follow-up with his primary doctor few weeks ago and was told to stop drinking alcohol however there was no referral to front end loader operator for pain management. Patient denies any drug use. Rates the pain 10 out of 10 without radiation. Complains of nausea however denies vomiting, constipation, diarrhea. Denies any fever and chills, chest pain, shortness of breath, headache and dizziness. Icterus is noted in both eyes. Patient also has a history of hypertension however has not taken medication. Blood pressure is elevated upon arrival due to pain. Denies any urinary symptoms. Extensive cures history was done and patient has been taking [place] for a long time often prescribed by different providers however does not exceed the number of days allowed. Ddx considered but are not limited to: appendicitis, cholecystis, gastritis, gastroenteritis, UTI, pyelonephritis, SBO, diverticulitis, influenza with GI manifestation, CT, acute pancreatitis, chronic pancreatitis Vital signs: are WNL, pt. is afebrile H&PE are most consistent with: Chronic pancreatitis ORDERS: abdominal CT, abdominal pain set, EKG, Zofran, Pepcid, [place] 5 #12 ED INTERVENTIONS: Hydromorphone, NS bolus, Zofran, Pepcid DISCHARGE: At this time pt. is stable for d/c to home. Will provide printed patient care instructions, and any necessary prescriptions. Care plan and follow up instructions have been discussed with the patient prior to discharge. Patient take medication as directed, avoid drinking, follow primary doctor, if worsening symptoms return to emergency room. Also advised to have primary doctor sent him to pain management as well as front end loader operator. EKG Diagnostic Results Rate: bradycardiac Rhythm: other - Slightly bradycardic ST Segments: no acute changes Other Impression No acute ST changes CT/MRI/US Diagnostic Results CT/MRI/US Diagnostic Results : Imaging Test Ordered: CT abdomen pelvis with contrast Impression Chronic pancreatitis noted, no gallstones noted Last Vital Signs Date Time Temp Pulse Resp B/P (MAP) Pulse Ox O2 Delivery O2 Flow Rate FiO2 03/29/20 13:57 187/114 03/29/20 13:48 98.4 84 20 99 Room Air Disposition: HOME, SELF-CARE Condition: Stable Scripts Famotidine* (Pepcid 20mg tablet*) 20 Mg Tablet 20 MG ORAL DAILY, #30 TAB 0 Refills Prov: Lang Van 03/29/20 Hydrocodone Bit/Acetaminophen 5-325* (NORCO 5-325 TABLET*) 1 Each Tablet 1 TAB ORAL Q6H PRN for FOR PAIN, #12 TAB 0 Refills Prov: Lang Van 03/29/20 Ondansetron (Zofran) 4 Mg Tablet 4 MG ORAL Q6H PRN for Nausea & Vomiting, #30 TAB Prov: Lang Van 03/29/20 Referrals: NON PHYSICIAN (PCP) Patient Instructions: Abdominal Pain, Adult, Alcohol Abuse and Nutrition, Low- Fat Diet for Pancreatitis or Gallbladder Conditions Additional Instructions: Take medication as directed, follow-up with your primary doctor, avoid drinking alcohol as this is the cause of your recurrent pancreatitis attacks. If worsening symptoms return to the emergency room. Lang Van Mar 29, 2020 15:29
[2020-03-29] MEDS ORDERED: FAMOTIDINE20 MG ORAL (15:30)
[2020-03-29] MEDS ORDERED: NORCO 5-325 TA1 EAC1 ORAL (15:30)
[2020-03-29] MEDS ORDERED: ZOFRAN4 M1 ORAL (15:30)
[2020-03-29 15:44] VITALS: BP 180/90
== END 2020-03-29 15:44 | disposition home or self-care (01) ==
LOC: EMR 13:15
DX: K86.1 Other chronic pancreatitis (principal); R11.0 Nausea; Z88.6 Allergy status to analgesic agent; I10 Essential (primary) hypertension; R17 Unspecified jaundice; R00.1 Bradycardia, unspecified
CPT/HCPCS: 36415; 74177; 80053; 80307; 81003; 82150; 83690; 84484; 85025; 85610; 85730; 93005; 96361; 96374; 96375; 96376; J0360; J1170; J2405; J7030; Q9967; S0028; Z7502; 99284

== ENCOUNTER 2020-05-13 04:07 | Emergency (ER) | payer MEDICAID, OTHER ==
[~2020-05-13] VITALS: Ht 165.1 cm; Wt 57.6 kg
[2020-05-13 04:20] VITALS: BP 137/95
--- NOTE | 2020-05-13 04:20 | NUR ---
ED Nurse Note: Pt walked into ED from home for c/o R shoulder pain that radiates to his neck x 1 week. 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 Pt is aaox4, breathing is normal and unlabored, NAD.
[2020-05-13] MEDS ORDERED: PREDNISONE20 MG ORAL (04:34)
[2020-05-13] MEDS ORDERED: HYDROCODON-ACE1 EA15 ORAL (04:34)
--- NOTE | 2020-05-13 04:35 | Emergency Room Report ---
History of Present Illness General Chief Complaint: Upper Extremity Injury Source: Patient Present Illness [facility] This is a 39-year-old male who is right-hand dominant. He presents with chief plaint of right shoulder pain. Onset for a week. 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 Since then he has been having shoulder pain. Worse with movement. Said throbbing in nature. 10 out of 10. Radiates to his neck. No nausea no vomiting. No fever chills. No trauma. 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: No Patient History Past Medical History: see triage record, old chart reviewed Past Surgical History: other Pertinent Family History: none Social History: Reports: smoking Immunizations: other Reviewed Nursing Documentation: PMH: Agreed; PSxH: Agreed Nursing Documentation-PMH Hx Cardiac Problems: No Hx Hypertension: Yes Hx Cancer: No Hx Gastrointestinal Problems: Yes - PANCRETITIS Hx Neurological Problems: No Review of Systems Eye: Denies: eye pain, blurred vision ENT: Denies: ear pain, nose congestion, throat swelling Respiratory: Denies: cough, shortness of breath Cardiovascular: Denies: chest pain, palpitations Gastrointestinal: Denies: abdominal pain, diarrhea, nausea, vomiting Musculoskeletal: Reports: joint pain; Denies: back pain Skin: Denies: rash Neurological: Denies: headache, numbness Endocrine: Denies: increased thirst, increased urine Hematologic/Lymphatic: Denies: easy bruising All Other Systems: negative except mentioned in HPI Physical Exam Vital Signs Date Time Temp Pulse Resp B/P (MAP) Pulse Ox O2 Delivery O2 Flow Rate FiO2 05/13/20 04:12 97.9 96 18 137/95 (109) 96 Room Air Vitals unremarkable Sp02 EP Interpretation: reviewed, normal General Appearance: well appearing, no apparent distress, alert Head: normocephalic, atraumatic Eyes: bilateral eye PERRL, bilateral eye EOMI ENT: hearing grossly normal, normal pharynx Neck: full range of motion, supple, no meningismus Respiratory: chest non-tender, lungs clear, normal breath sounds Cardiovascular #1: regular rate, rhythm, no murmur Gastrointestinal: normal bowel sounds, non tender, no mass, no organomegaly, no bruit, non-distended Musculoskeletal: back normal, normal range of motion, gait/station normal, other - Right shoulder: He has tenderness with range of motion. Tender to palpation over the bursa. No warmth or redness. Psychiatric: mood/affect normal Medical Decision Making Diagnostic Impression: Primary Impression: Acute shoulder bursitis Qualified Codes: M75.51 - Bursitis of right shoulder ER Course Patient with bursitis of his right shoulder from repetitive motion. No evidence of septic joint. No fracture dislocation. Will discharge home. Last Vital Signs Date Time Temp Pulse Resp B/P (MAP) Pulse Ox O2 Delivery O2 Flow Rate FiO2 05/13/20 04:12 97.9 96 18 137/95 (109) 96 Room Air Status: improved Disposition: HOME, SELF-CARE Condition: Stable Scripts Prednisone* (PREDNISONE*) 20 Mg Tablet 40 MG ORAL DAILY, #10 TAB Prov: Bryce Baron MD 05/13/20 Hydrocodone/Acetaminophen 5-325* (HYDROCODONE/ACETAMINOPHEN 5-325*) 1 Each Tablet 1 TAB ORAL Q6H PRN for For Pain, #15 TAB 0 Refills Prov: Bryce Baron MD 05/13/20 Referrals: NON PHYSICIAN (PCP) Additional Instructions: Follow-up with your doctor in a week. If continue with pain, you may benefit from a cortisone shot into the shoulder joint. Return if symptoms worsen. Bryce Baron MD May 13, 2020 04:35
--- NOTE | 2020-05-13 04:44 | NUR ---
ED Nurse Note: Pt states his is driving him home and that he is not driving.
[2020-05-13] MEDS ORDERED: HYDROmorphone 1mg/ml Carpuject IM ONE (04:45)
[2020-05-13 04:46] VITALS: BP 135/90
--- NOTE | 2020-05-13 04:46 | NUR ---
ER DISCHARGE NOTE: Patient is cleared to be discharged per ERMD, pt is aox4, on room air, with stable vital signs. pt was given dc and prescription instructions, pt was able to verbalize understanding, pt id band removed. pt is able to ambulate with steady gait. pt took all belongings.
== END 2020-05-13 04:46 | disposition home or self-care (01) ==
LOC: EMR 04:29
DX: M75.51 Bursitis of right shoulder (principal); I10 Essential (primary) hypertension; Z88.6 Allergy status to analgesic agent
CPT/HCPCS: 96372; J1170; J7512; Z7502; 99283

== ENCOUNTER 2020-05-25 13:18 | Emergency (ER) | payer OTHER ==
[~2020-05-25] VITALS: Ht 165.1 cm; Wt 58.1 kg
[~2020-05-25 13:18] MED LIST changes: +PREDNISONE20 MG ORAL
[2020-05-25] MEDS ORDERED: PROTONIX40 MG ORAL (13:32)
[2020-05-25] MEDS ORDERED: HYDROmorphone 1mg/ml Carpuject IVP ONE (14:00)
[2020-05-25 14:09] VITALS: BP 187/105
--- NOTE | 2020-05-25 14:18 | Emergency Room Report ---
History of Present Illness General Chief Complaint: Abdominal Pain Source: Patient Present Illness HPI 39-year-old male presents to the emergency department with 2 complaints. Patient reports 10 out of 10 in severity right shoulder pain as well as epigastric abdominal pain. Patient with history of chronic pancreatitis and is habitually exacerbated with alcohol consumption. Patient reports that he drank a glass of wine last night because he was unable to sleep due to shoulder pain. Patient reports he subsequently began having abdominal pain. He denies nausea or vomiting. He denies fevers, chills, abdominal distention, constipation, diarrhea, bloody stools or black tarry stools. Patient reports his abdominal pain is exacerbated upon palpation. Patient localizes his right shoulder pain to be posteriorly in the musculature between the spine and the right shoulder blade. Patient reports he has been evaluated here for this symptom in the past and had normal x-rays. Patient states he has been unable to follow-up with his primary care provider. Patient denies trauma or fall. He denies paresthesias or loss of gross motor movements. He denies chest pain, shortness of breath, dizziness, headache or syncope. He reports history of high blood pressure as well. Patient states he has been taking Tylenol for his pain with no relief. 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: No Patient History Past Medical History: see triage record Past Surgical History: none Pertinent Family History: none Reviewed Nursing Documentation: PMH: Agreed; PSxH: Agreed Nursing Documentation-PMH Past Medical History: No History, Except For Hx Cardiac Problems: No Hx Hypertension: Yes Hx Cancer: No Hx Gastrointestinal Problems: Yes - PANCRETITIS Hx Neurological Problems: No Review of Systems All Other Systems: negative except mentioned in HPI Physical Exam Vital Signs Date Time Temp Pulse Resp B/P (MAP) Pulse Ox O2 Delivery O2 Flow Rate FiO2 05/25/20 13:21 98.2 98 17 187/105 (132) 98 Room Air Medical Decision Making PA Attestation Dr. Alonzo is my supervising Physician whom patient management has been discussed with. Diagnostic Impression: Primary Impression: Pancreatitis Qualified Codes: K86.0 - Alcohol-induced chronic pancreatitis Additional Impression: Shoulder pain, right Qualified Codes: M25.511 - Pain in right shoulder ER Course 39-year-old male presents to the emergency department with 2 complaints. Patient reports 10 out of 10 in severity right shoulder pain as well as epigastric abdominal pain. Patient with history of chronic pancreatitis and is habitually exacerbated with alcohol consumption. Patient reports that he drank a glass of wine last night because he was unable to sleep due to shoulder pain. Patient reports he subsequently began having abdominal pain. He denies nausea or vomiting. He denies fevers, chills, abdominal distention, constipation, diarrhea, bloody stools or black tarry stools. Patient reports his abdominal pain is exacerbated upon palpation. Patient localizes his right shoulder pain to be posteriorly in the musculature between the spine and the right shoulder blade. Patient reports he has been evaluated here for this symptom in the past and had normal x-rays. Patient states he has been unable to follow-up with his primary care provider. Patient denies trauma or fall. He denies paresthesias or loss of gross motor movements. He denies chest pain, shortness of breath, dizziness, headache or syncope. He reports history of high blood pressure as well. Patient states he has been taking Tylenol for his pain with no relief. Ddx considered but are not limited to Diverticulitis, acute appy, diarrhea,UC, PUD, GE, pancreatitis, gallstone Vital signs: are WNL, pt. is afebrile H&PE are most consistent with abdominal tenderness in a patient with chronic pancreatitis after alcohol consumption. Suspicious for gallbladder etiology due to persistent right shoulder pain that is not related to mechanical trauma. Review of this patient's previous ER visits show several abdominal CAT scans done however there have not been any abdominal ultrasounds. Each time patient has had elevated lipase. ORDERS: -CBC: -CMP: -lipase: -UA: -- Abdominal US complete ED INTERVENTIONS: -- 1000NS -Pepcid 20mg IV -1mg Dilaudid IV DISCHARGE: At this time pt. is stable for d/c to home. Will provide printed patient care instructions, and any necessary prescriptions. Care plan and follow up instructions have been discussed with the patient prior to discharge. CT/MRI/US Diagnostic Results CT/MRI/US Diagnostic Results : Imaging Test Ordered: Abdominal US complete Impression " "--Per official radiology report- Please see report for specific details. Last Vital Signs Date Time Temp Pulse Resp B/P (MAP) Pulse Ox O2 Delivery O2 Flow Rate FiO2 05/25/20 14:09 98.2 98 17 187/105 98 Room Air Disposition: AGAINST MEDICAL ADVICE Condition: Unknown Referrals: NON PHYSICIAN (PCP) Patient Instructions: Acute Pancreatitis, [id number], Low-Fat Diet for Pancreatitis or Gallbladder Conditions Additional Instructions: Take medications as directed. Do not drink alcohol, drive, or operate heavy machinery while taking Robaxin ( Muscle Relaxers) as this may cause drowsiness. Follow up with a Primary Care Provider in 3-5 days, even if your symptoms have resolved. --Please review list of primary care clinics, if you do not already have a primary care provider Return sooner to ED if new symptoms occur, or current symptoms become worse. - Please note that this Emergency Department Report was dictated using [employer] wood technology software, occasionally this can lead to erroneous entry secondary to interpretation by the dictation equipment. Jackelin Tran May 25, 2020 14:18
[2020-05-25 14:27] LABS: APPEARANCE,URINE CLEAR; BASOPHILS % (AUTO) 2.5 % (0.0-2.0); BILIRUBIN, URINE NEGATIVE (NEGATIVE); EOSINOPHILS % (AUTO) 0.6 % (0.0-3.0); GLUCOSE, URINE (UA) NEGATIVE (NEGATIVE); HEMOGLOBIN 15.8 G/DL (14.2-18.0); KETONES,URINE 3+ (NEGATIVE); LEUKOCYTE ESTERASE ,URINE NEGATIVE (NEGATIVE); MEAN CORPUSCULAR VOLUME 96 FL (80-99); MONOCYTES % (AUTO) 7.1 % (1.0-10.0); NEUTROPHILS % (AUTO) 79.9 % (45.0-75.0); NITRITE,URINE NEGATIVE (NEGATIVE); PH,URINE 5 (4.5-8.0); PLATELET COUNT 414 K/UL (150-450); PROTEIN,URINE NEGATIVE (NEGATIVE); RED BLOOD COUNT 4.89 M/UL (4.70-6.10); UROBILINOGEN,URINE NORMAL MG/DL (0.0-1.0); WHITE BLOOD COUNT 13.3 K/UL (4.8-10.8)
[2020-05-25 14:29] LABS: COLOR,URINE YELLOW
[2020-05-25 14:44] LABS: ANION GAP 10 mmol/L (5-15); BLOOD UREA NITROGEN 12 mg/dL (7-18); CARBON DIOXIDE 26 MMOL/L (21-32); CHLORIDE 100 MMOL/L (98-107); CREATININE 1.1 MG/DL (0.55-1.30); POTASSIUM 4.2 MMOL/L (3.5-5.1); SODIUM 136 MMOL/L (136-145)
[2020-05-25 14:49] LABS: ALANINE AMINOTRANSFERASE 22 U/L (12-78); ALBUMIN 4.5 G/DL (3.4-5.0); ALBUMIN/GLOBULIN RATIO 1.1 (1.0-2.7); ALKALINE PHOSPHATASE 82 U/L (46-116); ASPARTATE AMINO TRANSFERASE 31 U/L (15-37); BILIRUBIN,TOTAL 0.7 MG/DL (0.2-1.0)
--- NOTE | 2020-05-25 16:00 | Diagnostic Imaging Report ---
Indication: Abdominal pain Technique: Islas-scale and duplex images of the upper abdomen were obtained Comparison: 05/06/2016. Reference also made to abdomen pelvis CT scan dated 03/29/2020 Findings: Gallbladder is unremarkable, without stones, wall thickening, nor pericholecystic fluid. Sonographic Ulloa's sign is negative. Common bile duct measures 9 mm in diameter. No intrahepatic biliary ductal dilatation. Liver demonstrates normal echogenicity, no focal abnormality. Portal vein and hepatic veins are patent. The pancreatic duct is ectatic, measuring up to 8 mm in diameter. The pancreatic head is heterogeneous in echogenicity, and demonstrates areas of shadowing Spleen is unremarkable. Left kidney measures 9.5 cm in length. Right kidney measures 10.2 cm length. Both kidneys demonstrate normal echogenicity. There is no hydronephrosis. No focal abnormality . Non-aneurysmal abdominal aorta . Impression: Heterogeneous pancreas with likely calcifications, reflecting findings reported previously Ectatic pancreatic duct, also previously reported Negative for gallstones Dilated common bile duct. This is not previously evident. Correlation with liver function tests is recommended, consideration for MRCP if clinically indicated
[2020-05-25 16:40] VITALS: BP 156/98
[2020-05-25] MEDS ORDERED: HYDROcodone/Acetamin 7.5/325 tab ORAL ONE (16:45)
[2020-05-25] MEDS ORDERED: LIDODERM700 M1 TOPIC (16:48)
[2020-05-25] MEDS ORDERED: ROBAXIN-750750 MG PO (16:48)
[2020-05-25 16:53] VITALS: BP 156/98
== END 2020-05-25 16:58 | disposition left against medical advice (07) ==
LOC: EMR 13:39
DX: K86.0 Alcohol-induced chronic pancreatitis (principal); M25.511 Pain in right shoulder; I10 Essential (primary) hypertension; Z53.29 Procedure and treatment not carried out because of patient's decision for other reasons; Z88.5 Allergy status to narcotic agent
CPT/HCPCS: 36415; 76700; 80053; 81003; 83690; 85025; 96374; 96375; J1170; J7040; S0028; Z7502; 99284

== ENCOUNTER 2020-05-26 13:25 | Inpatient (IN) | payer OTHER ==
[~2020-05-26] VITALS: Ht 165.1 cm; Wt 58.1 kg
[~2020-05-26 13:25] MED LIST changes: +LIDODERM700 M1 TOPIC; +PROTONIX40 MG ORAL; +ROBAXIN-750750 MG PO
[2020-05-26 13:34] VITALS: BP 198/120
[2020-05-26] MEDS ORDERED: HYDROmorphone 1 MG in NS 55 ML IV ONE (13:45)
[2020-05-26 14:42] LABS: BASOPHILS % (AUTO) 1.1 % (0.0-2.0); EOSINOPHILS % (AUTO) 1.2 % (0.0-3.0); HEMATOCRIT 48.5 % (42.0-52.0); HEMOGLOBIN 15.7 G/DL (14.2-18.0); LYMPHOCYTES % (AUTO) 10.8 % (20.0-45.0); MEAN CORPUSCULAR VOLUME 98 FL (80-99); MONOCYTES % (AUTO) 6.1 % (1.0-10.0); NEUTROPHILS % (AUTO) 80.8 % (45.0-75.0); PLATELET COUNT 380 K/UL (150-450); RED BLOOD COUNT 4.96 M/UL (4.70-6.10); RED CELL DISTRIBUTION WIDTH 13.7 % (11.6-14.8); WHITE BLOOD COUNT 12.5 K/UL (4.8-10.8)
[2020-05-26 14:48] LABS: APPEARANCE,URINE CLEAR; COLOR,URINE YELLOW
[2020-05-26 14:49] LABS: BILIRUBIN, URINE NEGATIVE (NEGATIVE); GLUCOSE, URINE (UA) NEGATIVE (NEGATIVE); KETONES,URINE 2+ (NEGATIVE); NITRITE,URINE NEGATIVE (NEGATIVE); PH,URINE 5 (4.5-8.0); PROTEIN,URINE 1+ (NEGATIVE)
[2020-05-26 14:50] LABS: LEUKOCYTE ESTERASE ,URINE TRACE (NEGATIVE); UROBILINOGEN,URINE NORMAL MG/DL (0.0-1.0)
[2020-05-26 14:52] LABS: ANION GAP 14 mmol/L (5-15); BLOOD UREA NITROGEN 7 mg/dL (7-18); CALCIUM 9.8 MG/DL (8.5-10.1); CARBON DIOXIDE 25 MMOL/L (21-32); CHLORIDE 98 MMOL/L (98-107); CREATININE 1.1 MG/DL (0.55-1.30); POTASSIUM 3.5 MMOL/L (3.5-5.1); SODIUM 137 MMOL/L (136-145)
[2020-05-26 14:55] VITALS: BP 167/102
[2020-05-26 14:58] LABS: ALANINE AMINOTRANSFERASE 20 U/L (12-78); ALBUMIN 4.3 G/DL (3.4-5.0); ALKALINE PHOSPHATASE 86 U/L (46-116); ASPARTATE AMINO TRANSFERASE 28 U/L (15-37); BILIRUBIN,TOTAL 0.7 MG/DL (0.2-1.0)
--- NOTE | 2020-05-26 15:00 | NUR ---
ED Nurse Note: received patient from dyan kimble. patient resting in bed. states pain persists but has slightly decreased after analgesic administration. repositioned for comfort. discussed plan of care; pt aware of pending admission.
--- NOTE | 2020-05-26 15:23 | Emergency Room Report ---
History of Present Illness General Chief Complaint: Abdominal Pain Present Illness HPI 39-year-old male with history of alcohol abuse, hypertension, pancreatitis here complaining of worsening abdominal pain. Patient was seen [facility] yesterday and left AGAINST MEDICAL ADVICE to go home and stay with kids. Patient has been here multiple times for same concern and also complains of right shoulder pain. Patient has had multiple CT scans in the past all confirming pancreatitis and had an ultrasound done yesterday which confirmed calcifications in the pancreas. Right shoulder pain is concerning as it can be secondary to referred pain from the abdomen. Patient reports that he is planning to stay in the hospital today. Patient asking for Dilaudid. Patient has a follow-up primary care provider. Complains of nausea and vomiting., Denies any fever and chills, shortness of breath, cough and congestion. Lipase was more than 2000 yesterday. Most of this lab results from yesterday will be used upon admission. Denies any recent alcohol intake. (Lang Van) Allergies: Coded Allergies: AMLODIPINE (Verified Allergy, Mild, 01/07/20) POSSIBLE REACTION MORPHINE (Verified Allergy, Unknown, 01/07/20) COVID-19 Screening Contact w/high risk pt: No Recent Travel to affected area: No Experienced COVID-19 symptoms?: No COVID-19 Testing performed BIOMEDICAL MANAGER: No (Lang Van) Patient History Past Medical History: see triage record Past Surgical History: none Pertinent Family History: none Immunizations: UTD Reviewed Nursing Documentation: PMH: Agreed; PSxH: Agreed (Lang Van) Nursing Documentation-PMH Hx Cardiac Problems: No Hx Hypertension: Yes Hx Cancer: No Hx Gastrointestinal Problems: Yes - PANCRETITIS Hx Neurological Problems: No (Lang Van) Review of Systems All Other Systems: negative except mentioned in HPI (Lang Van) Physical Exam Vital Signs Date Time Temp Pulse Resp B/P (MAP) Pulse Ox O2 Delivery O2 Flow Rate FiO2 05/26/20 13:29 98.1 96 18 198/120 (146) 98 Room Air Sp02 EP Interpretation: abnormal - elevated BP General Appearance: mild distress Head: normocephalic, atraumatic Eyes: bilateral eye PERRL, bilateral eye scleral icterus ENT: hearing grossly normal, normal pharynx, no angioedema, normal voice Neck: full range of motion, supple/symm/no masses Respiratory: chest non-tender, lungs clear, normal breath sounds, no rhonchi, no retraction, no wheezing, speaking full sentences Cardiovascular #1: regular rate, rhythm, no murmur Gastrointestinal: no mass, no organomegaly, no bruit, non-distended, no hernia , no pulsatile mass, guarding - epigastric Rectal: deferred Genitourinary: no CVA tenderness Musculoskeletal: back normal, no calf tenderness Neurologic: alert, motor strength/tone normal, oriented x3, sensory intact, responsive, speech normal Psychiatric: judgement/insight normal, memory normal, mood/affect normal, no suicidal/homicidal ideation Skin: no rash Lymphatic: no adenopathy (Lang Van) Medical Decision Making PA Attestation All my diagnosis and treatment plans were reviewed ad discussed with my supervising physician Dr. Brown (Lang Van) Diagnostic Impression: Primary Impression: Pancreatitis Additional Impression: Benzodiazepine abuse ER Course 39-year-old male with history of alcohol abuse, hypertension, pancreatitis here complaining of worsening abdominal pain. Patient was seen [facility] yesterday and left AGAINST MEDICAL ADVICE to go home and stay with kids. Patient has been here multiple times for same concern and also complains of right shoulder pain. Patient has had multiple CT scans in the past all confirming pancreatitis and had an ultrasound done yesterday which confirmed calcifications in the pancreas. Right shoulder pain is concerning as it can be secondary to referred pain from the abdomen. Patient reports that he is planning to stay in the hospital today. Patient asking for Dilaudid. Patient has a follow-up primary care provider. Complains of nausea and vomiting., Denies any fever and chills, shortness of breath, cough and congestion. Lipase was more than 2000 yesterday. Most of this lab results from yesterday will be used upon admission. Denies any recent alcohol intake. Ddx considered but are not limited to: appendicitis, cholecystis, gastritis, gastroenteritis, UTI, pylonephritis, SBO, diverticulitis, influenza with GI manifestation, pancreatitis Vital signs: are WNL, pt. is afebrile H&PE are most consistent with: Pancreatitis ORDERS: CBC, CMP, lipase, UA, tox screen, EtOH serum level ED INTERVENTIONS: NS bolus, Dilaudid, Zofran, Pepcid Patient was evaluated in the context of the global COVID-19 pandemic, which necessitated consideration that the patient might be at risk for infection with the SARS-COV-2 virus that causes COVID-19. Institutional protocols and algorithms that pertain to the evaluation of patients at risk for COVID-19 are in a state of rapid change based on information relieved by multiple regulatory bodies including the CDC and the federal and state organizations. These policies and algorithms were followed during the patient's care in the ED. Patient was admitted with diagnosis of pancreatitis to Dr. Davila under supervision of DrEvelyn: Leesa pt stable at time of admission (Lang Van) Laboratory Tests Test 05/28/20 04:50 05/29/20 05:10 White Blood Count 9.7 K/UL (4.8-10.8) Red Blood Count 4.24 M/UL (4.70-6.10) L Hemoglobin 13.5 G/DL (14.2-18.0) L Hematocrit 41.3 % (42.0-52.0) L Mean Corpuscular Volume 98 FL (80-99) Mean Corpuscular Hemoglobin 31.9 PG (27.0-31.0) H Mean Corpuscular Hemoglobin Concent 32.7 G/DL (32.0-36.0) Red Cell Distribution Width 13.6 % (11.6-14.8) Platelet Count 298 K/UL (150-450) Mean Platelet Volume 5.8 FL (6.5-10.1) L Neutrophils (%) (Auto) 70.5 % (45.0-75.0) Lymphocytes (%) (Auto) 17.1 % (20.0-45.0) L Monocytes (%) (Auto) 10.0 % (1.0-10.0) Eosinophils (%) (Auto) 1.8 % (0.0-3.0) Basophils (%) (Auto) 0.6 % (0.0-2.0) Sodium Level 132 MMOL/L (136-145) L 135 MMOL/L (136-145) L Potassium Level 3.9 MMOL/L (3.5-5.1) 3.6 MMOL/L (3.5-5.1) Chloride Level 99 MMOL/L (98-107) 98 MMOL/L (98-107) Carbon Dioxide Level 26 MMOL/L (21-32) 28 MMOL/L (21-32) Anion Gap 7 mmol/L (5-15) 9 mmol/L (5-15) Blood Urea Nitrogen 6 mg/dL (7-18) L 5 mg/dL (7-18) L Creatinine 1.0 MG/DL (0.55-1.30) 0.9 MG/DL (0.55-1.30) Estimated Glomerular Filtration Rate > 60 mL/min (>60) > 60 mL/min (>60) Glucose Level 87 MG/DL (74-106) 114 MG/DL (74-106) H Calcium Level 9.0 MG/DL (8.5-10.1) 8.6 MG/DL (8.5-10.1) Total Bilirubin 0.8 MG/DL (0.2-1.0) 0.6 MG/DL (0.2-1.0) Aspartate Amino Transferase (AST) 20 U/L (15-37) 21 U/L (15-37) Alanine Aminotransferase (ALT) 19 U/L (12-78) 17 U/L (12-78) Alkaline Phosphatase 58 U/L (46-116) 56 U/L (46-116) Total Protein 6.7 G/DL (6.4-8.2) 6.5 G/DL (6.4-8.2) Albumin 3.2 G/DL (3.4-5.0) L 3.1 G/DL (3.4-5.0) L Globulin 3.5 g/dL 3.4 g/dL Albumin/Globulin Ratio 0.9 (1.0-2.7) L 0.9 (1.0-2.7) L Lipase > 2000 U/L (73-393) H 797 U/L (73-393) H Microbiology Date/Time Source Procedure Growth Status 05/27/20 21:35 Nasopharynx SARS-CoV-2 RdRp Gene Assay - Final Complete (Colianno,Madina M. DO) Last Vital Signs Date Time Temp Pulse Resp B/P (MAP) Pulse Ox O2 Delivery O2 Flow Rate FiO2 05/26/20 14:55 98.1 74 17 167/102 100 Room Air (Lang Van) Disposition: ADMITTED INPATIENT Condition: Serious Referrals: LUCINDA ROSAS [facility],REFERRING (PCP) Lang Van May 26, 2020 15:23 Madina Brown DO May 29, 2020 07:00
[2020-05-26 15:26] LABS: INR 0.9 (0.9-1.1)
--- NOTE | 2020-05-26 15:30 | NUR ---
ED Nurse Note: confirmed medication list with patient. patient reports no home medication.
[2020-05-26] MEDS ORDERED: HYDROmorphone 1mg/ml Carpuject ONE (16:53)
[2020-05-26] MEDS ORDERED: HYDROmorphone 1mg/ml Carpuject IVP ONE (17:00)
[2020-05-26 17:37] VITALS: BP 146/76
--- NOTE | 2020-05-26 17:39 | NUR ---
TRANSFER TO FLOOR: Patient transferred to ms 312-2 as ordered, per ilai brandon. Report given to malik zaidi. patient stable for transfer. patient transported to unit via wheelchair with rn. belongings and admission packet sent with patient.
[2020-05-26 17:45] VITALS: BP 167/99
--- NOTE | 2020-05-26 17:45 | NUR ---
NURSE NOTES: Handoff received from Gorge MARINELLI. Patient arrived safely to 3E from ER via wheelchair. Patient is awake and alert, no signs of distress, breathing is even on room air. Patient is reporting 8/10 abdominal pain. Vital signs are within normal limits except for blood pressure at 167/99. Will call Dr. Ochoa for admission orders.
[2020-05-26] MEDS ORDERED: HydrALAZINE 25mg tab ORAL PRN (18:30)
--- NOTE | 2020-05-26 18:30 | NUR ---
NURSE NOTES: Admission orders received from Dr. Ochoa, orders were verified and carried out.
--- NOTE | 2020-05-26 19:30 | NUR ---
NURSE HAND-OFF: Important Events on Shift:[] Patient Status: stable Diet: clear liquid Pending Orders: Pending Results/Labs: Pending MD notification: Latest Vital Signs: Temperature 98.1 , Pulse 72 , B/P 167 /99 , Respiratory Rate 20 , O2 SAT 99 , Room Air, O2 Flow Rate . Vital Sign Comment: Latest Haney Fall Score: 35 Fall Risk: Medium Risk Safety Measures: Call light Within Reach, Bed Alarm , Side Rails Side Rails x2, Bed position Low and Locked. Fall Precautions: Yellow Socks Patient Fall Education Report given to Brandi MARINELLI.
--- NOTE | 2020-05-26 19:40 | NUR ---
NURSE NOTES: Received from ISIS Carreon. Patient is a/ox4, no signs of distress noted. Breathing regular and unlabored. Patient is reporting pain will give meds as ordered. Iv on L AC running fluids as ordered. call light within reach. side rails upx3. will continue to monitor.
[2020-05-26] MEDS: Hydromorphone 0.5mg/0.5ml inj IVP PRN ×2 (19:41→23:46)
[2020-05-26] MEDS: LR 1000ml 1,000 ML IV SCH (19:42)
[2020-05-26 20:00] VITALS: BP 170/94
[2020-05-26 21:00] VITALS: BP 165/95
[2020-05-27] VITALS (9 sets, daily range): BP systolic 140–190; BP diastolic 78–113
[2020-05-27] MEDS: HydrALAZINE 50mg tab ORAL PRN ×3 (00:30→16:36)
[2020-05-27] MEDS ORDERED: Simethicone 80mg tab ORAL PRN (03:30)
[2020-05-27] MEDS: Carvedilol 12.5mg tab ORAL SCH ×2 (03:30→09:07)
[2020-05-27] MEDS: Hydromorphone 0.5mg/0.5ml inj IVP PRN ×4 (05:31→18:39)
[2020-05-27] MEDS: LR 1000ml 1,000 ML IV SCH ×3 (05:31→21:21)
--- NOTE | 2020-05-27 07:25 | NUR ---
NURSE NOTES: Received pt from ISIS Paz. pt was sleeping no acute distress, call light w/in reach. will monitor for blood pressure
--- NOTE | 2020-05-27 07:26 | NUR ---
NURSE HAND-OFF: Important Events on Shift: Running high BP and complaining of gas pain, Notified MD ( medication ordered ) Patient Status: stable Diet: clear liquid Pending Orders: Pending Results/Labs: Pending MD notification: Latest Vital Signs: Temperature 97.7 , Pulse 80 , B/P 140 /100 , Respiratory Rate 20 , O2 SAT 97 , Room Air, O2 Flow Rate . Vital Sign Comment: Running high BP Latest Haney Fall Score: 35 Fall Risk: Medium Risk Safety Measures: Call light Within Reach, Bed Alarm , Side Rails Side Rails x2, Bed position Low and Locked. Fall Precautions: Yellow Socks Patient Fall Education Report given to ISIS Benavides
--- NOTE | 2020-05-27 16:16 | NUR ---
CASE MANAGEMENT:INITIAL REVIEW 39 YR OLD MALE WALKED IN TO ED FROM HOME CC;ABDOMINAL PAIN SI;PANCREATITIS. BENZO ABUSE. 98.31 96 18 198/120 98% ON RA WBC 12.5 LIPASE 1197 APTT 34 UA+ PROTEIN, KETONES, LEUKOCYTE ESTERASE, RBC URINE TOX (+) OPIATES, BENZOS, THC IS;DILAUDID IV ONCE IVF NS BOLUS ADMITTED TO MED SURG MED SURG STATUS DCP;FROM HOME PLAN; CLEAR LIQUID DIET
--- NOTE | 2020-05-27 16:23 | NUR ---
INSURANCE CLINICALS AND REVIEW HAVE BEEN FAXED TO [employer] P: [phone] F: [phone]
--- NOTE | 2020-05-27 16:46 | Consultation ---
History of Present Illness General Chief Complaint: Abdominal Pain Present Illness HPI 39-year-old male with history of alcohol abuse, hypertension, pancreatitis here complaining of worsening abdominal pain. Patient was seen [facility] yesterday and left AGAINST MEDICAL ADVICE to go home and stay with kids. Patient has been here multiple times for same concern and also complains of right shoulder pain. Patient has had multiple CT scans in the past all confirming pancreatitis and had an ultrasound done yesterday which confirmed calcifications in the pancreas. Right shoulder pain is concerning as it can be secondary to referred pain from the abdomen. Patient reports that he is planning to stay in the hospital today. Patient asking for Dilaudid. Patient has a follow-up primary care provider. Complains of nausea and vomiting., Denies any fever and chills, shortness of breath, cough and congestion. Lipase was more than 2000 yesterday. Most of this lab results from yesterday will be used upon admission. Denies any recent alcohol intake. Allergies: Coded Allergies: AMLODIPINE (Verified Allergy, Mild, 01/07/20) POSSIBLE REACTION MORPHINE (Verified Allergy, Unknown, 01/07/20) Medication History Scheduled Carvedilol* (Carvedilol*), 12.5 MG ORAL EVERY 12 HOURS Famotidine* (Pepcid 20mg tablet*), 20 MG ORAL DAILY Ibuprofen (Motrin), 600 MG ORAL THREE TIMES A DAY Lidocaine Patch* (Lidoderm Patch*), 1 PATCH TOPIC DAILY Methocarbamol* (Robaxin-750*), 750 MG PO QID Pantoprazole* (Protonix*), 40 MG ORAL DAILY, (Reported) Prednisone* (Prednisone*), 40 MG ORAL DAILY Scheduled PRN Hydrocodone/Acetaminophen 5-325* (Hydrocodone/Acetaminophen 5-325*), 1 TAB ORAL Q6H PRN for For Pain Ondansetron (Zofran), 4 MG ORAL Q6H PRN for Nausea & Vomiting Patient History Healthcare decision maker N Resuscitation status Advanced Directive on File Review of Systems Gastrointestinal: Reports: abdominal pain, nausea, vomiting All Other Systems: negative except mentioned in HPI Physical Exam General Appearance: no apparent distress Lines, tubes and drains: peripheral HEENT: normocephalic, atraumatic Neck: non-tender, normal alignment Respiratory/Chest: chest wall non-tender, lungs clear, normal breath sounds Cardiovascular/Chest: normal peripheral pulses, normal rate, regular rhythm Abdomen: decreased bowel sounds, absent bowel sounds, distended, tender Neurologic: alert, oriented x 3 Last 24 Hour Vital Signs Date Time Temp Pulse Resp B/P (MAP) Pulse Ox O2 Delivery O2 Flow Rate FiO2 05/27/20 16:36 182/105 05/27/20 16:00 97.9 94 185/105 (131) 79 05/27/20 12:00 98.3 94 153/78 (103) 97 05/27/20 10:20 168/93 05/27/20 09:07 90 178/113 05/27/20 08:00 98.3 94 178/113 (134) 97 05/27/20 07:31 Room Air 05/27/20 04:00 97.7 80 140/100 (113) 97 05/27/20 03:30 80 140/100 05/27/20 01:00 175/90 (118) 05/27/20 00:30 190/100 05/27/20 00:00 97.5 75 190/100 (130) 98 05/26/20 21:22 172/94 05/26/20 21:00 165/95 (118) 05/26/20 21:00 Room Air 05/26/20 20:11 98.1 05/26/20 20:00 98.0 70 20 170/94 (119) 98 05/26/20 17:53 Room Air 05/26/20 17:45 97.7 72 20 167/99 (121) 99 05/26/20 17:45 Room Air 05/26/20 17:38 98.1 79 15 146/76 99 Room Air 05/26/20 17:37 98.1 79 15 146/76 99 Room Air 05/26/20 17:24 98.1 Intake and Output 05/26/20 05/27/20 19:00 07:00 Intake Total 1056 ml 350 ml Balance 1056 ml 350 ml Intake Oral 350 ml IV Total 1056 ml # Voids 2 # Bowel Movements 1 Height (Feet): 5 Height (Inches): 5.00 Weight (Pounds): 128 Medications Current Medications Medications (Trade) Dose Ordered Sig/Noé Route PRN Reason Start Time Stop Time Status Last Admin Dose Admin Acetaminophen (Tylenol) 650 mg Q4H PRN ORAL Mild Pain (Pain Scale 1-3) 05/26/20 18:30 06/25/20 18:29 Carvedilol (Coreg) 12.5 mg BID ORAL 05/27/20 03:30 06/26/20 03:29 05/27/20 09:07 Famotidine (Pepcid I.v.) 20 mg BID PRN IVP Stomach Acid 05/27/20 00:15 06/26/20 00:14 05/27/20 00:30 Hydralazine HCl (Apresoline) 100 mg BID PRN ORAL SBP >150 05/27/20 00:15 08/25/20 00:14 05/27/20 16:36 Hydromorphone HCl (Dilaudid) 0.5 mg Q4H PRN IVP For Pain 05/26/20 18:30 06/02/20 18:29 05/27/20 14:00 Lactated Ringer's 1,000 ml @ 100 mls/hr Q10H IV 05/26/20 18:30 06/25/20 18:29 05/27/20 14:00 Ondansetron HCl (Zofran) 4 mg Q4H PRN IVP Nausea & Vomiting 05/26/20 18:30 06/25/20 18:29 05/27/20 14:11 Simethicone (Mylicon) 80 mg Q6H PRN ORAL Gas 05/27/20 03:30 08/25/20 03:29 05/27/20 03:50 Assessment/Plan Diagnosis [facility]: #nausea, emesis abd pain #pancreastitis #Accelerated HTN #history of alcohol abuse - IVF - pain control - GI eval - CLD - antiemetics - monitor CMP, lipid panel - consider MRCP - abd US: Impression: Heterogeneous pancreas with likely calcifications, reflecting findings reported previously Ectatic pancreatic duct, also previously reported Negative for gallstones Dilated common bile duct. This is not previously evident. Correlation with liver function tests is recommended, consideration for MRCP if clinically indicated - clonidine 0.1mg TID - hydralazine 100mg TID - coreg 25mg BID monitor lytes times spent 70 min Austin Ochoa M.D. May 27, 2020 16:46
--- NOTE | 2020-05-27 17:26 | NUR ---
NURSE NOTES: pt was c/o dizziness and chest pain call Dr. Mcdermott received order
[2020-05-27] MEDS: Carvedilol 25mg Tab ORAL SCH (17:40)
--- NOTE | 2020-05-27 19:31 | NUR ---
HAND-OFF: Report given to ISIS Shelley. pt is with stable .
--- NOTE | 2020-05-27 20:46 | NUR ---
NURSE NOTES: Received report from ISIS Benavides. Patient in stable condition.
[2020-05-27] MEDS ORDERED: Gadavist 7.5mMol/7.5ml vial IV SCH (21:00)
[2020-05-27] MEDS ORDERED: Omnipaque-300 100ml vial INJ PRN (21:15)
[2020-05-27] MEDS: HYDROmorphone 1mg/ml Carpuject IVP PRN (21:48)
--- NOTE | 2020-05-27 21:56 | NUR ---
NURSE NOTES: Received order from Dr. Ochoa. Patient scheduled for stat CT of abd and pelvis. Patient initially refused to drink barium contrast. Encouraged patient to drink as it is needed for test. Also, medicated patient with pain medication as ordered. Will follow up.
--- NOTE | 2020-05-27 22:22 | General Progress Note ---
Assessment/Plan Assessment/Plan: Assessment - recurrent EtOH Pancreatitis - chronic calcific changes and ductal dilation on prior CT Recommendations - Agree with CT scan - Strongly advised against EtOH - advance diet after CT Subjective Allergies: Coded Allergies: AMLODIPINE (Verified Allergy, Mild, 01/07/20) POSSIBLE REACTION MORPHINE (Verified Allergy, Unknown, 01/07/20) Objective Last 24 Hour Vital Signs Date Time Temp Pulse Resp B/P (MAP) Pulse Ox O2 Delivery O2 Flow Rate FiO2 05/27/20 21:37 144/86 05/27/20 21:07 97.6 05/27/20 20:00 97.6 83 144/86 (105) 97 05/27/20 18:44 87 157/102 (120) 05/27/20 17:40 187/111 05/27/20 17:40 74 187/111 05/27/20 17:09 186/112 (136) 68 05/27/20 16:36 182/105 05/27/20 16:00 97.9 94 185/105 (131) 79 05/27/20 12:00 98.3 94 153/78 (103) 97 05/27/20 10:20 168/93 05/27/20 09:07 90 178/113 05/27/20 08:00 98.3 94 178/113 (134) 97 05/27/20 07:31 Room Air 05/27/20 04:00 97.7 80 140/100 (113) 97 05/27/20 03:30 80 140/100 05/27/20 01:00 175/90 (118) 05/27/20 00:30 190/100 05/27/20 00:00 97.5 75 190/100 (130) 98 Intake and Output 05/26/20 05/27/20 19:00 07:00 Intake Total 1056 ml 350 ml Balance 1056 ml 350 ml Intake Oral 350 ml IV Total 1056 ml # Voids 2 # Bowel Movements 1 Height (Feet): 5 Height (Inches): 5.00 Weight (Pounds): 128 Stella Scott MD May 27, 2020 22:22
[2020-05-27] MEDS ORDERED: HYDROmorphone 1mg/ml Carpuject IVP PRN (22:30)
--- NOTE | 2020-05-27 22:53 | NUR ---
NURSE NOTES: Patient started drinking CT solution at 2205.
[2020-05-28] VITALS (9 sets, daily range): BP systolic 146–214; BP diastolic 91–127
[2020-05-28] MEDS: HYDROmorphone 1mg/ml Carpuject IVP PRN ×8 (00:54→23:42)
--- NOTE | 2020-05-28 01:05 | Diagnostic Imaging Report ---
EXAM: CT Abdomen and Pelvis Without and With Intravenous Contrast CLINICAL HISTORY: ABD PAIN TECHNIQUE: Axial computed tomography images of the abdomen and pelvis without and with intravenous contrast. CTDI is 3.3 mGy and DLP is 155.5 mGy-cm. One or more of the following dose reduction techniques were used: automated exposure control, adjustment of the mA and/or kV according to patient size, use of iterative reconstruction technique. COMPARISON: Abdominal ultrasound dated 05/25/2020. CT abdomen and pelvis dated 03/29/2020. FINDINGS: Lung bases: Unremarkable. No mass. No consolidation. ABDOMEN: Liver: Unremarkable. No mass. Gallbladder and bile ducts: Mild gallbladder wall thickening noted diffusely, measuring just over 3 mm. No evidence of cholelithiasis. No ductal dilation. Pancreas: Enlarged pancreas with mild peripancreatic inflammatory change as well as well as ductal dilatation, measuring up to 1.0 cm. Calcifications of the pancreatic head redemonstrated. No significant interval changes compared to prior imaging. Spleen: Unremarkable. No splenomegaly. Adrenals: Unremarkable. No mass. Kidneys and ureters: Unremarkable. No solid mass. No obstructing stones. No hydronephrosis. Stomach and bowel: Unremarkable. No obstruction. No mucosal thickening. PELVIS: Appendix: No findings to suggest acute appendicitis. Bladder: Unremarkable. No mass. No stones. Reproductive: Unremarkable as visualized. ABDOMEN and PELVIS: Intraperitoneal space: Unremarkable. No free air. No significant fluid collection. Bones/joints: No acute fracture. No dislocation. Soft tissues: Unremarkable. Vasculature: Unremarkable. No abdominal aortic aneurysm. Lymph nodes: Unremarkable. No enlarged lymph nodes. IMPRESSION: 1. Enlarged pancreas with epigastric mesenteric inflammatory change. The represent acute pancreatitis and the pubic clinical setting. 2. Mild diffuse dilation of the gallbladder wall measuring just over 3 mm. No evidence of cholelithiasis. May represent acalculous cholecystitis versus reactive inflammatory change due to above. 3. Stable chronic pancreatic duct and pancreatic calcifications.
--- NOTE | 2020-05-28 02:45 | Consultation ---
DATE OF CONSULTATION: 05/27/2020 GASTROENTEROLOGY CONSULTATION REPORT CONSULTING PHYSICIAN: Stella Scott M.D. CHIEF COMPLAINT: I was asked to see this patient by Dr. Austin Ochoa for evaluation of recurrent pancreatitis. HISTORY OF PRESENT ILLNESS: The patient is a 39-year-old man with history of recurrent alcoholic pancreatitis, who comes into the hospital with another attack consisting of two days of abdominal pain. The patient drank 1 bottle of wine when this happened. The patient has had multiple admissions to this hospital with pancreatitis. He states he has had an ERCP examination in the past to his recollection but he cannot inform when. He has had a repeat CT scan in March for one of his previous attacks showing calcific pancreatitis with dilation of the pancreatic duct. The patient is actually better today and wants to advance to oral diet. He has been scheduled to have a CT scan tomorrow. PAST MEDICAL HISTORY: Recurrent pancreatitis and history of chronic calcific pancreatitis. ALLERGIES: Amlodipine and morphine. FAMILY HISTORY: Noncontributory. SOCIAL HISTORY: The patient drinks alcohol and smokes cigarette. MEDICATIONS: See the chart. REVIEW OF SYSTEMS: Otherwise negative. PHYSICAL EXAMINATION: GENERAL: A thin man seen in his room. HEENT: Normocephalic and atraumatic. Sclerae anicteric. Oropharynx clear. NECK: Supple. CHEST: Clear to auscultation. CARDIOVASCULAR: Regular rate. ABDOMEN: Soft with nearly or no tenderness to palpation in the epigastric region. EXTREMITIES: No edema. LABORATORY DATA: Prior imaging studies were noted. ASSESSMENT: This patient presents with recurrent pancreatitis due to recurrent alcohol consumption. He was strongly advised to discontinue this drinking process, which results in apparent pancreatitis. His diet can be advanced as tolerated. He seems to be doing better. A CT scan of the abdomen and pelvis should be done since there is some new ductal dilatation that was not present on previous imaging. The ductal dilation is likely from his chronic pancreatitis and he would likely be too young for a malignant process. RECOMMENDATIONS: Per above discussion and per orders in the chart. Thank you for asking me to participate in the care of this patient. Stella Scott M.D. DR: TARSHA JOB#: [id number] CC:
[2020-05-28] MEDS: LR 1000ml 1,000 ML IV SCH ×3 (06:41→21:30)
[2020-05-28 07:14] LABS: ALANINE AMINOTRANSFERASE 19 U/L (12-78); ALBUMIN 3.2 G/DL (3.4-5.0); ALBUMIN/GLOBULIN RATIO 0.9 (1.0-2.7); ALKALINE PHOSPHATASE 58 U/L (46-116); ANION GAP 7 mmol/L (5-15); ASPARTATE AMINO TRANSFERASE 20 U/L (15-37); BILIRUBIN,TOTAL 0.8 MG/DL (0.2-1.0); BLOOD UREA NITROGEN 6 mg/dL (7-18); CARBON DIOXIDE 26 MMOL/L (21-32); CHLORIDE 99 MMOL/L (98-107); POTASSIUM 3.9 MMOL/L (3.5-5.1); SODIUM 132 MMOL/L (136-145)
[2020-05-28 07:20] LABS: BASOPHILS % (AUTO) 0.6 % (0.0-2.0); EOSINOPHILS % (AUTO) 1.8 % (0.0-3.0); HEMATOCRIT 41.3 % (42.0-52.0); HEMOGLOBIN 13.5 G/DL (14.2-18.0); LYMPHOCYTES % (AUTO) 17.1 % (20.0-45.0); MEAN CORPUSCULAR VOLUME 98 FL (80-99); NEUTROPHILS % (AUTO) 70.5 % (45.0-75.0); PLATELET COUNT 298 K/UL (150-450); RED BLOOD COUNT 4.24 M/UL (4.70-6.10); RED CELL DISTRIBUTION WIDTH 13.6 % (11.6-14.8); WHITE BLOOD COUNT 9.7 K/UL (4.8-10.8)
--- NOTE | 2020-05-28 07:25 | NUR ---
NURSE NOTES: Report received from Jimbo MARINELLI, rounds made. Patient resting in left lateral position in bed, AOx4, calm. No distress on RA. Respirations even/unlabored. IV LR infusing at 100 ml/hr to JP, site asymptomatic. Requesting pain medication (Dilaudid), will medicate as ordered. Call light in reach, bed in lowest position, will continue to monitor. Addendum: 05/28/20 at 1802 by Parul Cui RN Reinforced NPO status, provided oral care kit and instructed on use, patient verbalized understanding.
--- NOTE | 2020-05-28 07:34 | NUR ---
NURSE HAND-OFF: Important Events on Shift: Pain Management Patient Status: STABLE Diet: NPO Pending Orders: Pending Results/Labs: Pending MD notification: Latest Vital Signs: Temperature 98.8 , Pulse 76 , B/P 148 /95 , Respiratory Rate 20 , O2 SAT 97 , Room Air, O2 Flow Rate . Vital Sign Comment: Latest Haney Fall Score: 35 Fall Risk: Medium Risk Safety Measures: Call light Within Reach, Bed Alarm , Side Rails Side Rails x2, Bed position Low and Locked. Fall Precautions: Yellow Socks Patient Fall Education Report given to ISIS Teran . Latest Haney Fall Score: 35 Fall Risk: Medium Risk Safety Measures: Call light Within Reach, Bed Alarm , Side Rails Side Rails x2, Bed position Low and Locked. Fall Precautions: Yellow Socks Patient Fall Education Report given to [GINA RN ].
[2020-05-28] MEDS: Carvedilol 25mg Tab ORAL SCH ×2 (09:07→17:21)
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
--- NOTE | 2020-05-28 13:59 | Internal Med Progress Note ---
Subjective Physician Name Austin Ochoa Attending Physician Demetrio Davila MD Current Medications Medications (Trade) Dose Ordered Sig/Noé Route PRN Reason Start Time Stop Time Status Last Admin Dose Admin Acetaminophen (Tylenol) 650 mg Q4H PRN ORAL Mild Pain (Pain Scale 1-3) 05/26/20 18:30 06/25/20 18:29 05/27/20 20:37 Barium Sulfate (Readi-Cat 2) 450 ml NOW PRN ORAL Radiology Procedure 05/27/20 21:15 05/29/20 21:10 Carvedilol (Coreg) 25 mg BID ORAL 05/27/20 18:00 06/26/20 03:29 05/28/20 09:07 Clonidine HCl (Catapres Tab) 0.1 mg EVERY 8 HOURS ORAL 05/27/20 22:00 08/25/20 21:59 05/28/20 13:28 Clonidine HCl (Catapres Tab) 0.1 mg Q2H PRN ORAL SBP>160 05/27/20 17:15 08/25/20 17:14 05/28/20 01:03 Famotidine (Pepcid I.v.) 20 mg BID PRN IVP Stomach Acid 05/27/20 00:15 06/26/20 00:14 05/27/20 00:30 Hydralazine HCl (Apresoline) 100 mg BID PRN ORAL SBP >150 05/27/20 00:15 08/25/20 00:14 05/27/20 16:36 Hydromorphone HCl (Dilaudid) 1 mg Q3H PRN IVP For Pain 05/27/20 22:30 06/03/20 22:29 05/28/20 10:49 Iohexol (OMNIPAQUE-300 100ml) 100 ml NOW PRN INJ Radiology Procedure 05/27/20 21:15 05/29/20 21:10 Lactated Ringer's 1,000 ml @ 100 mls/hr Q10H IV 05/27/20 21:15 06/26/20 21:14 05/28/20 13:17 Ondansetron HCl (Zofran) 4 mg Q4H PRN IVP Nausea & Vomiting 05/26/20 18:30 06/25/20 18:29 05/28/20 13:37 Simethicone (Mylicon) 80 mg Q6H PRN ORAL Gas 05/27/20 03:30 08/25/20 03:29 05/27/20 03:50 Allergies: Coded Allergies: AMLODIPINE (Verified Allergy, Mild, 01/07/20) POSSIBLE REACTION MORPHINE (Verified Allergy, Unknown, 01/07/20) ROS Limited/Unobtainable: No Constitutional: Reports: weakness; Denies: no symptoms, chills, diaphoresis, fever, malaise, other HEENT: Denies: no symptoms, eye pain, blurred vision, tearing, double vision, ear pain, ear discharge, nose pain, nose congestion, throat pain, throat swelling, mouth pain, mouth swelling, other Cardiovascular: Denies: no symptoms, chest pain, edema, irregular heart rate, lightheadedness, palpitations, syncope, other Gastrointestinal/Abdominal: Reports: abdominal pain, nausea Genitourinary: Denies: no symptoms, burning, discharge, frequency, flank pain, hematuria, incontinence, pain, urgency, other Neurologic/Psychiatric: Denies: no symptoms, anxiety, depressed, emotional problems, headache, numbness, paresthesia, pre-existing deficit, seizure, tingling, tremors, weakness, other Subjective CT abd obtained overnight Gi and gen surg eval noted lipase over 200 Ct abdomen reviewed: IMPRESSION: 1. Enlarged pancreas with epigastric mesenteric inflammatory change. The represent acute pancreatitis and the pubic clinical setting. 2. Mild diffuse dilation of the gallbladder wall measuring just over 3 mm. No evidence of cholelithiasis. May represent acalculous cholecystitis versus reactive inflammatory change due to above. 3. Stable chronic pancreatic duct and pancreatic calcifications. Objective Last Vital Signs Date Time Temp Pulse Resp B/P (MAP) Pulse Ox O2 Delivery O2 Flow Rate FiO2 05/28/20 13:28 167/108 05/28/20 13:19 98.5 71 18 98 05/27/20 21:00 Room Air General Appearance: no apparent distress EENT: PERRL/EOMI, normal ENT inspection Neck: non-tender, normal alignment, supple Cardiovascular: normal peripheral pulses, normal rate, regularly irregular Respiratory/Chest: chest wall non-tender, lungs clear Abdomen: hypoactive bowel sounds, tender Neurologic: alert, oriented x 3 Laboratory Tests Test 05/28/20 04:50 White Blood Count 9.7 K/UL (4.8-10.8) Red Blood Count 4.24 M/UL (4.70-6.10) L Hemoglobin 13.5 G/DL (14.2-18.0) L Hematocrit 41.3 % (42.0-52.0) L Mean Corpuscular Volume 98 FL (80-99) Mean Corpuscular Hemoglobin 31.9 PG (27.0-31.0) H Mean Corpuscular Hemoglobin Concent 32.7 G/DL (32.0-36.0) Red Cell Distribution Width 13.6 % (11.6-14.8) Platelet Count 298 K/UL (150-450) Mean Platelet Volume 5.8 FL (6.5-10.1) L Neutrophils (%) (Auto) 70.5 % (45.0-75.0) Lymphocytes (%) (Auto) 17.1 % (20.0-45.0) L Monocytes (%) (Auto) 10.0 % (1.0-10.0) Eosinophils (%) (Auto) 1.8 % (0.0-3.0) Basophils (%) (Auto) 0.6 % (0.0-2.0) Sodium Level 132 MMOL/L (136-145) L Potassium Level 3.9 MMOL/L (3.5-5.1) Chloride Level 99 MMOL/L (98-107) Carbon Dioxide Level 26 MMOL/L (21-32) Anion Gap 7 mmol/L (5-15) Blood Urea Nitrogen 6 mg/dL (7-18) L Creatinine 1.0 MG/DL (0.55-1.30) Estimat Glomerular Filtration Rate > 60 mL/min (>60) Glucose Level 87 MG/DL (74-106) Calcium Level 9.0 MG/DL (8.5-10.1) Total Bilirubin 0.8 MG/DL (0.2-1.0) Aspartate Amino Transf (AST/SGOT) 20 U/L (15-37) Alanine Aminotransferase (ALT/SGPT) 19 U/L (12-78) Alkaline Phosphatase 58 U/L (46-116) Total Protein 6.7 G/DL (6.4-8.2) Albumin 3.2 G/DL (3.4-5.0) L Globulin 3.5 g/dL Albumin/Globulin Ratio 0.9 (1.0-2.7) L Lipase > 2000 U/L (73-393) H Microbiology Date/Time Source Procedure Growth Status 05/27/20 21:35 Nasopharynx SARS-CoV-2 RdRp Gene Assay - Final Complete Intake and Output 05/27/20 05/28/20 19:00 07:00 Intake Total 280 ml 100 ml Balance 280 ml 100 ml Intake Oral 280 ml IV Total 100 ml # Voids 3 3 Assessment/Plan Assessment/Plan #nausea, emesis abd pain #pancreastitis- acute on chronic #Accelerated HTN #history of alcohol abuse - IVF - pain control - GI eval - gen surg eval - NPO - Ct abd noted - antiemetics - monitor CMP, lipid panel - consider MRCP - abd US: Impression: Heterogeneous pancreas with likely calcifications, reflecting findings reported previously Ectatic pancreatic duct, also previously reported Negative for gallstones Dilated common bile duct. This is not previously evident. Correlation with liver function tests is recommended, consideration for MRCP if clinically indicated - clonidine 0.1mg TID - hydralazine 100mg TID - coreg 25mg BID - added clonidine 0.1 mg PRN for SBP > 160 monitor lytes times spent 45 min Austin Ochoa M.D. May 28, 2020 13:59
--- NOTE | 2020-05-28 14:15 | NUR ---
NURSE NOTES: Dr. Scott notified regarding diet status, order put in by Dr. Scott for clear liquids at this time, patient updated, provided clear liquids, verbalized understanding. 2D echo done this am at 0915.
--- NOTE | 2020-05-28 14:53 | General Progress Note ---
Assessment/Plan Assessment/Plan: Assessment - recurrent EtOH Pancreatitis - chronic calcific changes and ductal dilation Recommendations - Begin clears - Strongly advised against EtOH - follow exam and symptoms Subjective Allergies: Coded Allergies: AMLODIPINE (Verified Allergy, Mild, 01/07/20) POSSIBLE REACTION MORPHINE (Verified Allergy, Unknown, 01/07/20) Subjective Feels better pain gone wants to eat CT noted lipase higher Objective Last 24 Hour Vital Signs Date Time Temp Pulse Resp B/P (MAP) Pulse Ox O2 Delivery O2 Flow Rate FiO2 05/28/20 13:28 167/108 05/28/20 13:19 98.5 71 18 167/108 (127) 98 05/28/20 09:07 81 146/98 05/28/20 09:00 Room Air 05/28/20 09:00 98.3 81 16 146/98 (114) 98 05/28/20 06:19 148/95 05/28/20 04:56 98.8 05/28/20 04:00 98.8 76 148/95 (112) 97 05/28/20 02:40 164/97 (119) 05/28/20 01:40 170/100 (123) 05/28/20 01:03 214/127 05/28/20 00:40 214/127 (156) 05/27/20 21:37 144/86 05/27/20 21:07 97.6 05/27/20 21:00 Room Air 05/27/20 20:00 97.6 83 144/86 (105) 97 05/27/20 18:44 87 157/102 (120) 05/27/20 17:40 187/111 05/27/20 17:40 74 187/111 05/27/20 17:09 186/112 (136) 68 05/27/20 16:36 182/105 05/27/20 16:00 97.9 94 185/105 (131) 79 Intake and Output 05/27/20 05/28/20 19:00 07:00 Intake Total 280 ml 100 ml Balance 280 ml 100 ml Intake Oral 280 ml IV Total 100 ml # Voids 3 3 Laboratory Tests 05/28/20 04:50: White Blood Count 9.7, Red Blood Count 4.24L, Hemoglobin 13.5L, Hematocrit 41.3L , Mean Corpuscular Volume 98, Mean Corpuscular Hemoglobin 31.9H, Mean Corpuscular Hemoglobin Concent 32.7, Red Cell Distribution Width 13.6, Platelet Count 298, Mean Platelet Volume 5.8L, Neutrophils (%) (Auto) 70.5, Lymphocytes ( %) (Auto) 17.1L, Monocytes (%) (Auto) 10.0, Eosinophils (%) (Auto) 1.8, Basophils (%) (Auto) 0.6, Sodium Level 132L, Potassium Level 3.9, Chloride Level 99, Carbon Dioxide Level 26, Anion Gap 7, Blood Urea Nitrogen 6L, Creatinine 1.0, Estimat Glomerular Filtration Rate > 60, Glucose Level 87, Calcium Level 9.0, Total Bilirubin 0.8, Aspartate Amino Transf (AST/SGOT) 20, Alanine Aminotransferase (ALT/SGPT) 19, Alkaline Phosphatase 58, Total Protein 6.7, Albumin 3.2L, Globulin 3.5, Albumin/Globulin Ratio 0.9L, Lipase > 2000H Height (Feet): 5 Height (Inches): 5.00 Weight (Pounds): 128 Objective Thin AA man NCAT supple CTA RR Abd soft ND NT no edema Stella Scott MD May 28, 2020 14:53
--- NOTE | 2020-05-28 19:09 | NUR ---
NURSE HAND-OFF: Important Events on Shift:Started on Clear Liquids Patient Status: stable Diet: clear liquids Pending Orders: none Pending Results/Labs:CMP/Lipase 05/29/2D echo results Pending MD notification:none Latest Vital Signs: Temperature 98.5 , Pulse 72 , B/P 149 /94 , Respiratory Rate 18 , O2 SAT 97 , Room Air, O2 Flow Rate . Vital Sign Comment: monitor BP Latest Haney Fall Score: 35 Fall Risk: Medium Risk Safety Measures: Call light Within Reach, Bed Alarm , Side Rails Side Rails x2, Bed position Low and Locked. Fall Precautions: Yellow Socks Patient Fall Education Report given to Jimbo MARINELLI.
--- NOTE | 2020-05-28 19:26 | NUR ---
NURSE NOTES: Report received from ISIS Teran.
[2020-05-29] VITALS: BP 138/64
[2020-05-29] MEDS: HYDROmorphone 1mg/ml Carpuject IVP PRN ×2 (02:42→06:03)
[2020-05-29 06:18] VITALS: BP 145/85
[2020-05-29 06:19] LABS: ALANINE AMINOTRANSFERASE 17 U/L (12-78); ALBUMIN 3.1 G/DL (3.4-5.0); ALBUMIN/GLOBULIN RATIO 0.9 (1.0-2.7); ALKALINE PHOSPHATASE 56 U/L (46-116); ANION GAP 9 mmol/L (5-15); ASPARTATE AMINO TRANSFERASE 21 U/L (15-37); BILIRUBIN,TOTAL 0.6 MG/DL (0.2-1.0); BLOOD UREA NITROGEN 5 mg/dL (7-18); CALCIUM 8.6 MG/DL (8.5-10.1); CARBON DIOXIDE 28 MMOL/L (21-32); CHLORIDE 98 MMOL/L (98-107); CREATININE 0.9 MG/DL (0.55-1.30); POTASSIUM 3.6 MMOL/L (3.5-5.1); SODIUM 135 MMOL/L (136-145)
--- NOTE | 2020-05-29 07:16 | NUR ---
NURSE HAND-OFF: Important Events on Shift:[Round the clock pain management/ BP CONTROL ] Patient Status: [stable ] Diet: [Clear liquid diet ] Pending Orders: [d/c order/ d/c planning ] Pending Results/Labs:[] Pending MD notification:[] Latest Vital Signs: Temperature 98.6 , Pulse 79 , B/P 145 /85 , Respiratory Rate 20 , O2 SAT 100 , Room Air, O2 Flow Rate . Vital Sign Comment: [] Latest Haney Fall Score: 35 Fall Risk: Medium Risk Safety Measures: Call light Within Reach, Bed Alarm , Side Rails Side Rails x2, Bed position Low and Locked. Fall Precautions: Yellow Socks Patient Fall Education Report given to [ISIS Cornell].
--- NOTE | 2020-05-29 07:50 | NUR ---
NURSE NOTES: Received report from Jimbo MARINELLI, pt a/a/o x4 laying in bed with no signs of distress or other issues at this time. pt is on clear liquid diet, pt s is able to tolerated well with no s/s of n/v. IV on the right arm gauge #22 running LR @100ml/hr. call light within reach, bed in lowest position, side rales up x2. I will f/u as needed.
[2020-05-29] MEDS ORDERED: LR 1000ml ONE (08:09)
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
--- NOTE | 2020-05-29 13:22 | NUR ---
CASE MANAGEMENT:REVIEW 05/28/20 SI;ETOH PANCREATITIS 98.8 81 18 167/108 97% ON RA NA 135 A;B 3.2 LIPASE >2000 IS;DILAUDID IV Q3 PRN IVF LR @ 100 ML/HR CLONIDINE PO Q2 PRN COREG PO BID MED SURG STATUS DCP;FROM HOME PLAN; ADVANCE DIET TOLERATED
--- NOTE | 2020-05-29 13:28 | NUR ---
INSURANCE CLINICALS AND REVIEW HAVE BEEN FAXED TO [facility] P: [phone] F: [phone]
--- NOTE | 2020-05-29 15:29 | History & Physical ---
History and Physical History & Physicial HISTORY OF PRESENT ILLNESS: The patient is a 39-year-old man with history of recurrent alcoholic pancreatitis, who comes into the hospital with another attack consisting of two days of abdominal pain. The patient drank 1 bottle of wine when this happened. The patient has had multiple admissions to this hospital with pancreatitis. He states he has had an ERCP examination in the past to his recollection but he cannot inform when. He has had a repeat CT scan in March for one of his previous attacks showing calcific pancreatitis with dilation of the pancreatic duct. The patient is actually better today and wants to advance to oral diet. He has been scheduled to have a CT scan tomorrow. PAST MEDICAL HISTORY: Recurrent pancreatitis and history of chronic calcific pancreatitis. ALLERGIES: Amlodipine and morphine. FAMILY HISTORY: Noncontributory. SOCIAL HISTORY: The patient drinks alcohol and smokes cigarette. MEDICATIONS: See the chart. REVIEW OF SYSTEMS: Otherwise negative. PHYSICAL EXAMINATION: GENERAL: A thin man seen in his room. HEENT: Normocephalic and atraumatic. Sclerae anicteric. Oropharynx clear. NECK: Supple. CHEST: Clear to auscultation. CARDIOVASCULAR: Regular rate. ABDOMEN: Soft with nearly or no tenderness to palpation in the epigastric region. EXTREMITIES: No edema. LABORATORY DATA: Prior imaging studies were noted. ASSESSMENT: This patient presents with recurrent pancreatitis due to recurrent alcohol consumption. Plan advance diet. Seen by GI patient wishes to leave AMA Demetrio Malik M.D., MD May 29, 2020 15:28
--- NOTE | 2020-05-30 08:22 | Discharge Summary ---
Discharge Summary Discharge Summary _ DATE OF ADMISSION: 05/26/2020 DATE OF DISCHARGE: 05/29/2020 Patient left AGAINST MEDICAL ADVICE REASON FOR ADMISSION: 39 years old male with past medical history of chronic recurrent calcific pancreatitis secondary to alcohol abuse, hypertension, presented to the hospital with epigastric pain for 2 days with associated nausea and vomiting . He denied fever and chills. He denied cough, chest pain, shortness of breath. Patient reported episode of drinking alcohol prior to the episode. Patient with multiply admissions to the hospital for the same diagnosis CT scan in March showed calcific pancreatitis with dilation of the pancreatic duct. Upon evaluation vital signs revealed elevated blood pressure 198/120, otherwise unremarkable. Rapid COVID-19 was negative. Laboratory work-up revealed mild leukocytosis WBC 12.5, stable hemoglobin , hematocrit and platelet count. Stable electrolytes ,renal parameters and LFT. l Lipase 1197. Urine toxicology screen was positive for marijuana ,benzodiazepine and opiates . Serum alcohol level less than 3 . Urinalysis revealed +1 protein, no evidence of urinary tract infection. In emergency department patient received analgesic, one liter of IV fluids , Pepcid, Zofran and admitted for further management. CONSULTANTS: GI specialist [facility] intermediate designer Dr. Ochoa surgery Dr. Stiles [facility]: Patient admitted to medical surgical floor Patient was kept n.p.o. and hydrated with IV fluids. Pain management was addressed as needed. Symptomatic care with antiemetic provided as needed. CT of the abdomen and pelvis revealed enlarged pancreas with epigastric mesenteric inflammatory changes, representing acute pancreatitis Mild diffuse dilation of the gallbladder wall measuring over 3 mm; no evidence of cholelithiasis ; probably acalculus cholecystitis versus reactive inflammatory changes secondary to acute pancreatitis. Stable chronic pancreatic duct and pancreatic calcification. The next day patient felt better . Abdominal exam was unremarkable. Patient started on clear liquid diet and advanced as tolerated. Leukocytosis was most likely reactive , and resolved the next day . Patient had no fever. Lipase initially increased and then trended down to 797. Patient was strongly advised against ETOH use and abuse. Blood pressure was managed with beta-asia. Hydralazine was on board as needed for blood pressure spikes. Echocardiogram revealed preserved ejection fraction of 60% with mild left ventricular hypertrophy. No evidence of wall motion abnormality. Blood pressure stabilized . On 05/29 patient decided to leave due to family emergency. The risks and consequences of signing AGAINST MEDICAL ADVICE were discussed with patient in detail. Patient verbalized understanding, nevertheless signed AMA form and left. FINAL DIAGNOSES: Acute on chronic pancreatitis ETOH abuse Chronic calcific pancreas changes and ductal dilatation of pancreatic duct Hypertensive emergency -resolved Benzodiazepine abuse I have been assigned to dictate discharge summary for this account. I was not involved in the patient's management. Marce Joseph NP May 30, 2020 08:22
== END 2020-05-29 08:10 | disposition left against medical advice (07) | DRG 282 ==
LOC: EMR 13:51 → 3E 15:11 → EDBEDREQ 17:18
DX: K85.20 Alcohol induced acute pancreatitis without necrosis or infection (principal); F13.10 Sedative, hypnotic or anxiolytic abuse, uncomplicated; I16.1 Hypertensive emergency; F10.10 Alcohol abuse, uncomplicated; Z88.6 Allergy status to analgesic agent; Z88.8 Allergy status to other drugs, medicaments and biological substances; K86.1 Other chronic pancreatitis
CPT/HCPCS: 36415; 74178; 80053; 80307; 81003; 83690; 85025; 85610; 85730; 93005; 93306; 96361; 96374; 96375; 99285; A9585; G0480; J2405; U0002

== ENCOUNTER 2020-06-13 00:53 | Emergency (ER) | payer MEDICAID, OTHER ==
[~2020-06-13] VITALS: Ht 165.1 cm; Wt 58.1 kg
--- NOTE | 2020-06-13 01:06 | Emergency Room Report ---
History of Present Illness General Chief Complaint: Abdominal Pain Source: Patient Present Illness HPI This a 39-year-old male with a history of alcoholic pancreatitis. He has been here numerous times for the same thing. He presents with chief complaint epigastric pain. Pain is sharp. Pain been ongoing for about 24 hours. Pain radiated to his back. Nausea but no vomiting. No fever chills. He was just admitted here last week for couple days. He signed out AMA because he said he has to take care of his kids. He said he has not had any alcohol for a week now. Nothing made it better. Eating made it worse. Pain is 9 out of 10. No relief with extra strength Tylenol. Allergies: Coded Allergies: AMLODIPINE (Verified Allergy, Mild, 01/07/20) POSSIBLE REACTION MORPHINE (Verified Allergy, Unknown, 01/07/20) COVID-19 Screening Contact w/high risk pt: No Recent Travel to affected area: No Experienced COVID-19 symptoms?: No COVID-19 Testing performed BOARD FINISHER: No Patient History Past Medical History: see triage record, old chart reviewed Past Surgical History: other Pertinent Family History: none Social History: Reports: alcohol use Immunizations: other Reviewed Nursing Documentation: PMH: Agreed; PSxH: Agreed Nursing Documentation-PMH Past Medical History: No History, Except For Hx Cardiac Problems: Yes Hx Hypertension: Yes Hx Cancer: No Hx Gastrointestinal Problems: Yes Hx Neurological Problems: No Review of Systems Eye: Denies: eye pain, blurred vision ENT: Denies: ear pain, nose congestion, throat swelling Respiratory: Denies: cough, shortness of breath Cardiovascular: Denies: chest pain, palpitations Gastrointestinal: Reports: abdominal pain, nausea; Denies: diarrhea, vomiting Musculoskeletal: Denies: back pain, joint pain Skin: Denies: rash Neurological: Denies: headache, numbness Endocrine: Denies: increased thirst, increased urine Hematologic/Lymphatic: Denies: easy bruising All Other Systems: negative except mentioned in HPI Physical Exam Vital Signs Date Time Temp Pulse Resp B/P (MAP) Pulse Ox O2 Delivery O2 Flow Rate FiO2 06/13/20 00:56 98.6 91 18 185/108 (133) 97 Room Air Vitals with high blood pressure Sp02 EP Interpretation: reviewed, normal General Appearance: well appearing, no apparent distress, alert Head: normocephalic, atraumatic Eyes: bilateral eye PERRL, bilateral eye EOMI ENT: hearing grossly normal, normal pharynx Neck: full range of motion, supple, no meningismus Respiratory: chest non-tender, lungs clear, normal breath sounds Cardiovascular #1: regular rate, rhythm, no murmur Gastrointestinal: normal bowel sounds, no mass, no organomegaly, no bruit, non- distended, tenderness - Epigastric Musculoskeletal: back normal, normal range of motion, gait/station normal Psychiatric: mood/affect normal Medical Decision Making Diagnostic Impression: Primary Impression: Acute pancreatitis Qualified Codes: K85.20 - Alcohol induced acute pancreatitis without necrosis or infection ER Course Presents with abdominal pain. He has acute on chronic pancreatitis. Lipase level is at his baseline. He felt better now. Tolerating p.o. Will discharge home. Last Vital Signs Date Time Temp Pulse Resp B/P (MAP) Pulse Ox O2 Delivery O2 Flow Rate FiO2 06/13/20 00:56 98.6 91 18 185/108 (133) 97 Room Air Status: improved Disposition: HOME, SELF-CARE Condition: Stable Scripts Hydrocodone/Acetaminophen 5-325* (HYDROCODONE/ACETAMINOPHEN 5-325*) 1 Each Tablet 1 TAB ORAL Q6H PRN for For Pain, #20 TAB 0 Refills Prov: Bryce Baron MD 06/13/20 Additional Instructions: Advance diet as tolerated. Continue to not drink alcohol. Follow-up with your doctor in 7 days. Return if worse. Bryce Baron MD Jun 13, 2020 01:06
[2020-06-13] MEDS ORDERED: Pantoprazole Inj IV ONE (01:15)
[2020-06-13] MEDS ORDERED: HYDROmorphone 1mg/ml Carpuject IVP ONE (01:15)
[2020-06-13 01:20] LABS: EOSINOPHILS % (AUTO) 2.2 % (0.0-3.0); HEMATOCRIT 38.3 % (42.0-52.0); LYMPHOCYTES % (AUTO) 24.8 % (20.0-45.0); MEAN CORPUSCULAR VOLUME 95 FL (80-99); MONOCYTES % (AUTO) 8.6 % (1.0-10.0); NEUTROPHILS % (AUTO) 60.4 % (45.0-75.0); PLATELET COUNT 455 K/UL (150-450); RED BLOOD COUNT 4.02 M/UL (4.70-6.10); RED CELL DISTRIBUTION WIDTH 13.7 % (11.6-14.8); WHITE BLOOD COUNT 8.8 K/UL (4.8-10.8)
[2020-06-13 01:26] VITALS: BP 151/87
[2020-06-13 01:30] LABS: ANION GAP 8 mmol/L (5-15); BLOOD UREA NITROGEN 8 mg/dL (7-18); CALCIUM 9.2 MG/DL (8.5-10.1); CARBON DIOXIDE 29 MMOL/L (21-32); CHLORIDE 101 MMOL/L (98-107); CREATININE 1.2 MG/DL (0.55-1.30); POTASSIUM 3.6 MMOL/L (3.5-5.1); SODIUM 138 MMOL/L (136-145)
[2020-06-13 01:35] LABS: ALANINE AMINOTRANSFERASE 15 U/L (12-78); ALBUMIN 3.9 G/DL (3.4-5.0); ALKALINE PHOSPHATASE 66 U/L (46-116); ASPARTATE AMINO TRANSFERASE 16 U/L (15-37); BILIRUBIN,TOTAL 0.4 MG/DL (0.2-1.0)
[2020-06-13 01:38] LABS: APPEARANCE,URINE CLEAR; BILIRUBIN, URINE NEGATIVE (NEGATIVE); GLUCOSE, URINE (UA) NEGATIVE (NEGATIVE); KETONES,URINE NEGATIVE (NEGATIVE); LEUKOCYTE ESTERASE ,URINE NEGATIVE (NEGATIVE); NITRITE,URINE NEGATIVE (NEGATIVE); PH,URINE 6 (4.5-8.0); PROTEIN,URINE NEGATIVE (NEGATIVE); UROBILINOGEN,URINE NORMAL MG/DL (0.0-1.0)
[2020-06-13 01:41] LABS: COLOR,URINE YELLOW
[2020-06-13] MEDS ORDERED: HYDROCODON-ACE1 EA15 ORAL (02:09)
[2020-06-13 02:29] VITALS: BP 141/85
[2020-06-14] MEDS ORDERED: CREON DR 6,0001 EACH PO (07:01)
== END 2020-06-13 02:30 | disposition home or self-care (01) ==
LOC: EMR 01:20
DX: K85.20 Alcohol induced acute pancreatitis without necrosis or infection (principal); I10 Essential (primary) hypertension; Z88.6 Allergy status to analgesic agent
CPT/HCPCS: 36415; 80053; 81003; 83690; 85025; 96361; 96374; 96375; J1170; J2405; J7030; S0164; Z7502; 99284

== ENCOUNTER 2020-06-27 12:12 | Emergency (ER) | payer OTHER ==
[~2020-06-27] VITALS: Ht 165.1 cm; Wt 58.1 kg
[~2020-06-27 12:12] MED LIST changes: +CREON DR 6,0001 EACH PO
[2020-06-27 12:16] VITALS: BP 189/109
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
--- NOTE | 2020-06-27 12:42 | NUR ---
ED Nurse Note: Blood specimen collected and sent.
[2020-06-27 12:52] LABS: BASOPHILS % (AUTO) 4.3 % (0.0-2.0); EOSINOPHILS % (AUTO) 1.1 % (0.0-3.0); HEMATOCRIT 41.4 % (42.0-52.0); HEMOGLOBIN 13.8 G/DL (14.2-18.0); LYMPHOCYTES % (AUTO) 16.4 % (20.0-45.0); MEAN CORPUSCULAR VOLUME 94 FL (80-99); MONOCYTES % (AUTO) 6.2 % (1.0-10.0); NEUTROPHILS % (AUTO) 72.1 % (45.0-75.0); PLATELET COUNT 372 K/UL (150-450); RED BLOOD COUNT 4.39 M/UL (4.70-6.10); RED CELL DISTRIBUTION WIDTH 13.3 % (11.6-14.8); WHITE BLOOD COUNT 10.8 K/UL (4.8-10.8)
[2020-06-27 12:59] LABS: ANION GAP 3 mmol/L (5-15); BLOOD UREA NITROGEN 10 mg/dL (7-18); CALCIUM 9.5 MG/DL (8.5-10.1); CARBON DIOXIDE 27 MMOL/L (21-32); CHLORIDE 99 MMOL/L (98-107); CREATININE 1.1 MG/DL (0.55-1.30); POTASSIUM 3.8 MMOL/L (3.5-5.1); SODIUM 129 MMOL/L (136-145)
[2020-06-27 13:03] LABS: ALANINE AMINOTRANSFERASE 23 U/L (12-78); ALBUMIN 4.2 G/DL (3.4-5.0); ALBUMIN/GLOBULIN RATIO 1.2 (1.0-2.7); ALKALINE PHOSPHATASE 62 U/L (46-116); ASPARTATE AMINO TRANSFERASE 20 U/L (15-37); BILIRUBIN,TOTAL 0.3 MG/DL (0.2-1.0)
[2020-06-27] MEDS ORDERED: Omnipaque-300 100ml vial INJ ONE (13:15)
--- NOTE | 2020-06-27 13:18 | NUR ---
ED Nurse Note: patient taken to CT and stable.
--- NOTE | 2020-06-27 13:28 | NUR ---
ED Nurse Note: patient came back from CT in stable condition.
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
[2020-06-27] MEDS ORDERED: HYDROcodone/Acetamin 5/325 tab ORAL ONE (14:30)
[2020-06-27] MEDS ORDERED: NORCO 5-325 TA1 EAC1 ORAL (14:37)
[2020-06-27] MEDS ORDERED: BACITRACIN15 GM TOPIC (14:41)
[2020-06-27 15:08] VITALS: BP 152/90
--- NOTE | 2020-06-27 15:08 | NUR ---
ER DISCHARGE NOTE: Patient is cleared to be discharged per ERMD, pt is aox4, on room air, with stable vital signs. pt was given dc and prescription instructions, pt was able to verbalize understanding, pt id band and iv site removed without complications. pt is able to ambulate with steady gait. pt took all belongings.
== END 2020-06-27 15:08 | disposition home or self-care (01) ==
LOC: EMR 12:49
DX: S20.211A Contusion of right front wall of thorax, initial encounter (principal); K86.1 Other chronic pancreatitis; I10 Essential (primary) hypertension; S80.212A Abrasion, left knee, initial encounter; S80.211A Abrasion, right knee, initial encounter; V29.9XXA Motorcycle rider (driver) (passenger) injured in unspecified traffic accident, initial encounter; Y92.410 Unspecified street and highway as the place of occurrence of the external cause; Z88.6 Allergy status to analgesic agent
CPT/HCPCS: 36415; 71260; 74177; 80053; 83690; 85025; 85610; 85730; Q9965; Z7502; 99284

== ENCOUNTER 2020-07-01 17:42 | Emergency (ER) | payer OTHER ==
[~2020-07-01] VITALS: Ht 165.1 cm; Wt 57.6 kg
[~2020-07-01 17:42] MED LIST changes: +BACITRACIN15 GM TOPIC
--- NOTE | 2020-07-01 18:55 | Diagnostic Imaging Report ---
EXAM: XR Left Foot Complete, 3 or More Views CLINICAL HISTORY: PAIN TECHNIQUE: Frontal, lateral and oblique views of the left foot. COMPARISON: No relevant prior studies available. FINDINGS: Bones/joints: No fracture or malalignment. Joint effusion at the ankle. Soft tissues: Unremarkable. No radiopaque foreign body. IMPRESSION: 1. No fracture or malalignment. 2. Joint effusion at the ankle.
--- NOTE | 2020-07-01 18:57 | Diagnostic Imaging Report ---
EXAM: XR Left Ankle Complete, 3 or More Views CLINICAL HISTORY: PAIN TECHNIQUE: Frontal, lateral and oblique views of the left ankle. COMPARISON: No relevant prior studies available. FINDINGS: Bones/joints: No fracture or malalignment. Joint effusion present. Soft tissues: Unremarkable. IMPRESSION: 1. No fracture or malalignment. 2. Joint effusion present.
[2020-07-01] MEDS ORDERED: IBUPROFEN600 M1 ORAL (19:14)
[2020-07-01 19:35] VITALS: BP 145/85
--- NOTE | 2020-07-01 20:19 | Emergency Room Report ---
History of Present Illness General Chief Complaint: Lower Extremity Injury Source: Patient Present Illness HPI 39-year-old male presents the ED complaining of left ankle pain. States that at work today he was going down the ladder when he rolled his left ankle. Presents with left ankle pain. Dull, 10 out of 10, nonradiating. Denies any other injuries. Is able to bear weight but with difficulty. No other aggravating relieving factors. 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: No Patient History Past Medical History: HTN, GERD Past Surgical History: none Pertinent Family History: none Social History: Denies: smoking, alcohol use, drug use Immunizations: UTD Reviewed Nursing Documentation: PMH: Agreed; PSxH: Agreed Nursing Documentation-PMH Past Medical History: No History, Except For Hx Cardiac Problems: Yes Hx Hypertension: Yes Hx Cancer: No Hx Gastrointestinal Problems: Yes Hx Neurological Problems: No Review of Systems All Other Systems: negative except mentioned in HPI Physical Exam Vital Signs Date Time Temp Pulse Resp B/P (MAP) Pulse Ox O2 Delivery O2 Flow Rate FiO2 07/01/20 17:45 99.3 101 16 183/96 (125) 95 Room Air Sp02 EP Interpretation: reviewed, normal General Appearance: no apparent distress, alert, GCS 15, non-toxic Head: normocephalic Eyes: bilateral eye normal inspection, bilateral eye PERRL ENT: normal ENT inspection Neck: normal inspection Respiratory: normal inspection Cardiovascular #1: normal inspection Gastrointestinal: normal inspection Rectal: deferred Genitourinary: no CVA tenderness Musculoskeletal: tender - L ankle Neurologic: alert, motor strength/tone normal, oriented x3, sensory intact, responsive, speech normal Psychiatric: normal inspection Skin: no rash Lymphatic: normal inspection Procedures Splinting Splinting : Consent: Verbal Pre-Made Type: CAL wrap Pre-Proc Neuro Vasc Exam: normal Post-Proc Neuro Vasc Exam: normal Patient Tolerated: Well Complications: None Medical Decision Making Diagnostic Impression: Primary Impression: Ankle sprain Qualified Codes: S93.402A - Sprain of unspecified ligament of left ankle, initial encounter ER Course Hospital Course 39 yo M presents with L ankle/foot pain Differential diagnoses include: Fracture, dislocation, sprain, contusion Clinical course Patient placed on stretcher. After initial history and physical, I ordered pain medications and Xrays of L foot/ankle Xrays prelim read shows no acute fracture/dislocation. placed in cal wrap, g iven crutches I discussed findings with patient. Safe for discharge close outpatient follow- up. I will provide referrals Diagnosis - ankle sprain Stable and discharged to home with prescription for Motrin. apply ice, keep elevated. weight bear as tolerated. Followup with PMD. Return to ED if symptoms recur or worsen Other X-Ray Diagnostic Results Other X-Ray Diagnostic Results #1: X-Ray ordered: L ankle # of Views/Limited Vs Complete: 3 View Indication: Pain EP Interpretation: Yes Interpretation: no dislocation, no soft tissue swelling, no fractures Impression: No acute disease Electronically Signed by: Electronically signed by Baljinder Soto MD Other X-Ray Diagnostic Results #2: X-Ray ordered: L foot # of Views/Limited Vs Complete: 3 View Indication: Pain EP Interpretation: Yes Interpretation: no dislocation, no soft tissue swelling, no fractures Impression: No acute disease Electronically Signed by: Electronically signed by Baljinder Soto MD Last Vital Signs Date Time Temp Pulse Resp B/P (MAP) Pulse Ox O2 Delivery O2 Flow Rate FiO2 07/01/20 19:35 98.9 85 16 145/85 98 Room Air Status: improved Disposition: HOME, SELF-CARE Condition: Stable Scripts Ibuprofen* (MOTRIN*) 600 Mg Tablet 600 MG ORAL Q8H PRN for FOR PAIN, #20 TAB 0 Refills Prov: Baljinder Soto MD 07/01/20 Referrals: NON PHYSICIAN (PCP) [facility] Open 24 hour /7 days a week by Appointment Only [address] [address] Departure Forms: Return to Work Return to Work Date: Jul 04, 2020 Work Restrictions: No Prolonged Standing Patient Instructions: Ankle Sprain Baljinder Soto MD Jul 01, 2020 20:19
== END 2020-07-01 19:48 | disposition home or self-care (01) ==
LOC: EMR 18:08
DX: S93.402A Sprain of unspecified ligament of left ankle, initial encounter (principal); I10 Essential (primary) hypertension; K21.9 Gastro-esophageal reflux disease without esophagitis; Z88.6 Allergy status to analgesic agent; X58.XXXA Exposure to other specified factors, initial encounter; Y92.9 Unspecified place or not applicable
CPT/HCPCS: 73610; 73630; Z7502; 99284

== ENCOUNTER 2020-07-09 16:47 | Emergency (ER) | payer OTHER ==
[~2020-07-09] VITALS: Ht 165.1 cm; Wt 57.6 kg
[~2020-07-09 16:47] MED LIST changes: +IBUPROFEN600 M1 ORAL
[2020-07-09 16:54] VITALS: BP 161/81
--- NOTE | 2020-07-09 16:54 | NUR ---
ED Nurse Note: pt walked into ED c/o abdominal from chronic pancreatitis with nausea/vomiting. Pt was here yesterday and is stating the "pain didnt stop." Pt is awake, alert, oriented x4, breathing even and unlabored, on RA. Vitals stable as documented.
[2020-07-09] MEDS ORDERED: HYDROmorphone 1 MG, DiphenhydrAMINE 25 MG in NS 55 ML IV ONE (17:00)
--- NOTE | 2020-07-09 17:19 | NUR ---
ED Nurse Note: blood sent to lab
[2020-07-09 17:53] LABS: ANION GAP 14 mmol/L (5-15); BLOOD UREA NITROGEN 9 mg/dL (7-18); CALCIUM 9.9 MG/DL (8.5-10.1); CARBON DIOXIDE 26 MMOL/L (21-32); CHLORIDE 100 MMOL/L (98-107); SODIUM 140 MMOL/L (136-145)
[2020-07-09 17:57] LABS: ALANINE AMINOTRANSFERASE 18 U/L (12-78); ALBUMIN/GLOBULIN RATIO 1.2 (1.0-2.7); ALKALINE PHOSPHATASE 82 U/L (46-116); ASPARTATE AMINO TRANSFERASE 24 U/L (15-37); BILIRUBIN,TOTAL 0.8 MG/DL (0.2-1.0)
--- NOTE | 2020-07-09 17:59 | Emergency Room Report ---
History of Present Illness General Chief Complaint: Abdominal Pain Source: Patient Present Illness HPI Patient is a 39-year-old male presents for increased abdominal pain. Patient had reportedly had increased nausea and vomiting since recent visit to the emergency department yesterday. Had prior history of pancreatitis related to alcohol abuse. Denies any recent alcohol intake. Had been seen by me yesterday and was noted to have elevated lipase at that time. Patient refused declined then. Allergies: Coded Allergies: AMLODIPINE (Verified Allergy, Mild, 01/07/20) POSSIBLE REACTION MORPHINE (Verified Allergy, Unknown, 01/07/20) COVID-19 Screening Contact w/high risk pt: No Recent Travel to affected area: No Experienced COVID-19 symptoms?: No COVID-19 Testing performed CLERICAL SUPERVISOR: No Patient History Past Medical History: see triage record Reviewed Nursing Documentation: PMH: Agreed; PSxH: Agreed Nursing Documentation-PMH Past Medical History: No History, Except For Hx Cardiac Problems: Yes - pancreatitis Hx Hypertension: Yes Hx Cancer: No Hx Gastrointestinal Problems: Yes Hx Neurological Problems: No Review of Systems All Other Systems: negative except mentioned in HPI Physical Exam Vital Signs Date Time Temp Pulse Resp B/P (MAP) Pulse Ox O2 Delivery O2 Flow Rate FiO2 07/09/20 16:50 98.2 84 16 190/128 (148) 98 Room Air Sp02 EP Interpretation: reviewed, normal General Appearance: normal inspection, well appearing, no apparent distress, alert, GCS 15 Head: atraumatic ENT: normal ENT inspection, hearing grossly normal, normal voice Neck: normal inspection, full range of motion, supple, no bony tend Respiratory: normal inspection, lungs clear, normal breath sounds, no respiratory distress, no retraction, no wheezing Cardiovascular #1: regular rate, rhythm, no edema Gastrointestinal: normal inspection, normal bowel sounds, non tender, soft, no guarding, no hernia Genitourinary: no CVA tenderness Musculoskeletal: normal inspection, back normal, normal range of motion Neurologic: alert, responsive, speech normal, normal inspection Psychiatric: normal inspection, judgement/insight normal, mood/affect normal Medical Decision Making Diagnostic Impression: Primary Impression: Pancreatitis, acute Additional Impressions: Accelerated hypertension Cyclic vomiting syndrome ER Course Patient presented for abdominal pain and vomiting. Differential diagnosis include was not limited to pancreatitis, alcohol abuse, gastritis, cyclic vomiting among others. Because of complexity of patient's case laboratory tests and imaging studies were ordered. Patient was recently seen by me and was noted to have prior pancreatitis. Previously this had been alcohol related. On past 2 visits patient has not had any alcohol in his system. Patient was given clonidine as well as Coreg for his blood pressure. Patient continued to have some hypertension and was therefore given IV labetalol. Patient was discussed with Dr. Suresh Cardona who accepted the patient as transfer to [facility]. Labs Test 07/09/20 16:17 White Blood Count 13.1 K/UL (4.8-10.8) Red Blood Count 5.13 M/UL (4.70-6.10) Hemoglobin 16.6 G/DL (14.2-18.0) Hematocrit 50.0 % (42.0-52.0) Mean Corpuscular Volume 98 FL (80-99) Mean Corpuscular Hemoglobin 32.3 PG (27.0-31.0) Mean Corpuscular Hemoglobin Concent 33.1 G/DL (32.0-36.0) Red Cell Distribution Width 14.2 % (11.6-14.8) Platelet Count 381 K/UL (150-450) Mean Platelet Volume 5.9 FL (6.5-10.1) Neutrophils (%) (Auto) 80.0 % (45.0-75.0) Lymphocytes (%) (Auto) 10.1 % (20.0-45.0) Monocytes (%) (Auto) 7.9 % (1.0-10.0) Eosinophils (%) (Auto) 1.0 % (0.0-3.0) Basophils (%) (Auto) 0.9 % (0.0-2.0) Prothrombin Time 10.7 SEC (9.30-11.50) Prothromb Time International Ratio 1.0 (0.9-1.1) Activated Partial Thromboplast Time 30 SEC (23-33) Sodium Level 140 MMOL/L (136-145) Potassium Level 4.0 MMOL/L (3.5-5.1) Chloride Level 100 MMOL/L (98-107) Carbon Dioxide Level 26 MMOL/L (21-32) Anion Gap 14 mmol/L (5-15) Blood Urea Nitrogen 9 mg/dL (7-18) Creatinine 1.0 MG/DL (0.55-1.30) Estimat Glomerular Filtration Rate > 60 mL/min (>60) Glucose Level 113 MG/DL (74-106) Calcium Level 9.9 MG/DL (8.5-10.1) Total Bilirubin 0.8 MG/DL (0.2-1.0) Aspartate Amino Transf (AST/SGOT) 24 U/L (15-37) Alanine Aminotransferase (ALT/SGPT) 18 U/L (12-78) Alkaline Phosphatase 82 U/L (46-116) Troponin I 0.000 ng/mL (0.000-0.056) Total Protein 9.2 G/DL (6.4-8.2) Albumin 5.0 G/DL (3.4-5.0) Globulin 4.2 g/dL Albumin/Globulin Ratio 1.2 (1.0-2.7) Lipase 2252 U/L (73-393) Serum Alcohol < 3 mg/dL Last Vital Signs Date Time Temp Pulse Resp B/P (MAP) Pulse Ox O2 Delivery O2 Flow Rate FiO2 07/09/20 17:40 98.2 07/09/20 16:50 84 16 190/128 (148) 98 Room Air Status: improved Disposition: SHORT-TERM HOSP Condition: Stable Referrals: NON PHYSICIAN (PCP) Godfrey Ricardo MD Jul 09, 2020 17:59
[2020-07-09 18:02] LABS: BASOPHILS % (AUTO) 0.9 % (0.0-2.0); HEMOGLOBIN 16.6 G/DL (14.2-18.0); LYMPHOCYTES % (AUTO) 10.1 % (20.0-45.0); MEAN CORPUSCULAR VOLUME 98 FL (80-99); MONOCYTES % (AUTO) 7.9 % (1.0-10.0); PLATELET COUNT 381 K/UL (150-450); RED BLOOD COUNT 5.13 M/UL (4.70-6.10); RED CELL DISTRIBUTION WIDTH 14.2 % (11.6-14.8); WHITE BLOOD COUNT 13.1 K/UL (4.8-10.8)
[2020-07-09] MEDS ORDERED: CARVEDILOL12.5 MG ORAL (18:28)
[2020-07-09] MEDS ORDERED: CREON DR 12,001 EACH PO (18:28)
[2020-07-09 18:33] VITALS: BP 213/108
--- NOTE | 2020-07-09 18:35 | NUR ---
ED Nurse Note: 213/108 bp made aware to dr park.
--- NOTE | 2020-07-09 18:44 | NUR ---
ED Nurse Note: pt unable to provide urine sample at this time.
--- NOTE | 2020-07-09 18:50 | NUR ---
ED Nurse Note: EDMD aware pt c/o pain.
[2020-07-09] MEDS ORDERED: HYDROmorphone 1mg/ml Carpuject IVP ONE ×3 (19:00→23:45)
--- NOTE | 2020-07-09 19:11 | NUR ---
HAND-OFF: Report given to ISIS Shea.
[2020-07-09 19:15] VITALS: BP 207/114
--- NOTE | 2020-07-09 19:15 | NUR ---
ED Nurse Note: Report received from ISIS Rivera. Patient is resting in bed. Blood pressure remains elevated at this time; aware.
[2020-07-09 19:26] LABS: APPEARANCE,URINE CLEAR; BILIRUBIN, URINE NEGATIVE (NEGATIVE); COLOR,URINE PALE YELLOW; GLUCOSE, URINE (UA) NEGATIVE (NEGATIVE); KETONES,URINE 3+ (NEGATIVE); LEUKOCYTE ESTERASE ,URINE NEGATIVE (NEGATIVE); NITRITE,URINE NEGATIVE (NEGATIVE); PH,URINE 6 (4.5-8.0); PROTEIN,URINE 1+ (NEGATIVE); UROBILINOGEN,URINE NORMAL MG/DL (0.0-1.0)
[2020-07-09] MEDS ORDERED: Carvedilol 12.5mg tab ORAL ONE (19:45)
[2020-07-09 21:15] VITALS: BP 208/118
--- NOTE | 2020-07-09 21:15 | NUR ---
ED Nurse Note: Patient is requesting more pain medication at this time and BP remains elevated; SHERLY park notified. Will carry out medication orders. Patient is otherwise in no acute distress, resting in bed. Connected to athletic monitor with all safety measures in place. Patient is aware of transfer, awaiting on ambulance at this time. Will continue to monitor.
[2020-07-09] MEDS ORDERED: Labetalol 5mg/ml 20ml vial IV ONE ×2 (22:15→23:30)
[2020-07-09 22:30] VITALS: BP 206/114
--- NOTE | 2020-07-09 22:30 | NUR ---
ED Nurse Note: Patient BP 206/114 at this time. ERMD aware. Patient denies headache or blurry vision; asymptomatic. Patient remains resting in bed with safety measures in place. Continuous monitoring of BP by RN.
[2020-07-09] MEDS ORDERED: Enalaprilat 2.5mg/2ml Inj IV ONE ×2 (22:58→23:00)
[2020-07-09 23:10] VITALS: BP 217/116
--- NOTE | 2020-07-09 23:10 | NUR ---
ED Nurse Note: Ambulance transport is here to transport patient, BP remains elevated at 217/116. SHERLY Baron aware. Hydralazine 20mg vial pulled from [facility]. SHERLY unable to place order in eMAR. Verbal order given by SHERLY Baron to push IV hydralazine 20mg stat 1x at this time. Will carry out order and reassess BP.
--- NOTE | 2020-07-09 23:23 | NUR ---
ED Nurse Note: Patient BP 191/101; SHERLY Baron notified. Verbal order given for second 20mg dose of hydralazine to be given right now. Hydralazine 20mg vial pulled from [facility].
--- NOTE | 2020-07-09 23:40 | NUR ---
ED Nurse Note: Patient is feeling nauseous at this time. No active vomiting noted. MD notified.
[2020-07-09] MEDS ORDERED: HYDROmorphone 1mg/ml Carpuject ONE (23:41)
--- NOTE | 2020-07-09 23:55 | NUR ---
ED Nurse Note: Spoke with ISIS Garcia at [facility] and gave report for continuity of care.
[2020-07-10] VITALS: BP 156/91
--- NOTE | 2020-07-10 | NUR ---
ED Nurse Note: Patient is stable for transfer to [facility] at this time as ordered by SHERLY. Patient is aaox4, breathing is normal and unlabored at time of ED departure. Patient's current BP is 156/91. Report given to EMS crew. Patient is being transported via [facility] by [facility] ambulance BLS unit. Patient is in no acute distress. Patient ambulated to [facility] without complication. IV is patent and intact. Patient took all belongings with him. Patient's packet given to EMS crew. SHERLY Baron is aware of patient BP and is Ok with transportation.
== END 2020-07-10 | disposition short-term general hospital (02) ==
LOC: EMR 17:28
DX: K85.90 Acute pancreatitis without necrosis or infection, unspecified (principal); I10 Essential (primary) hypertension; R11.15 Cyclical vomiting syndrome unrelated to migraine; Z88.6 Allergy status to analgesic agent; Z88.8 Allergy status to other drugs, medicaments and biological substances
CPT/HCPCS: 36415; 80053; 81003; 83690; 84484; 85025; 85610; 85730; 86850; 86900; 86901; 96361; 96365; 96366; 96375; 96376; G0480; J0360; J1170; J1200; J2405; J7030; Z7502; 99285

== ENCOUNTER 2020-08-20 07:38 | Emergency (ER) | payer OTHER ==
[~2020-08-20] VITALS: Ht 165.1 cm; Wt 57.6 kg
[~2020-08-20 07:38] MED LIST changes: +CREON DR 12,001 EACH PO
[2020-08-20] MEDS ORDERED: HYDROmorphone 1 MG, DiphenhydrAMINE 25 MG in NS 55 ML IVPB ONE ×2 (08:00→09:00)
--- NOTE | 2020-08-20 08:04 | Emergency Room Report ---
History of Present Illness General Chief Complaint: Abdominal Pain Source: Patient Present Illness HPI Disclaimer: Please note that this report is being documented using [employer] technology. This can lead to erroneous entry secondary to incorrect interpretation by the dictating instrument. HPI: 39-year-old male with a history of chronic pancreatitis presents for evaluation of abdominal pain. He reports drinking 3 glasses of wine last night and awakening this morning with epigastric abdominal cramping and nausea. Denies vomiting or fever. Consistent with his prior episodes of pancreatitis. He is compliant with his Protonix. Denies chest pain, shortness of breath, diarrhea, dysuria. 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 EOMI. Cardiovascular: RRR. S1 and S2 normal. No murmur appreciated Resp: Normal work of breathing. No cough, wheezing or crackles appreciated Abdomen: Abdomen is soft, nondistended. Tender palpation in the epigastrium left upper quadrant. No guarding. No masses. No tenderness in the lower quadrants. Skin: Intact. No abrasions, laceration or rash over the exposed skin MSK: Normal tone and bulk. Moving all extremities. No obvious deformity. Neuro: Awake and alert. Mentating appropriately. Medical Decision Making Diagnostic Impression: Primary Impression: Pancreatitis ER Course Is a 39-year-old male presenting for evaluation of abdominal pain. Differential includes is not limited to pancreatitis, cholecystitis, gastritis, gastroenteritis, peptic ulcer disease, among others. Patient arrives with stable vital signs in no acute distress. He was provided with IV fluids, antiemetics and pain medications. Labs consistent with mild exacerbation of his chronic pancreatitis. Lipase in the 700s, previously 1999. Recent CT scan from June shows changes of chronic pancreatitis. The patient's belly exam is overall benign and I do not believe he requires repeat imaging at this time. He is feeling better after receiving pain medication, antiemetics and fluids. Discussed hospitalization but patient declined. Believe he is stable for outpatient follow-up. Instructed to abstain from alcohol and marijuana as it could exacerbate his chronic pancreatitis. Instructed to return with new or worsening symptoms. He understands and agrees with this treatment plan. Laboratory Tests Test 08/20/20 08:10 White Blood Count 9.5 K/UL (4.8-10.8) Red Blood Count 4.60 M/UL (4.70-6.10) L Hemoglobin 15.3 G/DL (14.2-18.0) Hematocrit 46.2 % (42.0-52.0) Mean Corpuscular Volume 100 FL (80-99) H Mean Corpuscular Hemoglobin 33.3 PG (27.0-31.0) H Mean Corpuscular Hemoglobin Concent 33.2 G/DL (32.0-36.0) Red Cell Distribution Width 14.1 % (11.6-14.8) Platelet Count 373 K/UL (150-450) Mean Platelet Volume 6.3 FL (6.5-10.1) L Neutrophils (%) (Auto) 75.6 % (45.0-75.0) H Lymphocytes (%) (Auto) 15.6 % (20.0-45.0) L Monocytes (%) (Auto) 5.7 % (1.0-10.0) Eosinophils (%) (Auto) 1.0 % (0.0-3.0) Basophils (%) (Auto) 2.0 % (0.0-2.0) Urine Color Pale yellow Urine Appearance Clear Urine pH 5 (4.5-8.0) Urine Specific [place] 1.020 (1.005-1.035) Urine Protein Negative (NEGATIVE) Urine Glucose (UA) Negative (NEGATIVE) Urine Ketones 3+ (NEGATIVE) H Urine Blood 1+ (NEGATIVE) H Urine Nitrite Negative (NEGATIVE) Urine Bilirubin Negative (NEGATIVE) Urine Urobilinogen Normal MG/DL (0.0-1.0) Urine Leukocyte Esterase Negative (NEGATIVE) Urine RBC 0-2 /HPF (0 - 0) H Urine WBC 0 /HPF (0 - 0) Urine Squamous Epithelial Cells None /LPF (NONE/OCC) Urine Bacteria None /HPF (NONE) Sodium Level 135 MMOL/L (136-145) L Potassium Level 4.0 MMOL/L (3.5-5.1) Chloride Level 99 MMOL/L (98-107) Carbon Dioxide Level 23 MMOL/L (21-32) Anion Gap 13 mmol/L (5-15) Blood Urea Nitrogen 13 mg/dL (7-18) Creatinine 1.1 MG/DL (0.55-1.30) Estimated Glomerular Filtration Rate > 60 mL/min (>60) Glucose Level 93 MG/DL (74-106) Calcium Level 9.5 MG/DL (8.5-10.1) Total Bilirubin 0.8 MG/DL (0.2-1.0) Aspartate Amino Transferase (AST) 32 U/L (15-37) Alanine Aminotransferase (ALT) 15 U/L (12-78) Alkaline Phosphatase 87 U/L (46-116) Total Protein 8.6 G/DL (6.4-8.2) H Albumin 4.7 G/DL (3.4-5.0) Globulin 3.9 g/dL Albumin/Globulin Ratio 1.2 (1.0-2.7) Lipase 763 U/L (73-393) H Urine Opiates Screen Negative (NEGATIVE) Urine Barbiturates Screen Negative (NEGATIVE) Phencyclidine (PCP) Screen Negative (NEGATIVE) Urine Amphetamines Screen Negative (NEGATIVE) Urine Benzodiazepines Screen Positive (NEGATIVE) H Urine Cocaine Screen Negative (NEGATIVE) Urine Marijuana (THC) Screen Positive (NEGATIVE) H Serum Alcohol < 3 mg/dL Last Vital Signs Date Time Temp Pulse Resp B/P (MAP) Pulse Ox O2 Delivery O2 Flow Rate FiO2 08/20/20 07:47 98.2 96 20 188/111 (136) 94 Room Air Disposition: HOME, SELF-CARE Condition: Improved Scripts Ondansetron Odt* (ZOFRAN ODT*) 4 Mg Tab.rapdis 4 MG BC EVERY 6 HOURS PRN for Nausea & Vomiting, #20 TAB 0 Refills Prov: Baldo Delvalle MD 08/20/20 Referrals: [facility],REFERRING (PCP) Baldo Delvalle MD Aug 20, 2020 08:04
[2020-08-20 08:22] LABS: APPEARANCE,URINE CLEAR; BILIRUBIN, URINE NEGATIVE (NEGATIVE); COLOR,URINE PALE YELLOW; GLUCOSE, URINE (UA) NEGATIVE (NEGATIVE); KETONES,URINE 3+ (NEGATIVE); LEUKOCYTE ESTERASE ,URINE NEGATIVE (NEGATIVE); NITRITE,URINE NEGATIVE (NEGATIVE); PH,URINE 5 (4.5-8.0); PROTEIN,URINE NEGATIVE (NEGATIVE); UROBILINOGEN,URINE NORMAL MG/DL (0.0-1.0)
[2020-08-20 08:29] LABS: HEMATOCRIT 46.2 % (42.0-52.0); HEMOGLOBIN 15.3 G/DL (14.2-18.0); LYMPHOCYTES % (AUTO) 15.6 % (20.0-45.0); MEAN CORPUSCULAR VOLUME 100 FL (80-99); MONOCYTES % (AUTO) 5.7 % (1.0-10.0); NEUTROPHILS % (AUTO) 75.6 % (45.0-75.0); PLATELET COUNT 373 K/UL (150-450); RED CELL DISTRIBUTION WIDTH 14.1 % (11.6-14.8); WHITE BLOOD COUNT 9.5 K/UL (4.8-10.8)
[2020-08-20 08:36] LABS: ANION GAP 13 mmol/L (5-15); BLOOD UREA NITROGEN 13 mg/dL (7-18); CALCIUM 9.5 MG/DL (8.5-10.1); CARBON DIOXIDE 23 MMOL/L (21-32); CHLORIDE 99 MMOL/L (98-107); CREATININE 1.1 MG/DL (0.55-1.30); SODIUM 135 MMOL/L (136-145)
[2020-08-20 08:41] LABS: ALANINE AMINOTRANSFERASE 15 U/L (12-78); ALBUMIN 4.7 G/DL (3.4-5.0); ALBUMIN/GLOBULIN RATIO 1.2 (1.0-2.7); ALKALINE PHOSPHATASE 87 U/L (46-116); ASPARTATE AMINO TRANSFERASE 32 U/L (15-37); BILIRUBIN,TOTAL 0.8 MG/DL (0.2-1.0)
[2020-08-20] MEDS ORDERED: ONDANSETRON ODT4 MG BC (08:53)
[2020-08-20 09:45] VITALS: BP 160/78
[2020-08-20 10:07] VITALS: BP 156/78
[2020-08-20] MEDS ORDERED: TYLENOL EXTRA500 MG ORAL (10:07)
[2020-08-20] MEDS ORDERED: IBUPROFEN600 M1 ORAL (10:07)
== END 2020-08-20 10:07 | disposition home or self-care (01) ==
LOC: EMR 07:57
DX: K85.90 Acute pancreatitis without necrosis or infection, unspecified (principal); I10 Essential (primary) hypertension; Z88.8 Allergy status to other drugs, medicaments and biological substances; Z88.5 Allergy status to narcotic agent
CPT/HCPCS: 36415; 80053; 80307; 81003; 83690; 85025; 96361; 96374; 96375; 96376; G0480; J1170; J1200; J2405; J7030; S0028; Z7502; 99284

== ENCOUNTER 2020-09-01 09:39 | Emergency (ER) | payer OTHER ==
[~2020-09-01] VITALS: Ht 165.1 cm; Wt 55.8 kg
[~2020-09-01 09:39] MED LIST changes: +TYLENOL EXTRA500 MG ORAL
[2020-09-01] MEDS ORDERED: HYDROmorphone 1 MG, DiphenhydrAMINE 25 MG in NS 55 ML IVPB ONE (10:00)
--- NOTE | 2020-09-01 10:01 | Emergency Room Report ---
History of Present Illness General Chief Complaint: Abdominal Pain Source: Patient (Baldo Delvalle MD) Present Illness HPI Disclaimer: Please note that this report is being documented using DRAGON technology. This can lead to erroneous entry secondary to incorrect interpr etation by the dictating instrument. HPI: 39-year-old male with a history of chronic pancreatitis presents for evaluation of abdominal pain. Patient states that spicy food and drank 2 beers last night. Awoke with abdominal cramping nausea and vomiting. Unable to keep down medications. Denies fever, chest pain, shortness of breath. Recent abdominal CT in June shows signs of chronic pancreatitis but no other changes. States this is typical for his pancreatitis flare. Seen in the emergency department last week with similar symptoms. PMH: Pancreatitis, hypertension PSH: Denied Allergies: Denied Social Hx: Alcohol use, tobacco use (Baldo Delvalle MD) Allergies: Coded Allergies: AMLODIPINE (Verified Allergy, Mild, 01/07/20) POSSIBLE REACTION MORPHINE (Verified Allergy, Unknown, 01/07/20) COVID-19 Screening Contact w/high risk pt: No Recent Travel to affected area: No Experienced COVID-19 symptoms?: No COVID-19 Testing performed EMPLOYMENT OFFICER: No (Baldo Delvalle MD) Nursing Documentation-PMH Past Medical History: No History, Except For Hx Cardiac Problems: Yes - pancreatitis Hx Hypertension: Yes Hx Cancer: No Hx Gastrointestinal Problems: Yes Hx Neurological Problems: No (Baldo Delvalle MD) Review of Systems All Other Systems: negative except mentioned in HPI (Baldo Delvalle MD) Physical Exam Vital Signs Date Time Temp Pulse Resp B/P (MAP) Pulse Ox O2 Delivery O2 Flow Rate FiO2 09/01/20 09:46 97.0 84 17 192/117 (142) 99 Room Air General: Awake and alert, appears uncomfortable HEENT: NC/AT. EOMI. Cardiovascular: RRR. S1 and S2 normal. No murmur appreciated Resp: Normal work of breathing. No cough, wheezing or crackles appreciated Abdomen: Abdomen is soft, nondistended. Tender palpation epigastrium left upper quadrant. No peritoneal signs. No guarding. No rebound. Skin: Intact. No abrasions, laceration or rash over the exposed skin MSK: Normal tone and bulk. Moving all extremities. No obvious deformity. Neuro: Awake and alert. Mentating appropriately. (Baldo Delvalle MD) Medical Decision Making Diagnostic Impression: Primary Impression: Chronic pancreatitis Additional Impression: Abdominal pain ER Course 39-year-old male history of chronic pancreatitis presents for abdominal pain after drinking alcohol and eating spicy food last night. Differential includes not limited to gastritis, gastroenteritis, pancreatitis, obstruction among others. Lipase greater than 2000 consistent with acute flare of chronic pancreatitis. Likely secondary to spicy food and beer which he was drinking last night. Other labs are within normal limits. The patient received IV fluids and IV pain medication though he states his pain is unbearable. His nausea slightly improved but states he is still not able to eat due to pain. Will admit for intractable abdominal pain secondary to pancreatitis. Laboratory Tests Test 09/01/20 10:10 White Blood Count 15.9 K/UL (4.8-10.8) H Red Blood Count 5.21 M/UL (4.70-6.10) Hemoglobin 17.2 G/DL (14.2-18.0) Hematocrit 52.8 % (42.0-52.0) H Mean Corpuscular Volume 101 FL (80-99) H Mean Corpuscular Hemoglobin 33.0 PG (27.0-31.0) H Mean Corpuscular Hemoglobin Concent 32.5 G/DL (32.0-36.0) Red Cell Distribution Width 14.1 % (11.6-14.8) Platelet Count 384 K/UL (150-450) Mean Platelet Volume 6.6 FL (6.5-10.1) Neutrophils (%) (Auto) 80.9 % (45.0-75.0) H Lymphocytes (%) (Auto) 12.1 % (20.0-45.0) L Monocytes (%) (Auto) 4.2 % (1.0-10.0) Eosinophils (%) (Auto) 1.7 % (0.0-3.0) Basophils (%) (Auto) 1.1 % (0.0-2.0) Sodium Level 136 MMOL/L (136-145) Potassium Level 4.1 MMOL/L (3.5-5.1) Chloride Level 99 MMOL/L (98-107) Carbon Dioxide Level 26 MMOL/L (21-32) Anion Gap 11 mmol/L (5-15) Blood Urea Nitrogen 11 mg/dL (7-18) Creatinine 1.2 MG/DL (0.55-1.30) Estimated Glomerular Filtration Rate > 60 mL/min (>60) Glucose Level 111 MG/DL (74-106) H Calcium Level 9.4 MG/DL (8.5-10.1) Total Bilirubin 0.4 MG/DL (0.2-1.0) Aspartate Amino Transferase (AST) 25 U/L (15-37) Alanine Aminotransferase (ALT) 20 U/L (12-78) Alkaline Phosphatase 88 U/L (46-116) Total Protein 9.4 G/DL (6.4-8.2) H Albumin 5.1 G/DL (3.4-5.0) H Globulin 4.3 g/dL Albumin/Globulin Ratio 1.2 (1.0-2.7) Lipase > 2000 U/L (73-393) H (Baldo Delvalle MD) ER Course Patient was signed out to me by the previous physician Dr. Delvalle. Patient was noted to have a lipase greater than 2000. Patient requested to speak to me and told me that he was feeling almost completely pain-free. He was requesting a another dose of a GI cocktail here in the emergency department and wished to go home. He was tolerating p.o. in the emergency department. He was told to come back to the ER with any worsening symptoms or inability to tolerate p.o. intake. He expressed understanding and was discharged. (Olivier Hernandez M.D.) Last Vital Signs Date Time Temp Pulse Resp B/P (MAP) Pulse Ox O2 Delivery O2 Flow Rate FiO2 09/01/20 09:46 97.0 84 17 192/117 (142) 99 Room Air (Baldo Delvalle MD) Disposition: ADMITTED INPATIENT Condition: Stable Scripts Dicyclomine Hcl* (DICYCLOMINE HCL*) 10 Mg Capsule 10 MG ORAL TID, #10 CAP Prov: Olivier Hernandez M.D. 09/01/20 Mag Hydrox/Al Hydrox/Simeth (MAALOX MAXIMUM STRENGTH SUSP) 355 Ml Oral.susp 15 ML PO TID, #120 ML Prov: Olivier Hernandez M.D. 09/01/20 Baldo Delvalle MD Sep 01, 2020 10:01 Olivier Hernandez M.D. Sep 01, 2020 14:26
[2020-09-01 10:10] VITALS: BP 192/117
--- NOTE | 2020-09-01 10:15 | NUR ---
ED Nurse Note: IV line was established on left forearm 20ga, blood collected sent to lab
--- NOTE | 2020-09-01 10:44 | NUR ---
ED Nurse Note: Patient walked in to ER from home due to severe abd pain, stated has Hx of pancreatitis. Patient present diaphoretic, AAO x4, VSS at this time,
[2020-09-01 10:47] LABS: BASOPHILS % (AUTO) 1.1 % (0.0-2.0); EOSINOPHILS % (AUTO) 1.7 % (0.0-3.0); HEMATOCRIT 52.8 % (42.0-52.0); HEMOGLOBIN 17.2 G/DL (14.2-18.0); LYMPHOCYTES % (AUTO) 12.1 % (20.0-45.0); MEAN CORPUSCULAR VOLUME 101 FL (80-99); MONOCYTES % (AUTO) 4.2 % (1.0-10.0); NEUTROPHILS % (AUTO) 80.9 % (45.0-75.0); PLATELET COUNT 384 K/UL (150-450); RED BLOOD COUNT 5.21 M/UL (4.70-6.10); RED CELL DISTRIBUTION WIDTH 14.1 % (11.6-14.8); WHITE BLOOD COUNT 15.9 K/UL (4.8-10.8)
[2020-09-01 11:01] LABS: ALANINE AMINOTRANSFERASE 20 U/L (12-78); ALBUMIN 5.1 G/DL (3.4-5.0); ALBUMIN/GLOBULIN RATIO 1.2 (1.0-2.7); ALKALINE PHOSPHATASE 88 U/L (46-116); ASPARTATE AMINO TRANSFERASE 25 U/L (15-37); BILIRUBIN,TOTAL 0.4 MG/DL (0.2-1.0); BLOOD UREA NITROGEN 11 mg/dL (7-18); CALCIUM 9.4 MG/DL (8.5-10.1); CARBON DIOXIDE 26 MMOL/L (21-32); CREATININE 1.2 MG/DL (0.55-1.30)
[2020-09-01 11:08] LABS: ANION GAP 11 mmol/L (5-15); CHLORIDE 99 MMOL/L (98-107); POTASSIUM 4.1 MMOL/L (3.5-5.1); SODIUM 136 MMOL/L (136-145)
[2020-09-01] MEDS ORDERED: HYDROmorphone 1mg/ml Carpuject IVP ONE (11:30)
[2020-09-01] MEDS ORDERED: Mylanta II UD 30ml ORAL ONE ×2 (13:15→14:30)
[2020-09-01] MEDS ORDERED: Lidocaine 2% Visc 15ml soln ORAL ONE ×2 (13:15→14:30)
[2020-09-01] MEDS ORDERED: Dicyclomine HCl 10mg/5ml oral soln ORAL ONE ×2 (13:15→14:30)
[2020-09-01] MEDS ORDERED: MAALOX MAXIMUM355 M1 PO (14:24)
[2020-09-01] MEDS ORDERED: DICYCLOMINE HCL10 MG ORAL (14:24)
[2020-09-01 14:26] LABS: APPEARANCE,URINE SLIGHTLY CLOUDY; BILIRUBIN, URINE NEGATIVE (NEGATIVE); COLOR,URINE PALE YELLOW; GLUCOSE, URINE (UA) NEGATIVE (NEGATIVE); KETONES,URINE NEGATIVE (NEGATIVE); LEUKOCYTE ESTERASE ,URINE NEGATIVE (NEGATIVE); NITRITE,URINE NEGATIVE (NEGATIVE); PH,URINE 5 (4.5-8.0); PROTEIN,URINE 1+ (NEGATIVE); UROBILINOGEN,URINE NORMAL MG/DL (0.0-1.0)
[2020-09-01] MEDS ORDERED: NORCO 5-325 TA1 EAC1 ORAL (14:36)
[2020-09-01 14:41] VITALS: BP 192/117
== END 2020-09-01 14:42 | disposition home or self-care (01) ==
LOC: EMR 10:05
DX: K86.1 Other chronic pancreatitis (principal); R10.12 Left upper quadrant pain; I10 Essential (primary) hypertension; Z88.5 Allergy status to narcotic agent; Z88.8 Allergy status to other drugs, medicaments and biological substances
CPT/HCPCS: 36415; 80053; 81003; 83690; 85025; 96361; 96374; 96375; J1170; J1200; J2405; S0028; Z7502; 99285

== ENCOUNTER 2020-11-29 18:39 | Emergency (ER) | payer OTHER ==
[~2020-11-29] VITALS: Ht 165.1 cm; Wt 56.2 kg
[~2020-11-29 18:39] MED LIST changes: +DICYCLOMINE HCL10 MG ORAL; +MAALOX MAXIMUM355 M1 PO
--- NOTE | 2020-11-29 19:00 | NUR ---
ED Nurse Note: patient came in through ambulatory triage hx of pancreatitis, complaints of abdominal pain x1 week, pt is hypertensive says he forgot to take medication today all other vitals stable
--- NOTE | 2020-11-29 20:00 | NUR ---
ED Nurse Note: blood specimen and urine sent to lab
[2020-11-29] MEDS ORDERED: Ketorolac 30mg Inj IV ONE (20:30)
--- NOTE | 2020-11-29 20:33 | Emergency Room Report ---
History of Present Illness General Chief Complaint: Abdominal Pain Source: Patient Present Illness HPI 40-year-old male with history of chronic pancreatitis here with abdominal pain. Patient says that this abdominal pain feels the usual for his normal pancreatitis. Pain is sharp in nature, located in the epigastrium, does not otherwise radiate. Says he feels nauseous and has vomited several times nonbilious nonbloody. No fevers, chills, chest pain, palpitation, shortness of breath, diarrhea, dysuria. 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 COVID-19 Screening: Negative COVID-19 COVID-19 Testing Source: DIRECTOR OF CAPITAL GIVING Nursing Documentation-[facility] Past Medical History: No History, Except For Hx Cardiac Problems: Yes - pancreatitis Hx Hypertension: Yes Hx Cancer: No Hx Gastrointestinal Problems: Yes Hx Neurological Problems: No Review of Systems All Other Systems: negative except mentioned in HPI Physical Exam Vital Signs Date Time Temp Pulse Resp B/P (MAP) Pulse Ox O2 Delivery O2 Flow Rate FiO2 11/29/20 18:59 98.6 96 18 181/116 (137) 96 Sp02 EP Interpretation: reviewed, normal General Appearance: no apparent distress, alert, non-toxic Head: normocephalic, atraumatic Eyes: bilateral eye normal inspection, bilateral eye PERRL ENT: hearing grossly normal, normal pharynx, no angioedema, normal voice Neck: full range of motion, supple/symm/no masses Respiratory: chest non-tender, lungs clear, normal breath sounds, speaking full sentences Cardiovascular #1: regular rate, rhythm, no edema Cardiovascular #2: 2+ carotid (R), 2+ carotid (L), 2+ radial (R), 2+ radial (L), 2+ dorsalis pedis (R), 2+ dorsalis pedis (L) Gastrointestinal: normal bowel sounds, soft, non-distended, no rebound, other - epigastric abd pain. no rebound or guarding. negative rovsing's sign, negative zurita's sign Rectal: deferred Genitourinary: normal inspection, no CVA tenderness Musculoskeletal: back normal, normal range of motion, calf tenderness, gait/station normal, non-tender Neurologic: alert, motor strength/tone normal, oriented x3, sensory intact, responsive, speech normal Psychiatric: judgement/insight normal, memory normal, mood/affect normal, no suicidal/homicidal ideation Reflexes: 3+ bicep (R), 3+ bicep (L), 3+ tricep (R), 3+ tricep (L), 3+ knee (R), 3+ knee (L) Lymphatic: no adenopathy Medical Decision Making Diagnostic Impression: Primary Impression: Pancreatitis ER Course Laboratory Tests Test 11/29/20 20:17 White Blood Count 9.2 K/UL (4.8-10.8) Red Blood Count 4.15 M/UL (4.70-6.10) L Hemoglobin 13.2 G/DL (14.2-18.0) L Hematocrit 39.6 % (42.0-52.0) L Mean Corpuscular Volume 95 FL (80-99) Mean Corpuscular Hemoglobin 31.8 PG (27.0-31.0) H Mean Corpuscular Hemoglobin Concent 33.4 G/DL (32.0-36.0) Red Cell Distribution Width 16.8 % (11.6-14.8) H Platelet Count 321 K/UL (150-450) Mean Platelet Volume 6.2 FL (6.5-10.1) L Neutrophils (%) (Auto) 65.0 % (45.0-75.0) Lymphocytes (%) (Auto) 25.3 % (20.0-45.0) Monocytes (%) (Auto) 7.5 % (1.0-10.0) Eosinophils (%) (Auto) 1.1 % (0.0-3.0) Basophils (%) (Auto) 1.1 % (0.0-2.0) Urine Color Yellow Urine Appearance Clear Urine pH 5 (4.5-8.0) Urine Specific [place] 1.025 (1.005-1.035) Urine Protein 1+ (NEGATIVE) H Urine Glucose (UA) Negative (NEGATIVE) Urine Ketones 1+ (NEGATIVE) H Urine Blood Negative (NEGATIVE) Urine Nitrite Negative (NEGATIVE) Urine Bilirubin Negative (NEGATIVE) Urine Urobilinogen 1 MG/DL (0.0-1.0) H Urine Leukocyte Esterase 1+ (NEGATIVE) H Urine RBC 0 /HPF (0 - 0) Urine WBC 0-2 /HPF (0 - 0) Urine Squamous Epithelial Cells Occasional /LPF Urine Calcium Oxalate Crystals Few /LPF (NONE) Urine Bacteria Occasional /HPF (NONE) Urine Mucus Occasional /LPF Sodium Level 139 MMOL/L (136-145) Potassium Level 3.5 MMOL/L (3.5-5.1) Chloride Level 102 MMOL/L (98-107) Carbon Dioxide Level 27 MMOL/L (21-32) Anion Gap 8 mmol/L (5-15) Blood Urea Nitrogen Pending Creatinine 1.0 MG/DL (0.55-1.30) Estimated Glomerular Filtration Rate > 60 mL/min (>60) Glucose Level 108 MG/DL (74-106) H Calcium Level 9.3 MG/DL (8.5-10.1) Total Bilirubin Pending Aspartate Amino Transferase (AST) Pending Alanine Aminotransferase (ALT) 38 U/L (12-78) Alkaline Phosphatase 88 U/L (46-116) Total Protein 8.0 G/DL (6.4-8.2) Albumin 4.1 G/DL (3.4-5.0) Globulin 3.9 g/dL Albumin/Globulin Ratio 1.1 (1.0-2.7) Lipase > 2000 U/L (73-393) H Urine Opiates Screen Positive (NEGATIVE) H Urine Barbiturates Screen Negative (NEGATIVE) Phencyclidine (PCP) Screen Negative (NEGATIVE) Urine Amphetamines Screen Negative (NEGATIVE) Urine Benzodiazepines Screen Positive (NEGATIVE) H Urine Cocaine Screen Negative (NEGATIVE) Urine Marijuana (THC) Screen Positive (NEGATIVE) H Serum Alcohol Pending 32-year-old male here with epigastric abdominal pain. Patient has a history of pancreatitis. Lipase greater than 2000. Patient however was tolerating p.o. throughout his stay in the emergency department. He was only complaining of pain. Patient requesting to be discharged home after pain is under control. Says he does not want to be admitted to the hospital. He was given 1 mg of Dilaudid IV in the emergency department. Given a GI cocktail and Toradol as well. Patient said his pain was mildly improved and requesting second dose of IV pain medication. Patient to be given a second dose of Dilaudid IV. To be discharged pending pain improvement. Signed out to oncoming physician. Last Vital Signs Date Time Temp Pulse Resp B/P (MAP) Pulse Ox O2 Delivery O2 Flow Rate FiO2 11/29/20 18:59 98.6 96 18 181/116 (137) 96 Olivier Hernandez M.D. Nov 29, 2020 20:33
[2020-11-29] MEDS ORDERED: HYDROmorphone 1mg/ml Carpuject IVP ONE ×2 (20:45→21:45)
[2020-11-29] MEDS ORDERED: DiphenhydrAMINE 50mg/ml Inj IVP ONE (20:45)
[2020-11-29 20:54] LABS: APPEARANCE,URINE CLEAR; BILIRUBIN, URINE NEGATIVE (NEGATIVE); GLUCOSE, URINE (UA) NEGATIVE (NEGATIVE); KETONES,URINE 1+ (NEGATIVE); LEUKOCYTE ESTERASE ,URINE 1+ (NEGATIVE); NITRITE,URINE NEGATIVE (NEGATIVE); PH,URINE 5 (4.5-8.0); PROTEIN,URINE 1+ (NEGATIVE); UROBILINOGEN,URINE 1 MG/DL (0.0-1.0)
[2020-11-29 20:55] LABS: BASOPHILS % (AUTO) 1.1 % (0.0-2.0); EOSINOPHILS % (AUTO) 1.1 % (0.0-3.0); HEMATOCRIT 39.6 % (42.0-52.0); HEMOGLOBIN 13.2 G/DL (14.2-18.0); LYMPHOCYTES % (AUTO) 25.3 % (20.0-45.0); MEAN CORPUSCULAR VOLUME 95 FL (80-99); MONOCYTES % (AUTO) 7.5 % (1.0-10.0); PLATELET COUNT 321 K/UL (150-450); RED BLOOD COUNT 4.15 M/UL (4.70-6.10); RED CELL DISTRIBUTION WIDTH 16.8 % (11.6-14.8); WHITE BLOOD COUNT 9.2 K/UL (4.8-10.8)
[2020-11-29 20:57] LABS: ANION GAP 8 mmol/L (5-15); CARBON DIOXIDE 27 MMOL/L (21-32); CHLORIDE 102 MMOL/L (98-107); POTASSIUM 3.5 MMOL/L (3.5-5.1); SODIUM 139 MMOL/L (136-145)
[2020-11-29 21:07] LABS: COLOR,URINE YELLOW
[2020-11-29] MEDS ORDERED: Dicyclomine HCl 10mg/5ml oral soln ORAL ONE (21:15)
[2020-11-29] MEDS ORDERED: Lidocaine 2% Visc 15ml soln ORAL ONE (21:15)
[2020-11-29] MEDS ORDERED: Mylanta II UD 30ml ORAL ONE (21:15)
[2020-11-29 21:38] LABS: ALANINE AMINOTRANSFERASE 38 U/L (12-78); ALBUMIN 4.1 G/DL (3.4-5.0); ALBUMIN/GLOBULIN RATIO 1.1 (1.0-2.7); ALKALINE PHOSPHATASE 88 U/L (46-116); CALCIUM 9.3 MG/DL (8.5-10.1)
[2020-11-29 21:56] LABS: ASPARTATE AMINO TRANSFERASE 24 U/L (15-37); BILIRUBIN,TOTAL 0.3 MG/DL (0.2-1.0); BLOOD UREA NITROGEN 8 mg/dL (7-18)
[2020-11-29 22:09] VITALS: BP 166/106
[2020-11-29] MEDS ORDERED: NARCAN4 MG NS (22:27)
[2020-11-29] MEDS ORDERED: HYDROCODON-ACE1 EA15 ORAL (22:27)
[2020-11-29] MEDS ORDERED: ONDANSETRON ODT4 MG BC (22:27)
[2020-11-29 23:00] VITALS: BP 166/106
--- NOTE | 2020-11-29 23:00 | NUR ---
AMA: SEE AMA FORM.
--- NOTE | 2020-11-29 23:00 | NUR ---
Patient went AMA pt is aox4, on room air, hypertensive but plan on taking medication at home other vital signs stable. pt was given dc and prescription instructions, pt was able to verbalize understanding, pt id band and iv site removed without complications. pt is able to ambulate with steady gait. pt took all belongings.
== END 2020-11-29 23:00 | disposition left against medical advice (07) ==
LOC: EMR 19:00
DX: K85.90 Acute pancreatitis without necrosis or infection, unspecified (principal); I10 Essential (primary) hypertension; Z88.5 Allergy status to narcotic agent; Z88.8 Allergy status to other drugs, medicaments and biological substances; Z53.29 Procedure and treatment not carried out because of patient's decision for other reasons
CPT/HCPCS: 36415; 80053; 80307; 81003; 83690; 85025; 96361; 96374; 96375; 96376; G0480; J1170; J1200; J1885; J2405; J7030; Z7502; 99284

== ENCOUNTER 2020-12-12 04:10 | Emergency (ER) | payer OTHER ==
[~2020-12-12] VITALS: Ht 165.1 cm; Wt 57.6 kg
[~2020-12-12 04:10] MED LIST changes: +NARCAN4 MG NS
--- NOTE | 2020-12-12 04:19 | NUR ---
at bedside for pt eval
[2020-12-12 04:20] VITALS: BP 132/84
--- NOTE | 2020-12-12 04:25 | Emergency Room Report ---
History of Present Illness General Chief Complaint: Abdominal Pain Source: Patient, Medical Record (Bryce Baron MD) Present Illness HPI Is a 40-year-old male well-known to this ER. He has a history of call induced pancreatitis. He has been here numerous times. He presents with chief complaint abdominal pain with nausea vomiting. Onset for 2 days now. Pain is epigastric and left upper quadrant. Pain is sharp in nature. Vomiting is nonbloody nonbilious. Pain is 10 out of 10. Worse with movement. Worse with palpation. Better with rest. Unable to keep anything down. No diarrhea. No fever. 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 (Bryce Baron MD) Patient History Past Medical History: see triage record, old chart reviewed, HTN Past Surgical History: other Pertinent Family History: none Social History: Denies: smoking Immunizations: other (Bryce Baron MD) Nursing Documentation-PMH Hx Cardiac Problems: Yes - pancreatitis Hx Hypertension: Yes Hx Cancer: No Hx Gastrointestinal Problems: Yes Hx Neurological Problems: No (Bryce Baorn MD) Review of Systems Eye: Denies: eye pain, blurred vision ENT: Denies: ear pain, nose congestion, throat swelling Respiratory: Denies: cough, shortness of breath Cardiovascular: Denies: chest pain, palpitations Gastrointestinal: Reports: abdominal pain, nausea, vomiting; Denies: diarrhea Musculoskeletal: Denies: back pain, joint pain Skin: Denies: rash Neurological: Denies: headache, numbness Endocrine: Denies: increased thirst, increased urine Hematologic/Lymphatic: Denies: easy bruising All Other Systems: negative except mentioned in HPI (Bryce Baron MD) Physical Exam Vital Signs Date Time Temp Pulse Resp B/P (MAP) Pulse Ox O2 Delivery O2 Flow Rate FiO2 12/12/20 04:12 98.2 85 20 132/84 (100) 98 Vitals normal Sp02 EP Interpretation: reviewed, normal General Appearance: well appearing, no apparent distress, alert Head: normocephalic, atraumatic Eyes: bilateral eye PERRL, bilateral eye EOMI ENT: hearing grossly normal, normal pharynx Neck: full range of motion, supple, no meningismus Respiratory: chest non-tender, lungs clear, normal breath sounds Cardiovascular #1: regular rate, rhythm, no murmur Gastrointestinal: normal bowel sounds, no mass, no organomegaly, no bruit, non- distended, tenderness - Epigastric and left upper quadrant Musculoskeletal: back normal, normal range of motion, gait/station normal Psychiatric: mood/affect normal (Bryce Baron MD) Medical Decision Making Diagnostic Impression: Primary Impression: Acute pancreatitis Qualified Codes: K85.90 - Acute pancreatitis without necrosis or infection, unspecified Additional Impression: Transaminitis ER Course Presents with abdominal pain in the upper quadrant area. He does have evidence of elevated LFTs and lipase. This is typical for him. He denies recent alcohol use. Pain is improved. Labs unremarkable except for elevated lipase and transaminase. He has multiple CT scan in the past. He wants to hold off unless his pain is not improved. (Bryce Baron MD) ER Course Patient endorsed to me by Dr. Baron. Patient states that he feels much better. Patient has prior history of chronic pancreatitis and had been given pain medications. Patient states that he has follow-up with his GI doctor. Patient states he will return if worse. This medical record is generated with [employer] compliance tester software. There may be some compliance tester discrepancies related to use of this software Labs Test 12/12/20 04:44 12/12/20 04:46 White Blood Count 12.3 K/UL (4.8-10.8) Red Blood Count 4.56 M/UL (4.70-6.10) Hemoglobin 14.1 G/DL (14.2-18.0) Hematocrit 43.6 % (42.0-52.0) Mean Corpuscular Volume 96 FL (80-99) Mean Corpuscular Hemoglobin 31.0 PG (27.0-31.0) Mean Corpuscular Hemoglobin Concent 32.4 G/DL (32.0-36.0) Red Cell Distribution Width 15.6 % (11.6-14.8) Platelet Count 409 K/UL (150-450) Mean Platelet Volume 6.1 FL (6.5-10.1) Neutrophils (%) (Auto) 71.0 % (45.0-75.0) Lymphocytes (%) (Auto) 18.1 % (20.0-45.0) Monocytes (%) (Auto) 7.8 % (1.0-10.0) Eosinophils (%) (Auto) 1.2 % (0.0-3.0) Basophils (%) (Auto) 1.9 % (0.0-2.0) Sodium Level 138 MMOL/L (136-145) Potassium Level 3.4 MMOL/L (3.5-5.1) Chloride Level 102 MMOL/L (98-107) Carbon Dioxide Level 25 MMOL/L (21-32) Anion Gap 11 mmol/L (5-15) Blood Urea Nitrogen 15 mg/dL (7-18) Creatinine 1.4 MG/DL (0.55-1.30) Estimat Glomerular Filtration Rate > 60 mL/min (>60) Glucose Level 135 MG/DL (74-106) Calcium Level 9.5 MG/DL (8.5-10.1) Total Bilirubin 0.3 MG/DL (0.2-1.0) Aspartate Amino Transf (AST/SGOT) 107 U/L (15-37) Alanine Aminotransferase (ALT/SGPT) 102 U/L (12-78) Alkaline Phosphatase 121 U/L (46-116) Total Protein 7.8 G/DL (6.4-8.2) Albumin 4.3 G/DL (3.4-5.0) Globulin 3.5 g/dL Albumin/Globulin Ratio 1.2 (1.0-2.7) Lipase 905 U/L (73-393) Urine Color Pale yellow Urine Appearance Clear Urine pH 5 (4.5-8.0) Urine Specific [place] 1.020 (1.005-1.035) Urine Protein Negative (NEGATIVE) Urine Glucose (UA) Negative (NEGATIVE) Urine Ketones Negative (NEGATIVE) Urine Blood Negative (NEGATIVE) Urine Nitrite Negative (NEGATIVE) Urine Bilirubin Negative (NEGATIVE) Urine Urobilinogen Normal MG/DL (0.0-1.0) Urine Leukocyte Esterase Negative (NEGATIVE) (Godfrey Ricardo MD) Last Vital Signs Date Time Temp Pulse Resp B/P (MAP) Pulse Ox O2 Delivery O2 Flow Rate FiO2 12/12/20 04:20 98.2 20 132/84 98 12/12/20 04:20 85 Status: improved (Bryce Baron MD) Status: improved (Godfrey Ricardo MD) Disposition: HOME, SELF-CARE Condition: Stable Scripts Hydrocodone/Acetaminophen 5-325* (HYDROCODONE/ACETAMINOPHEN 5-325*) 1 Each Tablet 1 TAB ORAL Q6H PRN for For Pain, #15 TAB 0 Refills Prov: Bryce Baron MD 12/12/20 Referrals: [facility],REFERRING (PCP) Bryce Braon MD Dec 12, 2020 04:25 Godfrey Ricardo MD Dec 12, 2020 07:57
[2020-12-12] MEDS ORDERED: HYDROmorphone 1mg/ml Carpuject IVP ONE ×2 (04:30→05:45)
--- NOTE | 2020-12-12 04:47 | NUR ---
pt aox3 c/o abdominal pain. pt connected to monitor. 18g to lfa established. labs collected and sent to lab. pt connected to monitor. v/s stable. pt in no distress. will continue to monitor pt closely.
[2020-12-12 04:50] LABS: BASOPHILS % (AUTO) 1.9 % (0.0-2.0); EOSINOPHILS % (AUTO) 1.2 % (0.0-3.0); HEMATOCRIT 43.6 % (42.0-52.0); HEMOGLOBIN 14.1 G/DL (14.2-18.0); LYMPHOCYTES % (AUTO) 18.1 % (20.0-45.0); MEAN CORPUSCULAR VOLUME 96 FL (80-99); MONOCYTES % (AUTO) 7.8 % (1.0-10.0); PLATELET COUNT 409 K/UL (150-450); RED BLOOD COUNT 4.56 M/UL (4.70-6.10); RED CELL DISTRIBUTION WIDTH 15.6 % (11.6-14.8); WHITE BLOOD COUNT 12.3 K/UL (4.8-10.8)
[2020-12-12 05:02] LABS: ANION GAP 11 mmol/L (5-15); BLOOD UREA NITROGEN 15 mg/dL (7-18); CALCIUM 9.5 MG/DL (8.5-10.1); CARBON DIOXIDE 25 MMOL/L (21-32); CHLORIDE 102 MMOL/L (98-107); CREATININE 1.4 MG/DL (0.55-1.30); POTASSIUM 3.4 MMOL/L (3.5-5.1); SODIUM 138 MMOL/L (136-145)
[2020-12-12 05:06] LABS: APPEARANCE,URINE CLEAR; BILIRUBIN, URINE NEGATIVE (NEGATIVE); COLOR,URINE PALE YELLOW; GLUCOSE, URINE (UA) NEGATIVE (NEGATIVE); KETONES,URINE NEGATIVE (NEGATIVE); LEUKOCYTE ESTERASE ,URINE NEGATIVE (NEGATIVE); NITRITE,URINE NEGATIVE (NEGATIVE); PH,URINE 5 (4.5-8.0); PROTEIN,URINE NEGATIVE (NEGATIVE); UROBILINOGEN,URINE NORMAL MG/DL (0.0-1.0)
[2020-12-12 05:07] LABS: ALANINE AMINOTRANSFERASE 102 U/L (12-78); ALBUMIN 4.3 G/DL (3.4-5.0); ALBUMIN/GLOBULIN RATIO 1.2 (1.0-2.7); ALKALINE PHOSPHATASE 121 U/L (46-116); ASPARTATE AMINO TRANSFERASE 107 U/L (15-37); BILIRUBIN,TOTAL 0.3 MG/DL (0.2-1.0)
[2020-12-12] MEDS ORDERED: Lidocaine 2% Visc 15ml soln ORAL ONE (05:30)
[2020-12-12] MEDS ORDERED: Mylanta II UD 30ml ORAL ONE (05:30)
[2020-12-12] MEDS ORDERED: HYDROCODON-ACE1 EA15 ORAL (05:46)
[2020-12-12 06:50] VITALS: BP 129/81
--- NOTE | 2020-12-12 07:02 | NUR ---
report given to Kedar zadii
[2020-12-12 08:01] VITALS: BP 120/79
--- NOTE | 2020-12-12 08:01 | NUR ---
ED Nurse Note: Pt cleared by health care Provider for discharge. DC instructions/prescription was given and explained to pt and verbalized understanding of teachings. All medical deviecs such as ID band removed. Pt is AAO x4, ambulatory and left with all personal belongings.
== END 2020-12-12 08:03 | disposition home or self-care (01) ==
LOC: EMR 04:19
DX: K85.90 Acute pancreatitis without necrosis or infection, unspecified (principal); I10 Essential (primary) hypertension; R74.01 Elevation of levels of liver transaminase levels; Z88.6 Allergy status to analgesic agent
CPT/HCPCS: 36415; 80053; 81003; 83690; 85025; 96361; 96374; 96375; 96376; J1170; J2405; J7030; S0028; Z7502; 99284